=== PATIENT | female | born 1995 | race Caucasian/White ===

== ENCOUNTER 2018-02-15 01:28 | Observation (INO) | payer OTHER, SELFPAY ==
[2018-02-15 01:59] LABS: Absolute Lymphocytes (CBC) 2.1 K/uL (0.7-4.9); Absolute Monocytes 0.8 K/uL (0.1-1.3); Absolute Neutrophil 5.1 K/uL (1.8-8.0); Basophils % 0.6 % (0-1.3); Eosinophils % 1.5 % (0-4.4); Hematocrit 38.8 % (36.0-45.0); MCV 88.6 fL (80-100); MPV 7.3 fL (7.6-11.3); Monocytes % 9.6 % (3.3-12.3); RBC Red Blood Cell Count 4.38 M/uL (3.86-4.86)
[2018-02-15] MEDS ORDERED: NA CHLORIDE 0.9% 1,000 ML ONE (02:08)
[2018-02-15] MEDS ORDERED: KETOROLAC 30 MG/ML INJ ONE (02:08)
[2018-02-15 02:20] LABS: ALT/SGPT 28 U/L (12-78); AST/SGOT 19 U/L (15-37); Albumin 3.8 g/dL (3.4-5.0); Alkaline Phosphatase 78 U/L (45-117); BUN Blood Urea Nitrogen 8 mg/dL (7-18); Bicarbonate 22 mmol/L (21-32); Bilirubin Direct < 0.1 mg/dL (0-0.2); Bilirubin Total 0.2 mg/dL (0.2-1.0); Glucose Level 99 mg/dL (74-106); Lipase 107 U/L (73-393); Protein, Total 7.5 g/dL (6.4-8.2); Sodium Level 140 mmol/L (136-145)
[2018-02-15 02:29] LABS: Urine Bacteria <20 /HPF (<20); Urine Culture Reflex Order NOT NEEDED; Urine Mucus HEAVY /HPF (NONE SEEN); Urine RBC <5 /HPF (NONE SEEN)
[2018-02-15 02:31] LABS: Urine Blood 1+ (NEG); Urine Glucose NEGATIVE (NEG); Urine Protein NEGATIVE (NEG); Urine Specific Gravity >1.030 (1.005-1.030); Urine pH 5.5 (5.0-7.0)
--- NOTE | 2018-02-15 05:06 | ER ---
Nurse's Notes [facility] Name: Karen Freeman Age: 22 yrs Sex: Female : 1995 Arrival Date: 02/15/2018 Time: 01:28 Bed 5 Private MD: Diagnosis: Hemoperitoneum;Other ovarian cysts-right ovarian cystic lesion Presentation: 02/15 01:37 Presenting complaint: Patient states: she is having abdominal pain 7/10 for approx 1 bb hour denies N/V/D, states pain is constant with intermittent sharper pains and she is feeling a lot of pressure when she tries to urinate. Transition of care: patient was not received from another setting of care. Onset of symptoms was February 15, 2018. Risk Assessment: Do you want to hurt yourself or someone else? Patient reports no desire to harm self or others. Initial Sepsis Screen: Does the patient meet any 2 criteria? No. Patient's initial sepsis screen is negative. Does the patient have a suspected source of infection? No. Patient's initial sepsis screen is negative. Care prior to arrival: None. 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 - Social history:: Smoking status: Patient/guardian denies using tobacco, Patient uses alcohol, occasionally. Patient/guardian denies using street drugs. - Ebola Screening: : No symptoms or risks identified at this time. Screenin:41 Abuse screen: Denies threats or abuse. Denies injuries from another. Nutritional bp screening: No deficits noted. Tuberculosis screening: No symptoms or risk factors identified. Fall Risk None identified. Assessment: 01:40 General: Appears in no apparent distress. uncomfortable, Behavior is cooperative, bp appropriate for age, anxious. Pain: Complains of pain in pelvis Pain currently is 7 out of 10 on a pain scale. Neuro: Level of Consciousness is awake, alert, obeys commands, Oriented to person, place, time, situation, Appropriate for age. Cardiovascular: No deficits noted. Respiratory: Airway is patent Respiratory effort is even, unlabored, Respiratory pattern is regular, symmetrical. GI: Bowel sounds present X 4 quads. Abd is soft X 4 quads Patient currently denies diarrhea, nausea, vomiting. : Reports urgency. EENT: No deficits noted. Derm: No deficits noted. Musculoskeletal: Circulation, motion, and sensation intact. Range of motion: intact in all extremities. 03:00 Reassessment: Patient appears in no apparent distress at this time. No changes from ak1 previously documented assessment. Patient states feeling better. 05:15 Reassessment: Patient appears in no apparent distress at this time. No changes from ak1 previously documented assessment. Patient states feeling better. Patient states symptoms have improved. pt informed of admission status and pain reduced with medication. . Vital Signs: 01:39 BP 121 / 71; Pulse 104; Resp 16 S; Temp 98.1(O); Pulse Ox 98% on R/A; Weight 83.91 kg bb (R); Height 5 ft. 9 in. (175.26 cm) (R); Pain 7/10; 04:32 BP 104 / 62; Pulse 78; Resp 16; Pulse Ox 98% on R/A; Pain 0/10; ak1 06:05 BP 108 / 63; Pulse 71; Resp 16; Temp 98.2; Pulse Ox 98% on R/A; ak1 01:39 Body Mass Index 27.32 (83.91 kg, 175.26 cm) bb ED Course: 01:28 Patient arrived in ED. ds1 01:38 Triage completed. bb 01:39 Arm band placed on Patient placed in an exam room, on a stretcher, on pulse oximetry. bb 01:40 Inserted saline lock: 20 gauge in right forearm, using aseptic technique. Blood bp collected. 01:41 Patient has correct armband on for positive identification. Bed in low position. Call bp light in reach. Side rails up X2. 01:44 Michael Deras NP is PHCP. pm1 01:44 Alex Tierney MD is Attending Physician. pm1 01:47 Reg Guardado, TEDDY is Primary Nurse. bp 02:57 CT Abd/Pelvis - W/Contrast: IV contrast only In Process Unspecified. EDMS 03:17 CT completed. Patient tolerated procedure well. Patient moved to CT via stretcher. Patient moved back from [place]. 05:04 Janeth Yoo MD is Hospitalizing Provider. pm1 05:19 No provider procedures requiring assistance completed. Patient admitted, IV remains in ak1 place. Administered Medications: 02:04 Drug: NS 0.9% 1000 ml Route: IV; Rate: 1000 ml; Site: right forearm; ak1 05:05 Follow up: IV Status: Completed infusion ak1 02:05 Drug: TORadol 30 mg Route: IVP; Site: right forearm; ak1 05:04 Follow up: Response: No adverse reaction ak1 05:18 Drug: morphine 4 mg Route: IVP; Site: right forearm; ak1 05:18 Follow up: Response: No adverse reaction ak1 Outcome: 05:05 Decision to Hospitalize by Provider. pm1 05:20 Condition: stable ak1 05:20 Instructed on the need for admit. 06:08 Admitted to L \T\ D, accompanied by tech, via wheelchair, room 279, with chart, Report bb called to Anibal ESPINAL 06:21 Patient left the ED. ak1 Signatures: Dispatcher [employer] Teja Conway Vashti Costa ds1 Angie Silveira RN RN bb Rosetta Peck RN RN ak1 Michael Deras, MOBILE APPLICATION ENGINEER MOBILE APPLICATION ENGINEER pm1 Reg Guardado, RN RN bp
--- NOTE | 2018-02-15 05:06 | EDPHYS ---
Physician Documentation [facility] Name: Karen Freeman Age: 22 yrs Sex: Female : 1995 Arrival Date: 02/15/2018 Time: 01:28 Bed 5 Private MD: ED Physician Alex Tierney HPI: 02/15 02:00 This 22 yrs old Female presents to ER via Ambulatory with complaints of pm1 Pelvic Pain, Abdominal Pain. 02:00 The patient presents with abdominal pain in the lower abdomen. Onset: The pm1 symptoms/episode began/occurred 1 hour(s) ago. The symptoms do not radiate. Associated signs and symptoms: Pertinent positives: Pressure with urination, Pertinent negatives: nausea, vomiting, and diarrhea, fever, vaginal discharge. The symptoms are described as sharp. Modifying factors: The symptoms are alleviated by nothing, the symptoms are aggravated by movement. Severity of pain: in the emergency department the pain is actually worse. The patient has experienced a previous episode, many years ago, and the symptoms today are exactly the same, ruptured ovarian cyst. The patient has not recently seen a physician. 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 - Social history:: Smoking status: Patient/guardian denies using tobacco, Patient uses alcohol, occasionally. Patient/guardian denies using street drugs. - Ebola Screening: : No symptoms or risks identified at this time. ROS: 02:00 Constitutional: Negative for fever, chills, and weight loss, Eyes: Negative for injury, pm1 pain, redness, and discharge, ENT: Negative for injury, pain, and discharge, Neck: Negative for injury, pain, and swelling, Cardiovascular: Negative for chest pain, palpitations, and edema, Respiratory: Negative for shortness of breath, cough, wheezing, and pleuritic chest pain. 02:00 Back: Negative for injury and pain, : Negative for injury, bleeding, discharge, and swelling, MS/Extremity: Negative for injury and deformity, Skin: Negative for injury, rash, and discoloration. 02:00 Neuro: Negative for headache, weakness, numbness, tingling, and seizure. 02:00 Abdomen/GI: Positive for abdominal pain, of the right lower quadrant and left lower quadrant, Negative for nausea, vomiting, and diarrhea. Exam: 02:00 Constitutional: This is a well developed, well nourished patient who is awake, alert, pm1 and in no acute distress. Head/Face: Normocephalic, atraumatic. Neck: Trachea midline, no thyromegaly or masses palpated, and no cervical lymphadenopathy. Supple, full range of motion without nuchal rigidity, or vertebral point tenderness. No Meningismus. Chest/axilla: Normal chest wall appearance and motion. Nontender with no deformity. No lesions are appreciated. Cardiovascular: Regular rate and rhythm with a normal S1 and S2. No gallops, murmurs, or rubs. Normal PMI, no JVD. No pulse deficits. Respiratory: Lungs have equal breath sounds bilaterally, clear to auscultation and percussion. No rales, rhonchi or wheezes noted. No increased work of breathing, no retractions or nasal flaring. 02:00 Back: No spinal tenderness. No costovertebral tenderness. Full range of motion. Skin: Warm, dry with normal turgor. Normal color with no rashes, no lesions, and no evidence of cellulitis. MS/ Extremity: Pulses equal, no cyanosis. Neurovascular intact. Full, normal range of motion. 02:00 Abdomen/GI: Inspection: abdomen appears normal, Bowel sounds: normal, Palpation: soft, mild abdominal tenderness, in the right lower quadrant and left lower quadrant, mass, is not appreciated, rebound tenderness, is not appreciated. 02:00 Neuro: Orientation: is normal, Motor: moves all fours. Vital Signs: 01:39 BP 121 / 71; Pulse 104; Resp 16 S; Temp 98.1(O); Pulse Ox 98% on R/A; Weight 83.91 kg bb (R); Height 5 ft. 9 in. (175.26 cm) (R); Pain 7/10; 04:32 BP 104 / 62; Pulse 78; Resp 16; Pulse Ox 98% on R/A; Pain 0/10; ak1 06:05 BP 108 / 63; Pulse 71; Resp 16; Temp 98.2; Pulse Ox 98% on R/A; ak1 01:39 Body Mass Index 27.32 (83.91 kg, 175.26 cm) bb MDM: 01:44 Patient medically screened. pm1 03:13 Data reviewed: vital signs. Data interpreted: Pulse oximetry: on room air is 98 %. pm1 Interpretation: normal. 04:37 Physician consultation: Serafin Dela Cruz was contacted at 04:38, regarding CT result, pm1 Hemoperitoneum from possible ruptured ovarian cyst. Recommends gynecology consult and ultrasound. Patient with similar appearance CT in 2013. 05:03 Physician consultation: Janeth Yoo MD was contacted at 05:03, regarding admission, pm1 consult, patient's condition, and will see patient. 02/15 01:39 Order name: Basic Metabolic Panel; Complete Time: 02:23 bp 02/15 01:39 Order name: CBC with Diff; Complete Time: 02:23 bp 02/15 01:39 Order name: Creatinine for Radiology; Complete Time: 02:23 bp 02/15 01:39 Order name: Hepatic Function; Complete Time: 02:23 bp 02/15 01:39 Order name: Lipase; Complete Time: 02:23 bp 02/15 01:39 Order name: Urine Microscopic Only; Complete Time: 03:09 bp 02/15 01:39 Order name: IV Saline Lock; Complete Time: 01:40 bp 02/15 01:39 Order name: Labs collected and sent; Complete Time: 01:40 bp 02/15 01:59 Order name: CT Abd/Pelvis - W/Contrast: IV contrast only pm1 02/15 02:02 Order name: Urine Dipstick--Ancillary (enter results); Complete Time: 03:09 mw2 02/15 02:02 Order name: Urine --Ancillary (enter results); Complete Time: 03:09 mw2 02/15 01:39 Order name: Urine Dipstick-Ancillary (obtain specimen); Complete Time: 02:05 bp 02/15 01:39 Order name: Urine Test (obtain specimen); Complete Time: 02:05 bp Administered Medications: 02:04 Drug: NS 0.9% 1000 ml Route: IV; Rate: 1000 ml; Site: right forearm; ak1 05:05 Follow up: IV Status: Completed infusion ak1 02:05 Drug: TORadol 30 mg Route: IVP; Site: right forearm; ak1 05:04 Follow up: Response: No adverse reaction ak1 05:18 Drug: morphine 4 mg Route: IVP; Site: right forearm; ak1 05:18 Follow up: Response: No adverse reaction ak1 Disposition: 06:37 Co-signature as Attending Physician, Alex Tierney MD I agree with the assessment and kip plan of care. Disposition: 02/15/18 05:05 Hospitalization ordered by Janeth Yoo for Observation. Preliminary diagnosis are Hemoperitoneum, Other ovarian cysts - right ovarian cystic lesion. - [facility] - Status is Observation. ak1 - Condition is Stable. - Problem is new. - Symptoms have improved. UTI on Admission? No Signatures: Dispatcher [employer] EDMS Lisa Flores RN Alex Alvarado MD MD cha Ballard, Brenda RN RN bb Rosetta Peck RN RN ak1 Michael Deras, AIRCRAFT SYSTEMS TECHNICIAN AIRCRAFT SYSTEMS TECHNICIAN pm1 Reg Guardado RN RN bp Corrections: (The following items were deleted from the chart) 05:07 04:37 Physician consultation: Radiologist KAREY was contacted at 04:38, regarding CT pm1 result, Hemoperitoneum from possible ruptured ovarian cyst. Recommends gynecology consult and ultrasound. Patient with similar appearance CT in 2013, pm1 05:23 05:05 Hospitalization Ordered by Janeth Yoo MD for Observation. Preliminary diagnosis mw is Hemoperitoneum; Other ovarian cysts - right ovarian cystic lesion. Bed requested for [facility]. Status is Observation. Condition is Stable. Problem is new. Symptoms have improved. UTI on Admission? No. pm1 06:21 05:23 02/15/2018 05:05 Hospitalization Ordered by Janeth Yoo MD for Observation. ak1 Preliminary diagnosis is Hemoperitoneum; Other ovarian cysts - right ovarian cystic lesion. Bed requested for [facility]. Status is Observation. Condition is Stable. Problem is new. Symptoms have improved. UTI on Admission? No. mw
[2018-02-15] MEDS ORDERED: MORPHINE 4 MG/ML SYR ONE (05:17)
[2018-02-15 06:34] VITALS: O2SAT 98
[2018-02-15] MEDS ORDERED: ONDANSETRON 4 MG/2 ML VIAL IV PRN (06:36)
[2018-02-15] MEDS ORDERED: NA CHLORIDE 0.9% 1,000 ML IV SCH (06:36)
[2018-02-15] MEDS ORDERED: MORPHINE 4 MG/ML SYR IV PRN (06:36)
--- NOTE | 2018-02-15 07:14 | RAD REPORT ---
EXAM DESCRIPTION: CT - Abdomen Pelvis W Contrast - 02/15/2018 6:42 am CLINICAL HISTORY: Abdominal pain A preliminary report was provided at the time of the study and reviewed prior to final report. COMPARISON: CT July 2012 TECHNIQUE: Biphasic, helical CT imaging of the abdomen and pelvis was performed following 100 ml non -ionic IV contrast. Oral contrast was given. All CT scans are performed using dose optimization technique as appropriate and may include automated exposure control or mA/KV adjustment according to patient size. FINDINGS: No suspicious findings in the lung bases. The liver, spleen, and pancreas show no suspicious findings. Gallbladder and biliary tree are also wi thout suspicious finding. Symmetric renal function is seen with no hydronephrosis or suspicious renal mass. Pyelonephritis is n ot suspected. Partially filled urinary bladder shows no gross abnormality. Uterus is mildly prominent in size and probably a bicornuate configuration. Detail is somewhat limite d on this examination. Primary uterine process is not suspected. Primary left ovarian process also no t suspected. In the lateral and posterior right adnexa there is a 4 centimeter heterogeneous structur e likely a hemorrhagic ovarian cyst. Fluid and hemorrhagic material is present in the cul-de-sac and extending into the right adnexa. Ruptured right ovarian cyst with hemoperitoneum is the most likely e tiology. No fallopian tube dilatation. Bowel loops are not dilated. Appendix is not well defined. Appendicitis is not is suspected process. No free air or pneumatosis. No hernia, mass or bulky lymphadenopathy. No adrenal abnormality. No suspicious bony findings. IMPRESSION: Approximately 4 centimeter heterogeneous right adnexal mass. There is blood and fluid in the cul-de-sac and right adnexa. Ruptured hemorrhagic right ovarian cyst with mild to moderate hemoperitoneum is the most likely etiol ogy. No other abnormality seen to explain intraperitoneal blood.
[2018-02-15] MEDS: ACETAMINOPHEN 500 MG TAB PO PRN ×2 (07:15→13:20)
[2018-02-15 11:04] VITALS: BMI 27.3
--- NOTE | 2018-02-15 15:44 | RAD REPORT ---
EXAM DESCRIPTION: US - Pelvis Complete - 02/15/2018 2:47 pm CLINICAL HISTORY: Hemoperitoneum, right ovarian or adnexal mass, abnormal CT study Preliminary findings provided at the time of the study. Due to a hospital wide technical malfunction all overnight and morning imaging reports delayed. COMPARISON: CT study February 15 TECHNIQUE: Transabdominal pelvic sonography was performed. FINDINGS: Uterus is 8.9 x 4.3 x 6.5 cm. Bicornuate configuration is identifiable. Endometrial tissue is homogeneous at 10-12 mm thickness. No discrete endometrial mass or polyp. No myometrial mass. Right ovary is 4.4 x 3.8 x 3.4 cm. Left ovary is 3.6 x 2.2 x 2.1 cm. Partially filled urinary bladder shows no suspicious finding. No dominant solid or cystic left ovarian or left adnexal finding. Right ovary contains a 2.6 centimet er anechoic cyst. Margins of the right ovary are not well defined. There is heterogeneous tissue in t he right adnexa. This is believed to be hemorrhagic material corresponding to the CT finding. There i s additional free fluid in the cul-de-sac and right adnexa. Hemorrhagic cyst was suspected based on t he CT study. A specific correlate is not seen on this examination. IMPRESSION: Fluid and hemorrhagic material in the cul-de-sac and adnexa matching the CT finding. The right ovary contains a 2.6 centimeter anechoic cyst. Ruptured or hemorrhagic ovarian cyst is the favored etiology for the hemorrhage. A specific collapsed or hemorrhagic cyst is not identified. Bicornuate uterus with no endometrial or myometrial focal abnormality.
[2018-02-15 17:27] LABS: Absolute Lymphocytes (CBC) 2.3 K/uL (0.7-4.9); Absolute Monocytes 0.8 K/uL (0.1-1.3); Absolute Neutrophil 4.9 K/uL (1.8-8.0); Basophils % 0.4 % (0-1.3); Eosinophils % 1.3 % (0-4.4); Hematocrit 34.6 % (36.0-45.0); Lymphocytes % 27.7 % (15.3-44.8); MCH 30.6 pg (27.0-35.0); MPV 7.5 fL (7.6-11.3); Monocytes % 9.9 % (3.3-12.3); RBC Red Blood Cell Count 3.85 M/uL (3.86-4.86)
[2018-02-15 17:30] VITALS: BP 108/78; TEMP 98.5
--- NOTE | 2018-02-16 04:18 | HP ---
Date of Admission: 02/15/2018 History Of Present Illness: Karen is a 22-year-old, 3, para 2012, LMP 01/23/2018, who presented to the Emergency Department in the middle of the night for acute abdominal pain. The patient began having the pain around midnight last night. Pain was 8/10, sharp, and located in the lower abdomen. The patient was seen by the ER physician. Evaluations were performed, and test was done which was negative. The patient states that she previously had the same pain when she was about 12 years old and was told that she has a cyst on her ovary. The patient follows up with an CHIEF SECURITY AND SAFETY OFFICER in [place] who prescribed her control pills to help decrease her risk of ovarian cyst. The patient has not been taking these medications even though she has 3 packs at home. The patient is not currently using anything for contraception. The patient denies any irregular vaginal bleeding. She denies any other issues. No nausea or vomiting. No diarrhea. No fever. No vaginal discharge. Pain is sharp and located in the pelvic area, does not radiate to her back, but also was present in the abdomen. Past Medical History: Significant for asthma and bicornuate uterus. Past Surgical History: Significant for 2 sections. Allergies: SHE HAS NO KNOWN DRUG ALLERGIES. Social History: She denies tobacco, alcohol, or drug use. Family History: Noncontributory. Review of Systems: Constitutional: No fever, chills, or weight loss. Neurologic: No headaches, weakness, numbness, or tingling. Abdomen: As per HPI. ONCOLOGY NURSE NAVIGATOR: No discharge. No irregular bleeding. History of 2 prior pregnancies, delivered by and 1 miscarriage. Physical Examination: Vital Signs: Blood pressure 128/66, pulse is 68, respirations 16, temperature 98.2. Pain score at this time is a 4/10. General: On evaluation, the patient is resting in bed. Head and Neck: Normocephalic, atraumatic. Neck is supple. Trachea midline. Heart: Regular rate and rhythm. Respiratory: Symmetric, nonlabored breathing. Extremities: Bilateral lower extremities, no clubbing, cyanosis, or edema. Back: No tenderness. Abdomen: Soft, tenderness to palpation. No rigidity. Bowel sounds present in all 4 quadrants. Vaginal : Normal external female genitalia. Vagina is pink and moist. No discharge noted. Cervix nontender. Uterus tender to palpation and mobility. She had a CT scan performed which indicates a 4 cm heterogeneous cyst on the right ovary with blood likely ruptured hemorrhagic cyst. Uterus is bicornuate. No masses noted. Left ovary appears normal. Fluid is present in the cul-de- sac. Laboratory Data: Blood count: Hemoglobin/hematocrit 13.5 and 38.8. Assessment And Plan: Karen is a 22-year-old, _3_, para ___2011_, LMP , who presents with a ruptured hemorrhagic cyst. Plan is to keep the patient for observation. Transvaginal ultrasound has been ordered. Repeat CBC has been ordered to assess for anemia from the ruptured cyst. If stable, we will advance the patient's diet. Continue pain management. JH Voice ID: [id number] MTDD
--- NOTE | 2018-02-17 06:50 | DS ---
Date of Discharge: 02/15/2018 Hospital Course: Karen is a 22-year-old, 3, para 2-0-1-2, who was admitted to the hospital f or observation due to a ruptured hemorrhagic cyst. Patient was kept for observation and was treated conservatively. Her pain has improved and her hematocrit has been stable. She is tolerating a regul ar diet, ambulating without difficulty. Physical Examination: Vital Signs: Blood pressure of 108/78, pulse of 67, respirations 18, temperature 98.5. Pain scale, she is at 2/10. Laboratory Data: Hematocrit is 34.6. Assessment And Plan: Patient was treated with pain management and observation and is doing much bett er. She states she will follow up with her CLIENT DEVELOPMENT DIRECTOR and will take her contraceptive pills to help decr ease the likelihood of this happening again. JH Voice ID: [id number] Report ID: [id number]
== END 2018-02-15 17:15 | disposition home or self-care (01) ==
LOC: ER 01:28 → ERHOLD 05:08 → 2ND-WC 06:13
PROVIDERS: ADMIT Student in an Organized Health Care Education/Training Program; ATTEND Student in an Organized Health Care Education/Training Program
DX: N83.201 Unspecified ovarian cyst, right side (principal); J45.909 Unspecified asthma, uncomplicated; Q51.3 Bicornate uterus
CPT/HCPCS: 36415; 74177; 76856; 80048; 80076; 81003; 81015; 81025; 83690; 85025; 96361; 96374; 96375; 99285; G0378; J2405; J7030; Q9967

== ENCOUNTER 2020-01-12 06:51 | Emergency (ER) | payer OTHER ==
--- OUTSIDE RECORDS SUMMARY | 2020-01-12 06:52 | XMS REPORT | Continuity of Care Document ---
:1995 Author Organization [facility] t Address [address] [place] [address] Care Team Providers Name Role Phone Doctor Unassigned, Name Attending Clinician Unavailable Vick KEENE, Urban Attending Clinician Problems This patient has no known problems. Allergies, Adverse Reactions, Alerts This patient has no known allergies or adverse reactions. Medications This patient has no known medications. Procedures This patient has no known procedures. Encounters Start End Encounter Admission Attending Care Care Encounter Source Date/Time Date/Time Type Type Clinicians Facility Department ID 2020-01-02 2020-01-02 Orders Doctor WEIR [id number] 00:00:00 00:00:00 Only Unassigned, MAK [id number] [place] [id number] 2020-01-01 2020-01-01 Telephone Kasey Hickman [id number] 00:00:00 00:00:00 [place] [id number] [place] [id number] [facility] [id number] [address] 2019-12-26 2019-12-26 Orders Doctor WEIR [id number] 00:00:00 00:00:00 Only Unassigned, MAK [id number] [place] [facility] [id number] Results This patient has no known results.
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
--- OUTSIDE RECORDS SUMMARY | 2020-01-12 06:53 | XMS REPORT | Summary of Care ---
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 0 Active (DHA ORAL) albuterol 90 Inhale 2 Puffs 8.5 g 1 08/14/2019 A ctive mcg/actuation every 6 (six) hours inhalerIndications: as needed for High-risk Wheezing, Shortness in first trimester of Breath, Bronchospasm or Chest tightness. documented as of this encounter (statuses as of 10/16/2019) Active Problems Problem Noted Date Obesity (BMI 30-39.9) 10/12/2019 High-risk in first trimester 09/11/2019 Vaginal discharge 09/11/2019 History of depression 09/11/2019 Mild intermittent asthma without complication 09/11/19 20 Previous section 06/15/2017 Bicornuate uterus 12/21/2016 Hepatitis B carrier 12/21/2016 Estimated Date of Delivery Comments Yes 04/06/2020 Based on last menstr ual period of 07/01/2019 documented as of this encounter (statuses as of 10/16/2019) Resolved Problems Problem Noted Date Resolved Date [...] as of this encounter (statuses as of 10/16/2019) Immunizations Name Administration Dates Next Due Influenza Virus Vaccine Quad .5 mL IM 6+ MO 06/13/2019 Influenza Virus Vaccine Quad IM 3+ YRS 02/16/2017 0 02/16/2018 Tdap 04/11/2017 documented as of this encounter Social [...] been in contact with No / Unsure 10/16/2019 8:08 AM CDT someone who was confirmed or suspected to have Coronavirus / COVID-19? documented as of this encounter Last Filed Vital Signs Not on filedocumented in this encounter Plan of Treatment Date Type Specialty Care Team Description 11/12/2019 Routine Obstetrics & Hickman, Kasey Duggan MD Visit Gynecology [address] [place] [address] [facility] [address] [phone] 07/29/2020 Office Visit Obstetrics & Hickman, Gavin Mathis Gynecology [address] [place] [address] [address]. [address] [place], [place] [address] [phone] Health Maintenance Due Date Last Done Comments PNEUMOCOCCAL 0-64 YEARS COMBINED SERIES (1 2000 of 1 - PPSV23) HPV VACCINES (1 - Female 2-dose series) 2005 PAP SMEAR 06/13/2022 06/13/2019, 12/21/2016 DTaP,Tdap,and Td Vaccines (2 - Td) 04/11/2027 04/11/2017 INFLUENZA VACCINE Completed 06/13/2019, 02/16/2017 documented as of this encounter Results Not on filedocumented in this encounter Visit Diagnoses Diagnosis High-risk in first trimester 14 weeks gestation of state, incidental documented in this encounter Insurance Payer Benefit Plan / Subscriber ID Effective Phone Address [facility] xxxxxxxxx 2018-Yahaira [address] Medic aid HEALTH CHOICE - HEALTH CHOICE nt [id number] 1 MANAGED MEDICAID [place], [place] MEDICAID [phone] documented as of this encounter
--- OUTSIDE RECORDS SUMMARY | 2020-01-12 06:53 | XMS REPORT | Summary of Care ---
:1994 Author Organization [facility] - Health Address [address] [place] [address] Care Team Providers Name Role Phone Leola Hernandez Primary Care Provider Encounter Details Date Type Department Care Team Description 11/12/2019 Orders Only [facility] Doctor Unassigned, No [address] [facility] [place] [address] [address] [place] [address] Allergies No Known Allergiesdocumented as of this encounter (statuses as of 11/12/2019) Medications Medication Sig Dispensed Refills Start Date End Date Status docosahexanoic acid Take by mouth. 0 Active (DHA ORAL) albuterol 90 Inhale 2 Puffs 8.5 g 1 08/14/2019 A ctive mcg/actuation every 6 (six) hours inhalerIndications: as needed for High-risk Wheezing, Shortness in first trimester of Breath, Bronchospasm or Chest tightness. documented as of this encounter (statuses as of 11/12/2019) Active Problems Problem Noted Date Obesity (BMI 30-39.9) 10/12/2019 High-risk in first trimester 09/11/2019 Vaginal discharge 09/11/2019 History of depression 09/11/2019 Mild intermittent asthma without complication 09/11/19 20 Previous section 06/15/2017 Bicornuate uterus 12/21/2016 Hepatitis B carrier 12/21/2016 Estimated Date of Delivery Comments Yes 04/06/2020 Based on last menstr ual period of 07/01/2019 documented as of this encounter (statuses as of 11/12/2019) Resolved Problems Problem Noted Date Resolved Date [...] as of this encounter (statuses as of 11/12/2019) Immunizations Name Administration Dates Next Due Influenza [...] been in contact with No / Unsure 11/12/2019 10:31 AM CDT someone who was confirmed or suspected to have Coronavirus / COVID-19? 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 [address] [place], [place] [address] [phone] Health Maintenance Due Date Last Done Comments PNEUMOCOCCAL 0-64 YEARS COMBINED SERIES (1 2000 of 1 - PPSV23) HPV VACCINES (1 - Female 2-dose series) 2005 Depression Screening 2006 PAP SMEAR 06/13/2022 06/13/2019, 12/21/2016 DTaP,Tdap,and Td Vaccines (2 - Td) 04/11/2027 04/11/2017 INFLUENZA VACCINE Completed 06/13/2019, 02/16/2017 documented as of this encounter Procedures Procedure Name Priority Date/Time Associated Diagnosis Comme nts ASSIGNMENT OF BENEFITS Routine 11/12/2019 11:48 AM CDT documented in this encounter Results Not on filedocumented in this encounter Insurance Payer Benefit Plan / Subscriber ID Effective Phone Address [facility] xxxxxxxxx 2018-Yahaira [address] Medic aid HEALTH CHOICE - HEALTH CHOICE nt [id number] 1 MANAGED MEDICAID [place], [place] MEDICAID [phone] documented as of this encounter
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
--- OUTSIDE RECORDS SUMMARY | 2020-01-12 06:53 | XMS REPORT | Summary of Care ---
:1994 Author Organization [facility] - Health Address [address] [place] [address] Care Team Providers Name Role Phone Leola Hernandez Primary Care Provider Encounter Details Date Type Department Care Team Description 10/17/2019 Orders Only [facility] Doctor Unassigned, No [address] [facility] [place] [address] [address] [place] [address] Allergies No Known Allergiesdocumented as of this encounter (statuses as of 11/19/2019) Medications Medication Sig Dispensed Refills Start Date End Date Status docosahexanoic acid Take by mouth. 0 Active (DHA ORAL) albuterol 90 Inhale 2 Puffs 8.5 g 1 08/14/2019 A ctive mcg/actuation every 6 (six) hours inhalerIndications: as needed for High-risk Wheezing, Shortness in first trimester of Breath, Bronchospasm or Chest tightness. documented as of this encounter (statuses as of 11/19/2019) Active Problems Problem Noted Date Obesity (BMI 30-39.9) 10/12/2019 High-risk in second trimester 09/11/2019 Vaginal discharge 09/11/2019 History of depression 09/11/2019 Mild intermittent asthma without complication 09/11/19 20 Previous section 06/15/2017 Bicornuate uterus 12/21/2016 Hepatitis B carrier 12/21/2016 Estimated Date of Delivery Comments Yes 04/06/2020 Based on last menstr ual period of 07/01/2019 documented as of this encounter (statuses as of 11/19/2019) Resolved Problems Problem Noted Date Resolved Date [...] as of this encounter (statuses as of 11/19/2019) Immunizations Name Administration Dates Next Due Influenza [...] Date Type Specialty Care Team Description 11/21/2019 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 [phone] Health Maintenance Due Date Last Done Comments PNEUMOCOCCAL 0-64 YEARS COMBINED SERIES (1 2000 of 1 - PPSV23) HPV VACCINES (1 - Female 2-dose series) 2005 Depression Screening 2006 PAP SMEAR 06/13/2022 06/13/2019, 12/21/2016 DTaP,Tdap,and Td Vaccines (2 - Td) 04/11/2027 04/11/2017 INFLUENZA VACCINE Completed 06/13/2019, 02/16/2017 documented as of this encounter Procedures Procedure Name Priority Date/Time Associated Diagnosis Comme nts REFERRAL- Routine 10/17/2019 12:01 AM CDT REQUEST/RESPONSE documented in this encounter Results Not on filedocumented in this encounter Insurance Payer Benefit Plan / Subscriber ID Effective Phone Address T [facility] xxxxxxxxx 2018-Yahaira [address] Medic aid HEALTH CHOICE - HEALTH CHOICE nt [id number] 1 MANAGED MEDICAID [place], [place] [phone] documented as of this encounter
--- OUTSIDE RECORDS SUMMARY | 2020-01-12 06:54 | XMS REPORT | Summary of Care ---
:1995 Author Organization [facility] - Health Address [address] [place] [address] Care Team Providers Name Role Phone Leola Hernandez Primary Care Provider Encounter Details Date Type Department Care Team Description 12/26/2019 Orders Only [facility] Doctor Unassigned, No 301 [facility] [place] [address] [address] [place] [address] Allergies No Known Allergiesdocumented as of this encounter (statuses as of 01/08/2020) Medications Medication Sig Dispensed Refills Start Date End Date Status docosahexanoic acid Take by mouth. 0 Active (DHA ORAL) albuterol 90 Inhale 2 Puffs 8.5 g 1 08/14/2019 A ctive mcg/actuation every 6 (six) hours inhalerIndications: as needed for High-risk Wheezing, Shortness in first trimester of Breath, Bronchospasm or Chest tightness. documented as of this encounter (statuses as of 01/08/2020) Active Problems Problem Noted Date Excessive weight gain during , antepartum Obesity (BMI 30-39.9) 10/12/2019 High-risk in second trimester 09/11/2019 Vaginal discharge 09/11/2019 History of depression 09/11/2019 Mild intermittent asthma without complication 09/11/19 20 Previous section 06/15/2017 Bicornuate uterus 12/21/2016 Hepatitis B carrier 12/21/2016 Estimated Date of Delivery Comments Yes 04/06/2020 Based on last menstr ual period of 07/01/2019 documented as of this encounter (statuses as of 01/08/2020) Resolved Problems Problem Noted Date Resolved Date [...] as of this encounter (statuses as of 01/08/2020) Immunizations Name Administration Dates Next Due Influenza [...] Assigned at Date Recorded Not on file COVID-19 Exposure Response Date Recorded In the last month, have you been in contact with No / Unsure 12/26/2019 2:42 PM CDT someone who was confirmed or suspected to have Coronavirus / COVID-19? documented as of this encounter Last Filed Vital Signs Not on filedocumented in this encounter Plan of Treatment Date Type Specialty Care Team Description 01/23/2020 Routine Obstetrics & Hickman, Kasey Duggan MD Visit Gynecology [address] [place] [address] [address] [address] [phone] Health Maintenance Due Date Last Done Comments PNEUMOCOCCAL 0-64 YEARS COMBINED SERIES (1 2000 of 1 - PPSV23) HPV VACCINES (1 - 2-dose series) 2005 Depression Screening 2006 INFLUENZA VACCINE (#1) 2020 06/13/2019, 02/16/2017 PAP SMEAR 06/13/2022 06/13/2019, 12/21/2016 DTaP,Tdap,and Td Vaccines (2 - Td) 04/11/2027 04/11/2017 documented as of this encounter Procedures Procedure Name Priority Date/Time Associated Diagnosis Comme nts SCANNED LAB RESULTS Routine 12/26/2019 12:01 AM CDT documented in this encounter Results SCANNED LAB RESULTS (12/26/2019 12:01 AM CDT) Specimen Performing Organization Address City/State/Zipcode Phone Number HIM documented in this encounter Insurance Payer Benefit Plan / Subscriber ID Effective Phone Address T ype Group Dates [employer] [id number] 2018-Y[address]a [address] Medic aid HEALTH CHOICE - HE[place] nt [id number] 1 MANAGED MEDICAID [place], [place] MEDICAID [phone] documented as of this encounter
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
--- OUTSIDE RECORDS SUMMARY | 2020-01-12 06:54 | XMS REPORT | Summary of Care ---
:1995 Author Organization [facility] Address [address] [place] [address] Care Team Providers Name Role Phone Leola Hernandez Primary Care Provider Reason for Visit Reason Comments ROUTINE VISIT VAGINAL ODOR Vaginal Discharge Encounter Details Date Type Department Care Team Description 12/26/2019 Routine [facility] Women's Kasey Hickman am, MD High-risk in second trimester (Primary Dx); Visit Healthcare- [address] [place] [address] Vaginal di schaazeem; [place] Hepatitis B carrier; [address] [place] [address] [address]; [address], [address] [place], [place] 25 weeks gestation of pregna ncy; [place] [address] Excessive weight gain during , antepartum [id number] Allergies No Known Allergiesdocumented as of this encounter (statuses as of 12/26/2019) Medications Medication Sig Dispensed Refills Start Date End Date Status docosahexanoic acid Take by mouth. 0 Active (DHA ORAL) albuterol 90 Inhale 2 Puffs 8.5 g 1 08/14/2019 A ctive mcg/actuation every 6 (six) hours inhalerIndications: as needed for High-risk Wheezing, Shortness in first trimester of Breath, Bronchospasm or Chest tightness. documented as of this encounter (statuses as of 12/26/2019) Active Problems Problem Noted Date Excessive weight [...] as of this encounter (statuses as of 12/26/2019) Resolved Problems Problem Noted Date Resolved Date [...] as of this encounter (statuses as of 12/26/2019) Immunizations Name Administration Dates Next Due Influenza [...] Sign Reading Time Taken Comments Blood Pressure 116/68 12/26/2019 3:04 PM CDT Pulse 84 12/26/2019 3:04 PM CDT Temperature 36.7 C (98 F) 12/26/2019 3:04 PM CDT Respiratory Rate 18 12/26/2019 3:04 PM CDT Oxygen Saturation - - Inhaled Oxygen Concentration - - Weight 105.8 kg (233 lb 3.2 oz) 12/26/2019 3:04 PM CDT Height 175.3 cm (5' 9") 12/26/2019 3:04 PM CDT Body Mass Index 34.44 12/26/2019 3:04 PM CDT documented in this encounter Progress Notes Neftali Melendrez - 12/26/2019 2:45 PM CDTMDL One Swab sent am, Kasey Duggan MD - 12/26/2019 2:45 PM CDT Chief complaint: Chief Complaint Patient presents with ROUTINE VISIT VAGINAL ODOR Vaginal Discharge HPI August Albertina Freeman is a 24 year old female @ 25w3d who presents today for routine visit. Patient presents c/o vaginal odor and discharge, ongoing for 2 weeks. She notes some vaginalpruritis that has subsided. Is unsure if intercourse preceded symptoms. Patient affirms weight gain,reports that she has been exercising 4-5x weekly but notes late night eating and binge eating of junk foods sometimes. Denies contractions, vaginal bleeding, LOF, dysuria, or PIH symptoms. + active FM. Histories OB History Para Term AB Living [...] N/A 06/15/2017 Surgeon: Kasey Hickman MD; Location: [facility] Labor and Delivery OR Location [...] file Gets together: Not on file Attends temple service: Not on file Active member of [...] No domestic abuse or violence. No cats. Anabaptism: Gnosticist Social History Substance and Sexual Activity Sexual Activity Yes Partners: Male control/protection: None, Coitus interruptus, Rhythm Labs No new labs Radiology No new radiology. Allergies Karen has No Known Allergies. Medications Karen has a current medication list which includes the following prescription(s): albuterol and docosahexanoic acid. Review of Systems Constitutional: Positive for weight gain. Negative for chills, fatigue and fever. HENT: Negative for congestion, rhinorrhea and sneezing. Eyes: Negative for photophobia and visual disturbance. Respiratory: Negative for cough, chest tightness, shortness of breath and wheezing. Cardiovascular: Negative for chest pain and palpitations. Gastrointestinal: Negative for abdominal distention, abdominal pain, constipation, nausea and vomiting. Genitourinary: Positive for vaginal discharge (x2 weeks, odor, white discharge, hx aerobic vaginitis). Negative for dysuria, urgency, frequency and vaginal bleeding. Skin: Negative for rash. Neurological: Negative for syncope and headaches. Hematological: Does not bruise/bleed easily. Endocrine: Positive for weight gain. BP 116/68 (BP Location: Left arm, Patient Position: Sitting, BP CUFF SIZE: Adult Medium) | Pulse 84 | Temp 36.7 C (98 F) (Oral) | Resp 18 | Ht 5' 9" (1.753 m) | Wt 233 lb 3.2 oz (105.8 kg) | LMP 07/01/2019 | BMI 34.44 kg/m Pregravid BMI: 29.1 Physical Exam Vitals [...] time. Skin: Skin normal. No rash present. External genitalia: Hair distribution: cautioned against shaving Vagina:Vaginal discharge (minimal, white, non-odorous) found. Uterus: Uterus is enlarged (gravid). Assessment/Plan See OB Summary Return to clinic in 4 weeks. Reviewed patient instructions and provided printed copy. at 25w3d This visit did not involve counseling and coordination that comprised more than 50% of the visit time. Scribe's Attestation I, Richa Jolley am scribing for, and in the presence of, Kasey Hickman MD who performed the services described here-in. Richa Meek Vo, December 26, 2019, 2:55 PM Physician's Attestation I have seen and examined the patient and agreed with the note above Kasey Hickman MD 12/26/2019 4:23 PM documented in this encounter Plan of Treatment Date Type Specialty Care Team Description 01/23/2020 Routine Obstetrics & Kasey Hickman MD Visit Gynecology [address] [place] [address] DR. Sahu [place], [place] [address] [phone] Name Type Priority Associated Diagnoses Order S chedule Glucose 1 Hour Post LAB Routine High-risk i n Expected: 12/26/2019, Prandial second trimester Expires: 12/25/2020 25 weeks gestation of CBC with Differential LAB Routine High-risk in Expected: 12/26/2019, second trimester Expires: 12/25/2020 25 weeks gestation of Workup, Blood LAB Routine High-risk pregnanc y in Expected: 12/26/2019, Bank second trimester Expires: 12/25/2020 25 weeks gestation of HIV 1/2 AG-AB WITH REFLEX LAB Routine High-risk pregn amalia in Ordered: 12/26/2019 second trimester 25 weeks gestation of GALV ONLY - SYPHILIS LAB Routine High-risk in Expected: 12/26/2019, IGG/IGM second trimester Expires: 12/25/2020 25 weeks gestation of Health Maintenance Due Date Last Done Comments PNEUMOCOCCAL 0-64 YEARS COMBINED SERIES (1 2000 of 1 - PPSV23) HPV VACCINES (1 - Female 2-dose series) 2005 Depression Screening 2006 INFLUENZA VACCINE (#1) 2020 06/13/2019, 02/16/2017 PAP SMEAR 06/13/2022 06/13/2019, 12/21/2016 DTaP,Tdap,and Td Vaccines (2 - Td) 04/11/2027 04/11/2017 documented as of this encounter Procedures Procedure Name Priority Date/Time Associated Diagnosis Comme nts POCT URINALYSIS W/O Routine 12/26/2019 High-risk i n Results for this SPECIFIC GRAVITY second trimester procedu re are in the results section . documented in this encounter Results POCT URINALYSIS W/O SPECIFIC GRAVITY (12/26/2019) Pathologist Sig nature POCT PH U n/a 5 - 8 mg/dl POCT U LEUK EST n/a Negative - Negative POCT U NIT n/a Negative - Negative POCT U PROT neg Negative - Negative POCT U GLU neg Negative - Negative POCT U KETONE n/a Negative - Negative POCT U BLD n/a Negative - Negative Specimen Urine - URINE, CLEAN CATCH documented in this encounter Visit Diagnoses Diagnosis High-risk in second trimester - Primary Vaginal discharge Leukorrhea, not specified as infective Hepatitis B carrier Previous section Other postprocedural status 25 weeks gestation of state, incidental Excessive weight gain during , antepartum documented in this encounter Insurance Payer Benefit Plan / Subscriber ID Effective Phone Address T [facility] xxxxxxxxx 2018-[place] [address] Medic aid HEALTH CHOICE - HEALTH CHOICE nt [id number] 1 MANAGED MEDICAID [place], [place] MEDICAID [phone] documented as of this encounter
--- OUTSIDE RECORDS SUMMARY | 2020-01-12 06:54 | XMS REPORT | Summary of Care ---
:1995 Author Organization [facility] Address [address] [place] [address] Care Team Providers Name Role Phone Leola Hernandez Primary Care Provider Reason for Visit Reason Comments TEST RESULTS MDL / AEROBIC VAGINITIS Encounter Details Date Type Department Care Team Description 01/01/2020 Telephone [facility] Women's HickmanKasey MD TEST RESULTS (MDL / Healthcare- [address] AEROBIC VAGINITIS ) [address] [place] [address] DR[address] Driver, [address] [address] [phone] Allergies No Known Allergiesdocumented as of this [...] this encounter Miscellaneous Notes Telephone Encounter - Adriana Ron MA - 01/02/2020 9:48 AM CDTS/w patient regarding Aerobic vaginitis, patient verbalized understanding. Was given good hygiene instructions as well as intercourse precautions regarding anal to vaginal penetration. Patient also informed of Rx sent to pharmacy. Adriana Ron MA 01/02/2020 9:55 AM Telephone Encounter - Neftali Melendrez - 01/02/2020 [...] & Hickman, Kasey Duggan MD Visit Gynecology [address] [place] [address] DR. Sahu [place], [place] [address] [phone] Health Maintenance Due Date Last Done Comments [...] / Subscriber ID Effective Phone Address T [facility] [id number] 2018-[address] Medic aid HEALTH CHOICE - HEALTH CHOICE nt [id number] 1 MANAGED MEDICAID [place], [place] [phone] documented as of this encounter
--- OUTSIDE RECORDS SUMMARY | 2020-01-12 06:54 | XMS REPORT | Summary of Care ---
:1995 Author Organization [facility] - [facility] Address [address] [place] [address] Care Team Providers Name Role Phone Leola Hernandez Primary Care Provider Encounter Details Date Type Department Care Team Description 01/02/2020 Orders Only [facility] Doctor Unassigned, No 301 [facility] [place] [address] [address] [place] [address] Allergies No Known Allergiesdocumented as of this [...] & Hickman, Kasey Duggan MD Visit Gynecology [address] [place] [address] DR. [place] [address] [phone] Health Maintenance Due Date Last Done Comments [...] Diagnosis Comme nts SCANNED LAB RESULTS Routine 01/02/2020 12:01 AM CDT documented in this encounter Results SCANNED LAB RESULTS (01/02/2020 12:01 AM CDT) Specimen Performing Organization Address City/State/Zipcode Phone Number HIM documented in this encounter Insurance Payer Benefit Plan / Subscriber ID Effective Phone Address T [employer] [facility] [id number] 2018-Y[address]aira [address] Medic aid HEALTH CHOICE - HEALTH CHOICE nt [id number] 1 MANAGED MEDICAID [place], [place] [phone] documented as of this encounter
--- NOTE | 2020-01-12 08:38 | ER ---
Nurse's Notes [facility] Name: Karen Freeman Age: 24 yrs Sex: Female : 1995 Arrival Date: 01/12/2020 Time: 06:53 Bed 5 Private MD: Diagnosis: Acute upper respiratory infection, unspecified Presentation: 01/11 07:10 Chief complaint: Patient states: Since Tuesday, symptoms of congestion, cough, sore lp1 throat, loss of smell and taste; Denies fever or known contact with anyone COVID positive; Patient is currently 28 weeks . Coronavirus screen: Client denies travel out of the [place] in the last 14 days. congestion, cough unrelated to allergies, sore throat, loss of taste or smell, Client presents with at least one sign or symptom that may indicate coronavirus-19. Standard/surgical mask placed on the client. Ebola Screen: No symptoms or risks identified at this time. Initial Sepsis Screen: Does the patient meet any 2 criteria? No. Patient's initial sepsis screen is negative. Does the patient have a suspected source of infection? No. Patient's initial sepsis screen is negative. Risk Assessment: Do you want to hurt yourself or someone else? Patient reports no desire to harm self or others. Onset of symptoms was January 09, 2020. 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 - Social history:: Smoking status: Patient denies any tobacco usage or history of. Screenin:01 Abuse screen: Denies threats or abuse. Denies injuries from another. Nutritional hb screening: No deficits noted. Tuberculosis screening: No symptoms or risk factors identified. Fall Risk None identified. Assessment: 07:16 General: Appears in no apparent distress. Behavior is calm, cooperative. Pain: Pain hb currently is 3 out of 10 on a pain scale. Neuro: Level of Consciousness is awake, alert, obeys commands, Oriented to person, place, time, situation. Cardiovascular: Capillary refill < 3 seconds Patient's skin is warm and dry. Respiratory: Respiratory effort is even, unlabored, Respiratory pattern is regular, symmetrical. GI: No signs and/or symptoms were reported involving the gastrointestinal system. : No signs and/or symptoms were reported regarding the genitourinary system. EENT: No signs and/or symptoms were reported regarding the EENT system. Derm: Skin is pink, warm \T\ dry. Musculoskeletal: No signs and/or symptoms reported regarding the musculoskeletal system. 08:15 Reassessment: Patient appears in no apparent distress at this time. Patient and/or hb family updated on plan of care and expected duration. Pain level reassessed. Patient is alert, oriented x 3, equal unlabored respirations, skin warm/dry/pink. Vital Signs: 07:10 BP 126 / 81; Pulse 65; Resp 18; Temp 98.3(O); Pulse Ox 100% on R/A; Weight 104.33 kg lp1 (R); Height 5 ft. 9 in. (175.26 cm); 07:10 Body Mass Index 33.96 (104.33 kg, 175.26 cm) lp1 Vitals: 08:19 Heart Tones 150. sv ED Course: 06:53 Patient arrived in ED. ag3 06:55 Michael Deras NP is PHCP. pm1 07:11 Triage completed. lp1 07:11 Arm band placed on right wrist. lp1 07:20 Patient has correct armband on for positive identification. Bed in low position. Call light in reach. 07:20 No provider procedures requiring assistance completed. hb 07:20 Patient did not have IV access during this emergency room visit. hb 07:56 Laura Sorensen, TEDDY is Primary Nurse. hb 08:02 Alex Tierney MD is Attending Physician. pm1 08:27 COVID-19 Sent. hb Administered Medications: No medications were administered Outcome: 08:37 Discharge ordered by . pm1 08:53 Discharged to home ambulatory. hb 08:53 Condition: stable 08:53 Discharge instructions given to patient, Instructed on discharge instructions, follow up and referral plans. medication usage, Demonstrated understanding of instructions, follow-up care, medications. 08:53 Patient left the ED. hb Signatures: Mckenzie Encinas RN RN Fidelina James RN RN lp1 Michael Deras, KENIA EMULSIFICATION OPERATOR pm1 Laura Sorensen RN RN Leslie Doran ag3
--- NOTE | 2020-01-12 08:38 | EDPHYS ---
Physician Documentation [facility] Name: Karen Freeman Age: 24 yrs Sex: Female : 1995 Arrival Date: 01/12/2020 Time: 06:53 Bed 5 Private MD: ED Physician Alex Tierney HPI: 01/11 07:58 This 24 yrs old Female presents to ER via Ambulatory with complaints of Chest pm1 Pain, Shortness Of Breath. 07:58 The patient or guardian reports cough, with no sputum. Onset: The symptoms/episode pm1 began/occurred 3 day(s) ago. Severity of symptoms: in the emergency department the symptoms are unchanged. Modifying factors: The symptoms are alleviated by nothing, the symptoms are aggravated by nothing. Associated signs and symptoms: Pertinent positives: chest pain, with cough, sore throat, anxiety over symptoms that make her feel short of breath, Pertinent negatives: diarrhea, fever, vomiting, urinary symptoms. Patient currently 28 weeks . [employer]: 07:12 LMP 07/29/2019, Verified, EDC 05/04/2020, Gestational age from LMP: 23 weeks 6 lp1 days Historical: - Allergies: 07:12 No Known Allergies; lp1 - Home Meds: 07:12 Clindamycin Oral [Active]; lp1 - PMHx: 07:12 Asthma; bicorniate utereus; lp1 - PSHx: 07:12 ; lp1 - Immunization history:: Adult Immunizations up to date. - Social history:: Smoking status: Patient denies any tobacco usage or history of. ROS: 07:58 Constitutional: Negative for fever, chills, and weight loss, Neck: Negative for injury, pm1 pain, and swelling. 07:58 Abdomen/GI: Negative for abdominal pain, nausea, vomiting, diarrhea, and constipation, Back: Negative for injury and pain, MS/Extremity: Negative for injury and deformity, Skin: Negative for injury, rash, and discoloration, Neuro: Negative for headache, weakness, numbness, tingling, and seizure. 07:58 Cardiovascular: Positive for chest pain, with cough, Negative for palpitations. 07:58 Respiratory: Positive for cough, shortness of breath, Negative for sputum production. Exam: 07:58 Constitutional: This is a well developed, well nourished patient who is awake, alert, pm1 and in no acute distress. Head/Face: Normocephalic, atraumatic. Chest/axilla: Normal chest wall appearance and motion. Nontender with no deformity. No lesions are appreciated. 07:58 Back: No spinal tenderness. No costovertebral tenderness. Full range of motion. Skin: Warm, dry with normal turgor. Normal color with no rashes, no lesions, and no evidence of cellulitis. 07:58 MS/ Extremity: Pulses equal, no cyanosis. Neurovascular intact. Full, normal range of motion. 07:58 Cardiovascular: Exam negative for acute changes, Rate: normal, Rhythm: regular, Pulses: no pulse deficits are appreciated. 07:58 Respiratory: Exam negative for acute changes, respiratory distress, shortness of breath, the patient does not display signs of respiratory distress, Respirations: normal, Breath sounds: are clear throughout, no bronchial sounds, no decreased breath sounds, no rales, rhonchi, no wheezing. 07:58 Abdomen/GI: Inspection: gravid appearance, is noted, Palpation: abdomen is soft and non-tender, in all quadrants. 07:58 Neuro: Exam negative for acute changes, Orientation: is normal, Motor: is normal, moves all fours. Vital Signs: 07:10 BP 126 / 81; Pulse 65; Resp 18; Temp 98.3(O); Pulse Ox 100% on R/A; Weight 104.33 kg lp1 (R); Height 5 ft. 9 in. (175.26 cm); 07:10 Body Mass Index 33.96 (104.33 kg, 175.26 cm) lp1 MDM: 07:05 Patient medically screened. pm1 08:37 Data reviewed: vital signs. Data interpreted: Pulse oximetry: on room air is 100 %. pm1 Interpretation: normal. Counseling: I had a detailed discussion with the patient and/or guardian regarding: the historical points, exam findings, and any diagnostic results supporting the discharge/admit diagnosis, lab results, the need for outpatient follow up, to return to the emergency department if symptoms worsen or persist or if there are any questions or concerns that arise at home. 08:38 ED course: Patient refused albuterol in the ER. Patient was given an inhaler at the pm1 beginning of her by her OB but has not used it. She said that she would use it at home. Explained pending covid test results and that I expect the possibility it is positive due to the loss in sense of taste and smell. Regarding covid, no need for supplemental oxygenation or admission. Patient's vital signs WNL and stable therefore suspicion for PE is very low. 01/11 07:06 Order name: COVID-19 pm1 01/11 07:06 Order name: Flu; Complete Time: 08:12 pm1 01/11 07:06 Order name: Strep; Complete Time: 08:03 pm1 01/11 07:06 Order name: Droplet/Contact Precautions; Complete Time: 07:39 pm1 01/11 08:00 Order name: Throat Culture EDMS 01/11 07:06 Order name: Labs collected and sent; Complete Time: 07:39 pm1 01/11 07:06 Order name: O2 Per Protocol; Complete Time: 07:38 pm1 01/11 07:59 Order name: Heart Tones; Complete Time: 08:19 pm1 Administered Medications: No medications were administered Disposition: 01/12/20 08:37 Discharged to Home. Impression: Acute upper respiratory infection, unspecified. - Condition is Stable. - Discharge Instructions: COVID-19, Upper Respiratory Infection, Adult. - Work release form, Medication Reconciliation Form, Thank You Letter, Antibiotic Education, Prescription Opioid Use form. - Follow up: Emergency Department; When: As needed; Reason: Worsening of condition. Follow up: Private Physician; When: 2 - 3 days; Reason: Recheck today's complaints, Continuance of care, Re-evaluation by your physician. - Problem is new. - Symptoms have improved. Addendum: 01/14/2020 08:08 Co-signature as Attending Physician, Alex Tierney MD I agree with the assessment and c craig plan of care. 17:51 Addendum: Pt notified of positive COVID-19 test 01/14/20 at 1751, questions answered, r n recommended f/u with her OB doctor given 28 weeks . Doesn't feel any worse, return precautions given and understood. . Signatures: Dispatcher [employer] Alex Carbajal MD MD cha Nieto, Roman, MD MD rn Pena, Laura RN RN lp1 Michael Deras, VICE PRESIDENT SAFETY VICE PRESIDENT SAFETY pm1 Laura Sorensen RN RN hb Corrections: (The following items were deleted from the chart) 01/11 08:27 07:06 Document PUI# ordered. pm1 08: 07:06 Notify Health Dept [phone]/ ordered. pm1 08:53 08:37 01/12/2020 08:37 Discharged to Home. Impression: Acute upper respiratory hb infection, unspecified. Condition is Stable. Discharge Instructions: COVID-19. Forms are Work release form, Medication Reconciliation Form, Thank You Letter, Antibiotic Education, Prescription Opioid Use. Follow up: Emergency Department; When: As needed; Reason: Worsening of condition. Follow up: Private Physician; When: 2 - 3 days; Reason: Recheck today's complaints, Continuance of care, Re-evaluation by your physician. Problem is new. Symptoms have improved. pm1
[2020-01-12 09:02] VITALS: BP 126/81; TEMP 98.3; O2SAT 100
== END 2020-01-12 08:53 | disposition home or self-care (01) ==
LOC: ER 06:51
DX: O98.512 Other viral diseases complicating pregnancy, second trimester (principal); U07.1 COVID-19; Z3A.23 23 weeks gestation of pregnancy
CPT/HCPCS: 87070; 87081; 87804 ×2; 99283; U0002

== ENCOUNTER → 2020-02-20 | Emergency (ER) | payer OTHER ==
--- OUTSIDE RECORDS SUMMARY | 2020-02-20 08:03 | XMS REPORT | Continuity of Care Document ---
:1995 Author Organization [facility] t Address [address] [place] [address] Care Team Providers Name Role Phone Urban Hickman MD Attending Clinician Problems This patient has no known problems. Allergies, Adverse Reactions, Alerts This patient has no known allergies or adverse reactions. Medications This patient has no known medications. Procedures This patient has no known procedures. Encounters Start End Encounter Admission Attending Care Care Encounter Source Date/Time Date/Time Type Type Clinicians Facility Department ID 2020-02-19 2020-02-19 Telephone Kasey Hickman [id number] 00:00:00 00:00:00 [facility] [place] [id number] [place] [id number] Profess[facility] [phone] [address] 2020-02-19 2020-02-19 Telephone Kasey Hickman [id number] 00:00:00 00:00:00 [facility] [place] [id number] [place] [id number] Profess[facility] [phone] [address] Building 2020-02-18 2020-02-18 Telephone Kasey Hickman [id number] 00:00:00 00:00:00 [facility] [place] [id number] [place] [id number] Professio [phone] [facility] [address] [facility] Results This patient has no known results.
--- OUTSIDE RECORDS SUMMARY | 2020-02-20 08:04 | XMS REPORT | Summary of Care ---
:1995 Author Organization [facility] Address [address] [place] [address] Care Team Providers Name Role Phone Leola Hernandez Primary Care Provider Reason for Referral Other (STAT) Status Reason Specialty Diagnoses / Referred By Referred To Procedures Contact Contact New Request Diagnoses Chest pain, unspecified type COVID-19 Pneumonia due to COVID-19 virus Sarabjit Amaro Vien Cam, MD Procedures Discharge Follow-up: Specialty Provider GUERO BERRY; 1 Day F, MANAGER [facility]IRS [address] [place] [id number] Phone: Fax: Radiology Services (STAT) Status Reason Specialty Diagnoses / Referred By Referred To Procedures Contact Contact New Request Diagnostic Diagnoses Chest pain, unspecified type COVID-19 Linda Maria, Radiology Procedures XR CHEST [address] [place] [id number] Reason for Visit Reason Comments Shortness of Breath COVID Auth/Cert Status Reason Specialty Diagnoses / Referred By Referred To Procedures Contact Contact Emergency Medicine [facility] ergency Dept [address] [place] [address] Fax: Encounter Details Date Type Department Care Team Description 01/15/2020 - Emergency ADC-Emergency Linda Maria, PAC [address] [place] [address] [phone] Chest pain, unspecified type (Primary Dx ); 01/16/2020 Department Sarabjit Amaro, MANAGER EN[facility]MENT[facility] AFFAIRS [address] [place] [address] COVID-19; [address] [facility] Pneumonia due to COVID-[address] [place] [address] Allergies No Known Allergiesdocumented as of this encounter (statuses as of 01/16/2020) Medications Medication Sig Dispensed Refills Start Date [...] vaginitis vagina at bedtime for 30 days. azithromycin 250 mg Take 1 tablet by 1 Package 0 01/15/2020 Active tabletIndications: mouth daily. Take Pneumonia due to 500 mg day 1, then COVID-19 virus 250 mg days 2 to 5. documented as of this encounter (statuses as of 01/16/2020) Active Problems Problem Noted Date Excessive weight [...] as of this encounter (statuses as of 01/16/2020) Resolved Problems Problem Noted Date Resolved Date [...] as of this encounter (statuses as of 01/16/2020) Immunizations Name Administration Dates Next Due Influenza [...] Sign Reading Time Taken Comments Blood Pressure 120/72 01/15/2020 11:30 PM CDT Pulse 71 01/15/2020 11:30 PM CDT Temperature 36.7 C (98 F) 01/15/2020 8:31 PM CDT Respiratory Rate 21 01/15/2020 11:30 PM CDT Oxygen Saturation 98% 01/15/2020 11:30 PM CDT Inhaled Oxygen Concentration - - Weight 104.3 kg (230 lb) 01/15/2020 8:31 PM CDT Height 175.3 cm (5' 9") 01/15/2020 8:31 PM CDT Body Mass Index 33.97 01/15/2020 8:31 PM CDT documented in this encounter Discharge Instructions Sarabjit MoralezALLEN - 01/15/2020 You were seen today for Chief Complaint Patient presents with Shortness of Breath COVID Your ER diagnosis was ICD-10-CM ICD-9-CM 1. Chest pain, unspecified type R07.9 786.50 2. COVID-19 U07.1 J98.8 3. Pneumonia due to COVID-19 virus U07.1 J12.89 NO LIFE-THREATENING FINDINGS ON TODAY'S EXAM. YOUR PRESCRIPTIONS : Medication List START taking these medications azithromycin 250 mg tablet Commonly known as: ZITHROMAX Take 1 tablet by mouth daily. Take 500 mg day 1, then 250 mg days 2 to 5. ASK your doctor about these medications albuterol 90 mcg/actuation inhaler Commonly known as: VENTOLIN Inhale 2 Puffs every 6 (six) hours as needed for Wheezing, Shortness of Breath, Bronchospasm or Chest tightness. clindamycin 2 % cream Commonly known as: CLEOCIN Insert 1 Applicator into vagina at bedtime for 30 days. DHA ORAL Where to Get Your Medications You can get these medications from any pharmacy Bring a paper prescription for each of these medications azithromycin 250 mg tablet ER precautions and follow up : 1. Return to ER if your symptoms should worsen or fail to improve within 72 hours. 2. The care provided in the emergency room was for acute problems only. 3. You should follow up with your primary care provider within 72 hours. 4. Fill and take all your medications as prescribed. 5. Make sure you are staying adequately hydrated. Busque attencion immediatamente si usted tiene los sitomas sigue, vuelve peor o si hay sitomas nuevas o para cualquiera preoccupacion incluyendo dolor del pecho, falta aire, se siente debile, mas fievre, mas dolor, nausea, vomitando, sangrando que no es normal, confusion, baja or pierdas conciencia. FOLLOW-UP RECOMMENDATIONS: RECOMMEND FOLLOW-UP WITH A PRIMARY CARE PROVIDER OR SPECIALIST IN 2-5 DAYS, ESPECIALLY IF NO IMPROVEMENT IN SYMPTOMS. MAY FOLLOW-UP WITH A PROVIDER OF YOUR CHOICE, SUCH : 1. A PHYSICIAN OF YOUR CHOICE 2. [facility], . LOCATIONS IN [facility] 3. [facility], [address], [place]; [phone] OR, IF YOU WISH TO FOLLOW-UP WITHIN THE [facility], MAY TRY THESE OPTIONS (CLINIC APPOINTMENTS AVAILABLE ON QPFN-XM-WAFT BASIS): 1. SCHEDULE AN APPOINTMENT ONLINE AT WWW.[facility] 2. OR CALL THE [facility] AT OR 3. OR CALL YOUR [facility] PHYSICIAN'S OFFICE DIRECTLY IF YOU ARE ALREADY AN ESTABLISHED [facility] PATIENT. documented in this encounter ED Notes Jesse Del Castillo RN - 01/15/2020 8:28 PM CDTPatient states, "I tested positive for COVID on Tuesday and I am having more shortness of breath. Darnell 28 weeks and I see doctor Vick." PMH: None documented in this encounter Miscellaneous Notes ED Nurse Note - Vivi Whitaker RN - 01/16/2020 12:12 AM CDTPt given printed and verbal discharge instructions regarding covid PNA/chest pain, encouraged hydration, Prescription provided- zithromax Discussed ibuprofen and to take with food to avoid GI distress, alternate with Tylenol to help with pain and/or fever Discussed antibiotic therapy and to take until all completed unless adverse reaction occurs - if occurs, discontinue medication and follow up with pcp/seek medical attention Pt verbalized understanding of instructions,pt encouraged to follow up with pcp Advised to seek medical attention for new/prolonged/worsening of symptoms, No adverse reaction to meds given in ER noted upon discharge PIV d'cd, dressing to site, catheter in tact. Awake, alert oriented, resp reg unlabored, skin w/d, pt leaving in no apparent distress, documented in this encounter Plan of Treatment Date Type Specialty Care Team Description 01/23/2020 Routine Obstetrics & Berry, Guero Duggan MD Visit Gynecology [address] [place] [address] DR. Sahu [place], [place] [address] [phone] Health Maintenance Due Date Last Done Comments PNEUMOCOCCAL 0-64 YEARS COMBINED SERIES (1 2000 of 1 - PPSV23) HPV VACCINES (1 - 2-dose series) 2005 Depression Screening 2006 INFLUENZA VACCINE (#1) 2020 06/13/2019, 02/16/2017 PAP SMEAR 06/13/2022 06/13/2019, 12/21/2016 DTaP,Tdap,and Td Vaccines (2 - Td) 04/11/2027 04/11/2017 documented as of this encounter Procedures Procedure Name Priority Date/Time Associated Diagnosis Comme nts XR CHEST 1 VW STAT 01/15/2020 9:28 Chest pain, Results fo r this PM CDT unspecified type procedure are in COVID-19 the results section. URINALYSIS STAT 01/15/2020 9:25 Chest pain, Results for this PM CDT unspecified type procedure are in COVID-19 the results section. CBC WITH DIFF STAT 01/15/2020 9:25 Chest pain, Results fo r this PM CDT unspecified type procedure are in COVID-19 the results section. COMP. METABOLIC STAT 01/15/2020 9:25 Chest pain, Results for this PANEL (07769) PM CDT unspecified type procedure are in COVID-19 the results section. TROPONIN I STAT 01/15/2020 9:25 Chest pain, Results for this PM CDT unspecified type procedure are in COVID-19 the results section. LIPASE STAT 01/15/2020 9:25 Chest pain, Results for this PM CDT unspecified type procedure are in COVID-19 the results section. EKG-12 LEAD Routine 01/15/2020 9:05 PM CDT NOTICE OF PRIVACY Routine 01/15/2020 8:23 PRACTICES PM CDT CONSENT/REFUSAL FOR Routine 01/15/2020 8:22 DIAGNOSIS AND PM CDT TREATMENT documented in this encounter Results XR CHEST 1 VW (01/15/2020 9:28 PM CDT) Specimen Impressions Performed At PACS/VR/DOSE Streaky left retrocardiac opacity, may r epresent atypical infection or subsegmental atelectasis. Otherwise, no focal dominant parenchymal consolidation. Preliminary Report Dictated by Resident: Dangelo Satnos MD., have reviewed this study and agree with the above report. Narrative Performed At XR CHEST 1 VW PACS/VR/DOSE HISTORY: 24 years-old; Female; chest stephanie n, COVID positive COMPARISON: None FINDINGS: The left lateral lower lung and chest ar e out of view. Streaky left retrocardiac opacity is noted. There is n o right-sided pleural effusion or pneumothorax. The cardiomediastinal silhouette is norm al. No acute osseous abnormality is identifi ed. Procedure Note [facility], Radiant Results Inft User - 2019 11:26 PM CDT XR CHEST 1 VW HISTORY: 24 years-old; Female; chest stephanie n, COVID positive COMPARISON: None FINDINGS: The left lateral lower lung and chest ar e out of view. Streaky left retrocardiac opacity is not ed. There is no right-sided pleural effusion or pneumothorax. The cardiomediastinal silhouette is norm al. No acute osseous abnormality is identifi ed. IMPRESSION Streaky left retrocardiac opacity, may r epresent atypical infection or subsegmental atelectasis. Otherwise, no focal dominant parenchymal consolidation. Preliminary Report Dictated by Resident: Dangelo Santos MD., have reviewed this study and agree with the above report. Performing Organization Address City/State/Zipcode Phone Number PACS/VR/DOSE URINALYSIS (01/15/2020 9:25 PM CDT) Pathologist Sig nature APPEARANCE Hazy (A) Clear [facility] COLOR Yellow Yellow [facility] PH 5.0 4.8 - 8.0 [facility] SP GRAVITY 1.020 1.003 - 1.030 [facility] GLU U QUAL Normal Normal [facility] BLOOD Negative Negative [facility] KETONES Negative Negative [facility] PROTEIN Negative Negative [facility] UROBILIN Normal Normal [facility] BILIRUBIN Negative Negative [facility] NITRITE Negative Negative [facility] LEUK ENRICO 25/uL (A) Negative [facility] RBC/HPF 1 0 - 3 HPF [facility] WBC/HPF 1 0 - 5 HPF [facility] BACTERIA Few (A) Negative [facility] MUCOUS Moderate (A) Negative LPF [facility] SQ EPITH 10 HPF [facility] Specimen Urine - URINE, CLEAN CATCH Performing Organization Address [facility] Phone Number [facility] CLIA: [id number] [place] [address] TROPONIN I (01/15/2020 9:25 PM CDT) Pathologist Sig nature TROPONIN I <0.012 <=0.034 ng/mL [facility] Specimen Blood - ARM, LEFT Narrative Performed At Equal or Less than 0.034 ng/ml---Normal [facility] Note: Cardiac troponin begins to rise 3-4 hours after the onset of ischemia. Repeat in 4-6 hours if the sample was drawn within 3-4 hours of the onset of the symptom and found normal. Between 0.035 and 0.120 ng/mL--- Borderline. Questionable myocardial injury or necros is Note: Serial measurement may be necessary to confirm or exclude the diagnosis of myocardial injury or necrosis; Clinical correlation (symptoms, EKGs, imaging studies, and others) required; Repeat in 4-6 hours if clinically indicated. Equal or Higher than 0.121 ng/mL---Abnormal. Myocardial Injury or Necrosis Likely Biotin has been reported to cause a negative bias, interpret results relative to patient's use of biotin. Performing Organization Address [facility] Phone Number [facility] CLIA: [id number] [place] [address] LIPASE (01/15/2020 9:25 PM CDT) Pathologist Sig nature LIPASE 40 0 - 220 U/L [facility] Specimen Blood - ARM, LEFT Performing Organization Address [facility] Phone Number [facility] CLIA: [id number] [place] [address] COMP. METABOLIC PANEL ([id number]) (01/15/2020 9:25 PM CDT) NA 136 135 - 145 [facility] mmol/L [facility] K 3.8 3.5 - 5.0 [facility] mmol/L [facility] CL 108 98 - 108 mmol/L [facility] CO2 TOTAL 22 (L) 23 - 31 mmol/L [facility] AGAP 6 2 - 16 [facility] BUN 9 7 - 23 mg/dL [facility] GLUCOSE 93 70 - 110 mg/dL [facility] CREATININE 0.67 0.50 - 1.04 [facility] mg/dL [facility] TOTAL BILI <0.1 (L) 0.1 - 1.1 mg/dL [facility] CALCIUM 8.4 (L) 8.6 - 10.6 [facility] mg/dL [facility] T PROTEIN 6.5 6.3 - 8.2 g/dL [facility] ALBUMIN 3.6 3.5 - 5.0 g/dL [facility] ALK PHOS 54 34 - 122 U/L [facility] ALTv 20 5 - 35 U/L [facility] AST(SGOT) 25 13 - 40 U/L [facility] eGFR Calculation 107.2 mL/min/1.73m2 [facility] ([facility] LABORATORY [place]) eGFR Calculation 130.0 mL/min/1.73m2 [facility] () [facility] Specimen Blood - ARM, LEFT Narrative Performed At Association of Glomerular Filtration Rate (GFR) [facility] and Staging of Kidney Disease* + + +- + | GFR (mL/min/1.73 m2) | With Kidney Damage | Without Kidney Damage + + +- + | >90 | Stage one | Normal + + +- + | 60-89 | Stage two | Decreased GFR + + +- + | 30-59 | Stage three | Stage three + + +- + | 15-29 | Stage four | Stage four + + +- + | <15 (or dialysis) | Stage five | Stage five + + +- + *Each stage assumes the associated GFR level has been in effect for at least three months. Stages 1 to 5, with or without kidney disease, indicate chronic kidney disease. Notes: Determination of stages one and two (with eGFR >59mL/min/1.73 m2) requires estimation of kidney damage for at least three months as defined by structural or functional abnormalities of the kidney, manifested by either: Pathological abnormalities or Markers of kidney damage (including abnormalities in the composition of the blood or urine or abnormalities in imaging tests). Performing Organization Address City/State/Zipcode Phone Number [facility] CLIA: [id number] [place], [place] [id number] LABORATORY [address] CBC WITH DIFF (01/15/2020 9:25 PM CDT) Pathologist Sig nature WBC 6.40 4.30 - 11.10 [facility] 10*3/L [facility] RBC 3.94 3.93 - 5.25 [facility] 10*6/L [facility] HGB 12.0 11.6 - 15.0 g/dL [facility] HCT 36.0 35.7 - 45.2 % [facility] MCV 91.4 80.6 - 95.5 fL [facility] MCH 30.5 25.9 - 32.8 pg [facility] MCHC 33.3 31.6 - 35.1 g/dL [facility] RDW-SD 43.6 39.0 - 49.9 fL [facility] RDW-CV 13.0 12.0 - 15.5 % [facility] PLT 203 166 - 358 [facility] 10*3/L [facility] MPV 8.9 (L) 9.5 - 12.9 fL [facility] NRBC/100 WBC 0.0 0.0 - 10.0 /100 [facility] WBCs [facility] NRBC x10^3 <0.01 10*3/L [facility] GRAN MAT (NEUT) % 67.2 % [facility] IMM GRAN % 0.80 % [facility] LYMPH % 23.6 % [facility] MONO % 7.3 % [facility] EOS % 0.8 % [facility] BASO % 0.3 % [facility] GRAN MAT x10^3(ANC) 4.30 1.88 - 7.09 [facility] 10*3/uL [facility]OSPITAL LAB[facility]ORY IMM GRAN x10^3 0.05 0.00 - 0.06 [facility] 10*3/uL [facility] LYMPH x10^3 1.51 1.32 - 3.29 [facility] 10*3/uL [facility] MONO x10^3 0.47 0.33 - 0.92 [facility] 10*3/uL [facility]ITAL [facility] EOS x10^3 0.05 0.03 - 0.39 [facility] 10*3/uL [facility]ITAL [facility] BASO x10^3 <0.03 0.01 - 0.07 [facility] 10*3/uL [facility] Specimen Blood - ARM, LEFT Performing Organization Address City/State/Zipcode Phone Number [facility] CLIA: [id number] [place] [address] documented in this encounter Visit Diagnoses Diagnosis Chest pain, unspecified type - Primary COVID-19 Pneumonia due to COVID-19 virus documented in this encounter Insurance Payer Benefit Plan / Subscriber ID Effective Phone Address [employer] [facility] [id number] 2018-Yahaira [address] Medic aid [facility] CHO[facility] - [place] [id number] 1 MANAGED MEDICAID [place], [place] MEDICAID [address] documented as of this encounter
--- OUTSIDE RECORDS SUMMARY | 2020-02-20 08:04 | XMS REPORT | Summary of Care ---
:1995 Author Organization [facility] Address [address] [place] [address] Care Team Providers Name Role Phone Leola Hernandez Primary Care Provider Reason for Visit Reason Comments Assessment Encounter Details Date Type Department Care Team Description 01/15/[address] [facility] Women's BerryKasey MD Assessment Healthcare- [address] [address] [place] [address] [phone] Allergies No Known Allergiesdocumented as of this encounter (statuses as of 01/15/2020) Medications Medication Sig Dispensed Refills Start Date [...] as of this encounter (statuses as of 01/15/2020) Active Problems Problem Noted Date Excessive weight gain during , antepartum Obesity (BMI 30-39.9) 10/12/2019 High-risk in second trimester 09/11/2019 Vaginal discharge 09/11/2019 History of depression 09/11/2019 Mild intermittent asthma without complication 09/11/19 Previous section 06/15/2017 Bicornuate uterus 12/21/2016 Hepatitis B carrier 12/21/2016 Estimated Date of Delivery Comments Yes 04/06/2020 Based on last menstr ual period of 07/01/2019 documented as of this encounter (statuses as of 01/15/2020) Resolved Problems Problem Noted Date Resolved Date [...] as of this encounter (statuses as of 01/15/2020) Immunizations Name Administration Dates Next Due Influenza [...] this encounter Miscellaneous Notes Telephone Encounter - Marely Rodriguez RN - 01/15/2020 1:45 PM CDTSee other encounter from 01/15/2020. elephone Encounter - KelfrenchleaDelia - 01/15/2020 12:34 PM CDTPt states 28 weeks and stated last night was cramping and in pain where she could not turn. Today patient is not in pain like last night she stated and states mild cramping on and off but currently no cramping an no discharge. Pt would like to inform DR BERRY. documented in this encounter Plan of Treatment Date Type Specialty Care Team Description 01/23/2020 Routine Obstetrics & Kasey Berry MD Visit Gynecology [address] [place] [address] DR. Sahu [place], [place] [address] [phone] Health Maintenance Due Date Last Done Comments [...] Plan / Subscriber ID Effective Phone Address [facility] [id number] 2018-Yahaira P.OTito TOLLIVER Medic aid HEALTH CHOICE - HEALTH CHOICE nt [id number] 1 MANAGED MEDICAID [place], [place]ID [phone] documented as of this encounter
--- OUTSIDE RECORDS SUMMARY | 2020-02-20 08:04 | XMS REPORT | Summary of Care ---
:[address] [facility] Address [address] [place] [address] Care Team Providers Name Role Phone Leola Hernandez Primary Care Provider Reason for Visit Reason Comments Notification Encounter Details Date Type Department Care Team Description 01/15/2020 Telephone [facility] Women's HickmanKasey MD Notification Healthcare- [address] [address] [phone] Allergies No Known Allergiesdocumented as of this [...] Encounter - Marely Rodriguez RN - 01/15/2020 1:19 PM CDTRN returned patient call, name and verified. Patient states that on 01/09/2020 she had some sinus congestion, cough, sore throat, loss of taste and smell, and headache; denies fever. Patient has a history of asthma. Patient states that she had chest pain on 01/12/2020 and went to [facility] ER. Patient states she tested COVID positive at that ER visit. Last night patient reports having a sharp pain in her left side that took her breath away, it lasted a few minutes and then went away. Patient states that it could be musculoskeletal, but was worried because it took her breath away. Patient denied usingTylenol for the pain. RN advised patient that if she has a return of chest pain or has any shortnessof breath, or if the pain returns in her side then she should be evaluated in the ER. RN advised rosette carter to [facility] ER so that we can have access to her records. RN advised patient to focus on hydration and gave a list of safe medications to take for symptom management. RN gave criteria for returning to clinic. Patient verbalized understanding and agrees to plan of care. Marely Rodriguez RN 01/15/2020 1:44 PM Telephone Encounter - Delia Melo - 01/15/2020 10:15 AM CDTPT states she is positive to covid and is wanting to know what precautions to take. documented in this encounter Plan of Treatment Date Type Specialty Care Team Description 01/23/2020 Routine Obstetrics & Hickman, Kasey Duggan MD Visit Gynecology [address] [place] [address] DR. Sahu [place], [place] [address] [phone] Health Maintenance Due Date Last Done Comments [...] Plan / Subscriber ID Effective Phone Address [facility] [id number] 2018-Yahaira [address] Medic aid HEALTH CHOICE - HEALTH CHOICE nt [id number] 1 MANAGED MEDICAID [place], [place] [phone] documented as of this encounter
--- OUTSIDE RECORDS SUMMARY | 2020-02-20 08:04 | XMS REPORT | Summary of Care ---
:1995 Author Organization [facility] Address [address] [place] [address] Care Team Providers Name Role Phone Leola Hernandez Primary Care Provider Reason for Visit Reason Comments Notification Assessment Encounter Details Date Type Department Care Team Description 01/16/2020 Telephone [facility] Women's HickmanKasey MD Notification; Healthcare- [address] Assessment [address] [facility] [address], [address] [facility] [address] [place], [place] [phone] Allergies No Known Allergiesdocumented as of this [...] Telephone Encounter - Marely Rodriguez RN - 01/16/2020 4:05 PM CDTRN returned patient call, name and verified. Patient states she was calling to notify us that she was seen in the [facility] ER last night for SOB and chest pain, was diagnosed with COVID pneumonia and sent home with albuterol inhaler (patient already uses d/t history of asthma) and z-pack. Patient states she has remained afebrile during the entire COVID illness and is doing ok today, reporting only using her inhaler 1 time this morning. Per Ann Marie Garvin PA-C, RN recommended patient increase her fluid intake and make sure she is staying well hydrated and to give herself time for healing and recovery. ER precautions given for worsening SOB/chest pain, contractions, vaginal LOF or bleeding. RN advised patient that next OV will be changed to telehealth. Patient verbalized understanding and agrees toplan of care. Marely Rodriguez RN 01/16/2020 4:31 PM Telephone Encounter - Opal Kirby - 01/16/2020 3:47 PM CDTPatient is returning a call regarding the below encounter and is requesting a call back. elephone Encounter - Marely Rodriguez RN - 01/16/2020 2:46 PM CDTRN returned patient call, no answer, left message for patient to return call. Marely Rodriguez RN 01/16/2020 2:46 PM Telephone Encounter - Opal Kirby - 01/16/2020 9:33 AM CDTPatient is calling stating that she was seen at the ER and was diagnosed with pneumonia. Patient is requesting a call back. documented in this encounter Plan of Treatment Date Type Specialty Care Team Description 01/23/2020 Routine Obstetrics & Hickman, Kasey Duggan MD Visit Gynecology [address] [place] [address] [address]. [address] [place], [place] [address] [phone] Health Maintenance Due Date Last Done Comments [...] / Subscriber ID Effective Phone Address [facility] [id number] 2018-Yahaira [address] Medic aid HEALTH CHOICE - HEALTH CHOICE nt [id number] 1 MANAGED MEDICAID [place], [place]ICAID [id number] documented as of this encounter
--- OUTSIDE RECORDS SUMMARY | 2020-02-20 08:05 | XMS REPORT | Summary of Care ---
:1995 Author Organization [facility] Address [address] [place] [address] Care Team Providers Name Role Phone Leola Hernandez Primary Care Provider Reason for Visit Reason Comments LAB WORK Auth/Cert Status Reason Specialty Diagnoses / Procedures Referred By Leola ontact Referred To Contact Phlebotomy Diagnoses High-risk in second trimester Adc Pob Lab Dr gatica Procedures GALV ONLY - SYPHILIS IGG/IGM Professional Office Building [address] [facility] , [address] [place] [address] Phone: Fax: Encounter Details Date Type Department Care Team Description 02/01/2020 Administrator Health Care Facility Visit [facility] Kasey Hickman MD [address] [place] [address] [address] [place] [address] High-risk in second trimester; Professional Office 2, [facility] 25 weeks gestation of ; Building Phlebotomy Hepatiti s B carrier Lab Professional Office Building [address] [facility] , [address] [place] [address] Allergies No Known Allergiesdocumented as of this encounter (statuses as of 02/01/2020) Medications Medication Sig Dispensed Refills Start Date [...] as of this encounter (statuses as of 02/01/2020) Active Problems Problem Noted Date COVID-19 virus detected 01/29/2020 Last Assessment & Plan: Positive on 01/12/2020 Excessive weight gain during , antepartum Obesity (BMI 30-39.9) 10/12/2019 High-risk in second trimester 09/11/2019 Vaginal discharge 09/11/2019 History of depression 09/11/2019 Mild intermittent asthma without complication 09/11/19 20 Previous section 06/15/2017 Bicornuate uterus 12/21/2016 Hepatitis B carrier 12/21/2016 Estimated Date of Delivery Comments Yes 04/06/2020 Based on last menstr ual period of 07/01/2019 documented as of this encounter (statuses as of 02/01/2020) Resolved Problems Problem Noted Date Resolved Date [...] as of this encounter (statuses as of 02/01/2020) Immunizations Name Administration Dates Next Due Influenza Virus Vaccine Quad .5 mL IM 6+ MO 06/13/2019 Influenza Virus Vaccine Quad IM 3+ YRS 02/16/2017 0 02/16/2018 TDAP 01/29/2020, 04/11/2017 documented as of this encounter Social [...] been in contact with No / Unsure 02/01/2020 8:14 AM CDT someone who was confirmed or suspected to have Coronavirus / COVID-19? documented as of this encounter Last Filed Vital Signs Not on filedocumented in this encounter Nursing Notes Carin Carey - 02/01/2020 8:15 AM CDT Venipuncture collection performed by clean technique on the left forearm(s). Total of 1 attempts were made. Slight pressure and a bandage/dressing were applied to the site(s). The patient experienced no complications. The following specimens were processed according to instructions and sent to [facility] laboratories per lab order on 02/01/20: LT BLUE 4 SST RED 2 LAV PPT DK GREEN (LiHep) DK GREEN (SodH) SHIPMAN DK BLUE (K2) DK BLUE (S) ACD Blood Culture NIPT/NTD documented in this encounter Plan of Treatment Date Type Specialty Care Team Description 02/12/2020 Routine Obstetrics & Ann Marie Garvin, Visit Gynecology [facility] [address] [place] [phone] Health Maintenance Due Date Last Done Comments PNEUMOCOCCAL 0-64 YEARS COMBINED SERIES (1 2000 of 1 - PPSV23) HPV VACCINES (1 - 2-dose series) 2005 Depression Screening 2006 INFLUENZA VACCINE (#1) 2020 06/13/2019, 02/16/2017 PAP SMEAR 06/13/2022 06/13/2019, 12/21/2016 DTaP,Tdap,and Td Vaccines (3 - Td) 01/28/2030 01/29/2020, 1 06/11/2016 documented as of this encounter Results Not on filedocumented in this encounter Visit Diagnoses Diagnosis High-risk in second trimester 25 weeks gestation of state, incidental Hepatitis B carrier documented in this encounter Insurance Payer Benefit Plan / Subscriber ID Effective Phone Address T e Group [facility] [id number] 2018-Yahaira TOLLIVER Medic aid HEALTH CHOICE - HEALTH CHOICE nt [id number] 1 MANAGED MEDICAID [place], [place] MEDICAID [phone] documented as of this encounter
--- OUTSIDE RECORDS SUMMARY | 2020-02-20 08:05 | XMS REPORT | Summary of Care ---
:1995 Author Organization [facility] Address [address] [place] [address] Care Team Providers Name Role Phone Leola Hernandez Primary Care Provider Reason for Visit Reason Comments ROUTINE VISIT Other (STAT) Status Reason Specialty Diagnoses / Referred By Referred To Procedures Contact Contact Closed Obstetrics & Diagnoses Chest pain, unspecified type COVID-19 Pneumonia due to COVID-19 virus Vick Amaro Vien Cam, Gynecology Procedures Discharge Follow-up: Specialty Provider GUERO BERRY; 1 Day CONSULT/REFERRAL SOCIAL WORK PROGRAM COORDINATOR ALLEN Hugo MD [address] [place] [address] [address] [place], [place] [address] [phone] [place], [place] Phone: [phone] Phone: Encounter Details Date Type Department Care Team Description 01/29/2020 Routine [facility] Women's Guero Berry am, MD High-risk in third trimester ( Primary Dx); Visit Healthcare- [address] [place] [address] 30 weeks g estation of ; Claude MADRIGAL Need for Tdap vaccination; [address] [place] [address] [address]ag[address] itching; [address], [address] [place], [place] Hepatitis B carrier; [place] [address] COVID-19 virus detected [phone] Allergies No Known Allergiesdocumented as of this encounter (statuses as of 01/29/2020) Medications Medication Sig Dispensed Refills Start End Date Status Date docosahexanoic Take by mouth. 0 Active acid (DHA ORAL) albuterol 90 Inhale 2 Puffs 8.5 g 1 Ac tive mcg/actuation every 6 (six) 0 inhalerIndications hours as needed : High-risk for Wheezing, in first Shortness of trimester Breath, Bronchospasm or Chest tightness. clindamycin 2 % Insert 1 30 Each 0 02/01/20 Acti ve creamIndications: Applicator into 0 20 Chronic vaginitis vagina at bedtime for 30 days. azithromycin 250 Take 1 tablet by 1 Package 0 Discontinued mg mouth daily. 0 20 (Therap y tabletIndications: Take 500 mg day completed) Pneumonia due to 1, then 250 mg COVID-19 virus days 2 to 5. documented as of this encounter (statuses as of 01/29/2020) Active Problems Problem Noted Date COVID-19 virus [...] as of this encounter (statuses as of 01/29/2020) Resolved Problems Problem Noted Date Resolved Date [...] as of this encounter (statuses as of 01/29/2020) Immunizations Name Administration Dates Next Due Influenza [...] been in contact with No / Unsure 01/28/2020 3:10 PM CDT someone who was confirmed or suspected to have Coronavirus / COVID-19? documented as of this encounter Last Filed Vital Signs Vital Sign Reading Time Taken Comments Blood Pressure 113/65 01/29/2020 1:34 PM CDT Pulse 75 01/29/2020 1:34 PM CDT Temperature 37.1 C (98.8 F) 01/29/2020 1:34 PM CDT Respiratory Rate 18 01/29/2020 1:34 PM CDT Oxygen Saturation - - Inhaled Oxygen Concentration - - Weight 109.3 kg (241 lb) 01/29/2020 1:34 PM CDT Height 175.3 cm (5' 9") 01/29/2020 1:34 PM CDT Body Mass Index 35.59 01/29/2020 1:34 PM CDT documented in this encounter Progress Notes Guero Berry MD - 01/29/2020 1:15 PM CDT Chief complaint: Chief Complaint Patient presents with ROUTINE VISIT HPI August Albertina Freeman is a 24 year old female @ 30w2d here for routine visit. Denies vaginal bleeding, LOF, dysuria, or PIH symptoms. + active FM. + Marion-Clarke contractions rare. 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 Social Needs Financial resource strain: Not on file Food insecurity Worry: Not on file Inability: Not on file Transportation needs Medical: Not on file Non-medical: Not on file Tobacco Use Smoking status: Former Smoker Years: 1.00 Smokeless tobacco: Never Used Substance and Sexual Activity Alcohol use: Yes Comment: Occasional Drug use: No Sexual activity: Yes Partners: Male control/protection: None, Coitus interruptus, Rhythm Lifestyle Physical activity Days per week: Not on file Minutes per session: Not on file Stress: Not on file Relationships Social connections Talks on phone: Not on file Gets together: Not on file Attends worship service: Not on file Active member of club or organization: Not on file Attends meetings of clubs or organizations: Not on file Relationship status: Not on file Intimate partner violence Fear of current or ex partner: Not on file Emotionally abused: Not on file Physically abused: Not on file Forced sexual activity: Not on file Other Topics Concern Not on file Social History Narrative No domestic abuse or violence. No cats. Faith: Holiness Social History Substance and Sexual Activity Sexual Activity Yes Partners: Male control/protection: None, Coitus interruptus, Rhythm Labs No new labs Radiology No new radiology. Allergies Karen has No Known Allergies. Medications Karen has a current medication list which includes the following prescription(s): clindamycin, azithromycin, albuterol, and docosahexaenoic acid. Review of Systems Constitutional: Negative for chills, fatigue and fever. HENT: Negative for congestion, rhinorrhea, sneezing and sore throat. Eyes: Negative for photophobia and visual disturbance. Respiratory: Negative for cough, chest tightness, shortness of breath and wheezing. Cardiovascular: Positive for leg swelling. Negative for chest pain and palpitations. Gastrointestinal: Negative for abdominal distention, abdominal pain, constipation, diarrhea, nausea and vomiting. Genitourinary: Negative for dysuria, urgency, frequency, vaginal bleeding and vaginal discharge. Vaginal itching that started a couple of days ago. Is currently using clindamycin cream, prescribed on 01/02/2020. Musculoskeletal: Positive for back pain (for the past few days, taking Tylenol, worse with movement,lying on her back all day, and/or on her feet for a long time). Skin: Negative for rash. Neurological: Negative for syncope and headaches. Hematological: Does not bruise/bleed easily. BP 113/65 (BP Location: Left arm, Patient Position: Sitting, BP CUFF SIZE: Adult Medium) | Pulse 75 | Temp 37.1 C (98.8 F) (Oral) | Resp 18 | Ht 5' 9" (1.753 m) | Wt 241 lb (109.3 kg) | LMP 07/01/2019 | BMI 35.59 kg/m Pregravid BMI: 29.08 Physical Exam Vitals reviewed. Constitutional: She is oriented to person, place, and time. Her body habitus is obese. Cardiovascular: Regular rate and rhythm. No peripheral edema present. Pulmonary/Chest: Normal inspiratory effort. Abdominal: Abdomen is soft. No tenderness present. No hernia palpated or inspected. Neuro/Psychiatric: She has a normal mood and affect. She is oriented to person, place, and time. Skin: Skin normal. No rash present. External genitalia: Normal external genitalia appropriate for age. Vagina: ??? Clindamycin cream versus vaginal discharge Assessment/Plan See OB Summary Return to clinic in 2 weeks. Reviewed patient instructions and provided printed copy. Activity restrictions: As tolerated at 30w2d This visit did not involve counseling and coordination that comprised more than 50% of the visit time. Guero Berry MD 01/29/2020 5:45 PM Amanda Curry MA - 01/29/2020 1:15 PM CDT24 year old female has been identified by and name. Verbal consent has been obtained by patientto have an injection, as ordered by the provider. NDC (National Drug Code) 20059-841-00. Patient or state-supplied medications?: no Has ABN (Advanced Beneficiary Notice) been completed? No Previous/Current Encounter Diagnosis: Z23 The site was cleaned with an alcohol swab and given intramuscularly (IM). A band aid dressing was then applied to the injection site. The patient tolerated the procedure well , no rash, swelling or reaction noted. Patient provided with preferred teaching of verbal information on Anaphylaxis. Shows readiness to learn. Verbal/Written instruction teaching provided. Individual is able to read and verbalizes understanding of teaching provided. Signs and Symptoms of Anaphylaxis (severe allergic reaction) are: Tingling, itching or metallic taste in mouth; hives; difficulty breathing; swelling and/or itching of mouth and/or throat; diarrhea, vomiting, cramps and stomach pain; paleness; loss of consciousness. IF YOU HAVE ANY OF THE SYMPTOMS ABOVE, ACT FAST!!! CALL 911 IMMEDIATELY IF YOU HAVE A PRESCRIBED EPI-PEN PLEASE USE IT NOW. ' Amanda Moreno MA 01/29/2020 1:55 PM documented in this encounter Miscellaneous Notes Assessment & Plan Note - Guero Berry MD - 01/29/2020 5:41 PM CDT Associated Problem(s): COVID-19 virus detectedPositive on 01/12/2020 B Summary Note - Guero Berry MD - 01/29/2020 1:15 PM CDTAge: 24 year old GA: 30w2d - discomforts reviewed. Discussed maternity belt. - Received Tdap today - Hx of aerobic vaginitis: c/o vaginal itching for a few days. Currently using Clindamycin cream. Is still sexually active. MDL swab obtained - Previous CD x 2: Repeat CD at 39 wks unless otherwise indicated - Hx Depression: Denies SI/HI - Hepatitis B carrier: have not complete labs. Encourage - Have not done 28 wk labs yet. Encourage - COVID test positive on 01/12/2020. Asymptomatic - MPDPS: Interested and after counseling, patient undecided "I counseled the patient regarding risks, benefits and alternatives of Bilateral Tubal Ligation. Explained that it is a surgical procedure that is done by ligating/cutting/occluding a segment of the tubes; hence, it is a permanent form of control that requires a surgical procedure for reversal (if she changes her mind afterwards), which might not be successful and increases the riskof ectopic if does eventually occur. Also explained that the procedure for reversal is generally not covered by insurance and is expensive. Risks include but not limited to risk ofinfection, bleeding, need for transfusion of blood/blood products, injury to ureter, bladder, bowel w ith possible further surgery, stint, catheterization or colostomy to repair. The permanence of this procedure and risk of regret in 1 in 3 women were discussed. tubal ligation failure rate is 0.75% and higher in women younger than 30 years old. There is an increased risk for ectopic and the need to seek medical attention should failure of tubal ligation occur. We also discussed salpingectomy, which can reduce the risk of ovarian cancer but no tubal reversal can be done after the procedure hence the only option for in the future is via IVF. Alternatives discussed include: Oral Contraceptive Agents, Intrauterine Device, Depo Provera, Ring, Patch, Condoms/foam, interval bilateral tubal ligation, or vasectomy of partner. All questions answered, and patient undecided." - RTC in 2 wks for PN documented in this encounter Plan of Treatment Date Type Specialty Care Team Description 02/01/2020 Gear Hobber Visit Phlebotomy 2, Adc Lab 02/12/2020 Routine Visit Obstetrics & Ann Marie Garvin, Gynecology [facility] [address] [phone] Name Type Priority Associated Diagnoses Date/Ti me GALV ONLY - VAGINAL LAB Routine High-risk i n 01/29/2020 2:21 PM CDT PATHOGENS BY NUCLEIC third trime ster ACID TESTING Vaginal itching Health Maintenance Due Date Last Done Comments PNEUMOCOCCAL 0-64 YEARS COMBINED SERIES (1 2000 of 1 - PPSV23) HPV VACCINES (1 - 2-dose series) 2005 Depression Screening 2006 INFLUENZA VACCINE (#1) 2020 06/13/2019, 02/16/2017 PAP SMEAR 06/13/2022 06/13/2019, 12/21/2016 DTaP,Tdap,and Td Vaccines (2 - Td) 04/11/2027 04/11/2017 documented as of this encounter Procedures Procedure Name Priority Date/Time Associated Diagnosis Comme nts TDAP VACCINE, >11 Routine 01/29/2020 1:52 30 weeks gestation YRS, IM PM CDT of Need for Tdap vaccination POCT URINALYSIS W/O Routine 01/29/2020 30 weeks gestation Re sults for this SPECIFIC GRAVITY of procedure a re in the results section. documented in this encounter Results POCT URINALYSIS W/O SPECIFIC GRAVITY (01/29/2020) Pathologist Sig nature POCT PH U 6 5 - 8 mg/dl POCT U LEUK EST neg Negative - Negative POCT U NIT neg Negative - Negative POCT U PROT neg Negative - Negative POCT U GLU neg Negative - Negative POCT U KETONE neg Negative - Negative POCT U BLD neg Negative - Negative Specimen Urine - URINE, CLEAN CATCH documented in this encounter Visit Diagnoses Diagnosis High-risk in third trimester - Primary 30 weeks gestation of state, incidental Need for Tdap vaccination Need for prophylactic vaccination with c ombined wzukbdmutl-pbwkeue-krkiineyd (DTP) vaccine Vaginal itching Pruritus of genital organs Hepatitis B carrier COVID-19 virus detected documented in this encounter Insurance Payer Benefit Plan / Subscriber ID Effective Phone Address T ype [employer] [facility] [id number] 2018-Yahaira [address] Medic aid HEALTH CHOICE - HEALTH CHOICE nt [id number] 1 MANAGED MEDICAID [place], [place] MEDICAID [id number] documented as of this encounter
--- OUTSIDE RECORDS SUMMARY | 2020-02-20 08:05 | XMS REPORT | Summary of Care ---
:1995 Author Organization [facility] Address [address] [place] [address] Care Team Providers Name Role Phone Leola Hernandez Primary Care Provider Reason for Visit Reason Comments ROUTINE VISIT VAGINAL ODOR Vaginal Discharge Encounter Details Date Type Department Care Team Description 12/26/[address] [facility] Women's Kasey Hickman am, MD High-risk in second trimester (Primary Dx); Visit Healthcare- [address] [place] [address] Vaginal di schaazeem; [place] Hepatitis B carrier; [address] [place] [address] [address], [address] [place], [place] 25 weeks gestation of pregna ncy; [place] [address] Excessive weight gain during , antepartum [id number] [...] of 02/01/2020) Active Problems Problem Noted Date Excessive weight [...] 12/26/2019 2:45 PM CDTMDL One Swab sent hans, Kasey Duggan MD - 12/26/2019 2:45 PM [...] N/A 06/15/2017 Surgeon: Kasey Hickman MD; Location: [facility] Labor and Delivery OR Location Social [...] file Gets together: Not on file Attends hinduism service: Not on file Active member of [...] domestic abuse or violence. No cats. Faith: Rastafarian Social History Substance and Sexual Activity Sexual Activity Yes Partners: Male control/protection: None, Coitus interruptus, Rhythm Labs No new labs Radiology No new radiology. Allergies August has No Known Allergies. Medications August has a current medication list which includes [...] visit time. Scribe's Attestation I, Richa Jolley , am scribing for, and in the presence of, Kasey Hickman MD who performed the services described here-in. Richa Jolley, December 26, 2019, 2:55 PM Physician's Attestation I have seen and examined the patient and agreed with the note above Kasey Hickman MD 12/26/2019 4:23 PM documented in this encounter Miscellaneous Notes OB Summary Note - Richa Jolley N - 12/26/2019 2:45 PM CDTAge: 24 year old GA: 25w3d - Hx of aerobic vaginitis: c/o vaginal discharge/odor x 2 wks. MDL swab obtained - Excessive Weight gain: TWG 36 lbs. Gained 16 lbs since last visit. Advised to continue exercise,healthy diet and avoid late night eating - Previous CD x 2: Repeat CD at 39 wks unless otherwise indicated - Hx Depression: EPDS 8 Denies SI/HI - Hepatitis B carrier: will complete labs with 28 wk labs - Anatomy scan on 11/21/19 wnl. - RTC in 4 wks for PN/Labs documented in this encounter Plan of Treatment Date Type Specialty Care Team Description 02/12/2020 Routine Obstetrics & Ann Marie Garvin, Visit Gynecology [facility] [address] [place] [id number] Name Type Priority Associated Diagnoses Date/Ti me HIV 1/2 AG-AB WITH LAB Routine High-risk in 02/01/2020 9:47 AM CDT REFLEX second trimester 25 weeks gestation of Glucose 1 Hour Post LAB Routine High-risk i n 02/01/2020 9:33 AM CDT Prandial second trimester 25 weeks gestation of Name Type Priority Associated Diagnoses Order S chedule Glucose 1 Hour Post LAB Routine High-risk i n Expected: 12/26/2019, Prandial second trimester Expires: 12/25/2020 25 weeks gestation of Workup, Blood LAB Routine High-risk pregnanc y in Expected: 12/26/2019, Bank second trimester Expires: 12/25/2020 25 weeks gestation of GALV ONLY - [...] 1 06/11/2016 documented as of this encounter Procedures Procedure Name Priority Date/Time Associated Diagnosis Comme nts POCT URINALYSIS W/O Routine 12/26/2019 High-risk i n Results for this SPECIFIC GRAVITY second trimester procedu re are in the results section . documented in this encounter Results CBC with Differential (02/01/2020 9:47 AM CDT) Pathologist Sig nature WBC 7.20 4.30 - 11.10 [facility] 10*3/L [facility] RBC 3.92 (L) 3.93 - 5.25 [facility] 10*6/L [facility] HGB 12.0 11.6 - 15.0 [facility] g/dL [facility] HCT 36.8 35.7 - 45.2 % [facility] MCV 93.9 80.6 - 95.5 fL [facility] MCH 30.6 25.9 - 32.8 pg [facility] MCHC 32.6 31.6 - 35.1 [facility] g/dL [facility] RDW-SD 44.8 39.0 - 49.9 fL [facility] RDW-CV 13.2 12.0 - 15.5 % [facility] PLT 193 166 - 358 [facility] 10*3/L [facility] MPV 9.2 (L) 9.5 - 12.9 fL [facility] NRBC/100 WBC 0.0 0.0 - 10.0 /100 [facility] WBCs [facility] NRBC x10^3 <0.01 10*3/L [facility] GRAN MAT (NEUT) % 75.1 % [facility] IMM GRAN % 1.10 % [facility] LYMPH % 17.4 % [facility] MONO % 5.3 % [facility] EOS % 0.8 % [facility] BASO % 0.3 % [facility] GRAN MAT x10^3(ANC) 5.41 1.88 - 7.09 [facility] 10*3/uL [facility] IMM GRAN x10^3 0.08 (H) 0.00 - 0.06 [facility] 10*3/uL [facility] LYMPH x10^3 1.25 (L) 1.32 - 3.29 [facility] 10*3/uL [facility] MONO x10^3 0.38 0.33 - 0.92 [facility] 10*3/uL [facility] EOS x10^3 0.06 0.03 - 0.39 [facility] 10*3/uL [facility] BASO x10^3 <0.03 0.01 - 0.[address]/uL [facility] Specimen Blood Performing Organization Address City/State/Zipcode Phone Number [facility] CLIA: [id number] [place] [address] POCT URINALYSIS W/O SPECIFIC GRAVITY (12/26/2019) Pathologist [...] / Subscriber ID Effective Phone Address T [facility] [id number] 2018-Prese [address] Medic aid HEALTH CHOICE - HEALTH CHOICE nt [id number] 1 MANAGED MEDICAID [place], [place] MEDICAID [phone] documented as of this encounter
--- OUTSIDE RECORDS SUMMARY | 2020-02-20 08:05 | XMS REPORT | Summary of Care ---
:1995 Author Organization [facility] Address [address] [place] [address] Care Team Providers Name Role Phone Leola Hernandez Primary Care Provider Reason for Visit Reason Comments LAB WORK Auth/Cert Status Reason Specialty Diagnoses / Procedures Referred By Leola ontact Referred To Contact Phlebotomy Diagnoses High-risk in second trimester Adc Pob Lab Dr gatica Procedures GALV ONLY - SYPHILIS IGG/IGM Professional Office Building [address] [facility] , [address] [place] [address] Phone: Fax: Encounter Details Date Type Department Care Team Description 02/01/2020 Children'S Attendant Visit [facility] Kasey Hickman MD [address] [place] [address] [address] [place] [address] High-risk in second trimester; Professional Office 2, [facility] Lab 25 weeks gestation of ; Building Phlebotomy Hepatiti s B carrier Lab Professional [facility] Building [address] [facility] , [address] [place] [address] Allergies No Known Allergiesdocumented as [...] processed according to instructions and sent to [facility] laboratories per lab order on 02/01/20: LT BLUE 4 SST RED 2 LAV PPT DK GREEN (LiHep) DK GREEN (SodH) SHIPMAN DK BLUE (K2) DK BLUE (S) ACD Blood Culture NIPT/NTD documented in this encounter Plan of Treatment Date Type Specialty Care Team Description 02/12/2020 Routine Obstetrics & Ann Marie Garvin, Visit Gynecology [facility] [address] [phone] Name Type Priority Associated Diagnoses Date/Ti me HEPATITIS BE AG LAB Routine Hepatitis B carrier 01/31 9:33 AM CDT HBV BY REAL-TIME PCR LAB Routine Hepatitis B carrier 02/01/2020 9:37 AM CDT HEPATITIS B SURFACE LAB Routine Hepatitis B carrier 0 02/01/2020 9:33 AM CDT ANTIBODY HBC ANTIBODY (IGM & IGG) LAB Routine Hepatitis B mosley ier 02/01/2020 9:33 AM CDT HEPATITIS BE AB LAB Routine Hepatitis B carrier 01/31 9:33 AM CDT Glucose 1 Hour Post LAB Routine High-risk i n 02/01/2020 9:33 AM CDT Prandial second trimester 25 weeks gestation of Health Maintenance Due [...] Name Priority Date/Time Associated Diagnosis Comme nts CBC WITH DIFF Routine 02/01/2020 9:47 AM High-risk Results for this CDT in second trimes ter procedure are in the 25 weeks gestation of result s section. documented in this encounter Results CBC with Differential (02/01/2020 9:47 AM CDT) Pathologist Sig nature WBC 7.20 4.30 - 11.10 [facility] 10*3/L [facility] RBC 3.92 (L) 3.93 - 5.25 [facility] 10*6/L [facility] HGB 12.0 11.6 - 15.0 [facility] g/dL [facility] HCT 36.8 35.7 - 45.2 % [facility] MCV 93.9 80.6 - 95.5 fL [facility] MCH 30.6 25.9 - 32.8 pg [facility] MCHC 32.6 31.6 - 35.1 [facility] g/dL HOSPITAL [facility] RDW-SD 44.8 39.0 - 49.9 fL [facility] RDW-CV 13.2 12.0 - 15.5 % [facility] PLT 193 166 - 358 [facility] 10*3/L [facility] MPV 9.2 (L) 9.5 - 12.9 fL [facility] NRBC/100 WBC 0.0 0.0 - 10.0 /100 [facility] WBCs [facility] NRBC x10^3 <0.01 10*3/L [facility] GRAN MAT (NEUT) % 75.1 % [facility] IMM GRAN % 1.10 % [facility] LYMPH % 17.4 % [facility] MONO % 5.3 % [facility] EOS % 0.8 % [facility] BASO % 0.3 % [facility] GRAN MAT x10^3(ANC) 5.41 1.88 - 7.09 [facility] 10*3/uL [facility] IMM GRAN x10^3 0.08 (H) 0.00 - 0.06 [facility] 10*3/uL HOSPITAL [facility] LYMPH x10^3 1.25 (L) 1.32 - 3.29 [facility] 10*3/uL [facility] MONO x10^3 0.38 0.33 - 0.92 [facility] 10*3/uL [facility] EOS x10^3 0.06 0.03 - 0.39 [facility] 10*3/uL [facility] BASO x10^3 <0.03 0.01 - 0.[address]uL [facility] Specimen Blood Performing Organization Address City/State/Zipcode Phone Number [facility] CLIA: [id number] [place] [address] documented in this encounter Visit Diagnoses Diagnosis High-risk in second trimester 25 weeks gestation of state, incidental Hepatitis B carrier documented in this encounter Insurance Payer Benefit Plan / Subscriber ID Effective Phone Address T ype [facility] [id number] 2018-Yahaira P.Azael [place]IVER Medic aid HEALTH CHOICE - HEALTH CHOICE nt [id number] 1 MANAGED MEDICAID [place], [place] MEDICAID [phone] documented as of this encounter
--- OUTSIDE RECORDS SUMMARY | 2020-02-20 08:06 | XMS REPORT | Summary of Care ---
:1994 Author Organization [facility] Address [address] [place] [address] Care Team Providers Name Role Phone Leola Hernandez Primary Care Provider Reason for Visit Reason Comments Results MDL Aerobic Vaginitis Negati ve Encounter Details Date Type Department Care Team Description 02/18/2020 Telephone [facility] Women's Kasey Hickman MD Results (MDL Aerobic Healthcare- [address] Vaginitis Negative) [address] [place] [address] [address], [address] [place], [place] [phone] [phone] Allergies No Known Allergiesdocumented as of this encounter (statuses as of 02/19/2020) Medications Medication Sig Dispensed Refills Start Date End Date Status docosahexanoic acid Take by mouth. 0 Active (DHA ORAL) albuterol 90 Inhale 2 Puffs 8.5 g 1 08/14/2019 A ctive mcg/actuation every 6 (six) hours inhalerIndications: as needed for High-risk Wheezing, Shortness in first trimester of Breath, Bronchospasm or Chest tightness. documented as of this encounter (statuses as of 02/19/2020) Active Problems Problem Noted Date COVID-19 virus [...] as of this encounter (statuses as of 02/19/2020) Resolved Problems Problem Noted Date Resolved Date [...] as of this encounter (statuses as of 02/19/2020) Immunizations Name Administration Dates Next Due Influenza [...] been in contact with No / Unsure 02/12/2020 11:12 AM CDT someone who was confirmed or suspected to have Coronavirus / COVID-19? documented as of this encounter Last Filed Vital Signs Not on filedocumented in this encounter Miscellaneous Notes Telephone Encounter - Neftali Melendrez - 02/18/2020 4:37 PM CDTMDL One Swab: Aerobic Vaginitis Negative Result (Staphylococcus Aureus) Placed on Providers desk for signature and review. elephone Encounter - Lias Liang - 02/18/2020 11:53 AM CDTReceived fax, CRISTHIAN results. documented in this encounter Plan of Treatment Date Type Specialty Care Team Description 02/28/2020 Routine Obstetrics & Hickman, Kasey Duggan MD Visit Gynecology [address] [place] [address] DR. [address] [place] [id number] 15 Health Maintenance Due Date Last Done [...] Plan / Subscriber ID Effective Phone Address [facility] [id number] 2018-Yahaira P.OTito BOX Medic aid HEALTH CHOICE - HEALTH CHOICE nt [id number] 1 MANAGED MEDICAID [place], [place] MEDICAID [phone] documented as of this encounter
--- OUTSIDE RECORDS SUMMARY | 2020-02-20 08:06 | XMS REPORT | Summary of Care ---
:1994 Author Organization [facility] Address [address] [place] [address] Care Team Providers Name Role Phone Leola Hernandez Primary Care Provider Encounter Details Date Type Department Care Team Description 02/12/2020 Orders Only [facility] Doctor Unassigned, No [address] [facility] [place] [address] [address] [place] [address] Allergies No Known Allergiesdocumented as of this encounter (statuses as of 02/12/2020) Medications Medication Sig Dispensed Refills Start Date End Date Status docosahexanoic acid Take by mouth. 0 Active (DHA ORAL) albuterol 90 Inhale 2 Puffs 8.5 g 1 08/14/2019 A ctive mcg/actuation every 6 (six) hours inhalerIndications: as needed for High-risk Wheezing, Shortness in first trimester of Breath, Bronchospasm or Chest tightness. documented as of this encounter (statuses as of 02/12/2020) Active Problems Problem Noted Date COVID-19 virus [...] as of this encounter (statuses as of 02/12/2020) Resolved Problems Problem Noted Date Resolved Date [...] as of this encounter (statuses as of 02/12/2020) Immunizations Name Administration Dates Next Due Influenza [...] & Hickman, Kasey Duggan MD Visit Gynecology [address] [place] [address] [address]. [place] [place], [place] [address] [phone] Health Maintenance Due Date Last Done Comments PNEUMOCOCCAL 0-64 YEARS COMBINED SERIES (1 2000 of 1 - PPSV23) HPV VACCINES (1 - 2-dose series) 2005 Depression Screening 2006 INFLUENZA VACCINE (#1) 2020 06/13/2019, 02/16/2017 PAP SMEAR 06/13/2022 06/13/2019, 12/21/2016 DTaP,Tdap,and Td Vaccines (3 - Td) 01/28/2030 01/29/2020, 1 06/11/2016 documented as of this encounter Procedures Procedure Name Priority Date/Time Associated Diagnosis Comme nts STERILIZATION CONSENT Routine 02/12/2020 12:01 AM FORM CDT documented in this encounter Results Not on filedocumented in this encounter Insurance Payer Benefit Plan / Subscriber ID Effective Phone Address [facility] [id number] 2018-Yahaira TOLLIVER Medic aid HEALTH CHOICE - HEALTH CHOICE nt [id number] 1 MANAGED MEDICAID [place]ICAID [phone] documented as of this encounter
--- OUTSIDE RECORDS SUMMARY | 2020-02-20 08:06 | XMS REPORT | Summary of Care ---
:1994 Author Organization [facility] Address [address] [place] [address] Care Team Providers Name Role Phone Leola Hernandez Primary Care Provider Reason for Visit Reason Comments Assessment TRIAGE Encounter Details Date Type Department Care Team Description 02/19/2020 Telephone [facility] Women's Kasey Hickman MD Assessment (TRIAGE) Healthcare- [address] [facility] [address] [facility], [address] [place] [address] [place] [address] [phone] Allergies No Known Allergiesdocumented as of this [...] Telephone Encounter - Marely Rodriguez RN - 02/19/2020 2:23 PM CDTRN spoke with patient, name and verified. Patient states that she has been having back pain and abdominal tightening for several weeks, but that it has worsened over the last 4-5 days regardless ofher activity level, Patient reports excellent hydration. Patient also c/o a brown vaginal d/c, last intercourse 02/14/2020. Patient just finished 30 day treatment for aerobic vaginitis about 2 weeks ago, and this is likely the source of the d/c. RN recommended patient to use a douche bottle filled with warm water only to rinse the inside of the vagina twice a day. Patient has tried warm baths, Tylenol and tens unit treatment for the discomfort, but has gotten little relief. Per previous provider note, it was recommended for patient to get a maternity belt to help with discomforts, patient states that they are too hot and she doesn't want to wear one. RN recommended patient to look up stretches forsciatica and round ligament and to try those to relieve her discomforts as well as getting a maternity belt as suggested by Dr. Hickman. RN reviewed labor precautions and when to go to L&D for further evaluation. Patient verbalized understanding and agrees to plan of care. Marely Rodriguez RN 02/19/2020 3:00 PM Telephone Encounter - Delia Melo - 02/19/2020 1:56 PM CDTPt states she is currently 33 weeks gest. in a lot of pain in the abdomen and back area. Pt states she has been having brown discharge vaginally. PSS Marlo took triage to pass call to nurse. documented in this encounter Plan of Treatment Date Type Specialty Care Team Description 02/28/2020 Routine Obstetrics & Kasey Hickman MD Visit Gynecology [address] [place] [address] [address]. [address] [place] [address] [phone] Health Maintenance Due Date Last Done Comments [...] / Subscriber ID Effective Phone Address T [facility] [id number] 2018-Yahaira [employer]OX Medic aid HEALTH CHOICE - HEALTH CHOICE nt [id number] 1 MANAGED MEDICAID [place], [place] MEDICAID [phone] documented as of this encounter
--- OUTSIDE RECORDS SUMMARY | 2020-02-20 08:06 | XMS REPORT | Summary of Care ---
:1994 Author Organization [facility] Address [address] [place] [address] Care Team Providers Name Role Phone Leola Hernandez Primary Care Provider Reason for Visit Reason Comments LAB WORK Auth/Cert Status Reason Specialty Diagnoses / Procedures Referred By Leola ontact Referred To Contact Phlebotomy Diagnoses High-risk in second trimester Adc Pob Lab Dr gatica Procedures GALV ONLY - SYPHILIS IGG/IGM Professional Office Building [address] [facility] , [address] [place] [address] Phone: Fax: Encounter Details Date Type Department Care Team Description 02/01/2020 Consultant Visit [facility] Kasey Hickman MD [address] [place] [address] [address] [place] [address] High-risk in second trimester; Professional Office 2, [facility] Lab 25 weeks gestation of ; Building Phlebotomy Hepatiti s B carrier Lab Professional Office Building [address] [facility] , [address] [place] [address] Allergies No Known Allergiesdocumented as [...] processed according to instructions and sent to [facility] laboratories per lab order on 02/01/20: LT BLUE 4 SST RED 2 LAV PPT DK GREEN (LiHep) DK GREEN (SodH) SHIPMAN DK BLUE (K2) DK BLUE (S) ACD Blood Culture NIPT/NTD documented in this encounter Plan of Treatment Date Type Specialty Care Team Description 02/12/2020 Routine Obstetrics & Ann Marie Garvin, Visit Gynecology [facility] [address] [address] Name Type Priority Associated Diagnoses [...] Post LAB Routine High-risk i n 02/01/2020 9:47 AM CDT Prandial second trimester 25 weeks [...] Sig nature WBC 7.20 4.30 - 11.10 [facility] 10*3/L [facility] RBC 3.92 (L) 3.93 - 5.25 [facility] 10*6/L [facility] HGB 12.0 11.6 - 15.0 [facility] g/dL [facility] HCT 36.8 35.7 - 45.2 % [facility] MCV 93.9 80.6 - 95.5 fL [facility] MCH 30.6 25.9 - 32.8 pg [facility] MCHC 32.6 31.6 - 35.1 [facility] g/dL HOSPITAL LAB[facility]ATORY RDW-SD 44.8 39.0 - 49.9 fL [facility] RDW-CV 13.2 12.0 - 15.5 % [facility] PLT 193 166 - 358 [facility] 10*3/L [facility] MPV 9.2 (L) 9.5 - 12.9 fL [facility] NRBC/100 WBC 0.0 0.0 - 10.0 /100 [facility] WBCs [facility] NRBC x10^3 <0.01 10*3/L [facility] GRAN MAT (NEUT) % 75.1 % [facility] IMM GRAN % 1.10 % [facility] LYMPH % 17.4 % [facility] MONO % 5.3 % [facility] EOS % 0.8 % [facility] BASO % 0.3 % [facility] GRAN MAT x10^3(ANC) 5.41 1.88 - 7.09 [facility] 10*3/uL [facility] IMM GRAN x10^3 0.08 (H) 0.00 - 0.06 [facility] 10*3/uL HOSPITAL LABORATORY LYMPH x10^3 1.25 (L) 1.32 - 3.29 [facility] 10*3/uL [facility] MONO x10^3 0.38 0.33 - 0.92 [facility] 10*3/uL [facility] EOS x10^3 0.06 0.03 - 0.39 [facility] 10*3/uL [facility] BASO x10^3 <0.03 0.01 - 0.[address] [facility] Specimen Blood Performing Organization Address City/State/Zipcode Phone Number [facility] CLIA: [id number] [place] [address] documented in this encounter Visit Diagnoses Diagnosis High-risk in second trimester 25 weeks gestation of state, incidental Hepatitis B carrier documented in this encounter Insurance Payer Benefit Plan / Subscriber ID Effective Phone Address T ype [facility] [id number] 2018-Yahaira P.Azael TOLLIVER Medic aid HEALTH CHOICE - HEALTH CHOICE nt [id number] 1 MANAGED MEDICAID [place], [place] MED[place] [phone] documented as of this encounter
--- OUTSIDE RECORDS SUMMARY | 2020-02-20 08:06 | XMS REPORT | Summary of Care ---
:1995 Author Organization [facility] Address [address] [place] [address] Care Team Providers Name Role Phone Leola Hernandez Primary Care Provider Reason for Visit Reason Comments Results MDL Aerobic Vaginitis Negati ve Encounter Details Date Type Department Care Team Description 02/18/2020 Telephone [facility] Women's Kasey Hickman MD Results (MDL Aerobic Healthcare- [address] Vaginitis Negative) [address] [place] [address] [address], [address] [place], [place] [phone] Allergies No Known Allergiesdocumented as of this encounter (statuses as of 02/18/2020) Medications Medication Sig Dispensed Refills Start Date End Date Status docosahexanoic acid Take by mouth. 0 Active (DHA ORAL) albuterol 90 Inhale 2 Puffs 8.5 g 1 08/14/2019 A ctive mcg/actuation every 6 (six) hours inhalerIndications: as needed for High-risk Wheezing, Shortness in first trimester of Breath, Bronchospasm or Chest tightness. documented as of this encounter (statuses as of 02/18/2020) Active Problems Problem Noted Date COVID-19 virus [...] as of this encounter (statuses as of 02/18/2020) Resolved Problems Problem Noted Date Resolved Date [...] as of this encounter (statuses as of 02/18/2020) Immunizations Name Administration Dates Next Due Influenza [...] for signature and review. elephone Encounter - Lisa Liang - 02/18/2020 11:53 AM CDTReceived fax, CRISTHIAN results. documented in this encounter Plan of Treatment Date Type Specialty Care Team Description 02/28/2020 Routine Obstetrics & Hickman, Kasey Duggan MD Visit Gynecology [address] [place] [address] [address]. [address] [place] [id number] [phone] Health Maintenance Due Date Last Done [...] Plan / Subscriber ID Effective Phone Address [facility] [id number] 2018-Yahaira P.OTito BOX Medic aid HEALTH CHOICE - [place] [id number] 1 MANAGED MEDICAID [place], [place] MEDICAID [phone] documented as of this encounter
--- OUTSIDE RECORDS SUMMARY | 2020-02-20 08:06 | XMS REPORT | Summary of Care ---
:1995 Author Organization [facility] Address [address] [place] [address] Care Team Providers Name Role Phone Leola Hernandez Primary Care Provider Reason for Visit Reason Comments Results Encounter Details Date Type Department Care Team Description 02/06/[address] [facility] Women's HickmanKasey MD Results Healthcare- [address] [address] [place] [address] [phone] Allergies No Known Allergiesdocumented as of this encounter (statuses as of 02/07/2020) Medications Medication Sig Dispensed Refills Start Date End Date Status docosahexanoic acid Take by mouth. 0 Active (DHA ORAL) albuterol 90 Inhale 2 Puffs 8.5 g 1 08/14/2019 A ctive mcg/actuation every 6 (six) hours inhalerIndications: as needed for High-risk Wheezing, Shortness in first trimester of Breath, Bronchospasm or Chest tightness. documented as of this encounter (statuses as of 02/07/2020) Active Problems Problem Noted Date COVID-19 virus [...] as of this encounter (statuses as of 02/07/2020) Resolved Problems Problem Noted Date Resolved Date [...] as of this encounter (statuses as of 02/07/2020) Immunizations Name Administration Dates Next Due Influenza [...] Telephone Encounter - Marely Rodriguez RN - 02/07/2020 8:42 AM CDTPatient wanting to discuss results for recent vaginal swab. RN advised patient that vaginal pathogenwas negative for BV, yeast and trich. Patient states that she was supposed to be tested for AV. No order form found for MDL swab, despite note stating that MDL swab was done. Patient has appointment on02/12/20, would like to be tested at that point. RN offered appointment today, patient states she rashid l wait until appointment on 02/12/2020. Marely Rodriguez RN 02/07/2020 8:46 AM Telephone Encounter - Marely Rodriguez RN - 02/07/2020 8:29 AM CDTRN returned call, name and verified. elephone Encounter - Opal Kirby - 02/06/2020 2:44 PM CDTPatient is calling and would like to discuss her results further, and is requesting a call back. documented in this encounter Plan of Treatment Date Type Specialty Care Team Description 02/12/2020 Routine Obstetrics & Ann Marie Garvin, Visit Gynecology [place] [address] [place] [phone] Health Maintenance Due Date Last Done [...] Effective Phone Address [facility] [id number] 2018-Yahaira P.OTito TO[employer] [facility] [place] [employer] nt [phone] 1 MANAGED MEDICAID [place], [place] MEDICAID [phone] documented as of this encounter
--- OUTSIDE RECORDS SUMMARY | 2020-02-20 08:06 | XMS REPORT | Summary of Care ---
:1995 Author Organization [facility] Address [address] [place] [address] Care Team Providers Name Role Phone Leola Hernandez Primary Care Provider Reason for Visit Reason Comments ROUTINE VISIT Encounter Details Date Type Department Care Team Description 02/12/2020 Routine [facility] Women's Rafael Garvin, High-risk in third trimester (Primary Dx); Visit Healthcare- PA-C 32 weeks gestation of ; [address] Chronic vaginitis 146 [facility], [address] [place] [phone] Allergies No Known Allergiesdocumented as of this [...] Sign Reading Time Taken Comments Blood Pressure 100/63 02/12/2020 11:35 AM CDT Pulse 92 02/12/2020 11:35 AM CDT Temperature 36.6 C (97.9 F) 02/12/2020 11:35 AM CDT Respiratory Rate 18 02/12/2020 11:35 AM CDT Oxygen Saturation - - Inhaled Oxygen Concentration - - Weight 109.8 kg (242 lb) 02/12/2020 11:35 AM CDT Height 175.3 cm (5' 9") 02/12/2020 11:35 AM CDT Body Mass Index 35.74 02/12/2020 11:35 AM CDT documented in this encounter Patient Instructions Patient InstructionsAdriana Ron MA - 02/12/2020 11:15 AM CDT Patient Education Kick Counts Its normal to worry about your babys health. One way you can knowyour babys doing well isto record the babys movements once a day. This is called a kick count.Remember to take your kick count records to all your appointments with your healthcare provider. How to count kicks Time how long it takes you to feel 10 kicks, flutters, swishes, or rolls. Ideally, you want to feel at least 10 movements within 2 hours. You will likely feel 10 movements in less time than that. Starting at 28 weeks, count your baby's movements daily. Follow your healthcare provider's instructions for kick counting. Here are tips for counting kicks: Choose a time when the baby is active, such as after a meal. Sit comfortably or lie on your side. The first time the baby moves,write downthe time. Count each movement until the baby has [id number]. This can take from 20 minutes to 2hours. If you have not felt 10 kicks by the end of the second hour, wait a few hours. Then try again. Try to do it at the same time each day. When to call your healthcare provider Call your healthcare providerright awayif: You do a couple sets of kick counts during the day and your baby moves fewer than 10times [id number] Your baby moves much less often than on thedays before. You have not felt your baby move all day. [employer] last reviewed this educational content on 04/29/201719996181-7[address] [employer] [place], [place] [address] [id number]. All rights reserved. This information is not intended as a substitute for professional medical care. Always follow your healthcare professional's instructions. Patient Education Recognizing Labor The beginning of labor is the beginning of . Youll start to feel strong contractions. Thats when the muscles of your uterus tighten up to help push your baby out during . Yes, labor has probably started Signs of labor include: Your contractions are getting stronger and more painful instead of weaker. Youll probably feelthem throughout your whole uterus. Your contractions are regular. This means that you feel them about every 5 to 10 minutes. And they are getting closer together. You have pink-colored or blood-streaked fluid from your vagina. You feel that the baby has "dropped" lower in your pelvis Your water breaks. It may be a gush or a slow trickle of clear fluid from your vagina. No, its probably not real labor Signs of false labor include: Your contractions arent regular or strong. You feel the contractions only in your lower uterus. Your contractions go away when you walk or change position. Your contractions go away after drinking fluids. When to call your healthcare provider Call your healthcare provider or clinic right away if you notice any of these signs: Fluid from your vagina, with or without contractions. Bleeding heavy enough that you need a sanitary pad. You dont feel your baby moving as much as before. NOTE: Contractions are timed by both of these measures: The length of each contraction from its start to its finish. How far apart the contractions arethe time between the start of one contraction and the start of the next contraction. [employer] last reviewed this educational content on 02/27/201719995652-5714 [employer]. [address] [place] [address]. All rights reserved. This information is not intended as a substitute for professional medical care. Always follow your healthcare professional's instructions. Patient Education Comfort Tips During Talk with yourhealthcare provider before using pain-relieving medicine at any time during your . First trimester tips Nausea Get up slowly. Eat a few unsalted crackers before you get out of bed. Avoid smells that bother you. Eat smallbland low fat, light high-protein meals at frequent intervals. Sip on water, weaktea, or clear soft drinks, like john gume.Eat ice chips. Fatigue Take catnaps when you can. Get regular exercise. Accept help from others. Practice good sleep habits, like going to bed and getting up at the same time each day. Use your bed only for sleep and sex. Mood swings Talk about your feelings with others, including other mothers. Limit sugar, chocolate, and caffeine. Eat a healthy diet. Dont skip meals. Get regular exercise. Headaches Get fresh air and exercise. Relax and get enough rest. Check with your healthcare provider before taking any pain medicines. Second trimester tips Here are some suggestions to help you cope: To limit ankle swelling, sit with your feet raised or wear support hose. If you have pain in your groin and stomach(round ligament pain), avoid sudden twisting movements. For leg cramps, flexing your foot often brings immediate relief. You also may try massaging your calf in long, downward strokes, or stretching your legs before going to bed. Get enough exercise and wear shoes with flexible soles. Third trimester tips Reducing heartburn Eat small, light meals throughout the day rather than 3 large ones. Sleep with your upper body raised 6 inches. Dont lie down until 2 hours after you eat. Don't eat greasy, fried, or spicy foods. Avoid citrus fruits and juices. Treating constipation Eat foods high in fiber (whole-grain foods, fresh fruit and vegetables). Drink plenty of water. Get regular exercise. Discuss other medicines (like docusate and psyllium) with your healthcare provider. Taking care of your breasts Avoid using harsh soaps or alcohol, which can cause excessive dryness. Wear nursing bras. They provide more support than regular bras and can be used after ifyou breastfeed. Getting a good nights sleep Take a warm shower before bed. Sleep on a firm mattress. Lie on your side with 1 leg crossed over the other. Use pillows to support arms, legs, and belly. [employer] last reviewed this educational content on 02/27/201719996179-8270 [employer]. [address] [place] [address], [place] [address]. All rights reserved. This information is not intended as a substitute for professional medical care. Always follow your healthcare professional's instructions. documented in this encounter Progress Notes Rafael Garvin PA-C - 02/12/2020 11:15 AM CDT Chief complaint: Chief Complaint Patient presents with ROUTINE VISIT HPI August Albertina Freeman is a 24 year old female @ 32w2d coming in for PN visit. Denies contractions, vaginal bleeding, LOF, dysuria, or [...] N/A 06/15/2017 Surgeon: Kasey Hickman MD; Location: [facility] Labor and Delivery OR Location Social History [...] file Gets together: Not on file Attends gnosticist service: Not on file Active member of [...] No domestic abuse or violence. No cats. Church: [employer] Social History Substance and Sexual Activity Sexual Activity Yes Partners: Male control/protection: None, Coitus interruptus, Rhythm Labs none Radiology None Allergies Karen has No Known Allergies. Medications Karen has a current medication list which includes the following prescription(s): albuterol and docosahexaenoic acid. Review of Systems Constitutional: Negative for appetite change, fatigue and fever. HENT: Negative for rhinorrhea and sore throat. Eyes: Negative for pain and itching. Respiratory: Negative for cough, chest tightness and shortness of breath. Breasts: Negative for discharge, mass and pain. Cardiovascular: Negative for chest pain, palpitations and leg swelling. Gastrointestinal: Negative for abdominal pain, constipation, diarrhea and nausea. Genitourinary: Negative for bladder incontinence, dysuria, vaginal discharge, difficulty urinating, vaginal pain and pelvic pain. Musculoskeletal: Negative for gait problem and myalgias. Skin: Negative for rash. Neurological: Negative for dizziness and headaches. Psychiatric/Behavioral: Negative for suicidal ideas. The patient is not nervous/anxious. Endocrine: Negative for hair loss. LMP 07/01/2019 Pregravid BMI: 29.08 Physical Exam Vitals reviewed. Constitutional: She is oriented to person, place, and time. She appears well- developed and well-nourished. Neck: No mass. No thyromegaly palpated. No neck adenopathy. Cardiovascular: Regular rate and rhythm. Pulmonary/Chest: Normal inspiratory effort. Abdominal: Abdomen is soft. No tenderness present. No hernia palpated or inspected. Neuro/Psychiatric: She has a normal mood and affect. She is oriented to person, place, and time. Skin: Skin normal. Lymphadenopathy: No neck adenopathy present. No axillary adenopathy present. No inguinal adenopathy present. Assessment/Plan SEE OB SUMMARY Return to clinic in 2 weeks. Discussed treatment options. Reviewed patient instructions and provided printed copy. Activity restrictions: As tolerated This visit did not involve counseling and coordination that comprised more than 50% of the visit time. Rafael Garvin PA-C 02/12/2020 11:27 AM documented in this encounter Miscellaneous Notes OB Summary Note - Rafael Garvin PA-C - 02/12/2020 11:15 AM CDTAge: 24 year old GA: 32w2d Doing well, no complaints. Previous CD x 2: Repeat CD at 39 wks unless otherwise indicated Hx of Depression: EPDS 6 Denies SI/HI Hepatitis B carrier: HBeAg- neg HBV PCR- not detected. HbsAB-neg HBC Antibody-reactive ANTI HBE-positive 28 week labs and serologies wnl. MPDPS: BTL CONSENTS signed today. Aerobic vaginitis MDL swab collected today. Daily kick counts. Follow-up in 2 wks for PN visit. documented in this encounter Plan of Treatment Health Maintenance Due Date Last Done Comments PNEUMOCOCCAL 0-64 YEARS COMBINED SERIES (1 2000 of 1 - PPSV23) HPV VACCINES (1 - 2-dose series) 2005 Depression Screening 2006 INFLUENZA VACCINE (#1) 2020 06/13/2019, 02/16/2017 PAP SMEAR 06/13/2022 06/13/2019, 12/21/2016 DTaP,Tdap,and Td Vaccines (3 - Td) 01/28/2030 01/29/2020, 1 06/11/2016 documented as of this encounter Procedures Procedure Name Priority Date/Time Associated Comments Diagnosis POCT URINALYSIS W/O Routine 02/12/2020 11:37 AM High-risk preg rafael Results for this SPECIFIC GRAVITY CDT in third trimes ter procedure are in 32 weeks gestation the resul ts of section. documented in this encounter Results POCT URINALYSIS W/O SPECIFIC GRAVITY (02/12/2020 11:37 AM CDT) Pathologist Sig nature POCT PH U n/a [...] Diagnosis High-risk in third trimester - Primary 32 weeks gestation of state, incidental Chronic vaginitis Vaginitis and vulvovaginitis, unspecifie d documented in this encounter Insurance Payer Benefit Plan / Subscriber ID Effective Phone Address [facility] [id number] 2018-Yahaira P.OTito TOLLIVER [employer] aid HEALTH CHOICE - HEALTH CHOICE nt [id number] 1 MANAGED MEDICAID [place], [place] MEDICAID [phone] documented as of this encounter
--- OUTSIDE RECORDS SUMMARY | 2020-02-20 08:07 | XMS REPORT | Summary of Care ---
:1995 Author Organization [facility] Address [address] [place] [address] Care Team Providers Name Role Phone Leola Hernandez Primary Care Provider Reason for Visit Reason Comments Results Encounter Details Date Type Department Care Team Description 02/19/2020 Telephone [facility] Women's HickmanKasey MD Results Healthcare- [address] [address] [place] [address] [phone] Allergies No Known Allergiesdocumented as of this [...] Encounter - Marely Rodriguez RN - 02/19/2020 3:00 PM CDTRN spoke with patient, name and verified. RN reviewed MDL results and hygiene with patient. Patient verbalized understanding and agrees to plan of care. Marely Rodriguez RN 02/19/2020 3:01 PM Telephone Encounter - Courtney Whyte - 02/19/2020 10:45 AM CDTPatient returning call back. documented in this encounter Plan of Treatment Date Type Specialty Care Team Description 02/28/2020 Routine Obstetrics & Hickman, Kasey Duggan MD Visit Gynecology [address] [place] [address] [address]. [address] [place], [place] [address] Health Maintenance Due Date Last [...] Plan / Subscriber ID Effective Phone Address [facility] [id number] 2018-Yahaira P.OTito TOLLIVER [employer] HEALTH CHOICE - HEALTH CHOICE nt [id number] 1 MANAGED MEDICAID [place], [place] [phone] documented as of this encounter
== END ==
LOC: ER 07:59
DX: Z02.9 Encounter for administrative examinations, unspecified (principal)

== ENCOUNTER 2021-02-21 17:50 | Emergency (ER) | payer BC, OTHER ==
[2021-02-21 18:42] LABS: Urine Blood Trace-intact (Negative); Urine Glucose Negative (Negative); Urine Protein Negative (Negative)
[2021-02-21 18:47] LABS: Absolute Lymphocytes (CBC) 1.1 K/uL (0.7-4.9); Basophils % 0.3 % (0-1.3); Lymphocytes % 14.2 % (15.3-44.8); MPV 7.2 fL (7.6-11.3); RBC Red Blood Cell Count 4.19 M/uL (3.86-4.86)
[2021-02-21] MEDS ORDERED: MORPHINE 4 MG/ML SYR ONE (18:54)
[2021-02-21] MEDS ORDERED: ONDANSETRON 4 MG/2 ML VIAL ONE (18:54)
[2021-02-21] MEDS ORDERED: NA CHLORIDE 0.9% 1,000 ML ONE (18:54)
[2021-02-21 19:17] LABS: ALT/SGPT 32 U/L (12-78); AST/SGOT 22 U/L (15-37); Albumin 3.8 g/dL (3.4-5.0); Alkaline Phosphatase 53 U/L (45-117); BUN Blood Urea Nitrogen 14 mg/dL (7-18); Bicarbonate 27 mmol/L (21-32); Bilirubin Direct 0.2 mg/dL (0-0.2); Bilirubin Total 0.6 mg/dL (0.2-1.0); Glucose Level 89 mg/dL (74-106); Lipase 50 U/L (73-393); Potassium 3.7 mmol/L (3.5-5.1); Protein, Total 6.8 g/dL (6.4-8.2); Sodium Level 143 mmol/L (136-145)
--- NOTE | 2021-02-21 19:56 | RAD REPORT ---
EXAM DESCRIPTION: CTAbdomen Pelvis W Contrast - 02/21/2021 7:39 pm CLINICAL HISTORY: Abdominal pain. abd pain, vomiting, diarrhea COMPARISON: Abdomen Pelvis W Contrast dated 02/15/2018; CT ABD PELVIS W CONTRAST dated 08/15/2012 TECHNIQUE: Biphasic CT imaging of the abdomen and pelvis was performed with 100 ml non-ionic IV cont rast. All CT scans are performed using dose optimization technique as appropriate and may include automated exposure control or mA/KV adjustment according to patient size. FINDINGS: The lung bases are clear. The liver contains a 5 mm cyst in the posterior right lobe. The spleen, pancreas, adrenal glands and kidneys are within normal limits. No bowel obstruction, free air, free fluid or abscess. The appendix is normal. No evidence of signi ficant lymphadenopathy. No suspicious bony findings. Bicornuate uterus. IMPRESSION: No acute intra-abdominal or pelvic finding.
[2021-02-21] MEDS ORDERED: KETOROLAC 30 MG/ML INJ ONE (20:50)
[2021-02-21] MEDS ORDERED: DICYCLOMINE HCL 10 MG CAP ONE (20:50)
--- NOTE | 2021-02-21 21:25 | EDPHYS ---
Physician Documentation [facility] Name: Karen Freeman Age: 25 yrs Sex: Female : 1995 Arrival Date: 02/21/2021 Time: 17:53 Bed 30 Private MD: ED Physician Aleksandr Terrazas HPI: 02/21 21:22 This 25 yrs old Female presents to ER via Ambulatory with complaints of jmm Nausea/Vomiting/Diarrhea. 21:22 The patient presents to the emergency department with nausea, vomiting, diarrhea. jmm Onset: The symptoms/episode began/occurred acutely, today. Possible causes: sick contacts, by a significant other, . The symptoms are aggravated by nothing. The symptoms are alleviated by nothing. Associated signs and symptoms: Pertinent negatives: fever. This is a 25-year-old female with history of asthma that presents emerge department with complaints of vomiting, diarrhea that begins today. Patient also complains of congestion, her has similar symptoms. Patient states she does have some abdominal pain which radiates to her back. 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 - Social history:: Smoking status: Patient denies any tobacco usage or history of. ROS: 21:22 Constitutional: Negative for fever, chills, and weight loss, Cardiovascular: Negative jmm for chest pain, palpitations, and edema, Respiratory: Negative for shortness of breath, cough, wheezing, and pleuritic chest pain. 21:22 Abdomen/GI: Positive for abdominal pain, nausea and vomiting, diarrhea. 21:22 All other systems are negative. Exam: 21:22 Constitutional: This is a well developed, well nourished patient who is awake, alert, jmm and in no acute distress. Head/Face: atraumatic. Eyes: EOMI, no conjunctival erythema appreciated ENT: Moist Mucus Membranes Neck: Trachea midline, Supple Chest/axilla: Normal chest wall appearance and motion. Cardiovascular: Regular rate and rhythm. No edema appreciated Respiratory: Normal respirations, no respiratory distress appreciated 21:22 Back: Normal ROM Skin: General appearance color normal MS/ Extremity: Moves all extremities, no obvious deformities appreciated, no edema noted to the lower extremities Neuro: Awake and alert, normal gait Psych: Behavior is normal, Mood is normal, Patient is cooperative and pleasant 21:22 Abdomen/GI: Inspection: abdomen appears normal, Bowel sounds: normal, Palpation: soft, mild abdominal tenderness, in all quadrants. Vital Signs: 17:55 BP 124 / 70; Pulse 99; Resp 18; Temp 98.4; Pulse Ox 98% ; Weight 86.18 kg; Height 5 ft. ll1 9 in. (175.26 cm); Pain 7/10; 19:21 BP 107 / 64; Pulse 85; Resp 16; Temp 98.5(O); Pulse Ox 100% on R/A; Pain 4/10; bc5 17:55 Body Mass Index 28.06 (86.18 kg, 175.26 cm) ll1 MDM: 18:19 Patient medically screened. [facility] 21:24 Data reviewed: vital signs, nurses notes. Counseling: I had a detailed discussion with aman the patient and/or guardian regarding: the historical points, exam findings, and any diagnostic results supporting the discharge/admit diagnosis, radiology results, the need for outpatient follow up, to return to the emergency department if symptoms worsen or persist or if there are any questions or concerns that arise at home. 02/21 18:20 Order name: Basic Metabolic Panel [facility] 02/21 18:20 Order name: CBC with Diff [facility] 02/21 18:20 Order name: Hepatic Function [facility] 02/21 18:20 Order name: Lipase [facility] 02/21 18:20 Order name: Basic Metabolic Panel; Complete Time: 19:19 [facility] 02/21 18:20 Order name: CBC with Automated Diff; Complete Time: 19:03 [facility] 02/21 18:20 Order name: CT Abd/Pelvis - IV Contrast Only; Complete Time: 19:57 [facility] 02/21 18:20 Order name: Liver (Hepatic) Function; Complete Time: 19:19 [facility] 02/21 18:20 Order name: Lipase; Complete Time: 19:19 [facility] 02/21 18:42 Order name: Urine Dipstick-Ancillary; Complete Time: 19:03 [facility] 02/21 18:49 Order name: Urine --Ancillary (enter results); Complete Time: 19:20 eb 02/21 18:20 Order name: IV Saline Lock; Complete Time: 18:33 [facility] 02/21 18:20 Order name: Labs collected and sent; Complete Time: 18:33 [facility] 02/21 18:20 Order name: Urine Dipstick-Ancillary (obtain specimen); Complete Time: 18:47 [facility] 02/21 18:20 Order name: Urine Test (obtain specimen); Complete Time: 18:47 [facility] Administered Medications: 18:43 Drug: morphine 4 mg Route: IVP; Site: left hand; kh1 21:07 Follow up: Response: Pain is decreased bc5 18:44 Drug: NS 0.9% 1000 ml Route: IV; Rate: 1 bolus; Site: left hand; kh1 21:07 Follow up: IV Status: Completed infusion bc5 18:44 Drug: Zofran (Ondansetron) 4 mg Route: IVP; Site: left hand; kh1 21:07 Follow up: Response: Nausea is decreased bc5 20:30 Drug: Ketorolac 15 mg Route: IVP; Site: right hand; bc5 21:08 Follow up: Response: Pain is decreased bc5 20:30 Drug: Bentyl (dicyclomine) 20 mg Route: PO; bc5 21:08 Follow up: Response: No adverse reaction bc5 Disposition Summary: 02/21/21 21:24 Discharge Ordered Location: Home [facility] Condition: Stable [facility] Diagnosis - Vomiting jmm - Diarrhea, unspecified [facility] Followup: [facility] - With: Private Physician - When: 2 - 3 days - Reason: Recheck today's complaints, Continuance of care, Re-evaluation by your physician Discharge Instructions: - Discharge Summary Sheet [facility] - Food Choices to Help Relieve Diarrhea, Adult jm - Diarrhea, Adult jm - Vomiting, Adult [facility] Forms: - Medication Reconciliation Form [facility] - Thank You Letter [facility] - Antibiotic Education [facility] - Prescription Opioid Use [facility] Prescriptions: - ondansetron 4 mg Oral tablet,disintegrating - place 1 tablet by TRANSLINGUAL route 3 times per day; 20 tablet; Refills: 0, [facility] Product Selection Permitted - dicyclomine 20 mg Oral Tablet - take 1 tablet by ORAL route 4 times per day; 20 tablet; Refills: 0, Product amna Selection Permitted Addendum: 02/27/2021 04:40 Co-signature as Attending Physician, Aleksandr rodriguez a2 Signatures: Dispatcher [employer] EDMarcel Jones PA PA jmm Alzahri, Mohammad, MD MD ma2 Tay Blunt RN RN ll1 [facility] Rocio Hood RN RN bc5
--- NOTE | 2021-02-21 21:25 | ER ---
Nurse's Notes [facility] Name: Karen Freeman Age: 25 yrs Sex: Female : 1995 Arrival Date: 02/21/2021 Time: 17:53 Bed 30 Private MD: Diagnosis: Vomiting;Diarrhea, unspecified Presentation: 02/21 17:55 Chief complaint: Patient states: N/V/D with abd pain started today. Has had runny nose, ll1 slight cough "allergy symptoms" for 1 week. Coronavirus screen: Vaccine status: Patient reports receiving the 2nd dose of the covid vaccine. Client denies travel out of the [place] in the last 14 days. congestion, cough unrelated to allergies, diarrhea, fatigue, headache, nausea, sore throat, vomiting. Client presents with at least one sign or symptom that may indicate coronavirus-19. Standard/surgical mask placed on the client. Ebola Screen: Patient denies travel to an Ebola-affected area in the 21 days before illness onset. Initial Sepsis Screen: Does the patient meet any 2 criteria? HR > 90 bpm. No. Patient's initial sepsis screen is negative. Does the patient have a suspected source of infection? Yes: Acute abdominal pain. Risk Assessment: Do you want to hurt yourself or someone else? Patient reports no desire to harm self or others. Onset of symptoms was February 14, 2021. 17:55 Method Of Arrival: Ambulatory [facility] 17:55 Acuity: PEACE 3 ll1 Triage Assessment: 18:15 Pain: Denies pain. 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 - Social history:: Smoking status: Patient denies any tobacco usage or history of. Screenin:13 Abuse screen: Denies threats or abuse. Nutritional screening: No deficits noted. [facility] Tuberculosis screening: No symptoms or risk factors identified. Fall Risk None identified. Assessment: 18:12 General: Appears in no apparent distress. uncomfortable, Behavior is calm, cooperative, kh1 appropriate for age. Neuro: No deficits noted. Level of Consciousness is awake, alert, obeys commands, Oriented to person, place, time, situation, Appropriate for age Woven Blind Loom Tender are equal bilaterally Moves all extremities. Gait is steady, Speech is normal. GI: No deficits noted. Abdomen is flat, Abd is soft and non tender Reports diarrhea, nausea, vomiting. : No deficits noted. 19:22 Reassessment: Initial contact. Pt sitting up in stretcher with eyes open, RR is even bc5 and unlabored, speaking in clear and compete sentences at this time. pt has no complaints or requests at this time, updated as to POC, VSS, NAD, WCTM. Vital Signs: 17:55 BP 124 / 70; Pulse 99; Resp 18; Temp 98.4; Pulse Ox 98% ; Weight 86.18 kg; Height 5 ft. ll1 9 in. (175.26 cm); Pain 7/10; 19:21 BP 107 / 64; Pulse 85; Resp 16; Temp 98.5(O); Pulse Ox 100% on R/A; Pain 4/10; bc5 17:55 Body Mass Index 28.06 (86.18 kg, 175.26 cm) ll1 ED Course: 17:53 Patient arrived in ED. ds1 17:57 Triage completed. 1 17:58 Marcel Rutledge PA is PHCP. [facility] 17:58 Aleksandr Terrazas MD is Attending Physician. [facility] 17:58 Arm band placed on Patient placed in an exam room, on a stretcher. 1 18:12 Francesca Michael is Primary Nurse. 1 18:14 Patient has correct armband on for positive identification. Bed in low position. Call [facility] light in reach. Side rails up X 1. Pulse ox on. NIBP on. 18:14 No provider procedures requiring assistance completed. kh1 18:43 Lipase Sent. kh1 18:43 Liver (Hepatic) Function Sent. kh1 18:43 CBC with Automated Diff Sent. kh1 18:43 Basic Metabolic Panel Sent. kh1 18:47 Basic Metabolic Panel Sent. 1 18:47 CBC with Diff Sent. kh1 18:47 Hepatic Function Sent. 1 18:47 Lipase Sent. kh1 19:07 Urine --Ancillary (enter results) Sent. kh1 19:40 CT Abd/Pelvis - IV Contrast Only In Process Unspecified. EDMS 21:52 IV discontinued, intact, bleeding controlled, No redness/swelling at site. Pressure bc5 dressing applied. Administered Medications: 18:43 Drug: morphine 4 mg Route: IVP; Site: left hand; 1 21:07 Follow up: Response: Pain is decreased bc5 18:44 Drug: NS 0.9% 1000 ml Route: IV; Rate: 1 bolus; Site: left hand; kh1 21:07 Follow up: IV Status: Completed infusion bc5 18:44 Drug: Zofran (Ondansetron) 4 mg Route: IVP; Site: left hand; kh1 21:07 Follow up: Response: Nausea is decreased bc5 20:30 Drug: Ketorolac 15 mg Route: IVP; Site: right hand; bc5 21:08 Follow up: Response: Pain is decreased bc5 20:30 Drug: Bentyl (dicyclomine) 20 mg Route: PO; bc5 21:08 Follow up: Response: No adverse reaction bc5 Outcome: 21:24 Discharge ordered by MD. [place] 21:51 Discharged to home ambulatory. bc5 21:51 Condition: improved 21:51 Discharge instructions given to patient. 21:52 Patient left the ED. bc5 Signatures: Dispatcher [employer] EDMS Marcel Rutledge PA PA jmm Sanford, Demi 1 Tay Blunt RN RN 1 Francesca Michael 1 Rocio Hood RN RN bc5
[2021-02-21 22:59] VITALS: BP 107/64; TEMP 98.5; O2SAT 100
== END 2021-02-21 21:52 | disposition home or self-care (01) ==
LOC: ER 17:50
DX: R11.10 Vomiting, unspecified (principal); R19.7 Diarrhea, unspecified
CPT/HCPCS: 85025; 80048; 36415; 81025; 80076; 81003; 83690; 74177; 99284; Q9967; J7030; J2405

== ENCOUNTER 2022-06-09 16:12 | Emergency (ER) | payer OTHER ==
--- OUTSIDE RECORDS SUMMARY | 2022-06-09 16:19 | XMS REPORT | Continuity of Care Document ---
:1995 Author Organization [facility] t Address [address] [place] [address] Dr. [address] [place] [address] Care Team Providers Name Role Phone Mckenzie Hernandez Primary Care Physician Sheila Tam Attending Clinician Unavailable EARL SALDAÑA Attending Clinician Unavailable GUERO BERRY Attending Clinician Unavailable Guero Berry MD Attending Clinician MARIA LUISA SHIPMAN Attending Clinician Unavailable Maria Luisa Trotter Attending Clinician Melissa Raya Attending Clinician Tatyana Brock RN Attending Clinician Unavailable Only, Ang Db Test Attending Clinician Unavailable MELISSA WILDER Attending Clinician Unavailable Vivi Zambrano MD Attending Clinician Carmella Dorman PA-C Attending Clinician VIVI ZAMBRANO Attending Clinician Unavailable Doctor Unassigned, [facility] [place] Attending Clinician Unavailable Piotr DEWITT, Earl Attending Clinician Belinda AQUINO, Yocasta Attending Clinician YOCASTA TREVINO Attending Clinician Unavailable Wayne ESPINAL, Jyoti Attending Clinician Unavailable Kiara Ortiz Attending Clinician KIARA GUERRA Attending Clinician Unavailable Lab, Adc Fam Pob I Attending Clinician Unavailable Jolynn Kauffman MD Attending Clinician JOLYNN KAUFFMAN Attending Clinician Unavailable 2, [facility] Lab Attending Clinician Unavailable RADHA CRAIN Attending Clinician Unavailable ARCENIO HILTON Attending Clinician Unavailable ASHUTOSH SOMERS Attending Clinician Unavailable Ashutosh Somers DO Attending Clinician Mundo KEENE, Arcenio Attending Clinician Dolly Alva Attending Clinician DOLLY PEREZ Attending Clinician Unavailable Nurse, [facility] Attending Clinician Unavailable Reg Little CRNA Attending Clinician Marlo KEENE, Carin Dickinson Attending Clinician [phone] Only, Adc Test Attending Clinician Unavailable Pob, [facility] Lab Main Attending Clinician Unavailable Ultrasound, Ang-Mfm Attending Clinician Unavailable Phillip KEENE, Gumaro Brown Attending Clinician Linda Choi S Attending Clinician Sarabjit Garcia Attending Clinician Skip KEENE, Jane Attending Clinician Anahi Saravia MD Attending Clinician Jeff Vega Attending Clinician JEFF RÍOS Attending Clinician Unavailable 1, Ad[facility] Lab Attending Clinician Unavailable GUERO BERRY Admitting Clinician Unavailable Guero Berry MD Admitting Clinician Payers Payer Name Policy Type Policy Number Effective Date Expiration Date [facility] [id number] 2018 CHOICE MEDICAID 00:00:00 [employer]CIAL [id number] 2021 OUT OF NETWORK 00:00:00 [employer] 53 [id number] Common [facility] Blue Cross Blue 6 [id number] 2020 Common [facility] [place] 00:00:00 [facility] [id number] 2020 Common 00:00:00 [facility] [id number] 2020 Common 00:00:00 [facility] [id number] 2020 Common 00:00:00 [facility] [id number] 2020 Common 00:00:00 [facility] [id number] 2020 Common 00:00:00 [facility] [id number] 2020 Common 00:00:00 [facility] [id number] 2020 Common 00:00:00 [facility] Problems Condition Condition Condition Status Onset Resolution Last Treating Co mments Source Name Details Category Date Date Treatment Clinician Date Chronic Chronic Disease Active Univers fatigue fatigue 5-31 ity of syndrome syndrome 00:00: [address] Subacute Subacute Disease Active Unive rs and and 3-08 ity of chronic chronic 00:00: [place] vaginitis vaginitis 00 [facility] BMI BMI Disease Active Univers 28.0-28.9, 28.0-28.9, 3-08 it y of adult adult 00:00: [place] [facility] Dyspareuni Dyspareuni Disease Active U nivers a in a in 3-08 ity of female female 00:00: [address] BMI BMI Disease Active Univers 28.0-28.9, 28.0-28.9, 3-08 it y of adult adult 00:00: [address] Vaginal Vaginal Disease Active Univers discharge discharge 4-14 ity of 00:00: [place] [facility] [place] History of History of Disease Active U nivers depression depression 4-14 it y of 00:00: [address] Mild Mild Disease Active Univers intermitte intermitte 4-14 it y of nt asthma [place] asthma [place] without [place] Medical complicati complicati Br anch on on Previous Previous Disease Active Unive rs 1-17 ity of section section 00:00: [address] Bicornuate Bicornuate Disease Active U nivers uterus uterus 7-25 ity of 00:00: [address] Hepatitis Hepatitis Disease Active Uni vers B carrier B carrier - ity of 00:00: [address] [id number] Other Problem Common chronic Spirit pain - [facility] [id number] Leukopenia Problem Com mon , Spirit unspecifie - [facility] d type [facility] [id number] Chronic Problem Common fatigue [facility] [id number] 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 - [facility] Tinnitus Tinnitus Problem Commo n of right of right Spirit ear ear - [facility] Mixed Depression Problem Commo n anxiety with Spirit and anxiety - [facility] depressive [facility] Allergies, Adverse Reactions, Alerts Allergy Allergy Status Severity Reaction(s) Onset Inactive Treating Comm ents Source Name Type Date Date Clinician NO KNOWN Drug Active Univers ALLERGIE Class ity of S [facility] Social History Social Habit Start Date Stop Date Quantity Comments Source History of Common Spirit - Tobacco Use [facility] Sex Assigned At Common Sp rut - [facility] History SDOH University o f Alcohol Frequency [facility] edical Branch History SDOH University o f Alcohol Std [place] Medical Drinks Branch History SDOH University o f Alcohol Binge [place] Medic al Branch Exposure to 2022-04-10 2022-04-20 Not sure University of SARS-CoV-2 00:00:00 10:19:00 [facility] (event) Branch Alcohol intake 2022-02-19 2022-02-19 Current drinker Unive rsity of 00:00:00 00:00:00 of alcohol [facility] (finding) Branch Tobacco use and 2022-01-11 2022-01-11 Smokeless tobacco Un iversity of exposure 00:00:00 00:00:00 non-user [place] [facility] Branch Alcohol Comment 2018-05-12 2018-05-12 Occasional Universit y of 00:00:00 00:00:00 [facility] Smoking Status Start Date Stop Date Source Former Smoker 2022-04-08 00:00:00 2022-04-08 00:00:00 Common S pirit - [facility] Never Smoker Common Spirit - [facility] Medications Ordered Filled Start Stop Current Ordering Indication Dosage Frequency Signature Comments Components Source Medication Medication Date Date Medication? Clinician (SIG) Name Name FLUoxetine 2021-05 Yes [id number] 10mg Take 1 Univers 10 mg 1-22 capsule by ity of capsule 00:00: mouth in [place] 00 the Medical morning. Branch FLUoxetine 2021-05 Yes [id number] 10mg Take 1 Univers 10 mg 1-22 capsule by ity of capsule 00:00: mouth in [place] 00 the Medical morning. Branch FLUoxetine 2021-05 Yes [id number] 10mg Take 1 Univers 10 mg 1-22 capsule by ity of capsule 00:00: mouth in [place] 00 the Medical morning. Branch benzonatate 2021-05- No [id number] 200mg Take 1 Univers 200 mg 0-07 10-18 capsule by ity of capsule 00:00: 04:59 mouth 3 [place] 00 :00 (three) Medical times Branch daily as needed for Cough for up to 10 days. albuterol 2021-05- No [id number] 2{puff} Inhale 2 Univers 90 0-07 10-18 Puffs ity of mcg/actuati 00:00: 04:59 [place] 6 [place] inhaler 00 :00 (six) Medical hours as Branch needed for Wheezing or Shortness of Breath for up to 10 days. promethazin 2021-05- No [id number] 5mL Take 5 mL Univers e-dextromet 0-07 10-13 by mouth 4 i ty of horphan 00:00: 04:59 (four) [place] 6.25-15 00 :00 times Medical mg/5 mL daily as Branch syrup needed for Cough for up to 5 days. BIOTIN ORAL Yes Take by Uni vers - mouth. ity of 13:49: [place] 56 Medical Branch glucosamine Yes Take by Uni vers /chondr strong 9- mouth. ity of A sod 13:49: [place] (OSTEO 56 Medical BI-FLEX Branch ORAL) ASHWAGANDHA 2021-0 Yes Take by Uni vers ROOT 9-23 mouth. ity of EXTRACT 13:49: [place] ORAL 56 Medical Branch BIOTIN ORAL 2021-0 Yes Take by Uni vers 9-23 mouth. ity of 13:49: [place] 56 Medical Branch glucosamine 2021-0 Yes Take by Uni vers /chondr strong 9-23 mouth. ity of A sod 13:49: [place] (OSTEO 56 Medical BI-FLEX Branch ORAL) ASHWAGANDHA 2021-0 Yes Take by Uni vers ROOT 9-23 mouth. ity of EXTRACT 13:49: [place] ORAL 56 Medical Branch BIOTIN ORAL 2021-0 Yes Take by Uni vers 9-23 mouth. ity of 13:49: [place] 56 Medical Branch glucosamine 2021-0 Yes Take by Uni vers /chondr strong 9-23 mouth. ity of A sod 13:49: [place] (OSTEO 56 Medical BI-FLEX Branch ORAL) ASHWAGANDHA 2021-0 Yes Take by Uni vers ROOT 9-23 mouth. ity of EXTRACT 13:49: [place] ORAL 56 Medical Branch BIOTIN ORAL 2021-0 Yes Take by Uni vers 9-23 mouth. ity of 13:49: [place] 56 Medical Branch glucosamine 2021-0 Yes Take by Uni vers /chondr strong 9-23 mouth. ity of A sod 13:49: [place] (OSTEO 56 Medical BI-FLEX Branch ORAL) ASHWAGANDHA 2021-0 Yes Take by Uni vers ROOT 9-23 mouth. ity of EXTRACT 13:49: [place] ORAL 56 Medical Branch BIOTIN ORAL 2021-0 Yes Take by Uni vers 9-23 mouth. ity of 13:49: [place] 56 Medical Branch glucosamine 2021-0 Yes Take by Uni vers /chondr strong 9-23 mouth. ity of A sod 13:49: [place] (OSTEO 56 Medical BI-FLEX Branch ORAL) ASHWAGANDHA 2021-0 Yes Take by Uni vers ROOT 9-23 mouth. ity of EXTRACT 13:49: [place] ORAL 56 Medical Branch BIOTIN ORAL 2021-0 Yes Take by Uni vers 9-23 mouth. ity of 13:49: [place] 56 Medical Branch glucosamine 2-0 Yes Take by Uni vers /chondr strong 9-23 mouth. ity of A sod 13:49: [place] (OSTEO 56 Medical BI-FLEX Branch ORAL) ASHWAGANDHA 2021-0 Yes Take by Uni vers ROOT 9-23 mouth. ity of EXTRACT 13:49: [place] ORAL 56 Medical Branch BIOTIN ORAL 2021-0 Yes Take by Uni vers 9-23 mouth. ity of 13:49: [place] 56 Medical Branch glucosamine 2021-0 Yes Take by Uni vers /chondr strong 9-23 mouth. ity of A sod 13:49: [place] (OSTEO 56 Medical BI-FLEX Branch ORAL) ASHWAGANDHA 2021-0 Yes Take by Uni vers ROOT 9-23 mouth. ity of EXTRACT 13:49: [place] ORAL 56 Medical Branch BIOTIN ORAL 2021-0 Yes Take by Uni vers 9-23 mouth. ity of 13:49: [place] 56 Medical Branch glucosamine 2021-0 Yes Take by Uni vers /chondr strong 9-23 mouth. ity of A sod 13:49: [place] (OSTEO 56 Medical BI-FLEX Branch ORAL) ASHWAGANDHA 2021-0 Yes Take by Uni vers ROOT 9-23 mouth. ity of EXTRACT 13:49: [place] ORAL 56 Medical Branch BIOTIN ORAL 2021-0 Yes Take by Uni vers 9-23 mouth. ity of 13:49: [place] 56 Medical Branch glucosamine 2021-0 Yes Take by Uni vers /chondr strong 9-23 mouth. ity of A sod 13:49: [place] (OSTEO 56 Medical BI-FLEX Branch ORAL) ASHWAGANDHA 2021-0 Yes Take by Uni vers ROOT 9-23 mouth. ity of EXTRACT 13:49: [place] ORAL 56 Medical Branch BIOTIN ORAL 2021-0 Yes Take by Uni vers 9-23 mouth. ity of 13:49: [place] 56 Medical Branch glucosamine 2021-0 Yes Take by Uni vers /chondr strong 9-23 mouth. ity of A sod 13:49: [place] (OSTEO 56 Medical BI-FLEX Branch ORAL) ASHWAGANDHA 2021-0 Yes Take by Uni vers ROOT 9-23 mouth. ity of EXTRACT 13:49: [place] ORAL 56 Medical Branch BIOTIN ORAL 2021-0 Yes Take by Uni vers 9-23 mouth. ity of 13:49: [place] 56 Medical Branch glucosamine 2-0 Yes Take by Uni vers /chondr strong 9-23 mouth. ity of A sod 13:49: [place] (OSTEO 56 Medical BI-FLEX Branch ORAL) ARIE 2021-0 Yes Take by Uni vers ROOT 9-23 mouth. ity of EXTRACT 13:49: [place] ORAL 56 Medical Branch FLUoxetine 2021-0 Yes [id number] 10mg Take 1 Univers 10 mg 9-23 capsule by ity of capsule 00:00: mouth in [place] 00 the Medical morning. Branch FLUoxetine 2021-0 Yes [id number] 10mg Take 1 Univers 10 mg 9-23 capsule by ity of capsule 00:00: mouth in [place] 00 the Medical morning. Branch FLUoxetine 2021-0 Yes [id number] 10mg Take 1 Univers 10 mg 9-23 capsule by ity of capsule 00:00: mouth in [place] 00 the Medical morning. Branch FLUoxetine 2021-0 Yes [id number] 10mg Take 1 Univers 10 mg 9-23 capsule by ity of capsule 00:00: mouth in [place] 00 the Medical morning. Branch FLUoxetine 2021-0 Yes [id number] 10mg Take 1 Univers 10 mg 9-23 capsule by ity of capsule 00:00: mouth in [place] 00 the Medical morning. Branch FLUoxetine 2021-0 Yes [id number] 10mg Take 1 Univers 10 mg 9-23 capsule by ity of capsule 00:00: mouth in [place] 00 the Medical morning. Branch FLUoxetine 2021-0 Yes [id number] 10mg Take 1 Univers 10 mg 9-23 capsule by ity of capsule 00:00: mouth in [place] 00 the Medical morning. Branch FLUoxetine 2021-0 2022- No [id number] 10mg Take 1 Univers 10 mg 9-23 11-22 capsule by ity of capsule 00:00: 00:00 mouth in [place] 00 :00 the Medical morning. Branch FLUoxetine 2021-0 2022- No [id number] 10mg Take 1 Univers 10 mg 9-23 11-22 capsule by ity of capsule 00:00: 00:00 mouth in [place] 00 :00 the Medical morning. Branch bromphenira 2021-0 Yes [id number] 5mL Take 5 mL Univers mine-pseudo 8-15 by mouth 4 it y of ephedrine-D 00:00: ([place] (BROMFED 00 times Medical DM) 2-30-10 daily as Bran ch mg/5 mL needed for syrup Congestion /Allergies . bromphenira 2021-0 Yes [id number] 5mL Take 5 mL Univers mine-pseudo 8-15 by mouth 4 it y of ephedrine-D 00:00: ([place] (BROMFED 00 times Medical DM) 2-30-10 daily as Bran ch mg/5 mL needed for syrup Congestion /Allergies . bromphenira 2021-0 Yes [id number] 5mL Take 5 mL Univers mine-pseudo 8-15 by mouth 4 it y of ephedrine-D 00:00: ([place] (BROMFED 00 times Medical DM) 2-30-10 daily as Bran ch mg/5 mL needed for syrup Congestion /Allergies . bromphenira 2021-0 Yes [id number] 5mL Take 5 mL Univers mine-pseudo 8-15 by mouth 4 it y of ephedrine-D 00:00: (four[place] (BROMFED 00 times Medical DM) 2-30-10 daily as Bran ch mg/5 mL needed for syrup Congestion /Allergies . bromphenira 2021-0 Yes [id number] 5mL Take 5 mL Univers mine-pseudo 8-15 by mouth 4 it y of ephedrine-D 00:00: (four[place] (BROMFED 00 times Medical DM) 2-30-10 daily as Bran ch mg/5 mL needed for syrup Congestion /Allergies . bromphenira 2021-0 Yes [id number] 5mL Take 5 mL Univers mine-pseudo 8-15 by mouth 4 it y of ephedrine-D 00:00: (four[place] (BROMFED 00 times Medical DM) 2-30-10 daily as Bran ch mg/5 mL needed for syrup Congestion /Allergies . bromphenira 2021-0 Yes [id number] 5mL Take 5 mL Univers mine-pseudo 8-15 by mouth 4 it y of ephedrine-D 00:00: (four[place] (BROMFED 00 times Medical DM) 2-30-10 daily as Bran ch mg/5 mL needed for syrup Congestion /Allergies . bromphenira 2021-0 Yes [id number] 5mL Take 5 mL Univers mine-pseudo 8-15 by mouth 4 it y of ephedrine-D 00:00: (four[place] (BROMFED 00 times Medical DM) 2-30-10 daily as Bran ch mg/5 mL needed for syrup Congestion /Allergies . bromphenira 2022-0 Yes [id number] 5mL Take 5 mL Univers mine-pseudo 8-15 by mouth 4 it y of ephedrine-D 00:00: (four[place] (BROMFED 00 times Medical DM) 2-30-10 daily as Bran ch mg/5 mL needed for syrup Congestion /Allergies . bromphenira 2022-0 Yes [id number] 5mL Take 5 mL Univers mine-pseudo 8-15 by mouth 4 it y of ephedrine-D 00:00: (four[place] (BROMFED 00 times Medical DM) 2-30-10 daily as Bran ch mg/5 mL needed for syrup Congestion /Allergies . bromphenira 2021-0 Yes [id number] 5mL Take 5 mL Univers mine-pseudo 8-15 by mouth 4 it y of ephedrine-D 00:00: (four[place] (BROMFED 00 times Medical DM) 2-30-10 daily as Bran ch mg/5 mL needed for syrup Congestion /Allergies . bromphenira 2021-0 Yes [id number] 5mL Take 5 mL Univers mine-pseudo 8-15 by mouth 4 it y of ephedrine-D 00:00: (four[place] (BROMFED 00 times Medical DM) 2-30-10 daily as Bran ch mg/5 mL needed for syrup Congestion /Allergies . amoxicillin 2021-2021- No [id number] 1{tbl} Take 1 Univers -clavulanat 8-15 08-23 tablet by it y of e 00:00: 04:59 mouth in [place] (AUGMENTIN) 00 :00 the Medical 875-125 mg morning Branch per tablet and 1 tablet in the evening. Do all this for 7 days. Ciclopirox Ciclopirox 2021-0 2021- No QD Ciclopirox 8 % 8 % 7-13 10-11 8 % 00:00: 00:00 00 :00 Ciclopirox Ciclopirox 2021-0 2021- No QD Ciclopirox 8 % 8 % 7-13 10-11 8 % 00:00: 00:00 00 :00 Ciclopirox Ciclopirox 2021-0 2021- No QD Ciclopirox 8 % 8 % 13 10-11 8 % 00:00: 00:00 00 :00 Jublia 10 % Jublia 10 % 2021- No 1{appli QD Jublia 10 12-04 cation} % 00:00: 00:00 00 :00 Ketoconazol Ketoconazol 2021- No 1{appli BID Ketoconazo e 2 % e 2 % 12-04 cation_ le 2 % 00:00: 00:00 to_affe 00 :00 cted_ar ea} Ketoconazol Ketoconazol 2021- No 1{appli BID Ketoconazo e 2 % e 2 % 12-04 cation_ le 2 % 00:00: 00:00 to_affe 00 :00 cted_ar ea} Ketoconazol Ketoconazol 2021- No 1{appli BID Ketoconazo e 2 % e 2 % 12-04 cation_ le 2 % 00:00: 00:00 to_affe 00 :00 cted_ar ea} LOESTRIN FE Yes [id number] 1{tbl} Take 1 Univers 1 mg-20 mcg 6-22 tablet by ity of (21)/75 mg 00:00: mouth [place] (7) tablet 00 daily. [facility] LOESTRIN FE Yes [id number] 1{tbl} Take 1 Univers 1 mg-20 mcg 6-22 tablet by ity of (21)/75 mg 00:00: mouth [place] (7) tablet 00 daily. [facility] LOESTRIN FE Yes [id number] 1{tbl} Take 1 Univers 1 mg-20 mcg 6-22 tablet by ity of (21)/75 mg 00:00: mouth [place] (7) tablet 00 daily. [facility] Branch LOESTRIN FE Yes [id number] 1{tbl} Take 1 Univers 1 mg-20 mcg 6-22 tablet by ity of (21)/75 mg 00:00: mouth [place] (7) tablet 00 daily. [facility] LOESTRIN FE Yes [id number] 1{tbl} Take 1 Univers 1 mg-20 mcg 6-22 tablet by ity of (21)/75 mg 00:00: mouth [place] (7) tablet 00 daily. Medical Branch LOESTRIN FE Yes [id number] 1{tbl} Take 1 Univers 1 mg-20 mcg 6-22 tablet by ity of (21)/75 mg 00:00: mouth [place] (7) tablet 00 daily. Medical Branch LOESTRIN FE Yes [id number] 1{tbl} Take 1 Univers 1 mg-20 mcg 6-22 tablet by ity of (21)/75 mg 00:00: mouth [place] (7) tablet 00 daily. Medical Branch LOESTRIN FE Yes [id number] 1{tbl} Take 1 Univers 1 mg-20 mcg 6-22 tablet by ity of (21)/75 mg 00:00: mouth [place] (7) tablet 00 daily. [facility] LOESTRIN FE Yes [id number] 1{tbl} Take 1 Univers 1 mg-20 mcg 6-22 tablet by ity of (21)/75 mg 00:00: mouth [place] (7) tablet 00 daily. [facility] LOESTRIN FE Yes [id number] 1{tbl} Take 1 Univers 1 mg-20 mcg 6-22 tablet by ity of (21)/75 mg 00:00: mouth [place] (7) tablet 00 daily. [facility] LOESTRIN FE Yes [id number] 1{tbl} Take 1 Univers 1 mg-20 mcg 6-22 tablet by ity of (21)/75 mg 00:00: mouth [place] (7) tablet 00 daily. Medical Branch LOESTRIN FE Yes [id number] 1{tbl} Take 1 Univers 1 mg-20 mcg 6-22 tablet by ity of (21)/75 mg 00:00: mouth [place] (7) tablet 00 daily. Medical Branch LOESTRIN FE Yes [id number] 1{tbl} Take 1 Univers 1 mg-20 mcg 6-22 tablet by ity of (21)/75 mg 00:00: mouth [place] (7) tablet 00 daily. [facility] LOESTRIN FE Yes [id number] 1{tbl} Take 1 Univers 1 mg-20 mcg 6-22 tablet by ity of (21)/75 mg 00:00: mouth [place] (7) tablet 00 daily. Medical Branch LOESTRIN FE Yes [id number] 1{tbl} Take 1 Univers 1 mg-20 mcg 6-22 tablet by ity of (21)/75 mg 00:00: mouth [place] (7) tablet 00 daily. Medical Branch BIOTIN ORAL 0 Yes Take by Uni vers 6-06 mouth. ity of 09:48: [place] [address] Medical Branch cranberry Yes Take by Unive rs fruit 6-06 mouth. ity of extract 09:48: [place] (CRANBERRY 12 Medical ORAL) Branch calcium Yes Take by Univers carbonate/v 6-06 mouth. ity of itamin D3 09:48: [place] (VITAMIN 12 Medical D-3 ORAL) Branch docosahexae 0 Yes Univer s noic 6-06 ity of acid/epa 09:48: [place] (FISH OIL 12 Medical ORAL) Branch glucosamine Yes Take by Uni vers /chondr strong 6-06 mouth. ity of A sod 09:48: [place] (OSTEO 12 Medical BI-FLEX Branch ORAL) ASHWAGANDHA Yes Take by Uni vers ROOT 6-06 mouth. ity of EXTRACT 09:48: [place] [address] Medical Branch BIOTIN ORAL Yes Take by Uni vers 6-06 mouth. ity of 09:48: [place] [address] Medical Branch cranberry Yes Take by Unive rs fruit 6-06 mouth. ity of extract 09:48: [place] (CRANBERRY 12 Medical ORAL) Branch calcium Yes Take by Univers carbonate/v 6-06 mouth. ity of itamin D3 09:48: [place] (VITAMIN 12 Medical D-3 ORAL) Branch docosahexae 0 Yes Univer s noic 6-06 ity of acid/epa 09:48: [place] (FISH OIL 12 Medical ORAL) Branch glucosamine 0 Yes Take by Uni vers /chondr strong 6-06 mouth. ity of A sod 09:48: [place] (OSTEO 12 Medical BI-FLEX Branch ORAL) ASHWAGANDHA 0 Yes Take by Uni vers ROOT 6-06 mouth. ity of EXTRACT 09:48: [place] [address] Medical Branch BIOTIN ORAL 0 Yes Take by Uni vers 6-06 mouth. ity of 09:48: [place] [address] Medical Branch cranberry 0 Yes Take by Unive rs fruit 6-06 mouth. ity of extract 09:48: [place] (CRANBERRY 12 Medical ORAL) Branch calcium 0 Yes Take by Univers carbonate/v 6-06 mouth. ity of itamin D3 09:48: [place] (VITAMIN 12 Medical D-3 ORAL) Branch docosahexae 0 Yes Univer s noic 6-06 ity of acid/epa 09:48: [place] (FISH OIL 12 Medical ORAL) Branch glucosamine 0 Yes Take by Uni vers /chondr strong 6-06 mouth. ity of A sod 09:48: [place] (OSTEO 12 Medical BI-FLEX Branch ORAL) ASHWAGANDHA 0 Yes Take by Uni vers ROOT 6-06 mouth. ity of EXTRACT 09:48: [place] ORAL 12 Medical Branch BIOTIN ORAL Yes Take by Uni vers 6-06 mouth. ity of 09:48: [place] [address] Medical Branch cranberry Yes Take by Unive rs fruit 6-06 mouth. ity of extract 09:48: [place] (CRANBERRY 12 Medical ORAL) Branch calcium Yes Take by Univers carbonate/v 6-06 mouth. ity of itamin D3 09:48: [place] (VITAMIN 12 Medical D-3 ORAL) Branch docosahexae 0 Yes Univer s noic 6-06 ity of acid/epa 09:48: [place] (FISH OIL 12 Medical ORAL) Branch glucosamine 0 Yes Take by Uni vers /chondr strong 6-06 mouth. ity of A sod 09:48: [place] (OSTEO 12 Medical BI-FLEX Branch ORAL) ASHWAGANDHA 0 Yes Take by Uni vers ROOT 6-06 mouth. ity of EXTRACT 09:48: [place] ORAL 12 Medical Branch cranberry 0 Yes Take by Unive rs fruit 6-06 mouth. ity of extract 09:48: [place] (CRANBERRY 12 Medical ORAL) Branch calcium 0 Yes Take by Univers carbonate/v 6-06 mouth. ity of itamin D3 09:48: [place] (VITAMIN 12 Medical D-3 ORAL) Branch docosahexae 2021-0 Yes Univer s noic 6-06 ity of acid/epa 09:48: [place] (FISH OIL 12 Medical ORAL) Branch cranberry 0 Yes Take by Unive rs fruit 6-06 mouth. ity of extract 09:48: [place] (CRANBERRY 12 Medical ORAL) Branch calcium 0 Yes Take by Univers carbonate/v 6-06 mouth. ity of itamin D3 09:48: [place] (VITAMIN 12 Medical D-3 ORAL) Branch docosahexae 2021-0 Yes Univer s noic 6-06 ity of acid/epa 09:48: [place] (FISH OIL 12 Medical ORAL) Branch cranberry 0 Yes Take by Unive rs fruit 6-06 mouth. ity of extract 09:48: [place] (CRANBERRY 12 Medical ORAL) Branch calcium 0 Yes Take by Univers carbonate/v 6-06 mouth. ity of itamin D3 09:48: [place] (VITAMIN 12 Medical D-3 ORAL) Branch docosahexae 2021-0 Yes Univer s noic 6-06 ity of acid/epa 09:48: [place] (FISH OIL 12 Medical ORAL) Branch cranberry 0 Yes Take by Unive rs fruit 6-06 mouth. ity of extract 09:48: [place] (CRANBERRY 12 Medical ORAL) Branch calcium 0 Yes Take by Univers carbonate/v 6-06 mouth. ity of itamin D3 09:48: [place] (VITAMIN 12 Medical D-3 ORAL) Branch docosahexae 2021-0 Yes Univer s noic 6-06 ity of acid/epa 09:48: [place] (FISH OIL 12 Medical ORAL) Branch cranberry 0 Yes Take by Unive rs fruit 6-06 mouth. ity of extract 09:48: [place] (CRANBERRY 12 Medical ORAL) Branch calcium 0 Yes Take by Univers carbonate/v 6-06 mouth. ity of itamin D3 09:48: [place] (VITAMIN 12 Medical D-3 ORAL) Branch docosahexae 2021-0 Yes Univer s noic 6-06 ity of acid/epa 09:48: [place] (FISH OIL 12 Medical ORAL) Branch cranberry 2021-0 Yes Take by Unive rs fruit 6-06 mouth. ity of extract 09:48: [place] (CRANBERRY 12 Medical ORAL) Branch calcium 0 Yes Take by Univers carbonate/v 6-06 mouth. ity of itamin D3 09:48: [place] (VITAMIN 12 Medical D-3 ORAL) Branch docosahexae 2021-0 Yes Univer s noic 6-06 ity of acid/epa 09:48: [place] (FISH OIL 12 Medical ORAL) Branch cranberry 0 Yes Take by Unive rs fruit 6-06 mouth. ity of extract 09:48: [place] (CRANBERRY 12 Medical ORAL) Branch calcium 0 Yes Take by Univers carbonate/v 6-06 mouth. ity of itamin D3 09:48: [place] (VITAMIN 12 Medical D-3 ORAL) Branch docosahexae 2021-0 Yes Univer s noic 6-06 ity of acid/epa 09:48: [place] (FISH OIL 12 Medical ORAL) Branch cranberry 0 Yes Take by Unive rs fruit 6-06 mouth. ity of extract 09:48: [place] (CRANBERRY 12 Medical ORAL) Branch calcium 0 Yes Take by Univers carbonate/v 6-06 mouth. ity of itamin D3 09:48: [place] (VITAMIN 12 Medical D-3 ORAL) Branch docosahexae 0 Yes Univer s noic 6-06 ity of acid/epa 09:48: [place] (FISH OIL 12 Medical ORAL) Branch cranberry 0 Yes Take by Unive rs fruit 6-06 mouth. ity of extract 09:48: [place] (CRANBERRY 12 Medical ORAL) Branch calcium 0 Yes Take by Univers carbonate/v 6-06 mouth. ity of itamin D3 09:48: [place] (VITAMIN 12 Medical D-3 ORAL) Branch docosahexae 2021-0 Yes Univer s noic 6-06 ity of acid/epa 09:48: [place] (FISH OIL 12 Medical ORAL) Branch cranberry 0 Yes Take by Unive rs fruit 6-06 mouth. ity of extract 09:48: [place] (CRANBERRY 12 Medical ORAL) Branch calcium 0 Yes Take by Univers carbonate/v 6-06 mouth. ity of itamin D3 09:48: [place] (VITAMIN 12 Medical D-3 ORAL) Branch docosahexae 2021-0 Yes Univer s noic 6-06 ity of acid/epa 09:48: [place] (FISH OIL 12 Medical ORAL) Branch cranberry 2022-0 Yes Take by Univ ers fruit 6-06 mouth. ity of extract 09:48: [place] (CRANBERRY 12 Medical ORAL) Branch calcium Yes Take by Univers carbonate/v 6-06 mouth. ity of itamin D3 09:48: [place] (VITAMIN 12 Medical D-3 ORAL) Branch docosahexae Yes Univer s noic 6-06 ity of acid/epa 09:48: [place] (FISH OIL 12 Medical ORAL) Branch Medrol 4 MG Medrol 4 MG 2021- No QD Medrol 4 3-04 03-10 MG 00:00: 00:00 00 :00 MULTIVITAMI Yes Take by Uni vers N ORAL 1-18 mouth. ity of 13:25: [address] MULTIVITAMI Yes Take by Uni vers N ORAL 1-18 mouth. ity of 13:25: [address] MULTIVITAMI Yes Take by Uni vers N ORAL 1-18 mouth. ity of 13:25: [address] MULTIVITAMI Yes Take by Uni vers N ORAL 1-18 mouth. ity of 13:25: [address] MULTIVITAMI Yes Take by Uni vers N ORAL 1-18 mouth. ity of 13:25: [address] MULTIVITAMI Yes Take by Uni vers N ORAL 1-18 mouth. ity of 13:25: [address] MULTIVITAMI Yes Take by Uni vers N ORAL 1-18 mouth. ity of 13:25: [address] MULTIVITAMI 0 Yes Take by Uni vers N ORAL 1-18 mouth. ity of 13:25: [address] MULTIVITAMI 0 Yes Take by Uni vers N ORAL 1-18 mouth. ity of 13:25: [address] MULTIVITAMI 0 Yes Take by Uni vers N ORAL 1-18 mouth. ity of 13:25: [address] MULTIVITAMI 0 Yes Take by Uni vers N ORAL 1-18 mouth. ity of 13:25: [address] MULTIVITAMI 0 Yes Take by Uni vers N ORAL 1-18 mouth. ity of 13:25: [address] MULTIVITAMI Yes Take by Uni vers N ORAL 1-18 mouth. ity of 13:25: [address] MULTIVITAMI Yes Take by Uni vers N ORAL 1-18 mouth. ity of 13:25: [address] MULTIVITAMI Yes Take by Uni vers N ORAL 1-18 mouth. ity of 13:25: [address] Famotidine Famotidine No 1{table BID Famotidine 20 MG 20 MG 27 t} 20 MG 00:00: 00 Famotidine Famotidine No 1{table BID Famotidine 20 MG 20 MG 27 t} 20 MG 00:00: 00 Famotidine Famotidine No 1{table BID Famotidine 20 MG 20 MG 27 t} 20 MG 00:00: 00 Famotidine Famotidine No 1{table BID Famotidine 20 MG 20 MG 927 t} 20 MG 00:00: 00 FeroSul 325 FeroSul 325 No FeroSul (65 Fe) MG (65 Fe) MG 325 (65 Fe) MG predniSONE predniSONE No predniSONE 20 MG 20 MG 20 MG Ibuprofen Ibuprofen No Ibuprofen 600 MG 600 MG 600 MG Fluoxetine Fluoxetine No Fluoxetine miSOPROStol miSOPROStol No miSOPROSto 200 MCG 200 MCG l 200 MCG Cyclobenzap Cyclobenzap No 1{table Cyclobenza rine HCl 10 rine HCl 10 t_as_ne marj HCl MG MG eded} 10 MG FeroSul 325 FeroSul 325 No FeroSul (65 Fe) MG (65 Fe) MG 325 (65 Fe) MG predniSONE predniSONE No predniSONE 20 MG 20 MG 20 MG Ibuprofen Ibuprofen No Ibuprofen 600 MG 600 MG 600 MG Fluoxetine Fluoxetine No Fluoxetine miSOPROStol miSOPROStol No miSOPROSto 200 MCG 200 MCG l 200 MCG Cyclobenzap Cyclobenzap No 1{table Cyclobenza rine HCl 10 rine HCl 10 t_as_ne marj HCl MG MG eded} 10 MG Fish Oil Fish Oil No Multivitami Multivitami No n n Turmeric Turmeric No Hair Skin Hair Skin No and Nails and Nails Formula Formula Vitamin D-3 Vitamin D-3 No Hair Skin Hair Skin No Hair Skin and Nails and Nails and Nails Formula Formula Formula Turmeric Turmeric No Turmeric Vitamin D-3 Vitamin D-3 No Vitamin D-3 Multivitami Multivitami No Multivitam n n in Fish Oil Fish Oil No Fish Oil Hair Skin Hair Skin No Hair Skin and Nails and Nails and Nails Formula Formula Formula Clobetasol Clobetasol No 1{appli BID Clobetasol Propionate Propionate cation_ Propionate 0.05 % 0.05 % to_affe 0.05 % cted_ar ea} Fish Oil Fish Oil No Fish Oil Vitamin D-3 Vitamin D-3 No Vitamin D-3 Turmeric Turmeric No Turmeric Multivitami Multivitami No Multivitam n n in Clobetasol Clobetasol No 1{appli BID Clobetasol Propionate Propionate cation_ Propionate 0.05 % 0.05 % to_affe 0.05 % cted_ar ea} Multivitami Multivitami No Multivitam n n in Fish Oil Fish Oil No Fish Oil Vitamin D-3 Vitamin D-3 No Vitamin D-3 Turmeric Turmeric No Turmeric Hair Skin Hair Skin No Hair Skin and Nails and Nails and Nails Formula Formula Formula Terbinafine Terbinafine No 1{table QD Terbinafin HCl 250 MG HCl 250 MG t} e HCl 250 MG Turmeric Turmeric No Turmeric Vitamin D-3 Vitamin D-3 No Vitamin D-3 Clobetasol Clobetasol No 1{appli BID Clobetasol Propionate Propionate cation_ Propionate 0.05 % 0.05 % to_affe 0.05 % cted_ar ea} Fish Oil Fish Oil No Fish Oil Multivitami Multivitami No Multivitam n n in Hair Skin Hair Skin No Hair Skin and Nails and Nails and Nails Formula Formula Formula Multivitami Multivitami No Multivitam n n in Vitamin D-3 Vitamin D-3 No Vitamin D-3 Probiotic Probiotic No Probiotic Fish Oil Fish Oil No Fish Oil Multivitami Multivitami No Multivitam n n in Fish Oil Fish Oil No Fish Oil Probiotic Probiotic No Probiotic Vitamin D-3 Vitamin D-3 No Vitamin D-3 Vitamin D-3 Vitamin D-3 No Vitamin D-3 Vitamin B Vitamin B No Vitamin B Complex Complex Complex FLUoxetine FLUoxetine No 1{table QD FLUoxetine HCl 10 MG HCl 10 MG t} HCl 10 MG Fish Oil Fish Oil No Fish Oil Multivitami Multivitami No Multivitam n n in Probiotic Probiotic No Probiotic Vitamin D-3 Vitamin D-3 No Vitamin D-3 Vitamin B Vitamin B No Vitamin B Complex Complex Complex FLUoxetine FLUoxetine No 1{table QD FLUoxetine HCl 10 MG HCl 10 MG t} HCl 10 MG Fish Oil Fish Oil No Fish Oil Multivitami Multivitami No Multivitam n n in Probiotic Probiotic No Probiotic FeroSul 325 FeroSul 325 No FeroSul (65 Fe) MG (65 Fe) MG 325 (65 Fe) MG Misoprostol Misoprostol No Misoprosto 200 MCG 200 MCG l 200 MCG Ibuprofen Ibuprofen No Ibuprofen 600 MG 600 MG 600 MG Fluoxetine Fluoxetine No Fluoxetine FeroSul 325 FeroSul 325 No FeroSul (65 Fe) MG (65 Fe) MG 325 (65 Fe) MG Misoprostol Misoprostol No Misoprosto 200 MCG 200 MCG l 200 MCG Ibuprofen Ibuprofen No Ibuprofen 600 MG 600 MG 600 MG Fluoxetine Fluoxetine No Fluoxetine FeroSul 325 FeroSul 325 No FeroSul (65 Fe) MG (65 Fe) MG 325 (65 Fe) MG Misoprostol Misoprostol No Misoprosto 200 MCG 200 MCG l 200 MCG Ibuprofen Ibuprofen No Ibuprofen 600 MG 600 MG 600 MG Fluoxetine Fluoxetine No Fluoxetine FeroSul 325 FeroSul 325 No FeroSul (65 Fe) MG (65 Fe) MG 325 (65 Fe) MG predniSONE predniSONE No predniSONE 20 MG 20 MG 20 MG Ibuprofen Ibuprofen No Ibuprofen 600 MG 600 MG 600 MG Fluoxetine Fluoxetine No Fluoxetine miSOPROStol miSOPROStol No miSOPROSto 200 MCG 200 MCG l 200 MCG Cyclobenzap Cyclobenzap No 1{table Cyclobenza rine HCl 10 rine HCl 10 t_as_ne marj HCl MG MG eded} 10 MG FeroSul 325 FeroSul 325 No FeroSul (65 Fe) MG (65 Fe) MG 325 (65 Fe) MG predniSONE predniSONE No predniSONE 20 MG 20 MG 20 MG Ibuprofen Ibuprofen No Ibuprofen 600 MG 600 MG 600 MG Fluoxetine Fluoxetine No Fluoxetine miSOPROStol miSOPROStol No miSOPROSto 200 MCG 200 MCG l 200 MCG Cyclobenzap Cyclobenzap No 1{table Cyclobenza rine HCl 10 rine HCl 10 t_as_ne marj HCl MG MG eded} 10 MG Immunizations Ordered Filled Immunization Date Status Comments Sourc e Immunization Name Name Flucelvax - Flucelvax - 2021-05-28 [facility]pleted [facility]ose vial 11:04:00 [facility] Flucelvax - Flucelvax - 2021-05-28 Completed [facility] multidose [facility]ial multidose vial 11:04:00 [facility] Flucelvax - Flucelvax - 2021-05-28 Completed [facility] multidose [facility]ial multidose vial 11:04:00 [facility] Flucelvax - Flucelvax - 2021-05-28 Completed [facility] multidose vial multidose vial 11:04:00 [facility] Flucelvax - Flucelvax - 2021-05-28 Completed [facility] multidose [facility]ial multidose vial 11:04:00 [facility] Flucelvax - Flucelvax - 2021-05-28 Completed [facility] multidose [facility]ial multidose vial 11:04:00 [facility] Flucelvax - Flucelvax - 2021-05-28 Completed [facility] multidose vial multidose vial 11:04:00 [facility] Flucelvax - Flucelvax - 2021-05-28 Completed [facility] multidose vial multidose vial 11:04:00 [facility] Flucelvax - Flucelvax - 2021-05-28 Completed [facility] - multidose vial multidose vial 11:04:00 [facility] Influenza Virus 2021-05-28 Completed Universit y of Vaccine [facility] IM, 00:00:00 [place] [facility] dical Preserv and ABX Branch Free 6 MO-64 YRS Influenza Virus 2021-05-28 Completed Universit y of Vaccine [facility] IM, 00:00:00 [place] [facility] dical Preserv and ABX Branch Free 6 MO-64 YRS Influenza Virus 2021-05-28 Completed Universit y of Vaccine [facility] IM, 00:00:00 [place] Me dical Preserv and ABX Branch Free 6 MO-64 YRS Influenza Virus 2021-05-28 Completed Universit y of Vaccine [facility] IM, 00:00:00 [place] Me dical Preserv and ABX Branch Free 6 MO-64 YRS Influenza Virus 2021-05-28 Completed Universit y of Vaccine [facility] IM, 00:00:00 [place] Me dical Preserv and ABX Branch Free 6 MO-64 YRS Influenza Virus 2021-05-28 Completed Universit y of Vaccine [facility] IM, 00:00:00 [place] Me dical Preserv and ABX Branch Free 6 MO-64 YRS Influenza Virus 2021-05-28 Completed Universit y of Vaccine [facility] IM, 00:00:00 [place] Me dical Preserv and ABX Branch Free 6 MO-64 YRS Influenza Virus 2021-05-28 Completed Universit y of Vaccine Quad IM, 00:00:00 [place] Me dical Preserv and ABX Branch Free 6 MO-64 YRS Influenza Virus 2021-05-28 Completed Universit y of Vaccine [facility] IM, 00:00:00 [place] Me dical Preserv and ABX Branch Free 6 MO-64 YRS Influenza Virus 2021-05-28 Completed Universit y of Vaccine Quad IM, 00:00:00 [place] Me dical Preserv and ABX Branch Free 6 MO-64 YRS Influenza Virus 2021-05-28 Completed Universit y of Vaccine Quad IM, 00:00:00 [place] Me dical Preserv and ABX Branch Free 6 MO-64 YRS Influenza Virus 2021-05-28 Completed Universit y of Vaccine Quad IM, 00:00:00 [place] Me dical Preserv and ABX Branch Free 6 MO-64 YRS Influenza Virus 2021-05-28 Completed Universit y of Vaccine Quad IM, 00:00:00 [place] Me dical Preserv and ABX Branch Free 6 MO-64 YRS Influenza Virus 2021-05-28 Completed Universit y of Vaccine Quad IM, 00:00:00 [place] Me dical Preserv and ABX Branch Free 6 MO-64 YRS Influenza Virus 2021-05-28 Completed Universit y of Vaccine Quad IM, 00:00:00 [place] Me dical Preserv and ABX Branch Free 6 MO-64 YRS SARS-COV-2 COVID-19 2020-09-10 Completed Unive rsity of PFIZER VACCINE 00:00:00 [facility] SARS-COV-2 COVID-19 2020-09-10 Completed Unive rsity of PFIZER VACCINE 00:00:00 [facility] SARS-COV-2 COVID-19 2020-09-10 Completed Unive rsity of PFIZER VACCINE 00:00:00 [facility] SARS-COV-2 COVID-19 2020-09-10 Completed Unive rsity of PFIZER VACCINE 00:00:00 [facility] SARS-COV-2 COVID-19 2020-09-10 Completed Unive rsity of PFIZER VACCINE 00:00:00 [facility] SARS-COV-2 COVID-19 2020-09-10 Completed Unive rsity of PFIZER VACCINE 00:00:00 [facility] SARS-COV-2 COVID-19 2020-09-10 Completed Unive rsity of PFIZER VACCINE 00:00:00 [facility] SARS-COV-2 COVID-19 2020-09-10 Completed Unive rsity of PFIZER VACCINE 00:00:00 [facility] SARS-COV-2 COVID-19 2020-09-10 Completed Unive rsity of PFIZER VACCINE 00:00:00 [facility] SARS-COV-2 COVID-19 2020-09-10 Completed Unive rsity of PFIZER VACCINE 00:00:00 [facility] SARS-COV-2 COVID-19 2020-09-10 Completed Unive rsity of PFIZER VACCINE 00:00:00 [facility] SARS-COV-2 COVID-19 2020-09-10 Completed Unive rsity of PFIZER VACCINE 00:00:00 [facility] SARS-COV-2 COVID-19 2020-09-10 Completed Unive rsity of PFIZER VACCINE 00:00:00 [facility] SARS-COV-2 COVID-19 2020-09-10 Completed Unive rsity of PFIZER VACCINE 00:00:00 [facility] SARS-COV-2 COVID-19 2020-09-10 Completed Unive rsity of PFIZER VACCINE 00:00:00 [facility] SARS-COV-2 COVID-19 2020-08-20 Completed Unive rsity of PFIZER VACCINE 00:00:00 [facility] SARS-COV-2 COVID-19 2020-08-20 Completed Unive rsity of PFIZER VACCINE 00:00:00 [facility] SARS-COV-2 COVID-19 2020-08-20 Completed Unive rsity of PFIZER VACCINE 00:00:00 [facility] SARS-COV-2 COVID-19 2020-08-20 Completed Unive rsity of PFIZER VACCINE 00:00:00 [facility] SARS-COV-2 COVID-19 2020-08-20 Completed Unive rsity of PFIZER VACCINE 00:00:00 [facility] SARS-COV-2 COVID-19 2020-08-20 Completed Unive rsity of PFIZER VACCINE 00:00:00 [facility] SARS-COV-2 COVID-19 2020-08-20 Completed Unive rsity of PFIZER VACCINE 00:00:00 [facility] SARS-COV-2 COVID-19 2020-08-20 Completed Unive rsity of PFIZER VACCINE 00:00:00 [facility] SARS-COV-2 COVID-19 2020-08-20 Completed Unive rsity of PFIZER VACCINE 00:00:00 [facility] SARS-COV-2 COVID-19 2020-08-20 Completed Unive rsity of PFIZER VACCINE 00:00:00 [facility] SARS-COV-2 COVID-19 2020-08-20 Completed Unive rsity of PFIZER VACCINE 00:00:00 [facility] SARS-COV-2 COVID-19 2020-08-20 Completed Unive rsity of PFIZER VACCINE 00:00:00 [facility] SARS-COV-2 COVID-19 2020-08-20 Completed Unive rsity of PFIZER VACCINE 00:00:00 [facility] SARS-COV-2 COVID-19 2020-08-20 Completed Unive rsity of PFIZER VACCINE 00:00:00 [facility] SARS-COV-2 COVID-19 2020-08-20 Completed Unive rsity of PFIZER VACCINE 00:00:00 [facility] Influenza Virus 2020-02-28 Completed Universit y of Vaccine Quad .5 mL 00:00:00 [place] [facility] IM 6+ MO Branch Influenza Virus 2020-02-28 Completed Universit y of Vaccine Quad .5 mL 00:00:00 [place] [facility] IM 6+ MO Branch Influenza Virus 2020-02-28 Completed Universit y of Vaccine Quad .5 mL 00:00:00 [place] [facility] IM 6+ MO Branch Influenza Virus 2020-02-28 Completed Universit y of Vaccine Quad .5 mL 00:00:00 [place] [facility] IM 6+ MO Branch Influenza Virus 2020-02-28 Completed Universit y of Vaccine Quad .5 mL 00:00:00 [place] [facility] IM 6+ MO Branch Influenza Virus 2020-02-28 Completed Universit y of Vaccine Quad .5 mL 00:00:00 [place] [facility] IM 6+ MO Branch Influenza Virus 2020-02-28 Completed Universit y of Vaccine Quad .5 mL 00:00:00 [place] [facility] IM 6+ MO Branch Influenza Virus 2020-02-28 Completed Universit y of Vaccine Quad .5 mL 00:00:00 [place] [facility] IM 6+ MO Branch Influenza Virus 2020-02-28 Completed Universit y of Vaccine Quad .5 mL 00:00:00 [place] [facility] IM 6+ MO Branch Influenza Virus 2020-02-28 Completed Universit y of Vaccine Quad .5 mL 00:00:00 [place] [facility] IM 6+ MO Branch Influenza Virus 2020-02-28 Completed Universit y of Vaccine Quad .5 mL 00:00:00 [place] [facility] IM 6+ MO Branch Influenza Virus 2020-02-28 Completed Universit y of Vaccine Quad .5 mL 00:00:00 [place] [facility] IM 6+ MO Branch Influenza Virus 2020-02-28 Completed Universit y of Vaccine Quad .5 mL 00:00:00 [place] [facility] IM 6+ MO Branch Influenza Virus 2020-02-28 Completed Universit y of Vaccine Quad .5 mL 00:00:00 [place] [facility] IM 6+ MO Branch Influenza Virus 2020-02-28 Completed Universit y of Vaccine Quad .5 mL 00:00:00 [place] [facility] 6+ MO Branch TDAP 2020-01-29 Completed University of 00:00:00 [place] [facility] TDAP 2020-01-29 Completed University of 00:00:00 [place] [facility] TDAP 2020-01-29 Completed University of 00:00:00 [place] [facility] TDAP 2020-01-29 Completed University of 00:00:00 [place] [facility] TDAP 2020-01-29 Completed University of 00:00:00 [place] [facility] TDAP 2020-01-29 Completed University of 00:00:00 [place] [facility] TDAP 2020-01-29 Completed University of 00:00:00 [place] [facility] [place] TDAP 2020-01-29 Completed University of 00:00:00 [place] [facility] [place] TDAP 2020-01-29 Completed University of 00:00:00 [place] [facility] [place] TDAP 2020-01-29 Completed University of 00:00:00 [facility] TDAP 2020-01-29 Completed University of 00:00:00 [facility] TDAP 2020-01-29 Completed University of 00:00:00 [facility] TDAP 2020-01-29 Completed University of 00:00:00 [facility] TDAP 2020-01-29 Completed University of 00:00:00 [facility] TDAP 2020-01-29 Completed University of 00:00:00 [facility] Influenza Virus 2019-06-13 Completed Universit y of Vaccine Quad .5 mL 00:00:00 [place] [facility] IM 6+ MO Branch Influenza Virus 2019-06-13 Completed Universit y of Vaccine Quad .5 mL 00:00:00 [place] [facility] IM 6+ MO Branch Influenza Virus 2019-06-13 Completed Universit y of Vaccine Quad .5 mL 00:00:00 [place] [facility] IM 6+ MO Branch Influenza Virus 2019-06-13 Completed Universit y of Vaccine Quad .5 mL 00:00:00 [place] [facility] IM 6+ MO Branch Influenza Virus 2019-06-13 Completed Universit y of Vaccine Quad .5 mL 00:00:00 [place] [facility] IM 6+ MO Branch Influenza Virus 2019-06-13 Completed Universit y of Vaccine Quad .5 mL 00:00:00 [place] [facility] IM 6+ MO Branch Influenza Virus 2019-06-13 Completed Universit y of Vaccine Quad .5 mL 00:00:00 [place] [facility] IM 6+ MO Branch Influenza Virus 2019-06-13 Completed Universit y of Vaccine Quad .5 mL 00:00:00 [place] [facility] IM 6+ MO Branch Influenza Virus 2019-06-13 Completed Universit y of Vaccine Quad .5 mL 00:00:00 [place] [facility] IM 6+ MO Branch Influenza Virus 2019-06-13 Completed Universit y of Vaccine Quad .5 mL 00:00:00 [place] [facility] IM 6+ MO Branch Influenza Virus 2019-06-13 Completed Universit y of Vaccine Quad .5 mL 00:00:00 [place] [facility] IM 6+ MO Branch Influenza Virus 2019-06-13 Completed Universit y of Vaccine Quad .5 mL 00:00:00 [place] [facility] IM 6+ MO Branch Influenza Virus 2019-06-13 Completed Universit y of Vaccine Quad .5 mL 00:00:00 [place] [facility] IM 6+ MO Branch Influenza Virus 2019-06-13 Completed Universit y of Vaccine Quad .5 mL 00:00:00 [place] [facility] IM 6+ MO Branch Influenza Virus 2019-06-13 Completed Universit y of Vaccine Quad .5 mL 00:00:00 [facility] 6+ [place] Branch TDAP 2017-04-11 Completed University of 00:00:00 [facility] TDAP 2017-04-11 Completed University of 00:00:00 [facility] TDAP 2017-04-11 Completed University of 00:00:00 [facility] TDAP 2017-04-11 Completed University of 00:00:00 [facility] TDAP 2017-04-11 Completed University of 00:00:00 [facility] TDAP 2017-04-11 Completed University of 00:00:00 [facility] TDAP 2017-04-11 Completed University of 00:00:00 [facility] TDAP 2017-04-11 Completed University of 00:00:00 [facility] TDAP 2017-04-11 Completed University of 00:00:00 [facility] TDAP 2017-04-11 Completed University of 00:00:00 [facility] TDAP 2017-04-11 Completed University of 00:00:00 [facility] TDAP 2017-04-11 Completed University of 00:00:00 [facility] TDAP 2017-04-11 Completed University of 00:00:00 [facility] TDAP 2017-04-11 Completed University of 00:00:00 [facility] TDAP 2017-04-11 Completed University of 00:00:00 [facility] Influenza Virus 2017-02-16 Completed Universit y of Vaccine Quad IM 3+ 00:00:00 [facility] Influenza Virus 2017-02-16 Completed Universit y of Vaccine Quad IM 3+ 00:00:00 [facility] Influenza Virus 2017-02-16 Completed Universit y of Vaccine Quad IM 3+ 00:00:00 [facility] Influenza Virus 2017-02-16 Completed Universit y of Vaccine Quad IM 3+ 00:00:00 [facility] Influenza Virus 2017-02-16 Completed Universit y of Vaccine Quad IM 3+ 00:00:00 [facility] Influenza Virus 2017-02-16 Completed Universit y of Vaccine Quad IM 3+ 00:00:00 [facility] Influenza Virus 2017-02-16 Completed Universit y of Vaccine Quad IM 3+ 00:00:00 [facility] Influenza Virus 2017-02-16 Completed Universit y of Vaccine Quad IM 3+ 00:00:00 [facility] Influenza Virus 2017-02-16 Completed Universit y of Vaccine Quad IM 3+ 00:00:00 [facility] Influenza Virus 2017-02-16 Completed Universit y of Vaccine Quad IM 3+ 00:00:00 [facility] Influenza Virus 2017-02-16 Completed Universit y of Vaccine Quad IM 3+ 00:00:00 [facility] Influenza Virus 2017-02-16 Completed Universit y of Vaccine Quad IM 3+ 00:00:00 [facility] Influenza Virus 2017-02-16 Completed Universit y of Vaccine Quad IM 3+ 00:00:00 [facility] Influenza Virus 2017-02-16 Completed Universit y of Vaccine Quad IM 3+ 00:00:00 [facility] Influenza Virus 2017-02-16 Completed Universit y of Vaccine Quad IM 3+ 00:00:00 [facility] Vital Signs Vital Name Observation Time Observation Value Comments Source Systolic blood 2022-04-20 16:38:00 111 mm[Hg] Univer sity of pressure [facility] Diastolic blood 2022-04-20 16:38:00 63 mm[Hg] Unive rsity of [facility] Heart rate 2022-04-20 16:38:00 79 /min [facility] Body temperature 2022-04-20 16:38:00 36.72 Stephanie [facility] 2022-04-20 16:38:00 18 /min [facility] Body height 2022-04-20 16:38:00 175.3 cm Univers[facility] Body weight 2022-04-20 16:38:00 84.369 kg Universi ty [facility] BMI 2022-04-20 16:38:00 27.47 kg/m2 [facility] ty [facility] height 2022-04-08 13:20:00 68 [in_i] [facility] weight 2022-04-08 13:20:00 183 [lb_av] [facility] temperature 2022-04-08 13:20:00 97.6 [degF] [facility] bmi 2022-04-08 13:20:00 27.82 kg/m2 [facility] oximetry 2022-04-08 13:20:00 100 % [facility] respiratory rate 2022-04-08 13:20:00 16 /min [facility] blood pressure 2022-04-08 13:20:00 106 mm[Hg] [facility] systolic [facility] blood pressure 2022-04-08 13:20:00 67 mm[Hg] [facility] diastolic [facility] Systolic blood 2022-03-05 17:07:00 133 mm[Hg] Univer sity of pressure [facility] Diastolic blood 2022-03-05 17:07:00 81 mm[Hg] Unive rsity of [facility] Heart rate 2022-03-05 17:06:00 81 /min Universi ty of [facility] Body temperature 2022-03-05 17:06:00 36.78 Stephanie Univ ersity of [facility] Respiratory rate 2022-03-05 17:06:00 18 /min Univ ersity of [facility] Body height 2022-03-05 17:06:00 175.3 cm [facility]i [facility] Body weight 2022-03-05 17:06:00 85.548 kg [facility] [place] [facility] BMI 2022-03-05 17:06:00 27.85 kg/m2 [facility] ty [facility] Oxygen saturation in 2022-03-05 17:06:00 97 /min University of Arterial blood by [facility] Pulse oximetry Branch Systolic blood 2022-02-19 18:49:00 103 mm[Hg] Univer sity of pressure [facility] Diastolic blood 2022-02-19 18:49:00 64 mm[Hg] Unive rsity of pressure [facility] Heart rate 2022-02-19 18:49:00 58 /min Universi ty of [facility] Body temperature 2022-02-19 18:49:00 36.67 Stephanie Univ ersity of [facility] Body height 2022-02-19 18:49:00 175.3 cm [facility]i [facility] Body weight 2022-02-19 18:49:00 86.909 kg [facility]i ty [facility] BMI 2022-02-19 18:49:00 28.29 kg/m2 Universi ty [facility] height 2022-02-02 08:20:00 68 [in_i] Common [facility] weight 2022-02-02 08:20:00 191 [lb_av] [facility] temperature 2022-02-02 08:20:00 97.2 [degF] [facility] bmi 2022-02-02 08:20:00 29.04 kg/m2 [facility] oximetry 2022-02-02 08:20:00 99 % [facility] respiratory rate 2022-02-02 08:20:00 16 /min Comm on [facility] blood pressure 2022-02-02 08:20:00 118 mm[Hg] Common [facility] - systolic [facility] blood pressure 2022-02-02 08:20:00 66 mm[Hg] Common [facility] - diastolic [facility] Systolic blood 2022-01-11 14:59:00 132 mm[Hg] Univer sity of pressure [facility] Diastolic blood 2022-01-11 14:59:00 82 mm[Hg] Unive rsity of [facility] Heart rate 2022-01-11 14:59:00 61 /min [facility] Body temperature 2022-01-11 14:59:00 37.06 Stephanie [facility] Res[facility] rate 2022-01-11 14:59:00 16 /min [facility] Body height 2022-01-11 14:59:00 175.3 cm [facility] Body weight 2022-01-11 14:59:00 88.451 kg [facility] BMI 2022-01-11 14:59:00 28.80 kg/m2 [facility] Oxygen saturation in 2022-01-11 14:59:00 98 /min [facility] Arterial blood by [facility] Pulse oximetry Branch height 2021-12-04 08:00:00 69 [in_i] [facility] weight 2021-12-04 08:00:00 190 [lb_av] [facility] bmi 2021-12-04 08:00:00 28.06 kg/m2 [facility] Systolic blood 2021-11-18 16:28:00 109 mm[Hg] Univer sity of [facility] Diastolic blood 2021-11-18 16:28:00 44 mm[Hg] [facility] 2021-11-18 16:28:00 57 /min Universi ty [facility] Body temperature 2021-11-18 16:28:00 36.83 Stephanie [facility] Respiratory rate 2021-11-18 16:28:00 18 /min [facility] Body height 2021-11-18 16:28:00 175.3 cm Universi ty [facility] Body weight 2021-11-18 16:28:00 85.276 kg Universi ty [facility] BMI 2021-11-18 16:28:00 27.76 kg/m2 Universi ty [facility] height 2021-07-31 08:40:00 69 [in_i] [facility] weight 2021-07-31 08:40:00 193.8 [lb_av] [facility] temperature 2021-07-31 08:40:00 97.6 [degF] [facility] bmi 2021-07-31 08:40:00 28.62 kg/m2 [facility] oximetry 2021-07-31 08:40:00 99 % [facility] respiratory rate 2021-07-31 08:40:00 16 /min Comm on [facility] blood pressure 2021-07-31 08:40:00 115 mm[Hg] Common [facility] - systolic [facility] blood pressure 2021-07-31 08:40:00 58 mm[Hg] Common [facility] - diastolic [facility] height 2021-05-28 08:40:00 69 [in_i] [facility] weight 2021-05-28 08:40:00 93 [lb_av] [facility] temperature 2021-05-28 08:40:00 97.6 [degF] [facility] bmi 2021-05-28 08:40:00 13.73 kg/m2 [facility] oximetry 2021-05-28 08:40:00 98 % [facility] respiratory rate 2021-05-28 08:40:00 20 /min Comm on [facility] blood pressure 2021-05-28 08:40:00 109 mm[Hg] Common [facility] systolic [facility] blood pressure 2021-05-28 08:40:00 62 mm[Hg] [facility] diastolic [facility] height 2021-02-23 11:00:00 69 [in_i] [facility] weight 2021-02-23 11:00:00 190 [lb_av] [facility] bmi 2021-02-23 11:00:00 28.06 kg/m2 [facility] height 2020-07-29 15:20:00 69 [in_i] [facility] weight 2020-07-29 15:20:00 201.0 [lb_av] [facility] temperature 2020-07-29 15:20:00 97.3 [degF] [facility] bmi 2020-07-29 15:20:00 29.68 kg/m2 [facility] oximetry 2020-07-29 15:20:00 97 % [facility] respiratory rate 2020-07-29 15:20:00 15 /min Comm on [facility] blood pressure 2020-07-29 15:20:00 128 mm[Hg] Common [facility] systolic [facility] blood pressure 2020-07-29 15:20:00 61 mm[Hg] Common [facility] Procedures Procedure Date / Time Performing Clinician Source Performed POCT TEST 2022-04-20 00:00:00 Guero Berry [facility] POCT TEST 2022-02-19 00:00:00 Guero Berry [facility] POCT URINALYSIS W/O 2022-02-19 00:00:00 Guero Berry [facility] SPECIFIC [facility] ASSIGNMENT OF BENEFITS 2022-01-11 14:56:54 Doctor Unassigned, No [facility] CONSENT FOR 2021-11-18 05:01:00 Doctor Unassigned, No [facility] POCT TEST 2021-11-18 00:00:00 Earl Saldaña [facility] Encounters Start End Encounter Admission Attending Care Care Encounter Source Date/Time Date/Time Type Type Clinicians Facility Department ID 2022-04-06 Outpatient Tam, Na STLMLC STLMLC [id number] 2 Common 08:17:01 [id number] [facility] 2022-01-28 Outpatient Tam, Na STLMLC STLMLC [id number] 2 Common 08:57:01 [facility] 2021-08-21 Outpatient Tam, Na STLMLC STLMLC [id number] 2 Common 08:23:00 [facility] 2021-08-05 Outpatient Tam, Na STLMLC STLMLC [id number] 2 Common 08:28:03 [facility] 2021-07-30 Outpatient Tam, Na STLMLC STLMLC [id number] 2 Common 09:13:02 [facility] 2021-07-29 Outpatient Tam, Na STLMLC STLMLC [id number] 2 Common 11:04:02 [facility] 2021-06-24 Outpatient Tam, Na STLMLC STLMLC [id number] 2 Common 14:29:15 [id number] [facility] 2021-06-24 Outpatient Tam, Na STLMLC STLMLC [id number] 2 Common 14:28:52 [id number] [facility] 2021-06-24 Outpatient Tam, Na STLMLC STLMLC [id number] 2 Common 14:26:08 [id number] [facility] 2021-06-24 Outpatient Tam, Na STLMLC STLMLC [id number] 2 Common 13:53:32 [id number] [facility] 2021-06-24 Outpatient Tam, Na STLMLC STLMLC [id number] 2 Common 12:36:24 [id number] [facility] 2021-06-24 Outpatient Tam, Na STLMLC STLMLC [id number] 2 Common 12:35:22 [id number] [facility] 2021-03-28 Outpatient P [facility] JONNA [id number] Univers 01:35:30 [facility] 2021-03-27 Emergency [facility] [id number] Univers 13:14:01 [facility] 2022-04-20 2022-04-20 Outpatient R GUERO BERRY [facility] [id number] Univers 10:00:00 11:08:11 [facility] 2022-04-20 2022-04-20 Office Guero Berry [facility] [id number] Univers 10:00:00 11:08:11 Visit Urban [place] 350.1.13.10 i [place] [phone] Vt dic[address] 2022-04-20 2022-04-20 Letter Guero Berry [facility] [id number] Univers 00:00:00 00:00:00 (Out) Cam [place] 350.1.13.10 i ty of [place] [id number] [address] 2022-04-16 2022-04-16 Telephone Guero Berry [facility] 1.2.840.114 [id number] Univers 00:00:00 00:00:00 Cam [place] 350.1.13.10 i ty of [place] [id number] Vt dical [address] 2022-04-16 2022-04-16 Patient Guero Berry [facility] [id number] Univers 00:00:00 00:00:00 Secure Msg Cam [place] 350.1.13.10 ity of [place] [phone] Vt dical [address] 2022-04-15 2022-04-15 (TEL) STLMLC STLMLC [id number] Co mmon 00:00:00 00:00:00 [facility] 2022-04-08 2022-04-08 OFFICE STLMLC STLMLC [id number] Co mmon 00:00:00 00:00:00 VISIT EST Spir it PT LEVEL 3 - [facility] 2022-03-30 2022-03-30 (TEL) STLMLC STLMLC [id number] Co mmon 00:00:00 00:00:00 [facility] 2022-03-26 2022-03-26 Outpatient R GUERO BERRY [facility] [id number] Univers 10:30:00 10:30:00 ity [facility] 2022-03-08 2022-03-08 Outpatient R KRISTI GUERO [facility] [id number] Univers 00:00:00 00:00:00 ity [facility] 2022-03-05 2022-03-05 Outpatient R OSMANY [facility] [id number] Univers 12:00:00 12:19:51 MARIA LUISA reesey o f [facility] 2022-03-05 2022-03-05 Urgent Maria Luisa Shipman [facility] 1.2.840 .114 [id number] Univers 12:00:00 12:19:[address] [facility] 350.1.13.10 ity of [place] 4.2.7.2.686 Navid as DEB?BLEA [phone] [address] MEDICAL OFFICE BUILDING 2022-02-26 2022-02-26 Letter CARMELLA Brock 1.2.840.114 [id number] Univers 00:00:00 00:00:00 (Out) Tatyana Segura MAK 350.1.13.10 it y of HOSPITAL 4.2.7.2.686 Navid as [phone] [address] 2022-02-25 2022-02-25 Laboratory Only, Ang Db Test [facility] 1.2.8 40.114 [id number] Univers 09:15:00 09:30:00 Only BentleyMelissa covarrubias [facility] 350.1.13.10 ity of [facility] 4.2.7.2.686 Navid as DEB?BLEA [phone] [address] MEDICAL OFFICE [facility] 2022-02-25 2022-02-25 Outpatient R MEÑO [facility] [id number] Univers 09:15:00 09:15:00 MELISSA ity [facility] 2022-02-19 2022-02-19 Outpatient R GUERO BERRY [facility] [id number] Univers 13:30:00 14:11:53 ity [facility] 2022-02-19 2022-02-19 Office Guero Berry [facility] 1.2.840.114 [id number] Univers 13:30:00 14:11:53 Visit Urban [place] 350.1.13.10 it y of [facility] 4.2.7.2.686 [place] HE[place] [phone] [facility] [address] 2022-02-02 2022-02-02 [facility] [id number] Co mmon 00:00:00 00:00:00 VISIT EST Spir it PT LEVEL 3 - [facility] 2022-01-11 2022-01-11 Vivi Villa [facility] 1.2.840.114 [id number] Univers 10:00:00 10:20:00 Care LakiaCarmella 350.1.13.10 ity of [place] 4.2.7.2.686 Navid as DEB?BLEA [phone] [address] MEDICAL OFFICE BUILDING 2022-01-11 2022-01-11 [facility] [id number] Univers 10:00:00 10:00:00 VIVI [facility] 2022-01-11 2022-01-11 Orders Doctor WEIR 1.2.840.114 [id number] Univers 00:00:00 00:00:00 Only Unassigned, MAK 350.1.13.10 ity of [place] [facility] 4.2.7.2.686 Navid as [id number] [address] 2021-12-10 2021-12-10 (TEL) STLMLC STLMLC [id number] Co mmon 00:00:00 00:00:00 [facility] 2021-12-08 2021-12-08 (TEL) STLMLC STLMLC [id number] Co mmon 00:00:00 00:00:00 [facility] 2021-12-04 2021-12-04 OFFICE STLC STLMLC [id number] Co mmon 00:00:00 00:00:00 VISIT EST Spir it PT LEVEL 3 [facility] 2021-11-18 2021-11-18 Outpatient Ivelisse SALDAÑA [facility] [id number] Univers 11:15:00 11:57:50 EARL reyes [facility] 2021-11-18 2021-11-18 [facility] 1.2.063.545 [id number] Univers 11:15:00 11:45:00 Visit Earl [place] 350.1.13.10 i [facility] 4.2.7.2.[place] [phone] Vt dic[address] 2021-11-18 2021-11-18 Outpatient Ivelisse SALDAÑA [facility] [id number] Univers 11:15:00 11:15:00 EARL [facility] 2021-11-18 2021-11-18 Outpatient Ivelisse SALDAÑA [facility] [id number] Univers 11:15:00 11:15:00 EARL [facility] 2021-11-18 2021-11-18 Orders Doctor WEIR 1.2.840.114 [id number] Univers 00:00:00 00:00:00 Only Unassigned, MAK 350.1.13.10 ity of [place] [facility] 4.2.7.2.686 Navid as [id number] [address] 2021-11-09 2021-11-09 Telephone [facility] 1.2.840.114 [id number] Univers 00:00:00 00:00:00 Earl [place] 350.1.13.10 i ty of [place] [phone] Vt dic[address] 2021-11-04 2021-11-04 Orders Doctor CARMELLA 1.2.840.114 [id number] Univers 00:00:00 00:00:00 Only Unassigned, MAK 350.1.13.10 ity of [place] [facility] 4.2.7.2.686 Navid as [phone] [address] 2021-11-02 2021-11-02 Office Guero Berry [facility] 1.2.840.114 [id number] Univers 09:30:00 10:39:55 Visit Earl Saldaña 350.1.13.10 ity of [place].2.[place] [phone] [address] 2021-11-02 2021-11-02 Outpatient GUERO TORRES [facility] [id number] Univers 09:30:00 10:39:55 ity of [facility] 2021-11-02 2021-11-02 Outpatient GUERO TORRES [facility] [id number] Univers 09:30:00 10:39:55 ity of [facility] 2021-11-02 2021-11-02 Outpatient GUERO TORRES [facility] [id number] Univers 09:30:00 09:30:00 ity of [facility] 2021-09-04 2021-09-04 Office Belinda WICLARISA [place]OTA 1.2.840.114 [id number] Univers 08:45:00 08:53:18 Visit Yocasta [place] 350.1.13.10 it y of [place] [id number] [address] 2021-09-04 2021-09-04 Outpatient R YOCASTA TREVINO [facility] [id number] Univers 08:45:00 08:53:18 ANGELIQUEYOCASTA HERNANDEZ [facility] 2021-09-04 2021-09-04 Outpatient R ANGELIQUEYOCASAT HERNANDEZ [facility] [id number] Univers 08:45:00 08:45:00 YOCASTA TREVINO [facility] 2021-08-27 2021-08-27 Orders Doctor CARMELLA 1.2.840.114 [id number] Univers 00:00:00 00:00:00 Only Unassigned, MAK 350.1.13.10 ity of [place] [facility] 4.2.7.2.686 Navid as [phone] [address] 2021-08-21 2021-08-21 Case [facility] 1.2.840.114 [id number] Univers 00:00:00 00:00:00 Management Yocasta [place] 350.1.13.10 ity of [place] [id number] [address] 2021-08-20 2021-08-20 Telephone [facility] 1.2.840.11 [id number] Univers 00:00:00 00:00:00 Yocasta [place] 350.1.13.10 it y of [place] [id number] [address] 2021-08-16 2021-08-16 Orders Doctor CARMELLA 1.2.840.114 [id number] Univers 00:00:00 00:00:00 Only Unassigned, MAK 350.1.13.10 ity of [place] [facility] 4.2.7.2.686 Navid as [phone] [address] 2021-08-04 2021-08-04 Outpatient R BELINDASOHAILSANCHO [facility] [id number] Univers 10:00:00 10:03: SOHAIL TREVINOYAL ity [facility] 2021-08-04 2021-08-04 Office Angeliqueripsylviebhakti [facility] CIPRIANO 1.2.840.114 [id number] Univers 10:00:00 10:03:26 Visit Yocasta [place] 350.1.13.10 it y of [place] [id number] [address] 2021-08-04 2021-08-04 Telephone Andrealex [facility] COTA 1.2.840.114 [id number] Univers 00:00:00 00:00:00 Earl [place] 350.1.13.10 it y of [place].2.[place] [id number] [address] 2021-07-31 2021-07-31 OFFICE STLMLC STLMLC [id number] Co mmon 00:00:00 00:00:00 VISIT EST Spir it PT LEVEL 3 - [facility] 2021-06-17 2021-06-17 Outpatient Ivelisse SALDAÑA [facility] [id number] Univers 15:45:00 15:45:00 EARLNICOLA [facility] 2021-06-16 2021-06-16 Outpatient R PIOTR [facility] [id number] Univers 13:15:00 13:51:03 EARLNICOLA [facility] 2021-06-16 2021-06-16 Office Piotr [facility] 1.2.840.114 [id number] Univers 13:15:00 13:45:00 Visit Earl [place] 350.1.13.10 it y of [place] [id number] [address] 2021-06-16 2021-06-16 Outpatient Ivelisse SALDAÑA [facility] [id number] Univers 13:15:00 13:15:00 EARL [facility] 2021-06-07 2021-06-07 Telephone CARMELLA Black 1.2.475.402 [id number] Univers 00:00:00 00:00:00 Jyoti CORADO 350.1.13.10 it y of HOSPITAL 4.2.7.2.686 Navid as [phone] [address] 2021-06-06 2021-06-06 Laboratory Only, Ang Db Test [facility] 1.2.8 40.114 [id number] Univers 14:45:00 15:00:00 Only Kiara Guerra 350.1.13.10 ity of [place] 4.2.7.2.686 Navid as DEB?BLEA [phone] Me dical KNEY [address] MEDICAL OFFICE BUILDING 2021-06-06 2021-06-06 Outpatient R CHARLIE [facility] [id number] Univers 14:45:00 14:45:00 KIARA mary annholli o f [facility] 2021-05-28 2021-05-28 OFFICE STLMLC STLMLC [id number] Co mmon 00:00:00 00:00:00 VISIT EST Spir it PT LEVEL 3 - [facility] 2021-02-25 2021-02-25 (TEL) STLMLC STLMLC [id number] Co mmon 00:00:00 00:00:00 [facility] 2021-02-25 2021-02-25 (TEL) STLMLC STLMLC [id number] Co mmon 00:00:00 00:00:00 [facility] 2021-02-24 2021-02-24 Telephone Guero Berry [facility] 1.2.840.114 [id number] Univers 00:00:00 00:00:00 Cam [place] 350.1.13.10 i ty of [place] [phone] Vt dical [facility] [address] 2021-02-23 2021-02-23 OFFICE STLMLC STLMLC [id number] Co mmon 00:00:00 00:00:00 VISIT EST Spir it PT LEVEL 3 - [facility] 2021-02-20 2021-02-20 (TEL) STLMLC STLMLC [id number] Co mmon 00:00:00 00:00:00 [facility] 2021-02-05 2021-02-05 Office Guero Berry [facility] [id number] [id number] Univers 08:04:04 13:52:05 Visit Cam [place] 350.1.13.10 i ty of [place].2.[place] [phone] Vt dical nal [address] [place] [address] 2021-02-05 2021-02-05 Outpatient R GUERO BERRY [facility] [id number] Univers 08:00:00 08:00:00 ity of [facility] 2021-02-05 2021-02-05 Orders Doctor CARMELLA 1.2.840.114 [id number] Univers 00:00:00 00:00:00 Only Unassigned, MAK 350.1.13.10 ity of [place] [facility] 4.2.7.2.686 Navid as [phone] [facility] [address] 2021-02-03 2021-02-03 Telephone [facility] 1.2.840.114 [id number] Univers 00:00:00 00:00:00 Cam [place] 350.1.13.10 i ty of [place] 4.[place].2.[place] [phone] Vt dical nal [address] [place] [address] 2021-02-03 2021-02-03 Telephone Guero Berry [facility] 1.2.840.114 [id number] Univers 00:00:00 00:00:00 Cam [place] 350.1.13.10 i ty of [place] 4[place].2.[place] [phone] Vt dical nal [address] [facility] 2021-01-28 2021-01-28 [facility] 1.2.840.114 [id number] Univers 10:00:00 23:59:00 Encounter Earl [place] 350.1.13.10 ity of [place].2.[place] [phone] [facility] [address] 2021-01-28 2021-01-28 [facility] 1.2.840.114 [id number] Univers 10:00:00 23:59:00 Encounter Earl [place] 350.1.13.10 ity of [place] [id number] [facility] [address] 2021-01-28 2021-01-28 Outpatient R PIOTR [facility] [id number] Univers 00:00:00 00:00:00 EARL chambers [facility] 2021-01-15 2021-01-15 [facility] 1.2.926.034 [id number] Univers 00:00:00 00:00:00 Management Earl [place] 350.1.13.10 ity of [place] 4[place].2.[place] [phone] Vt dic[address] 2021-01-15 2021-01-15 Case Piotr [facility] 1.2.890.131 [id number] Univers 00:00:00 00:00:00 Management Earl [place]ull[place] 350.1.13.[address] [facility] 4.2.7.2.[place] [id number] [address] 2021-01-14 2021-01-14 [facility] [id number] Univers 00:00:00 00:00:00 EARL [facility] 2021-01-14 2021-01-14 Outpatient R PIOTR [facility] [id number] Univers 00:00:00 00:00:00 EARL chambers [facility] 2021-01-08 2021-01-08 Office Piotr [facility] 1.2.728.513 [id number] Univers 07:53:41 08:29:11 Visit Earl [place] 350.1.13.10 i ty of [place] 4[place].2.[place] [phone] Vt dic[address] 2021-01-08 2021-01-08 Outpatient R PIOTR [facility] [id number] Univers 08:00:00 08:00:00 EARL chambers [facility] 2021-01-08 2021-01-08 Orders Doctor WEIR 1.2.840.114 [id number] Univers 00:00:00 00:00:00 Only Unassigned, MAK 350.1.13.10 ity of [place] [facility] 4.2.7.2.686 Navid as [phone] [address] 2021-01-08 2021-01-08 Orders Doctor CARMELLA 1.2.840.114 [id number] Univers 00:00:00 00:00:00 Only Unassigned, MAK 350.1.13.10 ity of [place] [facility] 4.2.7.2.686 Navid as [phone] [address] 2020-12-26 2020-12-26 Laboratory Lab, Adc Fam Pob I [facility] 1.2. 840.114 [id number] Univers 13:41:28 14:01:28 Only PolloJolynn [facility] 350.1.13.10 ity of [place] 4.2.7.2.686 Navid as Professio [phone] Vt marilou [facility] [address] 2020-12-26 2020-12-26 Outpatient R POLLO [facility] [id number] Univers 13:40:00 13:40:00 JOLYNN [facility] 2020-12-26 2020-12-26 Orders Doctor CARMELLA 1.2.840.114 [id number] Univers 00:00:00 00:00:00 Only Unassigned, MAK 350.1.13.10 ity of [place] [facility] 4.2.7.2.686 Navid as [phone] [address] 2020-10-29 2020-10-29 Diagnostics Sales Developer 2, Adc Lab [facility] 1.2.840.114 [id number] Univers 10:32:55 10:47:55 Visit Earl Saldaña 350.1.13.10 ity of [place] [phone] Vt dical nal [address] [facility] 2020-10-29 2020-10-29 Outpatient R PIOTR [facility] [id number] Univers 10:30:00 10:30:00 EARL [facility] 2020-10-29 2020-10-29 Office Piotr [facility] [id number] Univers 09:33:00 10:20:35 Visit Earl Grullon 350.1.13.10 i ty [id number] [phone] Vt dical nal [address] [place] [address] 2020-10-20 2020-10-20 Guero Melendez [facility] [id number] Univers 00:00:00 00:00:00 [place] [id number] i ty [id number] [phone] Vt dical [address] 2020-10-16 2020-10-16 [facility] [id number] Univers 10:27:54 10:45:12 Visit Earl [place] 350.1.13.10 i ty [place] [id number] [phone] [address] 2020-10-16 2020-10-16 Outpatient R PIOTR [facility] [id number] Univers 10:15:00 10:15:00 EARL [facility] 2020-09-10 2020-09-10 Outpatient R BREANN [facility] [id number] Univers 09:30:00 09:30:00 [facility] 2020-09-03 Outpatient R GUERO BERRY [facility] [id number] Univers 09:15:00 09:15:[facility] 2020-08-28 2020-08-28 Orders Doctor WEIR 1.2.840.114 [id number] Univers 00:00:00 00:00:00 Only Unassigned, MAK 350.1.13.10 [facility] [address] [facility] 4.2.7.2.686 Navid as [phone] [address] 2020-08-27 2020-08-27 Outpatient R MUNDO [facility] [id number] Univers 00:00:00 00:00:00 ARCENIO fernández [facility] 2020-08-20 2020-08-20 [facility] [facility] [id number] Univers 10:40:00 10:40:00 ASHUTOSH mary annholli of [facility] 2020-08-20 2020-08-20 Telephone Guero Berry [facility] 1.2.840.114 [id number] Univers 00:00:00 00:00:00 Urban [place] 350.1.13.10 i ty [place] [phone] Vt dical nal 134 [facility] 2020-08-19 2020-08-19 [facility] 1.2.840.114 [id number] Univers 00:00:00 00:00:00 Outreach Ashutosh TAI 350.1.13.10 i ty of [facility] [place]2.7.2.[place] [phone] Vt nelsyvt [address] [place] 2020-08-12 2020-08-12 Office [facility] 1.2.840.114 [id number] Univers 10:43:17 11:33:51 Visit Arcenio [place] 350.1.13.10 ity of [place] [phone] Vt dical nal 059 [facility] 2020-08-12 2020-08-12 [facility] [id number] Univers 10:40:00 10:40:00 ARCENIO chambers o [facility] 2020-08-12 2020-08-12 Orders Doctor CARMELLA 1.2.840.114 [id number] Univers 00:00:00 00:00:00 Only Unassigned, MAK 350.1.13.10 ity of [place] [facility] 4.2.7.2.686 Navid as [phone] [address] 2020-08-06 2020-08-06 Telephone Davin Berryen [facility] 1.2.840.114 [id number] Univers 00:00:00 00:00:00 Urban [place] 350.1.13.10 i [place] [phone] Vt dical [address] 2020-07-31 2020-07-31 (TEL) STLMLC STLMLC [id number] Co mmon 00:00:00 00:00:00 [facility] 2020-07-30 2020-07-30 (TEL) STLMLC STLMLC [id number] Co mmon 00:00:00 00:00:00 [facility] 2020-07-29 2020-07-29 Outpatient R GUERO BERRY [facility] [id number] Univers 13:30:00 13:30:00 [facility] 2020-07-29 2020-07-29 OFFICE STLMLC STLMLC [id number] Co mmon 00:00:00 00:00:00 VISIT Spirit ESTAB PT - [facility] LEVEL 4 [facility] 2020-07-27 2020-07-27 Outpatient R BREANN [facility] [id number] Univers 14:05:00 14:05:00 RADHA [facility] 2020-07-07 2020-07-07 Outpatient R PIOTR [facility] [id number] Univers 11:15:00 11:15:00 EARL [facility] 2020-06-25 2020-06-25 Outpatient R GUERO BERRY [facility] [id number] Univers 10:30:00 10:30:00 [facility] 2020-06-25 2020-06-25 Telephone Guero Berry [facility] ..840.114 [id number] 00:00:00 00:00:00 Cam [place] 350.1.13.10 [place] 4.2.7.2.686 Professio [phone] [address] 2020-06-25 2020-06-25 Telephone Guero Berry [facility] ..840.114 81 [id number] Univers 00:00:00 00:00:00 Cam [place] 350.1.13.10 i ty of [place] [phone] Vt dical [address] 2020-06-11 2020-06-11 Laboratory Lab, [facility] 1.2.840.114 [id number] 14:09:06 14:29:06 Only Fam Pob [facility] 350.1.13.10 [place] 4.2.7.2.686 Professio [phone] [place] [address] Office [facility] 2020-06-11 2020-06-11 Laboratory Lab, [facility] Pob I [facility] 1.2. 840.114 [id number] Univers 14:09:06 14:29:06 Only Dolly Perez [facility] 350.1.13.10 ity of [place] 4.2.7.2.686 Navid as Professio [phone] [address] Office [facility] 2020-06-11 2020-06-11 Outpatient R CHRIS [facility] [id number] [facility] 14:10:00 14:10:00 DOLLY ity of [facility] 2020-06-05 2020-06-05 Telephone Guero Berry [facility] 1.2.840.114 [id number] Univers 00:00:00 00:00:00 Cam [place] 350.1.13.10 i ty of [place] [phone] Vt dic[address] 2020-06-05 2020-06-05 Telephone Guero Berry WICLARISA 1.2.840.114 [id number] 00:00:00 00:00:00 Cam [place] 350.1.13.10 [place] 4.2.7.2.686 Professio [phone] [address] 2020-05-19 2020-05-19 Office Guero Berry [facility] 1.2.952.057 [id number] [facility] 10:21:39 10:51:39 Visit Cam [place] 350.1.13.10 i ty of [place] [phone] Vt dic[address] 2020-05-19 2020-05-19 Office Guero Berry [facility] 1.2.883.164 [id number] 10:21:39 10:51:39 Visit Cam [place] 350.1.13.10 [place] 4.2.7.2.686 Professio [phone] [address] 2020-05-19 2020-05-19 Outpatient R BERRYGUERO [facility] [id number] Univers 10:30:00 10:30:00 ity of [facility] 2020-05-19 2020-05-19 Orders Doctor CARMELLA 1.2.840.114 [id number] Univers 00:00:00 00:00:00 Only Unassigned, MAK 350.1.13.10 ity of [place] [facility] 4.2.7.2.686 Navid as [phone] [address] 2020-05-19 2020-05-19 Orders Doctor CARMELLA 1.2.840.114 [id number] 00:00:00 00:00:00 Only Unassigned, MAK 350.1.13.10 [place] [facility] 4.2.7.2.686 [phone] [facility] 2020-04-30 2020-04-30 Routine Piotr [facility] 1.2.107.757 [id number] Univers 10:35:21 11:27:47 Earl [place] 350.1.13.10 ity of Visit [place].2.[place] [phone] Vt dical [address] 2020-04-30 2020-04-30 Outpatient R PIOTR [facility] [id number] Univers 10:30:00 10:30:00 EARL ity of [facility] 2020-04-15 2020-04-15 Nurse Nurse, [facility] 1.2.840.114 [id number] Univers 08:44:55 09:14:27 Visit KristiGuero Urban [place] 350.1.13.10 ity of [place].2.[place] [phone] Vt dic[address] 2020-04-15 2020-04-15 Outpatient R [facility] [id number] Univers 09:00:00 09:00:00 ity of [facility] 2020-04-11 2020-04-11 Telephone BerryGuero [facility] 1.2.840.114 [id number] Univers 00:00:00 00:00:00 Cam [place] 350.1.13.10 i ty of [place] [phone] Vt dical nal 134 [facility] 2020-04-11 2020-04-11 Telephone Guero Berry [facility] 1.2.840.114 [id number] Univers 00:00:00 00:00:00 Cam [place] 350.1.13.10 i ty of [place] 4[place].2.[place] [phone] Vt dical nal 134 [facility] 2020-04-09 2020-04-09 Telephone Guero Berry [facility] 1.2.840.114 [id number] Univers 00:00:00 00:00:00 Cam [place] 350.1.13.10 i ty of [place].2.[place] [phone] Vt dical nal 134 [facility] 2020-04-01 2020-04-02 [facility] Guero Berry [facility] 1.2.840.114 [id number] Univers 05:30:00 21:15:00 Encounter Urban [place] 350.1.13.10 ity of [place].2.7.2.[place] [phone] [facility] [address] [place] 2020-04-01 2020-04-01 Anesthesia Reg Little [facility] 1.2.840.11 [id number] Univers 08:00:00 09:28:00 Carin [place] 350.1 .13.10 ity of [place].2.[place] [phone] [facility] [address] [place] 2020-03-31 2020-03-31 Laboratory Only, Adc Test [facility] 1.2.840. 114 [id number] Univers 11:19:38 11:34:38 Only Davin Berryvasu [place] 350.1.13.10 ity of [place].2.[place] [phone] [facility] [address] [place] 2020-03-31 2020-03-31 Diagnostics Sales Developer Valerie, Adc Lab Main [facility] 1.2.8 40.114 [id number] Univers 10:53:51 11:08:51 Visit Guero Berry 350.1.13.10 ity of [place] [phone] Vt dictito amaro 353 [facility] 2020-03-31 2020-03-31 Outpatient R [facility] [id number] Univers 10:15:00 10:15:00 ity of [facility] 2020-03-26 2020-03-26 Routine Guero Berry [facility] 1.2.840.114 [id number] Univers 10:25:14 11:48:48 Earl Saldaña 350.1.13.10 ity of [place].2.[place] [phone] Vt dical nal 134 [facility] 2020-03-19 2020-03-26 Routine Guero Berry [facility] 1.2.031.698 [id number] Univers 10:54:26 10:50:04 Urban [place] 350.1.13.10 ity of [place].2.[place] [phone] Vt dical sondra 134 [facility] 2020-03-26 2020-03-26 Outpatient R PIOTR [facility] [id number] Univers 10:45:00 10:45:00 EARL ity of [facility] 2020-03-26 2020-03-26 Diagnostics Sales Developer 2, Adc Lab [facility] 1.2.840.114 [id number] Univers 10:16:04 10:31:04 Visit Guero Berry 350.1.13.10 ity of [place].2.[place] [phone] Vt dical nal 353 [facility] 2020-03-19 2020-03-19 Outpatient R GUERO BERRY [facility] [id number] Univers 11:00:00 11:00:00 ity of [facility] 2020-03-19 2020-03-19 Orders Doctor WEIR 1.2.840.114 [id number] Univers 00:00:00 00:00:00 Only Unassigned, MAK 350.1.13.10 ity of [place] [facility] 4.2.7.2.686 Navid as [phone] [address] 2020-03-12 2020-03-12 Outpatient R GUERO BERRY [facility] [id number] Univers 13:45:00 13:45:00 ity of [facility] 2020-03-12 2020-03-12 Outpatient R PIOTR [facility] [id number] Univers 11:30:00 11:30:00 EARL ity of [facility] 2020-03-12 2020-03-12 Telephone Kristi [facility] 1.2.840.114 [id number] Univers 00:00:00 00:00:00 Cam [place] 350.1.13.10 i ty of [place].2.[place] [phone] Vt dic[address] 2020-03-10 2020-03-10 Routine Guero Berry [facility] 1.2.213.949 [id number] Univers 11:27:51 12:29:38 Cam [place] 350.1.13.10 ity of [place] 4.2.7.2.[place] [phone] Vt dical [address] 2020-03-10 2020-03-10 Outpatient R GUERO BERRY [facility] [id number] Univers 11:15:00 11:15:00 ity of [facility] 2020-03-10 2020-03-10 Telephone Guero Berry [facility] 1.2.840.114 [id number] Univers 00:00:00 00:00:00 Cam [place] 350.1.13.10 i ty of [place].2.[place] [phone] Vt dical [address] 2020-03-10 2020-03-10 Orders Doctor CARMELLA 1..840.114 [id number] Univers 00:00:00 00:00:00 Only Unassigned, MAK 350.1.13.10 ity of [place] [facility] 4.2.7.2.686 Navid as [phone] [address] 2020-03-06 2020-03-06 Diagnostics Sales Developer [facility]trasound, [facility] 1.2 .840.114 [id number] Univers 11:30:33 12:00:33 Visit [place] Fisher Kevin RELAYS DRAFTSPERSON 350.1.13.1 0 ity of REGIONAL 4.2.7.2.686 Navid as MATERNAL [phone] [facility] ical & CHILD [address] [place] [address] 2020-03-06 2020-03-06 Outpatient P [facility] [id number] Univers 11:30:00 11:30:00 ity of [facility] 2020-02-28 2020-02-28 Routine Kristi [facility] 1.2.193.268 [id number] Univers 13:17:58 14:01:24 Cam [place] 350.1.13.10 ity of [place].2.[place] [phone] [address] 2020-02-28 2020-02-28 [facility] [id number] Univers 13:15:00 13:15:00 ity of [facility] 2020-02-19 2020-02-19 Telephone Kristi [facility] 1.2.840.114 [id number] Univers 00:00:00 00:00:00 Cam [place] 350.1.13.10 i ty of [place].2.[place] [phone] [address] 2020-02-19 2020-02-19 Telephone Guero Berry [facility] 1.2.840.114 [id number] Univers 00:00:00 00:00:00 Cam [place] 350.1.13.10 i ty of [place] 4.2.7.2.[place] [phone] Vt dic[address] 2020-02-18 2020-02-18 [facility] 1.2.840.114 [id number] Univers 00:00:00 00:00:00 Cam [place] 350.1.13.10 i ty of [place] 4.[place].7.2.[place] [phone] [address] 2020-02-12 2020-02-12 Routine Piotr [facility] 1.2.538.496 [id number] Univers 11:13:13 11:28:13 Earl Claude 350.1.13.10 ity of [place] 4.[place].7.2.[place] [phone] Vt dical nal 134 [facility] 2020-02-12 2020-02-12 Outpatient R PIOTR [facility] [id number] Univers 11:15:00 11:15:00 EARL ity of [facility] 2020-02-12 2020-02-12 Orders Doctor CARMELLA 1.2.840.114 [id number] Univers 00:00:00 00:00:00 Only Unassigned, MAK 350.1.13.10 ity of [place] [facility] 4.2.7.2.686 Navid as [phone] [address] 2020-02-06 2020-02-06 Telephone Guero Berry [facility] 1.2.840.114 [id number] Univers 00:00:00 00:00:00 Urban [place] 350.1.13.10 i ty of [place] 4.[place].7.2.[place] [phone] Vt dical nal 134 [facility] 2020-02-01 2020-02-01 Diagnostics Sales Developer 2, Adc Lab [facility] 1.2.840.114 [id number] Univers 08:14:52 08:29:52 Visit Guero Berry 350.1.13.10 ity of [place] 4.[place].2.[place] [phone] Vt dical nal 353 [facility] 2020-02-01 2020-02-01 Outpatient R [facility] [id number] Univers 08:15:00 08:15:00 ity of [facility] 2020-01-29 2020-01-29 Routine Kristi Guero [facility] 1.2.042.052 [id number] Univers 13:21:28 14:28:08 Urban [place] 350.1.13.10 ity of [place] 4.[place].7.2.[place] [phone] Vt dical nal 134 [facility] 2020-01-29 2020-01-29 Outpatient R GUERO BERRY [facility] [id number] Univers 13:15:00 13:15:00 ity of [facility] 2020-01-23 2020-01-23 Outpatient R GUERO BERRY [facility] [id number] Univers 10:15:00 10:15:00 ity of [facility] 2020-01-15 2020-01-16 Emergency Linda Maria [facility] 1.2.840.1 14 [id number] Univers 20:34:00 00:13:00 Sarabjit Amaro [place] 350.1.13. 10 ity of [place] 4.2.[place].2.[place] [phone] [facility] [address] [place] 2020-01-16 2020-01-16 Telephone Guero Berry [facility] 1.2.840.114 [id number] Univers 00:00:00 00:00:00 Urban [place] 350.1.13.10 i ty of [place] 4[place].2.[place] [phone] Vt dical nal [address] [place] [address] 2020-01-15 2020-01-15 Telephone Guero Berry [facility] 1.2.840.114 [id number] Univers 00:00:00 00:00:00 Cam [place] 350.1.13.10 i ty of [place] 4.2.7.2.[place] [phone] Vt dicvt nal [address] [place] [address] 2020-01-15 2020-01-15 Telephone Guero Berry [facility] 1.2.840.114 [id number] Univers 00:00:00 00:00:00 Urban [place] 350.1.13.10 i ty of [place] 4.[place].2.[place] [phone] Vt dical nal 134 [facility] 2020-01-02 2020-01-02 Orders Doctor CARMELLA 1.2.840.114 [id number] Univers 00:00:00 00:00:00 Only Unassigned, MAK 350.1.13.10 ity of [place] [facility] 4.2.7.2.686 Navid as [phone] [facility] [address] [place] 2020-01-01 2020-01-01 Telephone Guero Berry [facility] 1.2.840.114 [id number] Univers 00:00:00 00:00:00 Urban [place] 350.1.13.10 i ty of [place] 4[place].2.[place] [phone] Vt dic[address] 2019-12-26 2019-12-26 Routine Guero Berry [facility] 1.2.896.472 [id number] Univers 14:43:24 15:23:33 Cam [place] 350.1.13.10 ity of [place] 4.2.7.2.[place] [phone] Vt dic[address] 2019-12-26 2019-12-26 Outpatient R KRISTI GUERO [facility] [id number] Univers 14:45:00 14:45:00 ity of [facility] 2019-12-26 2019-12-26 Outpatient R PIOTR [facility] [id number] Univers 10:30:00 10:30:00 [facility] 2019-12-26 2019-12-26 Orders Doctor CARMELLA 1.2.840.114 [id number] Univers 00:00:00 00:00:00 Only Unassigned, MAK 350.1.13.10 ity of [place] [facility] 4.2.7.2.686 Navid as [phone] [address] 2019-12-14 2019-12-14 Outpatient R PIOTR [facility] [id number] Univers 13:30:00 13:30:00 EARL [facility] 2019-11-21 2019-11-21 Diagnostics Sales Developer Ultrasound, [facility] 1.2 .840.114 [id number] Univers 14:07:22 15:07:22 Visit Jane Valdivia RELAYS DRAFTSPERSON 350.1.13.10 ity of REGIONAL 4.2.7.2.686 Navid as MATERNAL [phone] [facility] ical & CHILD [address] [place] [address] 2019-11-21 2019-11-21 Outpatient P [facility] [id number] Univers 14:00:00 14:00:00 ity [facility] 2019-11-12 2019-11-12 Routine Kristi [facility] 1.2.565.481 [id number] Univers 11:48:41 12:14:13 Urban [place] 350.1.13.10 ity of [place].2.[place] [phone] Vt dical nal 134 [facility] 2019-11-12 2019-11-12 Outpatient R GUERO BERRY [facility] [id number] Univers 11:30:00 11:30:00 ity of [facility] 2019-11-12 2019-11-12 Orders Doctor CARMELLA 1.2.840.114 [id number] Univers 00:00:00 00:00:00 Only Unassigned, MAK 350.1.13.10 ity of [place] [facility] 4.2.7.2.686 Navid as [phone] [address] 2019-10-17 2019-10-17 Orders Doctor CARMELLA 1.2.840.114 [id number] Univers 00:00:00 00:00:00 Only Unassigned, MAK 350.1.13.10 ity of [place] [facility] 4.2.7.2.686 Navid as [phone] [address] 2019-10-16 2019-10-16 Diagnostics Sales Developer 2, Adc Lab [facility] 1.2.840.114 [id number] Univers 08:08:38 08:23:38 Visit Guero Berry Claude 350.1.13.10 ity of [place].2.[place] [phone] Vt dical nal 353 [facility] 2019-10-16 2019-10-16 Outpatient R GUERO BERRY [facility] [id number] Univers 08:00:00 08:00:00 ity of [facility] 2019-10-15 2019-10-15 Outpatient R [facility] [id number] Univers 11:00:00 11:00:00 ity of [facility] 2019-10-12 2019-10-12 Routine Piotr [facility] 1.2.991.954 [id number] Univers 15:49:57 16:27:40 Earl [place] 350.1.13.10 ity of [place] [phone] Vt dical [address] 2019-10-12 2019-10-12 Outpatient R PIOTR [facility] [id number] Univers 16:00:00 16:00:00 EARL chambers [facility] 2019-10-09 2019-10-09 Outpatient R PIOTR [facility] [id number] Univers 10:00:00 10:00:00 EARL chambers [facility] 2019-09-19 2019-09-19 Orders Doctor CARMELLA 1.2.840.114 [id number] Univers 00:00:00 00:00:00 Only Unassigned, MAK 350.1.13.10 ity of [place] [facility] 4.2.7.2.686 Navid as [phone] [address] 2019-09-17 2019-09-17 Telephone Guero Berry [facility] 1.2.840.114 [id number] Univers 00:00:00 00:00:00 Urban [place] 350.1.13.10 i ty of [place].2.[place] [phone] Vt dical [address] 2019-09-17 2019-09-17 Telephone [facility] 1.2.962.696 [id number] Univers 00:00:00 00:00:00 Anahi [place] 350.1.13.10 ity of [place].2.[place] [phone] Vt dical [address] 2019-09-14 2019-09-14 Telephone [facility] 1.2.669.589 [id number] Univers 00:00:00 00:00:00 Anahi Solomon [place] 350.1.13.10 ity of [place] 4.[place].7.2.[place] [phone] Vt dical nal [address] [place] [address] 2019-09-11 2019-09-11 Routine Guero Berry [facility] 1.2.815.691 [id number] Univers 13:19:58 13:46:45 Urban [place] 350.1.13.10 ity of [place].2.[place] [phone] Me dical nal 134 [facility] 2019-09-11 2019-09-11 Outpatient R GUERO BERRY [facility] [id number] Univers 13:15:00 13:15:00 ity of [facility] 2019-09-11 2019-09-11 Orders Doctor CARMELLA 1.2.840.114 [id number] Univers 00:00:00 00:00:00 Only Unassigned, MAK 350.1.13.10 ity of [place] [facility] 4.2.7.2.686 Navid as [phone] [address] 2019-09-05 2019-09-05 Telephone Guero Berry [facility] 1.2.840.114 [id number] Univers 00:00:00 00:00:00 Urban [place] 350.1.13.10 i ty of [place] [phone] Vt dic[address] 2019-08-21 2019-08-21 Orders Doctor CARMELLA 1.2.840.114 [id number] Univers 00:00:00 00:00:00 Only Unassigned, MAK 350.1.13.10 ity of [place] [facility] 4.2.7.2.686 Navid as [phone] [address] 2019-08-14 2019-08-14 Diagnostics Sales Developer 2, Adc Lab [facility] 1.2.840.114 [id number] Univers 15:14:48 15:29:48 Visit Guero Berry Urban [place] 350.1.13.10 ity of [place] [phone] Vt dical nal 353 [facility] 2019-08-14 2019-08-14 Initial Guero Berry [facility] 1.2.838.326 [id number] Univers 13:43:26 14:59:48 Urban [place] 350.1.13.10 ity of [place].2.[place] [phone] Vt dical nal 134 [facility] 2019-08-14 2019-08-14 Outpatient R GUERO BERRY [facility] [id number] Univers 14:00:00 14:00:00 ity of [facility] 2019-08-09 2019-08-09 Outpatient R GUERO BERRY [facility] [id number] Univers 09:00:00 09:00:00 ity of [facility] 2019-08-07 2019-08-07 Orders Doctor WEIR 1.2.840.114 [id number] Univers 00:00:00 00:00:00 Only Unassigned, MAK 350.1.13.10 ity of [place] [facility] 4.2.7.2.686 Navid as [phone] [address] 2019-08-01 2019-08-01 [facility] [id number] [id number] Univers 00:00:00 00:00:00 [facility] 350.1.13.10 it y of Surgical 4.2.7.2.686 Navid as Specialti [phone] Vt dical es 198 [facility] 2019-07-26 2019-07-26 Office [facility] 1.2.840.114 [id number] Univers 08:32:54 09:22:49 Visit [facility] 350.1.13.10 it y of Surgical 4.2.7.2.686 Navid as Specialti [phone] Vt dical es 198 [facility] 2019-07-26 2019-07-26 Outpatient R [facility]O [facility] [id number] Univers 08:45:00 08:45:00 JEFF ity of [facility] 2019-07-23 2019-07-23 Orders Doctor WEIR 1.2.840.114 [id number] Univers 00:00:00 00:00:00 Only Unassigned, MAK 350.1.13.10 ity of [facility] 4.2.7.2.686 Navid as [phone] [facility] [address] [place] 2019-07-09 2019-07-09 Diagnostics Sales Developer 1, [facility] 1.2.840.114 [id number] Univers 15:52:22 16:07:22 Visit Guero Berry [facility] 350.1.13.10 ity [place] [phone] [facility] [address] [place] 2019-07-09 2019-07-09 Orders Doctor WEIR 1.2.840.114 [id number] Univers 00:00:00 00:00:00 Only Unassigned, MAK 350.1.13.10 ity of [facility] 4.2.7.2.686 Navid as [phone] [address] 2019-07-04 2019-07-04 Telephone Guero Berry [facility] 1.2.840.114 [id number] Univers 00:00:00 00:00:00 [place] 350.1.13.10 i [place] [phone] Vt dical nal [address] [place] [address] 2019-06-29 2019-06-29 Orders Doctor CARMELLA 1.2.840.114 [id number] Univers 00:00:00 00:00:00 Only Unassigned, MAK 350.1.13.10 ity of [facility] 4.2.7.2.686 Navid as [phone] [address] 2019-06-22 2019-06-22 Telephone Guero Berry [facility] 1.2.840.114 [id number] Univers 00:00:00 00:00:00 [place] 350.1.13.10 i [place] [phone] Vt dical nal [address] [place] [address] 2019-06-13 2019-06-13 Office Guero Berry [facility] 1.2.538.801 [id number] Univers 14:37:03 15:27:41 Visit Urban [place] 350.1.13.10 i [place] [phone] Vt dical nal [address] [place] [address] 2019-06-13 2019-06-13 Orders Doctor CARMELLA [id number] Univers 00:00:00 00:00:00 Only Unassigned, MAK [id number] ity of [facility] [place] [facility] [id number] Navid as [phone] [address] 2019-02-13 2019-02-13 Telephone Guero Berry [facility] [id number] Univers 00:00:00 00:00:00 Cam Claude [id number] i [id number] [phone] [address] 2019-01-23 2019-01-23 Telephone Guero Berry [facility] [id number] Univers 00:00:00 00:00:00 Cam [place] [id number] i [id number] [phone] [address] 2019-01-11 2019-01-11 Office [facility] [id number] [facility] 10:32:43 11:03:08 Visit Earl Grullon 350.1.13.10 i [id number] [phone] [address] 2019-01-10 2019-01-10 Telephone Guero Berry [facility] [id number] Univers 00:00:00 00:00:00 Urban Gr[place] [id number] i ty [id number] [phone] [address] 2019-01-09 2019-01-09 [facility] [id number] Univers 17:30:00 23:59:00 Encounter Earl Grullon [id number] ity [place] [phone] [facility] [address] [place] 2019-01-09 2019-01-09 Orders Doctor CARMELLA [id number] Univers 00:00:00 00:00:00 Only Unassigned, MAK 350.1.13.10 ity of [place] [facility] [id number] Navid as [phone] [facility] [address] [place] 2019-01-04 2019-01-04 Office [facility] [id number] [facility] 12:48:24 13:22:18 Visit Earl Grullon 350.1.13.10 i ty [place] [phone] Vt dical nal 134 [facility] 2019-01-04 2019-01-04 Orders Doctor CARMELLA [id number] Univers 00:00:00 00:00:00 Only Unassigned, MAK 350.1.13.10 it[place] of [place] [facility] [id number] Navid as [phone] [address] 2018-12-28 2018-12-28 Telephone Guero Berry [facility] [id number] Univers 00:00:00 00:00:00 Urban [place] 350.1.13.10 i [id number] [phone] [facility] nal 134 [facility] Results Test Description Test Time Test Comments Results Result Comments Source POCT TEST 2022-04-20 17:05:00 Test Item Value Reference Range Interpretation Comme nts POCT PREG (test code = 1605) Negative On board controls acceptable with C Line (test code = 3574) Yes POCT PREG LOT # (test code = 3575) POCT PREG TEST DATE (test code = 3576) [facility] [id number] 17:05:00 Test Item Value Reference Range Interpretation Comments POCT PREG (test code = 1605) Negative On board controls acceptable with C Yes Line (test code = 3574) POCT PREG LOT # (test code = 3575) POCT PREG TEST DATE (test code = 3576) [facility] URINALYSIS W/O SPECIFIC [id number] 19:13:00 Test Item Value Reference Range Interpretation Comments POCT PH U (test code = 3254) 5 mg/dl 5-8 POCT U LEUK EST (test code = Negative Negative - Negative 3263) POCT U NIT (test code = 3262) Negative Negative - Negative POCT U PROT (test code = 3259) Negative Negative - Negative POCT U GLU (test code = 3256) Normal Negative - Negative POCT U KETONE (test code = 3258) Negative Negative - Negative POCT U BLD (test code = 3257) Trace Negative - Negative [facility] [id number] 19:13:00 Test Item Value Reference Range Interpretation Comments POCT PREG (test code = 1605) Negative On board controls acceptable with C Yes Line (test code = 3574) POCT PREG LOT # (test code = 3575) POCT PREG TEST DATE (test code = 3576) [facility] URINALYSIS W/O SPECIFIC [id number] 19:13:00 Test Item Value Reference Range Interpretation Comments POCT PH U (test code = 3254) 5 mg/dl 5-8 POCT U LEUK EST (test code = Negative Negative - Negative 3263) POCT U NIT (test code = 3262) Negative Negative - Negative POCT U PROT (test code = 3259) Negative Negative - Negative POCT U GLU (test code = 3256) Normal Negative - Negative POCT U KETONE (test code = 3258) Negative Negative - Negative POCT U BLD (test code = 3257) Trace Negative - Negative [facility] [id number] 19:13:00 Test Item Value Reference Range Interpretation Comments POCT PREG (test code = 1605) Negative On board controls acceptable with C Yes Line (test code = 3574) POCT PREG LOT # (test code = 3575) POCT PREG TEST DATE (test code = 3576) [facility] [id number] 16:38:00 Test Item Value Reference Range Interpretation Comments POCT PREG (test code = 1605) Negative On board controls acceptable with C Yes Line (test code = 3574) POCT PREG LOT # (test code = 3575) POCT PREG TEST DATE (test code = 3576) [facility]. Metabolic Panel (14) (CMP)2020-07-29 00:00:00 Test Item Value Reference Range Interpretation Comments Glucose (test code = 2345-7) 88 65-99 BUN (test code = 3094-0) 14 6-20 Creatinine (test code = 2160-0) 0.80 0.57-1.00 eGFR If NonAfricn Am (test code = 102 >59 03328-1) eGFR If Africn Am (test code = 89777-4) 118 >59 BUN/Creatinine Ratio (test code = 18 9-23 3097-3) Sodium (test code = 2951-2) 140 134-144 Potassium (test code = 2823-3) 4.0 3.5-5.2 Chloride (test code = 2075-0) 103 96-106 Carbon Dioxide, Total (test code = -8-9) Calcium (test code = 08837-4) 9.6 8.7-10.2 Protein, Total (test code = 2885-2) 6.9 6.0-8.5 Albumin (test code = 1751-7) 4.4 3.9-5.0 Globulin, Total (test code = 24509-0) 2.5 1.5-4.5 A/G Ratio (test code = 1759-0) 1.8 1.2-2.2 Bilirubin, Total (test code = 1975-2) 0.2 0.0-1.2 Alkaline Phosphatase (test code = 76 39-117 6768-6) AST (SGOT) (test code = 1920-8) 22 0-40 ALT (SGPT) (test code = 1742-6) 19 0-32 CBC With Differential/[id number] 00:00:00 Test Item Value Reference Range Interpretation Comments WBC (test code = 6690-2) 7.0 3.4-10.8 RBC (test code = 789-8) 4.27 3.77-5.28 Hemoglobin (test code = 718-7) 12.6 11.1-15.9 Hematocrit (test code = 4544-3) 38.8 34.0-46.6 MCV (test code = 787-2) 91 79-97 MCH (test code = 785-6) 29.5 26.6-33.0 MCHC (test code = 786-4) 32.5 31.5-35.7 RDW (test code = 788-0) 12.6 11.7-15.4 Platelets (test code = 777-3) 281 150-450 Neutrophils (test code = 770-8) 62 Not Estab. Lymphs (test code = 736-9) 27 Not Estab. Monocytes (test code = 5905-5) 9 Not Estab. Eos (test code = 713-8) 1 Not Estab. Basos (test code = 706-2) 1 Not Estab. Immature Cells (test code = UNLOINC) Neutrophils (Absolute) (test code = 4.3 1.4-7.0 751-8) Lymphs (Absolute) (test code = 731-0) 1.9 0.7-3.1 Monocytes(Absolute) (test code = 742-7) 0.6 0.1-0.9 Eos (Absolute) (test code = 711-2) 0.1 0.0-0.4 Baso (Absolute) (test code = 704-7) 0.1 0.0-0.2 Immature Granulocytes (test code = 0 Not Estab. 82736-3) Immature Grans (Abs) (test code = 0.0 0.0-0.1 13842-8) NRBC (test code = 27689-5) Hematology Comments: (test code = 66740-9) Sedimentation [id number] 00:00:00 Test Item Value Reference Range Interpretation Comments Sedimentation Rate-Westergren (test 3 0-32 code = 4537-7) C-Reactive Protein, Quant (CRP)2020-07-29 00:00:00 Test Item Value Reference Range Interpretation Comments C-Reactive Protein, Quant (test code = 2 0-10 1987-09) Electrocardiogram (EKG)Electrocardiogram (EKG)Chest Pa And Lat (2 Views)Chest Pa And Lat (2 Views)
[2022-06-09] MEDS ORDERED: NA CHLORIDE 0.9% 1,000 ML ONE (17:59)
[2022-06-09] MEDS ORDERED: DIPHENHYDRAMINE 50 MG/ML VIAL ONE (17:59)
[2022-06-09] MEDS ORDERED: METOCLOPRAMIDE 10 MG/2mL INJ ONE (17:59)
[2022-06-09] MEDS ORDERED: KETOROLAC 30 MG/ML INJ ONE (17:59)
--- NOTE | 2022-06-09 18:43 | RAD REPORT ---
EXAM DESCRIPTION: CT - Head Brain Wo Cont - 06/09/2022 6:31 pm CLINICAL HISTORY: Headache COMPARISON: HEAD BRAIN W O CONTRAST dated 04/30/2010 TECHNIQUE: All CT scans are performed using dose optimization technique as appropriate and may inclu de automated exposure control or mA/KV adjustment according to patient size. FINDINGS: No intracranial hemorrhage, hydrocephalus or extra-axial fluid collection.No areas of brai n edema or evidence of midline shift. Low lying cerebellar tonsils. The paranasal sinuses and mastoids are clear. The calvarium is intact. IMPRESSION: No acute intracranial abnormality.
--- NOTE | 2022-06-09 18:51 | ER ---
Nurse's Notes [facility] Name: Karen Freeman Age: 26 yrs Sex: Female : 1995 Arrival Date: 06/09/2022 Time: 16:14 Bed 12 Private MD: Sheila Tam Diagnosis: Headache Presentation: 06/09 16:53 Chief complaint: Patient states: "I've had migraines for about a week now and [facility]". Pt c/o dizziness, neck pain described as "tightness". Pt also states "my jaw went numb twice this week". Coronavirus screen: headache. Ebola Screen: Patient denies travel to an Ebola-affected area in the 21 days before illness onset. Initial Sepsis Screen: Does the patient meet any 2 criteria? HR > 90 bpm. Does the patient have a suspected source of infection? No. Patient's initial sepsis screen is negative. Risk Assessment: Do you want to hurt yourself or someone else? Patient reports no desire to harm self or others. Onset of symptoms was May 2022. 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 - Social history:: Smoking status: Patient denies any tobacco usage or history of. Vital Signs: 16:53 BP 135 / 97; Pulse 93; Resp 16 S; Temp 98.0(TE); Pulse Ox 100% on R/A; Weight 86.18 kg aa5 (R); Height 5 ft. 5 in. (165.10 cm) (R); 16:53 Body Mass Index 31.62 (86.18 kg, 165.10 cm) aa5 Wellington Coma Score: 17:24 Eye Response: spontaneous(4). Verbal Response: oriented(5). Motor Response: obeys pm1 commands(6). Total: 15. ED Course: 16:14 Patient arrived in ED. am2 16:14 Sheila Tam MD is Private Physician. am2 16:49 Arm band placed on. aa5 16:55 Triage completed. aa5 17:10 [facility] pm1 17:10 Mahnaz Gao MD is Attending Physician. pm1 18:33 CT Head Brain wo Cont In Process Unspecified. EDMS Administered Medications: 18:06 Drug: Reglan (metoCLOPramide) 10 mg Route: IVP; Site: right antecubital; [facility] 18:06 Drug: Benadryl (diphenhydrAMINE) 12.5 mg Route: IVP; Site: right antecubital; [facility] 18:06 Drug: Ketorolac 30 mg Route: IVP; Site: right antecubital; [facility] 18:06 Drug: NS 0.9% 1000 ml Route: IV; Rate: 1000 ml; Site: right antecubital; [facility] Outcome: 18:50 Discharge ordered by . pm1 19:12 Patient left the ED. [facility] Signatures: Dispatcher [employer] EDMS Mary Ellen Barajas, RN RN 5 Michael Deras NP BACK STAYER pm1 Vivi Nelson am2 Shweta Sage RN RN 5 Corrections: (The following items were deleted from the chart) 18:38 16:53 Chief complaint: Patient states: "I've had migraines for about a week now and I aa5 [facility]". Pt c/o dizziness, neck pain described as "tightness". Pt also states "my jaw went numb twice this week". Reports recent maxilla SX April 29 2022. aa5
--- NOTE | 2022-06-09 18:51 | EDPHYS ---
Physician Documentation [facility] Name: Karen Freeman Age: 26 yrs Sex: Female : 1995 Arrival Date: 06/09/2022 Time: 16:14 Bed 12 Private MD: Sheila Tam ED Physician Mahnaz Gao HPI: 06/09 17:23 This 26 yrs old Female presents to ER via Ambulatory with complaints of Headache, pm1 Dizziness, Jaw Pain - numbness. 17:23 The patient complains of pain to the all over her head. The patient describes the pm1 headache as aching, constant. Onset: The symptoms/episode began/occurred 1 week(s) ago. Associated signs and symptoms: Pertinent positives: dizziness, right jaw pain and numbness twice that resolved. Severity of symptoms: in the emergency department the pain is unchanged. Headache History: Denies prior headaches. The symptoms are alleviated by nothing. the symptoms are aggravated by lights. The patient has not experienced similar symptoms in the past. The patient has been recently seen at an urgent care, for similar complaints, and was sent to the [facility] Emergency Department for further evaluation. Historical: - Allergies: 16:51 No Known Allergies; aa5 - PMHx: 16:51 Asthma; bicorniate utereus; aa5 - PSHx: 16:51 section; aa5 18:38 Breast SX; aa5 - Immunization history:: Adult Immunizations up to date. - Social history:: Smoking status: Patient denies any tobacco usage or history of. ROS: 17:23 Constitutional: Negative for fever, chills, and weight loss, Eyes: Negative for injury, pm1 pain, redness, and discharge, ENT: Negative for injury, pain, and discharge, Cardiovascular: Negative for chest pain, palpitations, and edema, Respiratory: Negative for shortness of breath, cough, wheezing, and pleuritic chest pain, Abdomen/GI: Negative for abdominal pain, nausea, vomiting, diarrhea, and constipation. 17:23 Back: Negative for injury and pain, MS/Extremity: Negative for injury and deformity, Skin: Negative for injury, rash, and discoloration. 17:23 Neuro: Positive for headache, numbness and pain to right jaw. 17:23 All other systems are negative. Exam: 17:23 Constitutional: This is a well developed, well nourished patient who is awake, alert, pm1 and in no acute distress. 17:23 Skin: Warm, dry with normal turgor. Normal color with no rashes, no lesions, and no evidence of cellulitis. MS/ Extremity: Pulses equal, no cyanosis. Neurovascular intact. Full, normal range of motion. 17:23 Head/face: Noted is no obvious of injury or deformity except tenderness, that is moderate, of the forehead. 17:23 Eyes: Nystagmus: horizontal when looking rightwards. 17:23 ENT: Exam is negative for acute changes, Mouth: no acute changes, Lips: normal, moist, Oral mucosa: normal, pink and intact, moist. 17:23 Neck: External neck: no acute changes, ROM/movement: no acute changes, Meningeal signs: are not present, nuchal rigidity, is not appreciated. 17:23 Cardiovascular: Exam negative for acute changes, Rate: normal, Rhythm: regular, Pulses: no pulse deficits are appreciated. 17:23 Respiratory: Exam negative for acute changes, respiratory distress, shortness of breath. 17:23 Neuro: Exam negative for acute changes, Orientation: is normal, Mentation: is normal, Cranial nerves: CN II- XII are normal as tested, Cerebellar function: Romberg testing is negative, normal finger to nose testing, Motor: moves all fours, strength is 5/5 in all extremities, Sensation: no obvious gross deficits, Gait: is steady. Vital Signs: 16:53 BP 135 / 97; Pulse 93; Resp 16 S; Temp 98.0(TE); Pulse Ox 100% on R/A; Weight 86.18 kg aa5 (R); Height 5 ft. 5 in. (165.10 cm) (R); 16:53 Body Mass Index 31.62 (86.18 kg, 165.10 cm) aa5 Maurizio Coma Score: 17:24 Eye Response: spontaneous(4). Verbal Response: oriented(5). Motor Response: obeys pm1 commands(6). Total: 15. MDM: 17:10 Patient medically screened. pm1 17:24 Differential diagnosis: cluster headache, cerebral vascular accident, intracerebral pm1 hemorrhage, meningitis, migraine, temporal arteritis, tension headache. 17:38 Data reviewed: vital signs. pm1 18:48 ED course: Patient with 0 out of 10 pain. Patient's vertigo also resolved. We will pm1 discharge patient home with pain medications for her headache. 18:48 Counseling: I had a detailed discussion with the patient and/or guardian regarding: the pm1 historical points, exam findings, and any diagnostic results supporting the discharge/admit diagnosis, radiology results, the need for outpatient follow up, to return to the emergency department if symptoms worsen or persist or if there are any questions or concerns that arise at home. 18:55 ED course: [employer] aware reviewed. pm1 06/09 17:22 Order name: CT Head Brain wo Cont; Complete Time: 18:45 pm1 06/09 17:22 Order name: IV Saline Lock; Complete Time: 18:07 pm1 Administered Medications: 18:06 Drug: Reglan (metoCLOPramide) 10 mg Route: IVP; Site: right antecubital; [facility] 18:06 Drug: Benadryl (diphenhydrAMINE) 12.5 mg Route: IVP; Site: right antecubital; [facility] 18:06 Drug: Ketorolac 30 mg Route: IVP; Site: right antecubital; [facility] 18:06 Drug: NS 0.9% 1000 ml Route: IV; Rate: 1000 ml; Site: right antecubital; [facility] Disposition Summary: 06/09/22 18:50 Discharge Ordered Location: Home pm1 Problem: new pm1 Symptoms: have improved pm1 Condition: Stable pm1 Diagnosis - Headache pm1 Followup: pm1 - With: Emergency Department - When: As needed - Reason: Worsening of condition Followup: pm1 - With: Private Physician - When: 2 - 3 days - Reason: Recheck today's complaints, Continuance of care, Re-evaluation by your physician Discharge Instructions: - Discharge Summary Sheet pm1 - General Headache Without Cause pm1 Forms: - Medication Reconciliation Form pm1 - Thank You Letter pm1 - Antibiotic Education pm1 - Prescription Opioid Use pm1 Prescriptions: - uorbzbvrwm-dnclefg-fxpambbb - take 1 tablet by ORAL route every 4 hours As needed; 12 tablet; Refills: 0, pm1 Product Selection Permitted Signatures: Dispatcher [employer] Mary Ellen Regalado RN RN aa5 Michael Deras NP [employer] pm1 Chu, Shweta, RN RN jh5
[2022-06-09 19:17] VITALS: BP 135/97; TEMP 98; O2SAT 100
== END 2022-06-09 19:12 | disposition home or self-care (01) ==
LOC: ER 16:12
DX: R51.9 Headache, unspecified (principal)
CPT/HCPCS: 70450; 96375; 96374; 99283; J2765; J1200; J7030

== ENCOUNTER 2022-06-27 22:28 | Emergency (ER) | payer OTHER ==
--- OUTSIDE RECORDS SUMMARY | 2022-06-27 22:36 | XMS REPORT | Continuity of Care Document ---
:1995 Author Organization [facility] t Address [address] [place] [address] [address]. [address] [place] [address] Care Team Providers Name Role Phone Mckenzie Hernandez Primary Care Physician Yvonne Starks Attending Clinician Unavailable Sheila AVELAR Attending Clinician Unavailable EARL SALDAÑA Attending Clinician Unavailable GUERO BERRY Attending Clinician Unavailable Guero Berry MD Attending Clinician MARIA LUISA SHIPMAN Attending Clinician Unavailable Maria Luisa Trotter Attending Clinician Melissa Raya Attending Clinician Tatyana Brock RN Attending Clinician Unavailable Only, Timothy Db Test Attending Clinician Unavailable MELISSA WILDER Attending Clinician Unavailable Vivi Zambrano MD Attending Clinician Carmella Dorman PA-C Attending Clinician VIVI ZAMBRANO Attending Clinician Unavailable Doctor Unassigned, [place] Attending Clinician Unavailable Earl Saldaña PA-C Attending Clinician Paulette AQUINO, Yocasta Attending Clinician YOCASTA TREVINO Attending Clinician Unavailable Wayne ESPINAL, Jyoti Attending Clinician Unavailable Rayo VILLA, Kiara Attending Clinician KIARA GUERRA Attending Clinician Unavailable Lab, [facility] Pob I Attending Clinician Unavailable Jolynn Kauffman MD Attending Clinician JOLYNN KAUFFMAN Attending Clinician Unavailable 2, [facility] Attending Clinician Unavailable RADHA CRAIN Attending Clinician Unavailable ARCENIO HILTON Attending Clinician Unavailable ASHUTOSH SOMERS Attending Clinician Unavailable Ashutosh Somers DO Attending Clinician Arcenio Hilton MD Attending Clinician Dolly Alva Attending Clinician DOLLY PEREZ Attending Clinician Unavailable Nurse, [facility] Attending Clinician Unavailable Rge Little CRNA Attending Clinician Carin Sellers MD Attending Clinician [phone] Only, Adc Test Attending Clinician Unavailable Pob, [facility] Main Attending Clinician Unavailable Ultrasound, Ang-Mfm Attending Clinician Unavailable Gumaro Fisher MD Attending Clinician Candace PACLinda S Attending Clinician Prem CEEP, Sarabjit F Attending Clinician Jane Valdivia MD Attending Clinician Anahi Saravia MD Attending Clinician Jeff Vega Attending Clinician JEFF RÍOS Attending Clinician Unavailable 1, [facility] Attending Clinician Unavailable GUERO BERRY Admitting Clinician Unavailable Guero Berry MD Admitting Clinician Payers Payer Name Policy Type Policy Number Effective Date Expiration Date Formerly [facility] [id number] 2018 CHOICE MEDICAID 00:00:00 AETNA 53 [id number] Common [facility] AETNA COMMERCIAL [id number] 2021 OUT OF NETWORK 00:00:00 Blue [employer] Blue 6 [id number] 2020 Common [facility] 00:00:00 [facility] [id number] 2020 Common 00:00:00 [facility] [id number] 2020 Common 00:00:00 [facility] [id number] 2020 Common 00:00:00 [facility] [id number] 2020 Common 00:00:00 [facility] [id number] 2020 Common 00:00:00 [facility] [id number] 2020 Common 00:00:00 [facility] [id number] 2020 Common 00:00:00 [facility] Problems Condition Condition Condition Status Onset Resolution Last Treating Co mments Source Name Details Category Date Date Treatment Clinician Date Chronic Chronic Disease Active Univers fatigue fatigue 5-31 ity of syndrome syndrome 00:00: [address] Subacute Subacute Disease Active Unive rs and and 3-08 ity of chronic chronic 00:00: [place] vaginitis vaginitis 00 [facility] BMI BMI Disease Active Univers 28.0-28.9, 28.0-28.9, 3-08 it y of adult adult 00:00: [place] [facility] Dyspareuni Dyspareuni Disease Active 2021- U nivers a in a in 3-08 ity of female female 00:00: [place] [facility] BMI BMI Disease Active 2021- Univers 28.0-28.9, 28.0-28.9, 3-08 it y of adult adult 00:00: [place] [facility] Vaginal Vaginal Disease Active Univers discharge discharge 4-14 ity of 00:00: [place] 00 Medical Branch History of History of Disease Active U nivers depression depression 4-14 it y of 00:00: Medical [place] Mild Mild Disease Active Univers intermitte intermitte 4-14 it y of nt asthma [place] asthma 00:[place] without without 00 Medical complicati complicati Br anch on on Previous Previous Disease Active Unive rs 1-17 ity of section section 00:: [place] [facility] Bicornuate Bicornuate Disease Active U nivers uterus uterus 7-25 ity of 00:: [place] [facility] Hepatitis Hepatitis Disease Active Uni vers B carrier B carrier 7- ity of 00:: [address] [id number] Other Problem Common chronic [facility] pain [facility] [id number] Leukopenia Problem Com mon , Spirit unspecifie - [facility] d type [facility] [id number] Chronic Problem Common fatigue [facility] [id number] [place] [address] migraine [facility] [id number] Prolonged Problem Com mon QT [facility] interval [facility] Tinnitus Tinnitus Problem Commo n of right of right [facility] ear ear [facility] Mixed Depression Problem Commo n anxiety with Spirit and anxiety - [facility] depressive [facility] Allergies, Adverse Reactions, Alerts Allergy Allergy Status Severity Reaction(s) Onset Inactive Treating Comm ents Source Name Type Date Date Clinician NO KNOWN Drug Active Univers ALLERGIE Class ity of S [facility] Social History Social Habit Start Date Stop Date Quantity Comments Source History of Common Spirit - Tobacco Use [facility] Sex Assigned At Common Sp rut - [facility] History SDOH University o f Alcohol Frequency [facility] edical Branch History SDOH University o f Alcohol Std [place] [facility] Drinks Branch History SDOH University o f Alcohol Binge [place] [facility] al Branch Exposure to 2022-04-10 2022-04-20 Not sure University of SARS-CoV-2 00:00:00 10:19:00 [facility] (event) Branch Alcohol intake 2022-02-19 2022-02-19 Current drinker Unive rsity of 00:00:00 00:00:00 of alcohol [facility] (finding) [place] Tobacco use and 2022-01-11 2022-01-11 Smokeless tobacco Un iversity of exposure 00:00:00 00:00:00 non-user [facility] Alcohol Comment 2018-05-12 2018-05-12 Occasional Universit y of 00:00:00 00:00:00 [facility] Smoking Status Start Date Stop Date Source Former Smoker 2022-06-21 00:00:00 2022-06-21 00:00:00 Common S pirit - [facility] Never Smoker Common Spirit - [facility] Medications Ordered Filled Start Stop Current Ordering Indication Dosage Frequency Signature Comments Components Source Medication Medication Date Date Medication? Clinician (SIG) Name Name Imitrex 50 Imitrex 50 No Imitrex 50 MG MG 1-23 MG 00:00: 00 FLUoxetine 2021-05 Yes [id number] 10mg Take 1 Univers 10 mg 1-22 capsule by ity of capsule 00:00: mouth in [place] 00 the Medical morning. Branch FLUoxetine 2021-05 Yes [id number] 10mg Take 1 Univers 10 mg 1-22 capsule by ity of capsule 00:00: mouth in [place] 00 the Medical morning. Branch FLUoxetine 2021-05 Yes [id number] 10mg Take 1 Univers 10 mg 1-22 capsule by ity of capsule 00:00: mouth in [place] 00 the Medical morning. Branch benzonatate 2021-05- No [id number] 200mg Take 1 Univers 200 mg 0-07 10-18 capsule by ity of capsule 00:00: 04:59 mouth 3 [place] 00 :00 (three) Medical times Branch daily as needed for Cough for up to 10 days. albuterol 2021-05- No [id number] 2{puff} Inhale 2 Univers 90 0-07 10-18 Puffs ity of mcg/actuati 00:00[place] 04:59 [place] 6 [place] inhaler 00 :00 (six) Medical hours as Branch needed for Wheezing or Shortness of Breath for up to 10 days. promethazin 2021-05- No [id number] 5mL Take 5 mL Univers e-dextromet 0-07 10-13 by mouth 4 i ty of horphan 00:00: 04:59 (four) [place] 6.25-15 00 :00 times Medical mg/5 mL daily as Branch syrup needed for Cough for up to 5 days. BIOTIN ORAL 2022-0 Yes Take by Uni vers 9-23 mouth. ity of 13:49: [place] 56 Medical Branch glucosamine 2021-0 Yes Take by Uni vers /chondr strong 9-23 mouth. ity of A sod 13:49: [place] (OSTEO 56 Medical BI-FLEX Branch ORAL) ASHWAGANDHA 2021-0 Yes Take by Uni vers ROOT 9-23 mouth. ity of EXTRACT 13:49: [place] ORAL 56 Medical Branch BIOTIN ORAL 2021-0 Yes Take by Uni vers 9-23 mouth. ity of 13:49: [place] 56 Medical Branch glucosamine 2021-0 Yes Take by Uni vers /chondr strong 9-23 mouth. ity of A sod 13:49: [place] (OSTEO 56 Medical BI-FLEX Branch ORAL) ASHWAGANDHA 2021-0 Yes Take by Uni vers ROOT 9-23 mouth. ity of EXTRACT 13:49: [place] ORAL 56 Medical Branch BIOTIN ORAL 2021-0 Yes Take by Uni vers 9-23 mouth. ity of 13:49: [place] 56 Medical Branch glucosamine 2021-0 Yes Take by Uni vers /chondr strong 9-23 mouth. ity of A sod 13:49: [place] (OSTEO 56 Medical BI-FLEX Branch ORAL) ASHWAGANDHA 0 Yes Take by Uni vers ROOT 9-23 mouth. ity of EXTRACT 13:49: [place] ORAL 56 Medical Branch BIOTIN ORAL 2021-0 Yes Take by Uni vers 9-23 mouth. ity of 13:49: [place] 56 Medical Branch glucosamine 2021-0 Yes Take by Uni vers /chondr strong 9-23 mouth. ity of A sod 13:49: [place] (OSTEO 56 Medical BI-FLEX Branch ORAL) ASHWAGANDHA 2021-0 Yes Take by Uni vers ROOT 9-23 mouth. ity of EXTRACT 13:49: [place] ORAL 56 Medical Branch BIOTIN ORAL 2-0 Yes Take by Uni vers 9-23 mouth. ity of 13:49: [place] 56 Medical Branch glucosamine 2021-0 Yes Take by Uni vers /chondr strong 9-23 mouth. ity of A sod 13:49: [place] (OSTEO 56 Medical BI-FLEX Branch ORAL) ASHWAGANDHA 2021-0 Yes Take by Uni vers ROOT 9-23 mouth. ity of EXTRACT 13:49: [place] ORAL 56 Medical Branch BIOTIN ORAL 2021-0 Yes Take by Uni vers 9-23 mouth. ity of 13:49: [place] 56 Medical Branch glucosamine 2021-0 Yes Take by Uni vers /chondr strong 9-23 mouth. ity of A sod 13:49: [place] (OSTEO 56 Medical BI-FLEX Branch ORAL) ASHWAGANDHA 2021-0 Yes Take by Uni vers ROOT 9-23 mouth. ity of EXTRACT 13:49: [place] ORAL 56 Medical Branch BIOTIN ORAL 2021-0 Yes Take by Uni vers 9-23 mouth. ity of 13:49: [place] 56 Medical Branch glucosamine 2021-0 Yes Take by Uni vers /chondr strong 9-23 mouth. ity of A sod 13:49: [place] (OSTEO 56 Medical BI-FLEX Branch ORAL) ASHWAGANDHA 2021-0 Yes Take by Uni vers ROOT 9-23 mouth. ity of EXTRACT 13:49: [place] ORAL 56 Medical Branch BIOTIN ORAL 2021-0 Yes Take by Uni vers 9-23 mouth. ity of 13:49: [place] 56 Medical Branch glucosamine 2021-0 Yes Take by Uni vers /chondr strong 9-23 mouth. ity of A sod 13:49: [place] (OSTEO 56 Medical BI-FLEX Branch ORAL) ASHWAGANDHA 0 Yes Take by Uni vers ROOT 9-23 mouth. ity of EXTRACT 13:49: [place] ORAL 56 Medical Branch BIOTIN ORAL 2021-0 Yes Take by Uni vers 9-23 mouth. ity of 13:49: [place] 56 Medical Branch glucosamine 2021-0 Yes Take by Uni vers /chondr strong 9-23 mouth. ity of A sod 13:49: [place] (OSTEO 56 Medical BI-FLEX Branch ORAL) ASHWAGANDHA 2021-0 Yes Take by Uni vers ROOT 9-23 mouth. ity of EXTRACT 13:49: [place] ORAL 56 Medical Branch BIOTIN ORAL 2021-0 Yes Take by Uni vers 9-23 mouth. ity of 13:49: [place] 56 Medical Branch glucosamine 2021-0 Yes Take by Uni vers /chondr strong 9-23 mouth. ity of A sod 13:49: [place] (OSTEO 56 Medical BI-FLEX Branch ORAL) ASHWAGANDHA 2021-0 Yes Take by Uni vers ROOT 9-23 mouth. ity of EXTRACT 13:49: [place] ORAL 56 Medical Branch BIOTIN ORAL Yes Take by Uni vers 9-23 mouth. ity of 13:49: [place] [address] Medical Branch glucosamine 0 Yes Take by Uni vers /chondr strong 9-23 mouth. ity of A sod 13:49: [place] (OSTEO 56 Medical BI-FLEX Branch ORAL) ARIE Yes Take by Uni vers ROOT 9-23 mouth. ity of EXTRACT 13:49: [place] ORAL 56 Medical Branch FLUoxetine 0 Yes [id number] 10mg Take 1 Univers 10 mg 9-23 capsule by ity of capsule 00:00: mouth in [place] 00 the Medical morning. Branch FLUoxetine 0 Yes [id number] 10mg Take 1 Univers 10 mg 9-23 capsule by ity of capsule 00:00: mouth in [place] 00 the Medical morning. Branch FLUoxetine 0 Yes [id number] 10mg Take 1 Univers 10 mg 9-23 capsule by ity of capsule 00:00: mouth in [place] 00 the Medical morning. Branch FLUoxetine 0 Yes [id number] 10mg Take 1 Univers 10 mg 9-23 capsule by ity of capsule 00:00: mouth in [place] 00 the Medical morning. Branch FLUoxetine 0 Yes [id number] 10mg Take 1 Univers 10 mg 9-23 capsule by ity of capsule 00:00: mouth in [place] 00 the Medical morning. Branch FLUoxetine 0 Yes [id number] 10mg Take 1 Univers 10 mg 9-23 capsule by ity of capsule 00:00: mouth in [place] 00 the Medical morning. Branch FLUoxetine 0 Yes [id number] 10mg Take 1 Univers 10 mg 9-23 capsule by ity of capsule 00:00: mouth in [place] 00 the Medical morning. Branch FLUoxetine 0 2021- No [id number] 10mg Take 1 Univers 10 mg 9-23 11-22 capsule by ity of capsule 00:00: 00:00 mouth in [place] 00 :00 the Medical morning. Branch FLUoxetine 2021-0 2021- No [id number] 10mg Take 1 Univers 10 mg 9-23 11-22 capsule by ity of capsule 00:00: 00:00 mouth in [place] 00 :00 the Medical morning. Branch bromphenira 0 Yes [id number] 5mL Take 5 mL Univers mine-pseudo 8-15 by mouth 4 it y of ephedrine-D 00:00: (four[place] (BROMFED 00 times Medical DM) 2-30-10 daily as Bran ch mg/5 mL needed for syrup Congestion /Allergies . bromphenira 2021-0 Yes [id number] 5mL Take 5 mL Univers mine-pseudo 8-15 by mouth 4 it y of ephedrine-D 00:00: (four[place] (BROMFED 00 times Medical DM) 2-30-10 daily as Bran ch mg/5 mL needed for syrup Congestion /Allergies . bromphenira 2021-0 Yes [id number] 5mL Take 5 mL Univers mine-pseudo 8-15 by mouth 4 it y of ephedrine-D 00:00: (four[place] (BROMFED 00 times Medical DM) 2-30-10 daily as Bran ch mg/5 mL needed for syrup Congestion /Allergies . bromphenira 2021-0 Yes [id number] 5mL Take 5 mL Univers mine-pseudo 8-15 by mouth 4 it y of ephedrine-D 00:00: (four[place] (BROMFED 00 times Medical DM) 2-30-10 daily as Bran ch mg/5 mL needed for syrup Congestion /Allergies . bromphenira 2021-0 Yes [id number] 5mL Take 5 mL Univers mine-pseudo 8-15 by mouth 4 it y of ephedrine-D 00:00: (four[place] (BROMFED 00 times Medical DM) 2-30-10 daily as Bran ch mg/5 mL needed for syrup Congestion /Allergies . bromphenira 2021-0 Yes [id number] 5mL Take 5 mL Univers mine-pseudo 8-15 by mouth 4 it y of ephedrine-D 00:00: (four[place] (BROMFED 00 times Medical DM) 2-30-10 daily as Bran ch mg/5 mL needed for syrup Congestion /Allergies . bromphenira 2021-0 Yes [id number] 5mL Take 5 mL Univers mine-pseudo 8-15 by mouth 4 it y of ephedrine-D 00:00: (four[place] (BROMFED 00 times Medical DM) 2-30-10 daily as Bran ch mg/5 mL needed for syrup Congestion /Allergies . bromphenira 2021-0 Yes [id number] 5mL Take 5 mL Univers mine-pseudo 8-15 by mouth 4 it y of ephedrine-D 00:00: (four) [place] (BROMFED 00 times Medical DM) 2-30-10 daily as Bran ch mg/5 mL needed for syrup Congestion /Allergies . bromphenira 2021-0 Yes [id number] 5mL Take 5 mL Univers mine-pseudo 8-15 by mouth 4 it y of ephedrine-D 00:00: (four[place] (BROMFED 00 times Medical DM) 2-30-10 daily as Bran ch mg/5 mL needed for syrup Congestion /Allergies . bromphenira 2021-0 Yes [id number] 5mL Take 5 mL Univers mine-pseudo 8-15 by mouth 4 it y of ephedrine-D 00:00: (four) [place] (BROMFED 00 times Medical DM) 2-30-10 daily as Bran ch mg/5 mL needed for syrup Congestion /Allergies . bromphenira 0 Yes [id number] 5mL Take 5 mL Univers mine-pseudo 8-15 by mouth 4 it y of ephedrine-D 00:00: (four[place] (BROMFED 00 times Medical DM) 2-30-10 daily as Bran ch mg/5 mL needed for syrup Congestion /Allergies . bromphenira 2021-0 Yes [id number] 5mL Take 5 mL Univers mine-pseudo 8-15 by mouth 4 it y of ephedrine-D 00:00: (four) [place] (BROMFED 00 times Medical DM) 2-30-10 daily as Bran ch mg/5 mL needed for syrup Congestion /Allergies . amoxicillin 2021- No [id number] 1{tbl} Take 1 Univers -clavulanat 8-15 08-23 tablet by it y of e 00:00: 04:59 mouth in [place] (AUGMENTIN) 00 :00 the Medical 875-125 mg morning Branch per tablet and 1 tablet in the evening. Do all this for 7 days. Ciclopirox Ciclopirox 2021-0 2021- No QD Ciclopirox 8 % 8 % 7-13 10-11 8 % 00:00: 00:00 00 :00 Ciclopirox Ciclopirox 2021- No QD Ciclopirox 8 % 8 % 13 10-11 8 % 00:00: 00:00 00 :00 Ciclopirox Ciclopirox 2021- No QD Ciclopirox 8 % 8 % 12-09 10-11 8 % 00:00: 00:00 00 :00 [...] 00 :00 cted_ar ea} LOESTRIN FE Yes [id number] 1{tbl} Take 1 Univers 1 mg-20 mcg 6-22 tablet by ity of (21)/75 mg 00:00: mouth [place] (7) tablet 00 daily. [facility] Branch LOESTRIN FE Yes [id number] 1{tbl} Take 1 Univers 1 mg-20 mcg 6-22 tablet by ity of (21)/75 mg 00:00: mouth [place] (7) tablet 00 daily. [facility] Branch LOESTRIN FE Yes [id number] 1{tbl} Take 1 Univers 1 mg-20 mcg 6-22 tablet by ity of (21)/75 mg 00:00: mouth [place] (7) tablet 00 daily. [facility] Branch LOESTRIN FE Yes [id number] 1{tbl} Take 1 Univers 1 mg-20 mcg 6-22 tablet by ity of (21)/75 mg 00:00: mouth [place] (7) tablet 00 daily. Medical Branch LOESTRIN FE Yes [id number] 1{tbl} Take 1 Univers 1 mg-20 mcg 6-22 tablet by ity of (21)/75 mg 00:00: mouth [place] (7) tablet 00 daily. [facility] Branch LOESTRIN FE Yes [id number] 1{tbl} Take 1 Univers 1 mg-20 mcg 6-22 tablet by ity of (21)/75 mg 00:00: mouth [place] (7) tablet 00 daily. [facility] Branch LOESTRIN FE Yes [id number] 1{tbl} Take 1 Univers 1 mg-20 mcg 6-22 tablet by ity of (21)/75 mg 00:00: mouth [place] (7) tablet 00 daily. [facility] Branch LOESTRIN FE Yes [id number] 1{tbl} Take 1 Univers 1 mg-20 mcg 6-22 tablet by ity of (21)/75 mg 00:00: mouth [place] (7) tablet 00 daily. [facility] Branch LOESTRIN FE Yes [id number] 1{tbl} Take 1 Univers 1 mg-20 mcg 6-22 tablet by ity of (21)/75 mg 00:00: mouth [place] (7) tablet 00 daily. [facility] Branch LOESTRIN FE Yes [id number] 1{tbl} Take 1 Univers 1 mg-20 mcg 6-22 tablet by ity of (21)/75 mg 00:00: mouth [place] (7) tablet 00 daily. [facility] Branch LOESTRIN FE Yes [id number] 1{tbl} Take 1 Univers 1 mg-20 mcg 6-22 tablet by ity of (21)/75 mg 00:00: mouth [place] (7) tablet 00 daily. [facility] Branch LOESTRIN FE Yes [id number] 1{tbl} Take 1 Univers 1 mg-20 mcg 6-22 tablet by ity of (21)/75 mg 00:00: mouth [place] (7) tablet 00 daily. [facility] Branch LOESTRIN FE Yes [id number] 1{tbl} Take 1 Univers 1 mg-20 mcg 6-22 tablet by ity of (21)/75 mg 00:00: mouth [place] (7) tablet 00 daily. Medical Branch LOESTRIN FE 0 Yes [id number] 1{tbl} Take 1 Univers 1 mg-20 mcg 6-22 tablet by ity of (21)/75 mg 00:00: mouth [place] (7) tablet 00 daily. Medical Branch LOESTRIN FE 0 Yes [id number] 1{tbl} Take 1 Univers 1 mg-20 mcg 6-22 tablet by ity of (21)/75 mg 00:00: mouth [place] (7) tablet 00 daily. Medical Branch BIOTIN ORAL Yes Take by Uni vers 6-06 mouth. ity of 09:48: [place] 12 Medical Branch cranberry Yes Take by Unive rs fruit 6-06 mouth. ity of extract 09:48: [place] (CRANBERRY 12 Medical ORAL) Branch calcium Yes Take by Univers carbonate/v 6-06 mouth. ity of itamin D3 09:48: [place] (VITAMIN 12 Medical D-3 ORAL) Branch docosahexae Yes Univer s noic 6-06 ity of acid/epa 09:48: [place] (FISH OIL 12 Medical ORAL) Branch glucosamine Yes Take by Uni vers /chondr strong 6-06 mouth. ity of A sod 09:48: [place] (OSTEO 12 Medical BI-FLEX Branch ORAL) ASHWAGANDHA Yes Take by Uni vers ROOT 6-06 mouth. ity of EXTRACT 09:48: [place] ORAL 12 Medical Branch BIOTIN ORAL Yes Take by Uni vers 6-06 mouth. ity of 09:48: [place] [address] Medical Branch cranberry Yes Take by Unive [...] ROOT 6-06 mouth. ity of EXTRACT 09:48: [place] ORAL 12 Medical Branch BIOTIN ORAL 0 Yes Take by Uni vers 6-06 mouth. ity of 09:48: [place] [address] Medical Branch cranberry 0 Yes Take by Unive rs fruit 6-06 mouth. ity of extract 09:48: [place] (CRANBERRY 12 Medical ORAL) Branch calcium 0 Yes Take by Univers carbonate/v 6-06 mouth. ity of itamin D3 09:48: [place] (VITAMIN 12 Medical D-3 ORAL) Branch docosahexae 0 Yes Univer s noic 6-06 ity of acid/epa 09:48: [place] (FISH OIL 12 Medical ORAL) Branch glucosamine 0 Yes Take by Uni vers /chondr strong 6-06 mouth. ity of A sod 09:48: [place] (OSTEO 12 Medical BI-FLEX Branch ORAL) ASHWAGANDHA 0 Yes Take by Uni vers ROOT 6-06 mouth. ity of EXTRACT 09:48: [place] ORAL 12 Medical Branch BIOTIN ORAL 0 Yes Take by Uni vers 6-06 mouth. ity of 09:48: [place] [address] Medical Branch cranberry 0 Yes Take by Unive rs fruit 6-06 mouth. ity of extract 09:48: [place] (CRANBERRY 12 Medical ORAL) Branch calcium 0 Yes Take by Univers carbonate/v 6-06 mouth. ity of itamin D3 09:48: [place] (VITAMIN 12 Medical D-3 ORAL) Branch docosahexae 2021-0 Yes Univer s noic 6-06 ity of acid/epa 09:48: [place] (FISH OIL 12 Medical ORAL) Branch glucosamine 0 Yes Take by Uni vers /chondr strong 6-06 mouth. ity of A sod 09:48: [place] (OSTEO 12 Medical BI-FLEX Branch ORAL) ASHWAGANDHA 0 Yes Take by Uni vers ROOT 6-06 mouth. ity of EXTRACT 09:48: [place] ORAL 12 Medical Branch cranberry 0 Yes [...] fruit 6-06 mouth. ity of extract 09:48: [place] (CRANBERRY 12 Medical ORAL) Branch calcium 0 [...] 6-06 mouth. ity of itamin D3 09:48: [place] (VITAMIN 12 Medical D-3 ORAL) Branch docosahexae 0 Yes Univer s noic 6-06 ity of acid/epa 09:48: [place] (FISH OIL 12 Medical ORAL) Branch cranberry 0 Yes Take by Unive rs fruit 6-06 mouth. ity of extract 09:48: [place] (CRANBERRY 12 Medical ORAL) Branch calcium 0 Yes Take by Univers carbonate/v 6-06 mouth. ity of itamin D3 09:48: [place] (VITAMIN 12 Medical D-3 ORAL) Branch docosahexae 2021-0 Yes Univer s noic 6-06 ity of acid/epa 09:48: [place] (FISH OIL 12 Medical ORAL) Branch cranberry 0 Yes Take by Unive rs fruit 6-06 mouth. ity of extract 09:48: [place] (CRANBERRY 12 Medical ORAL) Branch calcium 0 Yes Take by Univers carbonate/v 6-06 mouth. ity of itamin D3 09:48: [place] (VITAMIN 12 Medical D-3 ORAL) Branch docosahexae 2021-0 Yes Univer s noic 6-06 ity of acid/epa 09:48: [place] (FISH OIL 12 Medical ORAL) Branch cranberry 0 Yes Take by Unive rs fruit 6-06 mouth. ity of extract 09:48: [place] (CRANBERRY 12 Medical ORAL) Branch calcium 0 Yes Take by Univers carbonate/v 6-06 mouth. ity of itamin D3 09:48: [place] (VITAMIN 12 Medical D-3 ORAL) Branch docosahexae 2021-0 Yes Univer s noic 6-06 ity of acid/epa 09:48: [place] (FISH OIL 12 Medical ORAL) Branch cranberry 2021-0 Yes Take by Unive rs fruit 6-06 mouth. ity of extract 09:48: [place] (CRANBERRY 12 Medical ORAL) Branch calcium 2021-0 Yes Take by Univers carbonate/v 6-06 mouth. ity of itamin D3 09:48: [place] (VITAMIN 12 Medical D-3 ORAL) Branch docosahexae 0 Yes Univer s noic 11-02 ity of acid/epa 09:48: [place] (FISH OIL 12 Medical ORAL) Branch cranberry Yes Take by Unive rs fruit -06 mouth. ity of extract 09:48: [place] (CRANBERRY 12 Medical ORAL) Branch calcium Yes Take by Univers carbonate/v 6-06 mouth. ity of itamin D3 09:48: [place] (VITAMIN 12 Medical D-3 ORAL) Branch docosahexae Yes Univer s noic 11-02 ity of acid/epa 09:48: [place] (FISH OIL 12 Medical ORAL) Branch Medrol 4 MG Medrol 4 MG 2021- No QD Medrol 4 3-04 03-10 MG 00:00: 00:00 00 :00 MULTIVITAMI Yes Take by Uni vers N ORAL 1-18 mouth. ity of 13:25: [address] Branch MULTIVITAMI Yes Take by Uni vers N ORAL 1-18 mouth. ity of 13:25: [address] MULTIVITAMI 0 Yes Take by Uni vers N ORAL 1-18 mouth. ity of 13:25: [address] MULTIVITAMI 0 Yes Take by Uni vers N ORAL 1-18 mouth. ity of 13:25: [address] MULTIVITAMI 0 Yes Take by Uni vers N ORAL 1-18 mouth. ity of 13:25: [address] Branch MULTIVITAMI 0 Yes Take by Uni vers N ORAL 1-18 mouth. ity of 13:25: [address] Branch MULTIVITAMI 0 Yes Take by Uni vers N ORAL 1-18 mouth. ity of 13:25: [address] MULTIVITAMI 0 Yes Take by Uni vers N ORAL 1-18 mouth. ity of 13:25: [address] MULTIVITAMI 0 Yes Take by Uni vers N ORAL 1-18 mouth. ity of 13:25: [address] MULTIVITAMI 0 Yes Take by Uni vers N ORAL 1-18 mouth. ity of 13:25: [address] MULTIVITAMI Yes Take by Uni vers N ORAL 1-18 mouth. ity of 13:25: [address] MULTIVITAMI Yes Take by Uni vers N ORAL 1-18 mouth. ity of 13:25: [address] MULTIVITAMI Yes Take by Uni vers N ORAL 1-18 mouth. ity of 13:25: [address] [address] MULTIVITAMI Yes Take by Uni vers N ORAL 1-18 mouth. ity of 13:25: [address] MULTIVITAMI Yes Take by Uni vers N ORAL 1-18 mouth. ity of 13:25: [address] Famotidine Famotidine No 1{table BID Famotidine 20 MG 20 MG 9-27 t} 20 MG 00:00: 00 Famotidine Famotidine 2020-0 No 1{table BID Famotidine 20 MG 20 MG 9-27 t} 20 MG 00:00: 00 Famotidine Famotidine 2020-0 No 1{table BID Famotidine 20 MG 20 MG 9-27 t} 20 MG 00:00: 00 Famotidine Famotidine 2020-0 No 1{table BID Famotidine 20 MG 20 MG 9-27 t} 20 MG 00:00: 00 FeroSul 325 [...] n in Probiotic Probiotic No Probiotic Vitamin B Vitamin B No Vitamin B Complex Complex Complex Vitamin D-3 Vitamin D-3 No Vitamin D-3 Butalbital- Butalbital- No 1{capsu 6xD Butalbital Aspirin-Caf Aspirin-Caf le_as_n -Aspirin-C feine feine eeded} affeine 50-325-40 50-325-40 50-325-40 MG MG MG Fish Oil Fish Oil No Fish Oil FLUoxetine FLUoxetine No 1{table QD FLUoxetine HCl 10 MG HCl 10 MG t} HCl 10 MG Probiotic Probiotic No Probiotic Multivitami Multivitami No Multivitam n n in FeroSul 325 FeroSul 325 No FeroSul (65 [...] Immunizations Ordered Filled Immunization Date Status Comments [facility] e Immunization Name Name Flucelvax - Flucelvax - 2021-05-28 Completed [facility] - multidose vial multidose vial 11:04:00 [facility] Flucelvax - Flucelvax - 2021-05-28 Completed [facility] - multidose vial multidose vial 11:04:00 [facility] Flucelvax - Flucelvax - 2021-05-28 Completed [facility] - multidose vial multidose vial 11:04:00 [facility] Flucelvax - Flucelvax - 2021-05-28 Completed [facility] - multidose vial multidose vial 11:04:00 [facility] Flucelvax - Flucelvax - 2021-05-28 Completed [facility] - multidose vial multidose vial 11:04:00 [facility] Flucelvax - Flucelvax - 2021-05-28 Completed [facility] - multidose vial multidose vial 11:04:00 [facility] Flucelvax - Flucelvax - 2021-05-28 Completed [facility] - multidose vial multidose vial 11:04:00 [facility] Flucelvax - Flucelvax - 2021-05-28 Completed [facility] - multidose vial multidose vial 11:04:00 [facility] Flucelvax - Flucelvax - 2021-05-28 Completed [facility] - multidose vial multidose vial 11:04:00 [facility] Flucelvax - Flucelvax - 2021-05-28 Completed [facility] - multidose vial multidose vial 11:04:00 [facility] Flucelvax - Flucelvax - 2021-05-28 Completed [facility] - multidose vial multidose vial 11:04:00 [facility] Flucelvax - Flucelvax - 2021-05-28 Completed [facility] - multidose vial multidose vial 11:04:00 [facility] Influenza Virus 2021-05-28 Completed Universit y [facility], 00:00:00 [facility] dical Preserv and ABX Branch Free 6 MO-64 YRS Influenza Virus 2021-05-28 Completed [facility], 00:00:00 [place] [facility] Preserv and ABX Branch Free 6 MO-64 YRS Influenza Virus 2021-05-28 Completed [facility], 00:00:00 [place] [facility] Preserv and ABX Branch Free 6 MO-64 YRS Influenza Virus 2021-05-28 Completed [facility], 00:00:00 [place] [facility] Preserv and ABX Branch Free 6 MO-64 YRS Influenza Virus 2021-05-28 Completed [facility]it y of [facility], 00:00:00 [place] [facility] Preserv and ABX Branch Free [...] Universit y of [facility], 00:00:00 [place] [facility] Preserv and ABX Branch Free 6 MO-64 YRS SARS-COV-2 COVID-19 2020-09-10 Completed Unive rsity of PFIZER VACCINE 00:00:00 [facility] SARS-COV-2 COVID-19 2020-09-10 Completed Unive rsity of PFIZER VACCINE 00:00:00 [facility] SARS-COV-2 COVID-19 2020-09-10 Completed Unive rsity of PFIZER VACCINE 00:00:00 [facility] SARS-COV-2 COVID-19 2020-09-10 Completed Unive rsity of PFIZER VACCINE 00:00:00 [facility] SARS-COV-2 COVID-19 2020-09-10 Completed Unive rsity of PFIZER VACCINE 00:00:00 [facility] SARS-COV-2 COVID-19 2020-09-10 Completed Unive rsity of PFIZER VACCINE 00:00:00 [facility] SARS-COV-2 COVID-19 2020-09-10 Completed Unive rsity of PFIZER VACCINE 00:00:00 [facility] SARS-COV-2 COVID-19 2020-09-10 Completed Unive rsity of PFIZER VACCINE 00:00:00 [facility] SARS-COV-2 COVID-19 2020-09-10 Completed Unive rsity of PFIZER VACCINE 00:00:00 [facility] SARS-COV-2 COVID-19 2020-09-10 Completed Unive rsity of PFIZER VACCINE 00:00:00 [facility] SARS-COV-2 COVID-19 2020-09-10 Completed Unive rsity of PFIZER VACCINE 00:00:00 [facility] SARS-COV-2 COVID-19 2020-09-10 Completed Unive rsity of PFIZER VACCINE 00:00:00 [facility] SARS-COV-2 COVID-19 2020-09-10 Completed Unive rsity of PFIZER VACCINE 00:00:00 [facility] SARS-COV-2 COVID-19 2020-09-10 Completed Unive rsity of PFIZER VACCINE 00:00:00 [facility] SARS-COV-2 COVID-19 2020-09-10 Completed Unive rsity of PFIZER VACCINE 00:00:00 [facility] SARS-COV-2 COVID-19 2020-08-20 Completed Unive rsity of PFIZER VACCINE 00:00:00 [facility] SARS-COV-2 COVID-19 2020-08-20 Completed Unive rsity of PFIZER VACCINE 00:00:00 [facility] SARS-COV-2 COVID-19 2020-08-20 Completed Unive rsity of PFIZER VACCINE 00:00:00 [facility] SARS-COV-2 COVID-19 2020-08-20 Completed Unive rsity of PFIZER VACCINE 00:00:00 [facility] SARS-COV-2 COVID-19 2020-08-20 Completed Unive rsity of PFIZER VACCINE 00:00:00 [facility] SARS-COV-2 COVID-19 2020-08-20 Completed Unive rsity of PFIZER VACCINE 00:00:00 [facility] SARS-COV-2 COVID-19 2020-08-20 Completed Unive rsity of PFIZER VACCINE 00:00:00 [facility] SARS-COV-2 COVID-19 2020-08-20 Completed Unive rsity of PFIZER VACCINE 00:00:00 [facility] SARS-COV-2 COVID-19 2020-08-20 Completed Unive rsity of PFIZER VACCINE 00:00:00 [facility] SARS-COV-2 COVID-19 2020-08-20 Completed Unive rsity of PFIZER VACCINE 00:00:00 [facility] SARS-COV-2 COVID-19 2020-08-20 Completed Unive rsity of PFIZER VACCINE 00:00:00 [facility] SARS-COV-2 COVID-19 2020-08-20 Completed Unive rsity of PFIZER VACCINE 00:00:00 [facility] SARS-COV-2 COVID-19 2020-08-20 Completed Unive rsity of PFIZER VACCINE 00:00:00 [facility] SARS-COV-2 COVID-19 2020-08-20 Completed Unive rsity of PFIZER VACCINE 00:00:00 [facility] SARS-COV-2 COVID-19 2020-08-20 Completed Unive rsity of PFIZER VACCINE 00:00:00 [facility] Influenza Virus 2020-02-28 Completed [facility]it y of [facility] .5 mL 00:00:00 [facility] IM 6+ MO Branch Influenza Virus 2020-02-28 Completed [facility]it y of [facility] .5 mL 00:00:00 [facility] 6+ MO Branch Influenza Virus 2020-02-28 Completed [facility]it y of [facility] .5 mL 00:00:00 [facility] 6+ MO Branch Influenza Virus 2020-02-28 Completed [facility]it y of [facility] .5 mL 00:00:00 [facility] 6+ MO Branch Influenza Virus 2020-02-28 Completed [facility]it y of [facility] .5 mL 00:00:00 [facility] 6+ MO Branch Influenza Virus 2020-02-28 Completed [facility]it y of [facility] .5 mL 00:00:00 [facility] 6+ MO Branch Influenza Virus [...] y of [facility] .5 mL 00:00:00 [facility] 6+ MO Branch TDAP 2020-01-29 Completed University of 00:00:00 [facility] TDAP 2020-01-29 Completed University of 00:00:00 [facility] TDAP 2020-01-29 Completed University of 00:00:00 [facility] TDAP 2020-01-29 Completed University of 00:00:00 [facility] TDAP 2020-01-29 Completed University of 00:00:00 [facility] TDAP 2020-01-29 Completed University of 00:00:00 [facility] TDAP 2020-01-29 Completed University of 00:00:00 [facility] TDAP 2020-01-29 Completed University of 00:00:00 [facility] TDAP 2020-01-29 Completed University of 00:00:00 [facility] TDAP 2020-01-29 Completed University of 00:00:00 [facility] TDAP 2020-01-29 Completed University of 00:00:00 [facility] TDAP 2020-01-29 Completed University of 00:00:00 [facility] TDAP 2020-01-29 Completed University of 00:00:00 [facility] TDAP 2020-01-29 Completed University of 00:00:00 [facility] TDAP 2020-01-29 Completed University of 00:00:00 [facility] Influenza Virus 2019-06-13 Completed [facility]it y of [facility] .5 mL 00:00:00 [facility] IM 6+ MO Branch Influenza Virus 2019-06-13 Completed [facility]it y of [facility] .5 mL 00:00:00 [facility] IM 6+ MO Branch Influenza Virus 2019-06-13 Completed [facility]it y of [facility] .5 mL 00:00:00 [facility] 6+ MO Branch Influenza Virus 2019-06-13 Completed Universit y of [facility] .5 mL 00:00:00 [facility] 6+ MO Branch Influenza Virus 2019-06-13 Completed Universit y of [facility] .5 mL 00:00:00 [facility] IM 6+ MO Branch Influenza Virus 2019-06-13 Completed [facility]it y of [facility] .5 mL 00:00:00 [facility] 6+ MO Branch Influenza Virus 2019-06-13 Completed [facility]it y of [facility] .5 mL 00:00:00 [facility] 6+ MO Branch Influenza Virus 2019-06-13 Completed [facility]it y of [facility] .5 mL 00:00:00 [facility] 6+ MO Branch Influenza Virus 2019-06-13 Completed [facility]it y of [facility] .5 mL 00:00:00 [facility] 6+ MO Branch Influenza Virus 2019-06-13 Completed [facility]it y of [facility] .5 mL 00:00:00 [facility] 6+ MO Branch Influenza Virus 2019-06-13 Completed [facility]it y of [facility] .5 mL 00:00:00 [facility] 6+ MO Branch Influenza Virus 2019-06-13 Completed [facility]it y of [facility] .5 mL 00:00:00 [facility] IM 6+ MO Branch Influenza Virus 2019-06-13 Completed [facility]it y of [facility] .5 mL 00:00:00 [facility] 6+ MO Branch Influenza Virus 2019-06-13 Completed [facility]it y of [facility] .5 mL 00:00:00 [facility] 6+ MO Branch Influenza Virus 2019-06-13 Completed [facility] y of [facility] .5 mL 00:00:00 [facility] 6+ MO Branch TDAP 2017-04-11 Completed University of 00:00:00 [facility] TDAP 2017-04-11 Completed University of 00:00:00 [facility] TDAP 2017-04-11 Completed University of 00:00:00 [facility] TDAP 2017-04-11 Completed University of 00:00:00 [facility] TDAP 2017-04-11 Completed University of 00:00:00 [facility] TDAP 2017-04-11 Completed University of 00:00:00 [facility] TDAP 2017-04-11 Completed University of 00:00:00 [facility] TDAP 2017-04-11 Completed University of 00:00:00 [facility] TDAP 2017-04-11 Completed University of 00:00:00 [facility] TDAP 2017-04-11 Completed University of 00:00:00 [facility] TDAP 2017-04-11 Completed University of 00:00:00 [facility] TDAP 2017-04-11 Completed University of 00:00:00 [facility] TDAP 2017-04-11 Completed University of 00:00:00 [facility] TDAP 2017-04-11 Completed University of 00:00:00 [facility] TDAP 2017-04-11 Completed University of 00:00:00 [facility] Influenza Virus 2017-02-16 Completed Universit y of [facility] IM 3+ 00:00:00 [facility] Influenza Virus 2017-02-16 Completed Universit y of Vaccine [facility] IM 3+ 00:00:00 [facility] Influenza Virus 2017-02-16 Completed Universit y of [facility]ine [facility] IM 3+ 00:00:00 [facility] Influenza Virus 2017-02-16 Completed Universit y of [facility]ine [facility] IM 3+ 00:00:00 [facility] Influenza Virus 2017-02-16 Completed Universit y of [facility] IM 3+ 00:00:00 [facility] Influenza Virus 2017-02-16 Completed Universit y of [facility]ine [facility] IM 3+ 00:00:00 [facility] Influenza Virus 2017-02-16 Completed Universit y of [facility] IM 3+ 00:00:00 [facility] Influenza Virus 2017-02-16 Completed Universit y of [facility]ine [facility] IM 3+ 00:00:00 [facility] Influenza Virus 2017-02-16 Completed Universit y of [facility] IM 3+ 00:00:00 [facility] Influenza Virus 2017-02-16 Completed Universit y of [facility] IM 3+ 00:00:00 [facility] Influenza Virus 2017-02-16 Completed Universit y of [facility] IM 3+ 00:00:00 [facility] Influenza Virus 2017-02-16 Completed [facility]it y of [facility]ine [facility] IM 3+ 00:00:00 [facility] Influenza Virus 2017-02-16 Completed Universit y of [facility] IM 3+ 00:00:00 [facility] Influenza Virus 2017-02-16 Completed [facility]it y of [facility] IM 3+ 00:00:00 [facility] Influenza Virus 2017-02-16 Completed Universit y of [facility] IM 3+ 00:00:00 [facility] Vital Signs Vital Name Observation Time Observation Value Comments Source height 2022-06-21 13:20:00 68 [in_i] [facility] weight 2022-06-21 13:20:00 200.0 [lb_av] [facility] temperature 2022-06-21 13:20:00 98.2 [degF] [facility] bmi 2022-06-21 13:20:00 30.41 kg/m2 [facility] oximetry 2022-06-21 13:20:00 100 % [facility] respiratory rate 2022-06-21 13:20:00 17 /min Comm on [facility] blood pressure 2022-06-21 13:20:00 126 mm[Hg] [facility] - systolic [facility] blood pressure 2022-06-21 13:20:00 70 mm[Hg] [facility] - diastolic [facility] Systolic blood 2022-04-20 16:38:00 111 mm[Hg] Univer sity of [facility] Diastolic blood 2022-04-20 16:38:00 63 mm[Hg] Unive rsity of pressure [facility] Heart rate 2022-04-20 16:38:00 79 /min [facility] Body temperature 2022-04-20 16:38:00 [facility].72 [facility] 2022-04-20 16:38:00 18 /[facility] height 2022-04-20 16:38:[address] [facility] Body weight 2022-04-20 16:38:00 84.369 kg Universi ty of [facility] BMI 2022-04-20 16:38:00 27.47 kg/m2 Universi ty of [facility] height 2022-04-08 13:20:00 68 [in_i] [facility] weight 2022-04-08 13:20:00 183 [lb_av] [facility] temperature 2022-04-08 13:20:00 97.6 [degF] [facility] bmi 2022-04-08 13:20:00 27.82 kg/m2 [facility] oximetry 2022-04-08 13:20:00 100 % [facility] respiratory rate 2022-04-08 13:20:00 16 /min Comm on [facility] blood pressure 2022-04-08 13:20:00 106 mm[Hg] Common [facility] - systolic [facility] blood pressure 2022-04-08 13:20:00 67 mm[Hg] Common [facility] - diastolic [facility] Systolic blood 2022-03-05 17:07:00 133 mm[Hg] Univer [facility]ity of [facility] Diastolic blood 2022-03-05 17:07:00 81 mm[Hg] Unive rsity of [facility] Heart rate 2022-03-05 17:06:00 81 /min Universi ty [facility] Body temperature 2022-03-05 17:06:00 36.78 Stephanie Univ ersity of [facility] Respiratory rate 2022-03-05 17:06:00 18 /[facility] height 2022-03-05 17:06:00 175.3 cm Universi ty of [facility] Body weight 2022-03-05 17:06:00 85.548 kg Universi ty of [facility] BMI 2022-03-05 17:06:00 27.85 kg/m2 Universi ty [facility] Oxygen saturation in 2022-03-05 17:06:00 97 /min [facility] Arterial blood by [facility] Pulse oximetry Branch Systolic blood 2022-02-19 18:49:00 103 mm[Hg] Univer sity of pressure [facility] Diastolic blood 2022-02-19 18:49:00 64 mm[Hg] Unive rsity of [facility] Heart rate 2022-02-19 18:49:00 58 /min Universi ty [facility] Body temperature 2022-02-19 18:49:00 36.67 [facility] height 2022-02-19 18:49:00 [facility] Body weight 2022-02-19 18:49:[address] [facility] BMI 2022-02-19 18:49:00 28.29 kg/m2 [facility] height 2022-02-02 08:20:00 68 [in_i] [facility] weight 2022-02-02 08:20:00 191 [lb_av] [facility] temperature 2022-02-02 08:20:00 97.2 [degF] [facility] bmi 2022-02-02 08:20:00 29.04 kg/m2 [facility] oximetry 2022-02-02 08:20:00 99 % [facility] respiratory rate 2022-02-02 08:20:00 16 /min Comm on [facility] blood pressure 2022-02-02 08:20:00 118 mm[Hg] Common [facility] - systolic [facility] blood pressure 2022-02-02 08:20:00 66 mm[Hg] Common [facility] - diastolic [facility] Systolic blood 2022-01-11 14:59:00 132 mm[Hg] Univer sity of [facility] Diastolic blood 2022-01-11 14:59:00 82 mm[Hg] Unive rsity of [facility] Heart rate 2022-01-11 14:59:00 61 /min Universi [facility] Body temperature 2022-01-11 14:59:00 37.06 [facility] Respiratory rate 2022-01-11 14:59:00 16 /min [facility] ersity of [facility] Body height 2022-01-11 14:59:00 175.3 cm Universi ty of [facility] Body weight 2022-01-11 14:59:00 88.451 kg Universi ty of [facility] BMI 2022-01-11 14:59:00 28.80 kg/m2 Universi ty of [facility] Oxygen saturation in 2022-01-11 14:59:00 98 /min [facility] Arterial blood by [facility] Pulse oximetry Branch height 2021-12-04 08:00:00 69 [in_i] [facility] weight 2021-12-04 08:00:00 190 [lb_av] [facility] bmi 2021-12-04 08:00:00 28.06 kg/m2 [facility] Systolic blood 2021-11-18 16:28:00 109 mm[Hg] Univer sity of [facility] Diastolic blood 2021-11-18 16:28:00 44 mm[Hg] [facility] Heart rate 2021-11-18 16:28:00 57 /min Universi ty of [facility] Body temperature 2021-11-18 16:28:00 36.83 Stephanie [facility] ersity of [facility] Respiratory rate 2021-11-18 16:28:00 18 /min [facility] ersity of [facility] Body height 2021-11-18 16:28:00 175.3 cm Universi ty of [facility] Body weight 2021-11-18 16:28:00 85.276 kg Universi ty of [facility] BMI 2021-11-18 16:28:00 27.76 kg/m2 Universi ty of [facility] height 2021-07-31 08:40:00 69 [in_i] [facility] weight 2021-07-31 08:40:00 193.8 [lb_av] [facility] temperature 2021-07-31 08:40:00 97.6 [degF] [facility] bmi 2021-07-31 08:40:00 28.62 kg/m2 Common [facility] oximetry 2021-07-31 08:40:00 99 % Common [facility] respiratory rate 2021-07-31 08:40:00 16 /min Comm on [facility] blood pressure 2021-07-31 08:40:00 115 mm[Hg] Common [facility] - systolic [facility] blood pressure 2021-07-31 08:40:00 58 mm[Hg] [facility] height 2021-05-28 08:40:00 69 [in_i] Common [facility] weight 2021-05-28 08:40:00 93 [lb_av] [facility] temperature 2021-05-28 08:40:00 97.6 [degF] Common [facility] bmi 2021-05-28 08:40:00 13.73 kg/m2 Common [facility] oximetry 2021-05-28 08:40:00 98 % [facility] respiratory rate 2021-05-28 08:40:00 20 /min Comm on [facility] blood pressure 2021-05-28 08:40:00 109 mm[Hg] Common [facility] - systolic [facility] blood pressure 2021-05-28 08:40:00 62 mm[Hg] [facility] - diastolic [facility] height 2021-02-23 11:00:00 69 [in_i] Common [facility] weight 2021-02-23 11:00:00 190 [lb_av] Common [facility] bmi 2021-02-23 11:00:00 28.06 kg/m2 [facility] height 2020-07-29 15:20:00 69 [in_i] Common [facility] weight 2020-07-29 15:20:00 201.0 [lb_av] Common [facility] temperature 2020-07-29 15:20:00 97.3 [degF] Common [facility] bmi 2020-07-29 15:20:00 29.68 kg/m2 [facility] oximetry 2020-07-29 15:20:00 97 % Common [facility] respiratory rate 2020-07-29 15:20:00 15 /min Comm on [facility] blood pressure 2020-07-29 15:20:00 128 mm[Hg] Common [facility] - systolic [facility] blood pressure 2020-07-29 15:20:00 61 mm[Hg] Common [facility] diastolic [facility] Procedures Procedure Date / Time Performing Clinician Source Performed POCT TEST 2022-04-20 00:00:00 Guero Berry [facility] POCT TEST 2022-02-19 00:00:00 Guero Berry [facility] POCT URINALYSIS W/O 2022-02-19 00:00:00 Guero Berry [facility] SPECIFIC [facility] ASSIGNMENT OF BENEFITS 2022-01-11 14:56:54 Doctor Unassigned, No [facility] CONSENT FOR 2021-11-18 05:01:00 Doctor Unassigned, No [facility] POCT TEST 2021-11-18 00:00:[address] [facility] Encounters Start End Encounter Admission Attending Care Care Encounter Source Date/Time Date/Time Type Type Clinicians Facility Department ID 2022-06-21 Outpatient Tereza, STLMLC STLMLC [id number] Common 13:14:01 Yvonne [address] [facility] 2022-06-17 Outpatient AVELAR, Na STLMLC STLMLC [id number] Common 07:51:01 [id number] [facility] 2022-04-06 Outpatient Yonatan, Na STLMLC STLMLC [id number] 2 Common 08:17:01 [id number] [facility] 2022-01-28 Outpatient Avelar, Na STLMLC STLMLC [id number] Common 08:57:01 [facility] 2021-08-21 Outpatient Avelar, Na STLMLC STLMLC [id number] 2 Common 08:23:00 [facility] 2021-08-05 Outpatient Avelar, Na STLMLC STLMLC [id number] 2 Common 08:28:03 [facility] 2021-07-30 Outpatient Avelar, Na STLMLC STLMLC [id number] 2 Common 09:13:02 [facility] 2021-07-29 Outpatient Avelar, Na STLMLC STLMLC [id number] 2 Common 11:04:02 [facility] 2021-06-24 Outpatient Avelar, Na STLMLC STLMLC [id number] 2 Common 14:29:15 [id number] [facility] 2021-06-24 Outpatient Avelar, Na STLMLC STLMLC [id number] 2 Common 14:28:52 [id number] [facility] 2021-06-24 Outpatient Avelar, Na STLMLC STLMLC [id number] 2 Common 14:26:08 [id number] [facility] 2021-06-24 Outpatient Avelar, Na STLMLC STLMLC [id number] 2 Common 13:53:32 [id number] [facility] 2021-06-24 Outpatient Avelar, Na STLMLC STLMLC [id number] 2 Common 12:36:24 [id number] [facility] 2021-06-24 Outpatient Avelar, Na STLMLC STLMLC [id number] 2 Common 12:35:22 [id number] [facility] 2021-03-28 Outpatient P [facility] JONNA [id number] Univers 01:35:30 [facility] 2021-03-27 Emergency [facility] [id number] Univers 13:14:01 [facility] 2022-06-21 2022-06-21 OFFICE STLMLC STLMLC [id number] Co mmon 00:00:00 00:00:00 VISIT Spirit ESTAB PT - CHI LEVEL 4 [facility] 2022-06-11 2022-06-11 (TEL) STLMLC STLMLC [id number] Co mmon 00:00:00 00:00:00 Spirit - CHI [facility] 2022-06-08 2022-06-08 (TEL) STLMLC STLMLC [id number] Co mmon 00:00:00 00:00:00 Spirit - [facility] 2022-04-20 2022-04-20 Outpatient R GUERO BERRY [facility] [id number] Univers 10:00:00 11:08:11 ity of [facility] 2022-04-20 2022-04-20 Office Kristi Guero [facility] 1.2.078.927 [id number] Univers 10:00:00 11:08:11 Visit Cam [place] 350.1.13.10 i ty of [place] [phone] Me dical NAL [address] [place] [address] 2022-04-20 2022-04-20 Letter Aleksandra Berryen [facility] 1.2.515.549 [id number] Univers 00:00:00 00:00:00 (Out) Cam [place] 350.1.13.10 i [place] of [place] [phone] Me dical NAL [address] [place] [address] 2022-04-16 2022-04-16 Telephone Guero Berry [facility] 1.2.840.114 [id number] Univers 00:00:00 00:00:00 Cam [place] 350.1.13.10 i ty of [place] [phone] Fl dical NAL [address] [place] [address] 2022-04-16 2022-04-16 Patient Aleksandra Berryen [facility] 1.2.289.313 [id number] Univers 00:00:00 00:00:00 Secure Msg Cam [place] 350.1.13.10 it[place] of [place] [phone] Me dical [facility] [address] BU[address]ING 2022-04-15 2022-04-15 (TEL) STLMLC STLMLC [id number] Co mmon 00:00:00 00:00:00 [facility] 2022-04-08 2022-04-08 OFFICE STLMLC STLMLC [id number] Co mmon 00:00:00 00:00:00 VISIT EST Spir it PT LEVEL 3 - [facility] 2022-03-30 2022-03-30 (TEL) STLMLC STLMLC [id number] Co mmon 00:00:00 00:00:00 [facility] 2022-03-26 2022-03-26 Outpatient R GUERO BERRY [facility] [id number] Univers 10:30:00 10:30:00 ity [facility] 2022-03-08 2022-03-08 Outpatient R KRISTI [facility] [id number] Univers 00:00:00 00:00:00 ity [facility] 2022-03-05 2022-03-05 Outpatient R OSMANY [facility] [id number] Univers 12:00:00 12:19:51 MARIA LUISA chambers o f [facility] 2022-03-05 2022-03-05 Urgent Maria Luisa Shipman [facility] 1.2.840 .114 [id number] Univers 12:00:00 12:19:51 Care [facility] 350.1.13.[address] [facility] 4.2.7.2.686 Navid as DEB?BLEA [phone] Fl dical KNEY [address] MEDICAL OFFICE BUILDING 2022-02-26 2022-02-26 Letter CARMELLA Brock 1.2.840.114 [id number] Univers 00:00:00 00:00:00 (Out) Tatyana CORADO 350.1.13.10 it y of [facility] 4.2.7.2.686 Navid as [phone] [address] 2022-02-25 2022-02-25 Laboratory Only, Ang Db Test [facility] 1.2.8 40.114 [id number] Univers 09:15:00 09:30:00 Only Ebrahim, Rania [facility] 350.1.13.10 ity [facility] 4.2.7.2.686 Navid as DEB?BLEA [phone] [address] MEDICAL OFFICE BUILDING 2022-02-25 2022-02-25 Outpatient R MEÑO [facility] [id number] Univers 09:15:00 09:15:00 RANIA ity of [facility] 2022-02-19 2022-02-19 Outpatient R KRISTI GUERO [facility] [id number] Univers 13:30:00 14:11:53 ity of [facility] 2022-02-19 2022-02-19 Office Kristi [facility] 1.2.840.114 [id number] Univers 13:30:00 14:11:53 Visit Urban [place] 350.1.13.10 it y of [place] [id number] [place] [address] [address] 2022-02-02 2022-02-02 OFFICE [facility] [id number] Co mmon 00:00:00 00:00:00 VISIT EST Spir it PT LEVEL 3 - CH[facility] 2022-01-11 2022-01-11 Vivi Villa [facility] 1.2.840.114 [id number] Univers 10:00:00 10:20:00 Care Carmella Dorman [facility] 350.1.13.10 ity of [place] 4.2.7.2.686 Navid as DEB?BLEA [phone] [address] MEDICAL OFFICE [facility] 2022-01-11 2022-01-11 [facility] [id number] Univers 10:00:00 10:00:00 VIVI chambers [facility] 2022-01-11 2022-01-11 Orders Doctor WEIR 1.2.840.114 [id number] Univers 00:00:00 00:00:00 Only Unassigned, MAK 350.1.13.10 ity of [place] [facility] 4.2.7.2.686 Navid as [phone] [place] [address] [address] 2021-12-10 2021-12-10 (TEL) STLMLC STLMLC [id number] Co mmon 00:00:00 00:00:00 [facility] 2021-12-08 2021-12-08 (TEL) STLMLC STLMLC [id number] Co mmon 00:00:00 00:00:00 [facility] 2021-12-04 2021-12-04 OFFICE STLMLC STLMLC [id number] Co mmon 00:00:00 00:00:00 VISIT EST Spir it PT LEVEL 3 - [facility] 2021-11-18 2021-11-18 [facility] [id number] Univers 11:15:00 11:57:50 EARL chambers [facility] 2021-11-18 2021-11-18 Office [facility] 1.2.882.972 [id number] Univers 11:15:00 11:45:00 Visit Earl GR[place] 350.1.13.10 i ty of [place] [phone] Fl dical [address] 2021-11-18 2021-11-18 Outpatient R PIOTR [facility] [id number] Univers 11:15:00 11:15:00 EARL chambers [facility] 2021-11-18 2021-11-18 Outpatient Ivelisse SALDAÑA [facility] [id number] Univers 11:15:00 11:15:00 EARL chambers [facility] 2021-11-18 2021-11-18 Orders Doctor CARMELLA 1.2.840.114 [id number] Univers 00:00:00 00:00:00 Only Unassigned, MAK 350.1.13.10 [facility] 4.2.7.2.686 Navid as [phone] [address] 2021-11-09 2021-11-09 Telephone [facility] 1.2.840.114 [id number] Univers 00:00:00 00:00:00 Earl GRULL[place] 350.1.13.10 i ty of [place] [phone] Fl dical NAL 134 [facility] 2021-11-04 2021-11-04 Orders Doctor CARMELLA 1.2.840.114 [id number] Univers 00:00:00 00:00:00 Only Unassigned, MAK 350.1.13.10 ity of [facility] 4.2.7.2.686 Navid as [phone] [address] 2021-11-02 2021-11-02 Office Guero Berry [facility] 1.2.840.114 [id number] Univers 09:30:00 10:39:55 Visit CooperdennisEarl MITCHEL 350.1.13.10 ity of [place] [phone] Fl dical [address] 2021-11-02 2021-11-02 Outpatient R KRISTI [facility] [id number] Univers 09:30:00 10:39:55 ity of [facility] 2021-11-02 2021-11-02 Outpatient R KRISTI GUERO [facility] [id number] Univers 09:30:00 10:39:55 ity of [facility] 2021-11-02 2021-11-02 Outpatient R KRISTI GUERO [facility] [id number] Univers 09:30:00 09:30:00 ity of [facility] 2021-09-04 2021-09-04 Office Paulette [facility] 1.2.840.114 [id number] Univers 08:45:00 08:53:18 Visit Yocasta [place] 350.1.13.10 it y [place] [id number] [address] 2021-09-04 2021-09-04 Outpatient R YOCASTA TREVINO [facility] B [id number] Univers 08:45:00 08:53:18 YOCASTA TREVINO itholli [facility] 2021-09-04 2021-09-04 Outpatient R YOCASTA TREVINO [facility] B [id number] Univers 08:45:00 08:45:00 YOCASTA TREVINO of [facility] 2021-08-27 2021-08-27 Orders Doctor CARMELLA 1.2.840.114 [id number] Univers 00:00:00 00:00:00 Only Unassigned, MAK 350.1.13.10 ity of [place] [facility] 4.2.7.2.686 Navid as [phone] [facility] [address] 2021-08-21 2021-08-21 [facility] 1.2.840.114 [id number] Univers 00:00:00 00:00:00 Management Yocasta [place] 350.1.13.10 it[place] [id number] [address] 2021-08-20 2021-08-20 [facility] 1.2.840.11 [id number] Univers 00:00:00 00:00:00 Yocasta [place] 350.1.13.10 it y [place] [id number] [address] 2021-08-16 2021-08-16 Orders Doctor CARMELLA 1.2.840.114 [id number] Univers 00:00:00 00:00:00 Only Unassigned, MAK 350.1.13.10 ity of [place] [facility] 4.2.7.2.686 Navid as [phone] [address] 2021-08-04 2021-08-04 Outpatient R YOCASTA TREVINO [facility] B [id number] Univers 10:00:00 10:03:26 YOCASTA TREVINO of [facility] 2021-08-04 2021-08-04 Office [facility] 1.2.840.114 [id number] Univers 10:00:00 10:03:26 Visit Cordeliaedwardo [place] 350.1.13.10 it y [place] [phone] [address] 2021-08-04 2021-08-04 Telephone [facility] 1.2.840.114 [id number] Univers 00:00:00 00:00:00 Earl [place] 350.1.13.10 it y [place] [phone] [address] 2021-07-31 2021-07-31 [facility] [id number] Co mmon 00:00:00 00:00:00 VISIT EST Spir it PT LEVEL 3 - [facility] 2021-06-17 2021-06-17 Outpatient Ivelisse SALDAÑA [facility] [id number] Univers 15:45:00 15:45:00 EARL holli [facility] 2021-06-16 2021-06-16 Outpatient Ivelisse SALDAÑA [facility] [id number] Univers 13:15:00 13:51:03 EARL reyes [facility] 2021-06-16 2021-06-16 Office [facility] 1.2.840.114 [id number] Univers 13:15:00 13:45:00 Visit Earl [place] 350.1.13.10 it y [place] [id number] [address] 2021-06-16 2021-06-16 Outpatient Ivelisse SALDAÑA [facility] [id number] Univers 13:15:00 13:15:00 [facility] 2021-06-07 2021-06-07 Telephone CARMELLA Black 1.2.105.813 [id number] Univers 00:00:00 00:00:00 Jyoti CORADO 350.1.13.10 it y of [facility] 4.2.7.2.686 Navid as [phone] [address] 2021-06-06 2021-06-06 Laboratory Only, Ang Db Test [facility] 1.2.8 40.114 [id number] Univers 14:45:00 15:00:00 Only Kiara Guerra [facility] 350.1.13.10 ity of [place] 4.2.7.2.686 Navid as DEB?BLEA [phone] [address] MEDICAL OFFICE BUILDING 2021-06-06 2021-06-06 Outpatient R RAYO [facility] [id number] Univers 14:45:00 14:45:00 KIARA fernández [facility] 2021-05-28 2021-05-28 OFFICE STLMLC STLMLC [id number] Co mmon 00:00:00 00:00:00 VISIT EST Spir it PT LEVEL 3 [facility] 2021-02-25 2021-02-25 (TEL) STLMLC STLMLC [id number] Co mmon 00:00:00 00:00:00 [facility] 2021-02-25 2021-02-25 (TEL) STLMLC STLMLC [id number] Co mmon 00:00:00 00:00:00 [facility] 2021-02-24 2021-02-24 Telephone Guero Berry [facility] 1.2.840.114 [id number] Univers 00:00:00 00:00:00 Urban [place] 350.1.13.10 i ty of [place] [phone] Fl dical nal [facility] [address] [facility] 2021-02-23 2021-02-23 OFFICE STLMLC STLMLC [id number] Co mmon 00:00:00 00:00:00 VISIT EST Spir it PT LEVEL 3 - [facility] 2021-02-20 2021-02-20 (TEL) STLMLC STLMLC [id number] Co mmon 00:00:00 00:00:00 [facility] 2021-02-05 2021-02-05 Office Guero Berry [facility] 1.2.041.759 [id number] Univers 08:04:04 13:52:05 Visit Urban [place] 350.1.13.10 i ty of [place] [phone] Fl d[place] [address] [address] [facility] 2021-02-05 2021-02-05 Outpatient R GUERO BERRY [facility] [id number] Univers 08:00:00 08:00:00 ity of [facility] 2021-02-05 2021-02-05 Orders Doctor CARMELLA 1.2.840.114 [id number] Univers 00:00:00 00:00:00 Only Unassigned, MAK 350.1.13.10 ity of [place] [facility] 4.2.7.2.686 Navid as [phone] [facility] [address] 2021-02-03 2021-02-03 Telephone Guero Berry [facility] 1.2.840.114 [id number] Univers 00:00:00 00:00:00 Cam [place] 350.1.13.10 i ty of [place] [phone] Fl dical nal 134 [facility] 2021-02-03 2021-02-03 Telephone Guero Berry [facility] 1.2.840.114 [id number] Univers 00:00:00 00:00:00 Cam [place] 350.1.13.10 i ty of [place] [phone] Fl dical nal 134 [facility] 2021-01-28 2021-01-28 [facility] 1.2.840.114 [id number] Univers 10:00:00 23:59:00 Encounter Earl [place] 350.1.13.10 ity of [place] [phone] [facility] [address] 2021-01-28 2021-01-28 [facility] 1.2.840.114 [id number] Univers 10:00:00 23:59:00 Encounter Earl [place] 350.1.13.10 ity of [place] [id number] [facility] [address] [place] [address] 2021-01-28 2021-01-28 [facility] [id number] Univers 00:00:00 00:00:00 EARL chambers [facility] 2021-01-15 2021-01-15 [facility] 1.2.871.362 [id number] Univers 00:00:00 00:00:00 Management Earl [place] 350.1.13.10 ity of [place] [phone] [address] 2021-01-15 2021-01-15 Case Poitr [facility] 1.2.213.896 [id number] Univers 00:00:00 00:00:00 Management Earl [place] 350.1.13.10 ity of [place] [phone] [address] 2021-01-14 2021-01-14 [facility] [id number] Univers 00:00:00 00:00:00 EARL chambers [facility] 2021-01-14 2021-01-14 Outpatient R PIOTR [facility] [id number] Univers 00:00:00 00:00:00 EARL reyes [facility] 2021-01-08 2021-01-08 Office [facility] 1.2.532.254 [id number] Univers 07:53:41 08:29:11 Visit Earl Mitchel 350.1.13.10 i ty of [place] [phone] [address] 2021-01-08 2021-01-08 [facility] [id number] Univers 08:00:00 08:00:00 AERL chambers [facility] 2021-01-08 2021-01-08 Orders Doctor CARMELLA 1.2.840.114 [id number] Univers 00:00:00 00:00:00 Only Unassigned, MAK 350.1.13.10 ity of [place] [facility] 4.2.7.2.686 Navid as [phone] [address] 2021-01-08 2021-01-08 Orders Doctor CARMELLA 1.2.840.114 [id number] Univers 00:00:00 00:00:00 Only Unassigned, MAK 350.1.13.10 ity of [place] [facility] 4.2.7.2.686 Navid as [phone] [address] 2020-12-26 2020-12-26 Laboratory Lab, Adc Fam Pob I [facility] 1.2. 840.114 [id number] Univers 13:41:28 14:01:28 Only Jolnyn Kauffman [facility] 350.1.13.10 ity of [place] 4.2.7.2.686 Navid as Professio [phone] [facility] [address] 2020-12-26 2020-12-26 Outpatient R DALY [facility] [id number] Univers 13:40:00 13:40:00 JOLYNN [facility] 2020-12-26 2020-12-26 Orders Doctor CARMELLA 1.2.840.114 [id number] Univers 00:00:00 00:00:00 Only Unassigned, MAK 350.1.13.10 ity of [place] [facility] 4.2.7.2.686 Navid as [phone] [address] 2020-10-29 2020-10-29 Cigarette Paper Tester 2, Adc Lab [facility] 1.2.840.114 [id number] Univers 10:32:55 10:47:55 Visit Earl Saldaña 350.1.13.10 ity of [place] [phone] Fl dical nal 353 [facility] 2020-10-29 2020-10-29 Outpatient R PIOTR [facility] [id number] Univers 10:30:00 10:30:00 EARL chambers [facility] 2020-10-29 2020-10-29 Office Piotr [facility] 1.2.023.857 [id number] Univers 09:33:00 10:20:35 Visit Earl [place] 350.1.13.10 i ty of [place] [phone] Fl dical nal 134 [facility] 2020-10-20 2020-10-20 Telephone Guero Berry [facility] 1.2.840.114 [id number] Univers 00:00:00 00:00:00 Urban [place] 350.1.13.10 i ty of [place] [phone] Fl dical nal [address] [place] [address] 2020-10-16 2020-10-16 Office Piotr [facility] 1.2.615.684 [id number] Univers 10:27:54 10:45:12 Visit Earl Mitchel 350.1.13.10 i ty of [place] [phone] Fl dical nal [address] [place] [address] 2020-10-16 2020-10-16 Outpatient R PIOTR [facility] [id number] Univers 10:15:00 10:15:00 EARL [facility] 2020-09-10 2020-09-10 Outpatient R BREANN [facility] [id number] Univers 09:30:00 09:30:00 RADHA [facility] 2020-09-03 2020-09-03 Outpatient R GUERO BERRY [facility] [id number] Univers 09:15:00 09:15:00 [facility] 2020-08-28 2020-08-28 Orders Doctor CARMELLA 1.2.840.114 [id number] Univers 00:00:00 00:00:00 Only Unassigned, MAK 350.1.13.10 ity of [place] [facility] 4.2.7.2.686 Navid as [phone] [address] 2020-08-27 2020-08-27 Outpatient R MUNDO [facility] [id number] Univers 00:00:00 00:00:00 ARCENIO chambers o f [facility] 2020-08-20 2020-08-20 Outpatient BRYON [facility] [id number] Univers 10:40:00 10:40:00 ASHUTOSH [facility] 2020-08-20 2020-08-20 Telephone Guero Berry [facility] 1.2.840.114 [id number] Univers 00:00:00 00:00:00 Urban [place] 350.1.13.10 i ty of [place] [phone] Fl dical nal 134 [facility] 2020-08-19 2020-08-19 Patient [facility] 1.2.840.114 [id number] Univers 00:00:00 00:00:00 Outreach Ashutosh PRIMARY 350.1.13.10 i ty of [facility] 4.2.7.2.[place] [phone] Fl dical [address] 2020-08-12 2020-08-12 Office Mundo [facility] 1.2.840.114 [id number] Univers 10:43:17 11:33:51 Visit Arcenio [place] 350.1.13.10 ity of [place] [phone] Fl dical nal 059 [facility] 2020-08-12 2020-08-12 Outpatient R MUNDO [facility] [id number] Univers 10:40:00 10:40:00 ARCENIO chambers o f [facility] 2020-08-12 2020-08-12 Orders Doctor CARMELLA 1.2.840.114 [id number] Univers 00:00:00 00:00:00 Only Unassigned, MAK 350.1.13.10 ity of [place] [facility] 4.2.7.2.686 Navid as [phone] [address] 2020-08-06 2020-08-06 Telephone Guero Berry [facility] 1.2.840.114 [id number] Univers 00:00:00 00:00:00 Cam Mitchel 350.1.13.10 i ty of [place] [phone] Fl dical nal 134 [facility] 2020-07-31 2020-07-31 (TEL) STLMLC STLMLC [id number] Co mmon 00:00:00 00:00:00 [facility] 2020-07-30 2020-07-30 (TEL) STLMLC STLMLC [id number] Co mmon 00:00:00 00:00:00 [facility] 2020-07-29 2020-07-29 Outpatient R GUERO BERRY [facility] [id number] Univers 13:30:00 13:30:00 ity [facility] 2020-07-29 2020-07-29 [facility] [id number] Co mmon 00:00:00 00:00:00 VISIT Joaquim WEEKS PT - CHI LEVEL 4 [facility] 2020-07-27 2020-07-27 Outpatient R BREANN [facility] [id number] Univers 14:05:00 14:05:00 RADHA [facility] 2020-07-07 2020-07-07 Outpatient R PIOTR [facility] [id number] Univers 11:15:00 11:15:00 EARL [facility] 2020-06-25 2020-06-25 Outpatient R GUERO BERRY [facility] [id number] Univers 10:30:00 10:30:00 [facility] 2020-06-25 2020-06-25 Telephone Guero Berry [facility] [id number] 00:00:00 00:00:00 Cam [place] [id number] [place] [id number] Professio [phone] [address] 2020-06-25 2020-06-25 Telephone Guero Berry [facility] [id number] Univers 00:00:00 00:00:00 Cam [place] [id number] i ty of [id number] [phone] Fl dical [address] 2020-06-11 2020-06-11 Laboratory Lab, [facility] [id number] 14:09:06 14:29:06 Only Fam Pob I Health [id number] [place] [id number] Professio [phone] nal [facility] Office [facility] One 2020-06-11 2020-06-11 Laboratory Lab, [facility] Fam Pob I [facility] 1.2. [id number] Univers 14:09:06 14:29:06 Only Green, [facility] 350.1.13.10 ity of [place] [id number] [place] as Professio [phone] [address] Office [facility] One 2020-06-11 2020-06-11 Outpatient R CHRIS [facility] [id number] Univers 14:10:00 14:10:00 DOLLY ity of [facility] 2020-06-05 2020-06-05 Telephone Guero Berry [facility] [id number] 00:00:00 00:00:00 Cam [place] [id number] [place] [id number] Professio [phone] [address] 2020-06-05 2020-06-05 Telephone Guero Berry [facility] 1.2.840.114 [id number] Univers 00:00:00 00:00:00 Cam [place] [id number] i ty [id number] [phone] Fl dic[address] 2020-05-19 2020-05-19 Office Guero Berry [facility] [id number] [facility] 10:21:39 10:51:39 Visit Cam [place] 350.1.13.10 i ty of [place]2.[place] [phone] [address] 2020-05-19 2020-05-19 Office Guero Berry [facility] [id number] 10:21:39 10:51:39 Visit Cam [place] 350.1.13.10 [place] 4.2.7.2.686 Professio [phone] [address] 2020-05-19 2020-05-19 Outpatient R GUERO BERRY [facility] [id number] Univers 10:30:00 10:30:00 ity of [facility] 2020-05-19 2020-05-19 Orders Doctor WEIR 1.2.840.114 [id number] Univers 00:00:00 00:00:00 Only Unassigned, MAK 350.1.13.10 ity of [place] [facility] 4.2.7.2.686 Navid as [phone] [address] 2020-05-19 2020-05-19 Orders Doctor CARMELLA 1.2.840.114 [id number] 00:00:00 00:00:00 Only Unassigned, MAK 350.1.13.10 [facility] 4.2.7.2.686 [phone] 009 2020-04-30 2020-04-30 Routine Piotr [facility] 1.2.943.844 [id number] Univers 10:35:21 11:27:47 Earl [place] 350.1.13.10 ity [place] [phone] [address] 2020-04-30 2020-04-30 Outpatient R PIOTR [facility] [id number] Univers 10:30:00 10:30:00 EARL ity [facility] 2020-04-15 2020-04-15 Nurse Nurse, [facility] 1.2.840.114 [id number] Univers 08:44:55 09:14:27 Visit Guero Berry 350.1.13.10 ity of [place] [phone] Fl dic[address] 2020-04-15 2020-04-15 Outpatient R [facility] [id number] Univers 09:00:00 09:00:00 ity of [facility] 2020-04-11 2020-04-11 Telephone Guero Berry [facility] 1.2.840.114 [id number] Univers 00:00:00 00:00:00 Urban [place] 350.1.13.10 i ty [place] [phone] Fl dic[address] 2020-04-11 2020-04-11 Telephone Guero Berry [facility] 1.2.840.114 [id number] Univers 00:00:00 00:00:00 Cam [place] 350.1.13.10 i [place] [phone] [facility] [address] [place] [address] 2020-04-09 2020-04-09 Telephone Guero Berry [facility] 1.2.840.114 [id number] Univers 00:00:00 00:00:00 Cam [place] 350.1.13.10 i [place] [phone] [facility] [address] [facility] 2020-04-01 2020-04-02 Hospital Guero Berry [facility] 1.2.840.114 [id number] Univers 05:30:00 21:15:00 Encounter Urban [place] 350.1.13.10 ity of [place].2.[place] [phone] [facility] [address] 2020-04-01 2020-04-01 Anesthesia Reg Little [facility] 1.2.840.11 [id number] Univers 08:00:00 09:28:00 Carin [place] 350.1 .13.10 ity of [place].2.[place] [phone] [facility] [address] 2020-03-31 2020-03-31 Laboratory Only, Adc Test [facility] 1.2.840. 114 [id number] Univers 11:19:38 11:34:38 Only Guero Berry 350.1.13.10 ity of [place] [phone] [facility] [address] 2020-03-31 2020-03-31 Cigarette Paper Tester Valerie, Adc Lab Main [facility] 1.2.8 40.114 [id number] Univers 10:53:51 11:08:51 Visit Guero Berry 350.1.13.10 ity of [place] [phone] [address] 2020-03-31 2020-03-31 Outpatient R [facility] [id number] Univers 10:15:00 10:15:00 ity of [facility] 2020-03-26 2020-03-26 Routine Guero Berry [facility] 1.2.840.114 [id number] Univers 10:25:14 11:48:48 Earl Saldaña Mitchel 350.1.13.10 ity of [place] [phone] Fl dical nal [address] [facility] 2020-03-19 2020-03-26 Routine Berry Guero [facility] 1.2.235.295 [id number] Univers 10:54:26 10:50:04 Urban [place] 350.1.13.10 ity of [place].2.[place] [phone] Fl dical nal [address] [facility] 2020-03-26 2020-03-26 Outpatient R PIOTR [facility] [id number] Univers 10:45:00 10:45:00 EARL chambers [facility] 2020-03-26 2020-03-26 Cigarette Paper Tester 2, Adc Lab [facility] 1.2.840.114 [id number] Univers 10:16:04 10:31:04 Visit BerryAleksandravasu Grullon 350.1.13.10 ity of [place].2.[place] [phone] Fl dical nal [address] [facility] 2020-03-19 2020-03-19 Outpatient R GUERO BERRY [facility] [id number] Univers 11:00:00 11:00:00 ity of [facility] 2020-03-19 2020-03-19 Orders Doctor WEIR 1.2.840.114 [id number] Univers 00:00:00 00:00:00 Only Unassigned, MAK 350.1.13.10 ity of [place] [facility] 4.2.7.2.686 Navid as [phone] [address] 2020-03-12 2020-03-12 Outpatient R GUERO BERRY [facility] [id number] Univers 13:45:00 13:45:00 ity of [facility] 2020-03-12 2020-03-12 Outpatient R PIOTR [facility] [id number] Univers 11:30:00 11:30:00 EARL chambers [facility] 2020-03-12 2020-03-12 Telephone Guero Berry [facility] 1.2.840.114 [id number] Univers 00:00:00 00:00:00 Cam [place] 350.1.13.10 i ty [place] [phone] Fl dic[address] 2020-03-10 2020-03-10 Routine BerryAleksandraen [facility] 1.2.775.849 [id number] Univers 11:27:51 12:29:38 Urban [place] 350.1.13.10 ity of [place].2.[place] [phone] [address] 2020-03-10 2020-03-10 Outpatient R KRISTI GUERO [facility] [id number] Univers 11:15:00 11:15:00 ity of [facility] 2020-03-10 2020-03-10 Telephone Guero Berry [facility] 1.2.840.114 [id number] Univers 00:00:00 00:00:00 Urban [place] 350.1.13.10 i ty [place].2.[place] [phone] [address] 2020-03-10 2020-03-10 Orders Doctor CARMELLA 1.2.840.114 [id number] Univers 00:00:00 00:00:00 Only Unassigned, MAK 350.1.13.10 it[place] of [place] [facility] 4.2.7.2.686 Navid as [phone] [address] 2020-03-06 2020-03-06 Cigarette Paper Tester [facility]trasound, [facility] 1.2 .840.114 [id number] Univers 11:30:33 12:00:33 Visit Gumaro Fisher HEDIS REGISTERED NURSE RN 350.1.13.1 0 ity of [facility] 4.2.7.2.686 Navid as MATERNAL [phone] Med ical & CHILD [address] [place] [address] 2020-03-06 2020-03-06 Outpatient P [facility] [id number] Univers 11:30:00 11:30:00 ity of [facility] 2020-02-28 2020-02-28 Routine Kristi Guero [facility] 1.2.366.958 [id number] Univers 13:17:58 14:01:24 Cam [place] 350.1.13.10 ity of [place].2.[place] [phone] Fl dic[address] 2020-02-28 2020-02-28 Outpatient R KRISTI [facility] [id number] Univers 13:15:00 13:15:00 ity of [facility] 2020-02-19 2020-02-19 Telephone Kristi [facility] 1.2.840.114 [id number] Univers 00:00:00 00:00:00 Cam [place] 350.1.13.10 i ty [place].2.[place] [phone] [address] 2020-02-19 2020-02-19 Telephone Kristi [facility] 1..840.114 78 [id number] Univers 00:00:00 00:00:00 Cam [place] 350.1.13.10 i ty [place]2.[place] [phone] [address] 2020-02-18 2020-02-18 Telephone Kristi [facility] 1.2.840.114 [id number] Univers 00:00:00 00:00:00 Cam [place] 350.1.13.10 i ty [place]2.[place] [phone] [address] 2020-02-12 2020-02-12 [facility] 1.2.787.427 [id number] Univers 11:13:13 11:28:13 Earl [place] 350.1.13.10 ity of [place]2.[place] [phone] [address] 2020-02-12 2020-02-12 Outpatient R PIOTR [facility] [id number] Univers 11:15:00 11:15:00 EARL ity of [facility] 2020-02-12 2020-02-12 Orders Doctor WEIR 1.2.840.114 [id number] Univers 00:00:00 00:00:00 Only Unassigned, MAK 350.1.13.10 ity of [place] [facility] 4.2.7.2.686 Nav[place] as [phone] [address] 2020-02-06 2020-02-06 Telephone Guero Berry [facility] 1.2.840.114 [id number] Univers 00:00:00 00:00:00 Urban [place] 350.1.13.10 i ty [place] [phone] Fl dical nal [address] [facility] 2020-02-01 2020-02-01 Cigarette Paper Tester 2, Adc Lab [facility] 1.2.840.114 [id number] Univers 08:14:52 08:29:52 Visit Guero Berry [place] 350.1.13.10 ity of [place]2.[place] [phone] Fl dical nal [address] [facility] 2020-02-01 2020-02-01 Outpatient R [facility] [id number] Univers 08:15:00 08:15:00 ity of [facility] 2020-01-29 2020-01-29 Routine Guero Berry [facility] 1.2.953.638 [id number] [id number] Univers 13:21:28 14:28:08 Urban [place] 350.1.13.10 ity of [place].2.[place] [phone] Fl dical nal [address] [facility] 2020-01-29 2020-01-29 Outpatient R GUERO BERRY [facility] [id number] Univers 13:15:00 13:15:00 ity of [facility] 2020-01-23 2020-01-23 Outpatient R KRISTI [facility] [id number] Univers 10:15:00 10:15:00 ity of [facility] 2020-01-15 2020-01-16 Emergency Linda Maria [facility] 1.2.840.1 14 [id number] Univers 20:34:00 00:13:00 Sarabjit Amaro 350.1.13. 10 ity of [place] [phone] [facility] [address] 2020-01-16 2020-01-16 Telephone Guero Berry [facility] 1.2.840.114 [id number] Univers 00:00:00 00:00:00 Cam [place] 350.1.13.10 i ty [place].2.[place] [phone] [address] 2020-01-15 2020-01-15 Telephone Guero Berry [facility] 1.2.840.114 [id number] Univers 00:00:00 00:00:00 Cam [place] 350.1.13.10 i ty [place].2.[place] [phone] [address] 2020-01-15 2020-01-15 Telephone Guero Berry [facility] 1.2.840.114 [id number] Univers 00:00:00 00:00:00 Cam [place] 350.1.13.10 i ty [place].2.[place] [phone] [address] 2020-01-02 2020-01-02 Orders Doctor CARMELLA 1.2.840.114 [id number] Univers 00:00:00 00:00:00 Only Unassigned, MAK 350.1.13.10 ity of [place] [facility] 4.2.7.2.686 Navid as [phone] [facility] [address] 2020-01-01 2020-01-01 Telephone Guero Berry [facility] 1.2.840.114 [id number] Univers 00:00:00 00:00:00 Cam [place] 350.1.13.10 i ty [place].2.[place] [phone] [address] 2019-12-26 2019-12-26 Routine Guero Berry [facility] 1.2.787.695 [id number] Univers 14:43:24 15:23:33 Cam [place] 350.1.13.10 ity of [place].2.[place] [phone] Me dical nal [address] [place] [address] 2019-12-26 2019-12-26 Outpatient R GUERO BERRY [facility] [id number] Univers 14:45:00 14:45:00 ity of [facility] 2019-12-26 2019-12-26 Outpatient R PIOTR [facility] [id number] Univers 10:30:00 10:30:00 EARL ity [facility] 2019-12-26 2019-12-26 Orders Doctor CARMELLA 1.2.840.114 [id number] Univers 00:00:00 00:00:00 Only Unassigned, MAK 350.1.13.10 ity of [place] [facility] 4.2.7.2.686 Navid as [phone] [address] 2019-12-14 2019-12-14 Outpatient R PIOTR [facility] [id number] Univers 13:30:00 13:30:00 EARL ity [facility] 2019-11-21 2019-11-21 Cigarette Paper Tester Ultrasound, [facility] 1.2 .840.114 [id number] Univers 14:07:22 15:07:22 Visit Jane Valdivia HEDIS REGISTERED NURSE RN 350.1.13.10 ity of [facility] 4.2.7.2.686 Navid as MATERNAL [phone] Med ical & CHILD [address] [place] [address] 2019-11-21 2019-11-21 Outpatient P [facility] [id number] Univers 14:00:00 14:00:00 ity of [facility] 2019-11-12 2019-11-12 Routine Kristi [facility] 1.2.132.098 [id number] Univers 11:48:41 12:14:13 Cam [place] 350.1.13.10 ity of [place].2.[place] [phone] Fl dical nal [address] [place] [address] 2019-11-12 2019-11-12 Outpatient R GUERO BERRY [facility] [id number] Univers 11:30:00 11:30:00 ity of [facility] 2019-11-12 2019-11-12 Orders Doctor WEIR 1.2.840.114 [id number] Univers 00:00:00 00:00:00 Only Unassigned, MAK 350.1.13.10 it[facility] of [place] [facility] 4.2.7.2.686 Navid as [phone] [address] 2019-10-17 2019-10-17 Orders Doctor WEIR 1.2.840.114 [id number] Univers 00:00:00 00:00:00 Only Unassigned, MAK 350.1.13.10 ity of [place] [facility] 4.2.7.2.686 Navid as [phone] [address] 2019-10-16 2019-10-16 Cigarette Paper Tester 2, Adc Lab [facility] 1.2.840.114 [id number] Univers 08:08:38 08:23:38 Visit KristiGuero Urban [place] 350.1.13.10 ity of [place] [phone] Fl dical [facility] [address] [facility] 2019-10-16 2019-10-16 Outpatient R GUERO BERRY [facility] [id number] Univers 08:00:00 08:00:00 ity [facility] 2019-10-15 2019-10-15 Outpatient R [facility] [id number] Univers 11:00:00 11:00:00 ity [facility] 2019-10-12 2019-10-12 Routine [facility] 1.2.449.515 [id number] Univers 15:49:57 16:27:40 Earl [place] 350.1.13.10 ity of [place]2.[place] [phone] Fl dical nal [address] [facility] 2019-10-12 2019-10-12 [facility] [id number] Univers 16:00:00 16:00:00 EARL chambers [facility] 2019-10-09 2019-10-09 [facility] [id number] Univers 10:00:00 10:00:00 EARL chambers [facility] 2019-09-19 2019-09-19 Orders Doctor WEIR 1.2.840.114 [id number] Univers 00:00:00 00:00:00 Only Unassigned, MAK 350.1.13.10 ity of [place] [facility] 4.2.7.2.686 Navid as [phone] [address] 2019-09-17 2019-09-17 Telephone Guero Berry [facility] 1.2.840.114 [id number] Univers 00:00:00 00:00:00 Cam [place] 350.1.13.10 i ty of [place].2.[place] [phone] Fl dical nal [address] [place] [address] 2019-09-17 2019-09-17 Telephone [facility] 1.2.735.502 [id number] Univers 00:00:00 00:00:00 Anahi L [place] 350.1.13.10 ity of [place]2.7.2.[place] [phone] Fl dical nal [address] [place] [address] 2019-09-14 2019-09-14 [facility] 1.2.711.087 [id number] Univers 00:00:00 00:00:00 Anahi L [place] 350.1.13.10 ity of [place].2.[place] [phone] Fl dical nal [address] [place] [address] 2019-09-11 2019-09-11 Routine Guero Berry [facility] 1.2.852.157 [id number] 7382 Univers 13:19:58 13:46:45 Cam [place] 350.1.13.10 ity of [place].2.[place] [phone] Fl dical nal [address] [place] [address] 2019-09-11 2019-09-11 Outpatient R GUERO BERRY [facility] [id number] Univers 13:15:00 13:15:00 ity of [facility] 2019-09-11 2019-09-11 Orders Doctor WEIR 1.2.840.114 [id number] Univers 00:00:00 00:00:00 Only Unassigned, MAK 350.1.13.10 ity of [place] [facility] 4.2.7.2.686 Navid as [phone] [address] 2019-09-05 2019-09-05 Telephone Guero Berry [facility] 1.2.840.114 [id number] Univers 00:00:00 00:00:00 Urban [place] 350.1.13.10 i ty [place].2.[place] [phone] Fl dical nal [address] [facility] 2019-08-21 2019-08-21 Orders Doctor CARMELLA 1.2.840.114 [id number] Univers 00:00:00 00:00:00 Only Unassigned, MAK 350.1.13.10 ity of [place] [facility] 4.2.7.2.686 Navid as [phone] [address] 2019-08-14 2019-08-14 Cigarette Paper Tester 2, Adc Lab [facility] 1.2.840.114 [id number] Univers 15:14:48 15:29:48 Visit Guero Berry Urban [place] 350.1.13.10 ity of [place].2.[place] [phone] Fl dical nal [address] [facility] 2019-08-14 2019-08-14 Initial Guero Berry [facility] 1.2.721.884 [id number] [id number] Univers 13:43:26 14:59:48 Urban [place] 350.1.13.10 ity of [place].2.[place] [phone] Fl dical [facility] [address] [facility] 2019-08-14 2019-08-14 Outpatient R KRISTI GUERO [facility] [id number] Univers 14:00:00 14:00:00 ity of [facility] 2019-08-09 2019-08-09 Outpatient R KRISTI GUERO [facility] [id number] Univers 09:00:00 09:00:00 ity of [facility] 2019-08-07 2019-08-07 Orders Doctor CARMELLA 1.2.840.114 [id number] Univers 00:00:00 00:00:00 Only Unassigned, MAK 350.1.13.10 ity of [place] [facility] 4.2.7.2.686 Navid as [phone] [address] 2019-08-01 2019-08-01 Telephone [place] [facility] 1.2.696.419 [id number] Univers 00:00:00 00:00:00 Jeff [facility] 350.1.13.10 it y of Surgical 4.2.7.2.686 Navid as Specialti [phone] Me dical es [address] [facility] 2019-07-26 2019-07-26 Office [facility] 1.2.840.114 [id number] Univers 08:32:54 09:22:49 Visit Jeff Mauro 350.1.13.10 it y of Surgical 4.2.7.2.686 Navid as Specialti [phone] Me dical es [address] [facility] 2019-07-26 2019-07-26 Out[facility] [id number] Univers 08:45:00 08:45:00 JEFF ity [facility] 2019-07-23 2019-07-23 Orders Doctor CARMELLA 1.2.840.114 [id number] Univers 00:00:00 00:00:00 Only Unassigned, MAK 350.1.13.10 ity of [place] [facility] 4.2.7.2.686 Navid as [phone] [address] 2019-07-09 2019-07-09 Cigarette Paper Tester 1, Adc Lab [facility] 1.2.840.114 [id number] Univers 15:52:22 16:07:22 Visit Guero Berry 350.1.13.10 ity of [place] 4.2.7.2.686 [place] [facility] [phone] [address] 2019-07-09 2019-07-09 Orders Doctor CARMELLA 1.2.840.114 [id number] Univers 00:00:00 00:00:00 Only Unassigned, MAK 350.1.13.10 ity of [place] [facility] 4.2.7.2.686 Navid as [phone] [address] 2019-07-04 2019-07-04 Telephone Guero Berry [facility] 1.2.840.114 [id number] Univers 00:00:00 00:00:00 Urban [place] 350.1.13.10 i ty [place] [phone] [address] 2019-06-29 2019-06-29 Orders Doctor CARMELLA 1.2.840.114 [id number] Univers 00:00:00 00:00:00 Only Unassigned, MAK 350.1.13.10 ity of [place] [facility] 4.2.7.2.686 Navid as [phone] [address] 2019-06-22 2019-06-22 Telephone Aleksandra Berryen [facility] 1.2.840.114 [id number] Univers 00:00:00 00:00:00 Cam [place] 350.1.13.10 i ty [place].2.[place] [phone] [address] 2019-06-13 2019-06-13 Office Aleksandra Berryen [facility] 1.2.404.518 [id number] Univers 14:37:03 15:27:41 Visit Cam [place] 350.1.13.10 i ty [place].2.[place] [phone] [address] 2019-06-13 2019-06-13 Orders Doctor CARMELLA 1.2.840.114 [id number] Univers 00:00:00 00:00:00 Only Unassigned, MAK 350.1.13.10 ity of [place] [facility] 4.2.7.2.686 Navid as [phone] [address] 2019-02-13 2019-02-13 Telephone Berry Guero [facility] 1.2.840.114 [id number] Univers 00:00:00 00:00:00 Cam [place] 350.1.13.10 i ty [place].2.[place] [phone] [address] 2019-01-23 2019-01-23 Telephone Guero Berry [facility] 1.2.840.114 [id number] Univers 00:00:00 00:00:00 Cam [place] 350.1.13.10 i ty [place].2.[place] [phone] [address] 2019-01-11 2019-01-11 Office [facility] 1.2.373.793 [id number] [facility] 10:32:43 11:03:08 Visit Earl [place] 350.1.13.10 i ty of [place]2.7.2.[place] [phone] [address] 2019-01-10 2019-01-10 Telephone Guero Berry [facility] 1.2.840.114 [id number] Univers 00:00:00 00:00:00 Urban [place] 350.1.13.10 i ty [place].7.2.[place] [phone] [address] 2019-01-09 2019-01-09 [facility] 1.2.840.114 [id number] [facility] 17:30:00 23:59:00 Encounter Earl [place] 350.1.13.10 ity of [place].2.[place] [phone] [facility] [address] 2019-01-09 2019-01-09 Orders Doctor CARMELLA 1.2.840.114 [id number] Univers 00:00:00 00:00:00 Only Unassigned, MAK 350.1.13.10 ity of [place] [facility] 4.2.7.2.686 Navid as [phone] [address] 2019-01-04 2019-01-04 Office [facility] 1.2.934.562 [id number] Univers 12:48:24 13:22:18 Visit Earl [place] 350.1.13.10 i ty of [place]2.7.2.[place] [phone] [address] 2019-01-04 2019-01-04 Orders Doctor CARMELLA 1.2.840.114 [id number] Univers 00:00:00 00:00:00 Only Unassigned, MAK 350.1.13.10 ity of [place] [facility] 4.2.7.2.686 Navid as [phone] [address] 2018-12-28 2018-12-28 Telephone Guero Berry [facility] 1.2.840.114 [id number] Univers 00:00:00 00:00:00 Urban [place] 350.1.13.10 i ty of [place] 4.2.7.2.686 Taya Langford [phone] Me dical nal [address] Results Test Description Test Time Test Comments Results Result Comments Source POCT TEST 2022-04-20 17:05:00 Test Item Value Reference Range Interpretation Comme nts POCT PREG (test code = 1605) Negative On board controls acceptable with C Line (test code = 3574) Yes POCT PREG LOT # (test code = 3575) PO[facility] (test code = 3576[id number] 17:05:00 Test Item Value Reference Range Interpretation Comments POCT PREG (test code = 1605) Negative On board controls acceptable with C Yes Line (test code = 3574) POCT PREG LOT # (test code = 3575) [facility] (test code = 3576[facility] [id number] 19:13:00 Test Item Value Reference Range Interpretation [...] code = 3257) Trace Negative - Negative [facility] [id number] 19:13:00 Test Item Value Reference Range Interpretation Comments POCT PREG (test code = 1605) Negative On board controls acceptable with C Yes Line (test code = 3574) POCT PREG LOT # (test code = 3575) POCT PREG TEST DATE (test code = 3576) [facility] [id number] 19:13:00 Test Item Value Reference Range Interpretation [...] code = 3257) Trace Negative - Negative [facility] [id number] 19:13:00 Test Item Value Reference Range Interpretation Comments POCT PREG (test code = 1605) Negative On board controls acceptable with C Yes Line (test code = 3574) POCT PREG LOT # (test code = 3575) POCT PREG TEST DATE (test code = 3576) [facility] [id number] 16:38:00 Test Item Value Reference Range Interpretation Comments POCT PREG (test code = 1605) Negative On board controls acceptable with C Yes Line (test code = 3574) POCT PREG LOT # (test code = 3575) POCT PREG TEST DATE (test code = 3576) [facility] [id number] 00:00:00 Test Item Value Reference Range Interpretation Comments Sedimentation Rate-Westergren (test 3 0-32 code = 4537-7) C-Reactive Protein, Quant (CRP)2020-07-29 00:00:00 Test Item Value Reference Range Interpretation Comments C-Reactive Protein, Quant (test code = 2 0-10 1987-) Comp. Metabolic Panel (14) (CMP)2020-07-29 00:00:00 Test Item Value Reference Range Interpretation Comments Glucose (test code = 2345-7) 88 65-99 BUN (test code = 3094-0) 14 6-20 Creatinine (test code = 2160-0) 0.80 0.57-1.00 eGFR If NonAfricn Am (test code = 102 >59 20647-8) eGFR If Africn Am (test code = 74979-4) 118 >59 BUN/Creatinine Ratio (test code = 18 02-19 3097-3) Sodium (test code = 2951-2) 140 134-144 Potassium (test code = 2823-3) 4.0 3.5-5.2 Chloride (test code = 2075-0) 103 96-106 Carbon Dioxide, Total (test code = -2027-9) Calcium (test code = 73739-6) 9.6 8.7-10.2 Protein, Total (test code = 2885-2) 6.9 6.0-8.5 Albumin (test code = 1751-7) 4.4 3.9-5.0 Globulin, Total (test code = 08719-4) 2.5 1.5-4.5 A/G Ratio (test code = 1759-0) 1.8 1.2-2.2 Bilirubin, Total (test code = 1974-2) 0.2 0.0-1.2 Alkaline Phosphatase (test code = 76 39-117 6768-6) AST (SGOT) (test code = 1920-8) 22 0-40 ALT (SGPT) (test code = 1742-6) 19 0-32 CBC With Differential/[id number] 00:00:00 Test Item Value Reference Range Interpretation [...] Granulocytes (test code = 0 Not Estab. 62267-6) Immature Grans (Abs) (test code = 0.0 0.0-0.1 31301-1) NRBC (test code = 88871-2) Hematology Comments: (test code = 96088-6) Electrocardiogram (EKG)Electrocardiogram (EKG)Chest Pa And Lat (2 Views)Chest Pa And Lat (2 Views)
[2022-06-27 23:15] LABS: Absolute Lymphocytes (CBC) 2.4 K/uL (0.7-4.9); Hematocrit 34.8 % (36.0-45.0); Lymphocytes % 43.1 % (15.3-44.8); MCV 90.3 fL (80-100); MPV 7.1 fL (7.6-11.3); RBC Red Blood Cell Count 3.85 M/uL (3.86-4.86)
[2022-06-28] MEDS ORDERED: METOCLOPRAMIDE 10 MG/2mL INJ ONE (00:28)
[2022-06-28] MEDS ORDERED: dexAMETHasone 10 MG/ML VIAL ONE (00:28)
[2022-06-28] MEDS ORDERED: DIPHENHYDRAMINE 50 MG/ML VIAL ONE (00:28)
--- NOTE | 2022-06-28 00:44 | ER ---
Nurse's Notes [facility] William Name: Karen Freeman Age: 27 yrs Sex: Female : 1995 Arrival Date: 06/27/2022 Time: 22:31 Bed 8 Private MD: Diagnosis: Headache;Dizziness;neck pain Presentation: 06/27 22:44 Chief complaint: Patient states: C/o H/A, dizziness, and nausea, states "I have had ll3 this migraine for a month now and nothing helps". Coronavirus screen: Vaccine status: Patient reports receiving the 2nd dose of the covid vaccine. nausea. Ebola Screen: No symptoms or risks identified at this time. Initial Sepsis Screen: Does the patient meet any 2 criteria? No. Patient's initial sepsis screen is negative. Does the patient have a suspected source of infection? No. Patient's initial sepsis screen is negative. Risk Assessment: Do you want to hurt yourself or someone else? Patient reports no desire to harm self or others. Onset of symptoms. 22:44 Method Of Arrival: Ambulatory ll3 22:44 Acuity: PEACE 3 ll3 LINE PERSON: 22:49 LMP 06/27/2022 ll3 Historical: - Allergies: 22:48 No Known Allergies; ll3 - Home Meds: 22:49 fluoxetine 10 mg Oral tab 1 tab once daily [Active]; ll3 - PMHx: 22:48 Asthma; bicorniate utereus; ll3 - PSHx: 22:48 Breast sx; section; ll3 - Immunization history:: Client reports receiving the 2nd dose of the Covid vaccine. - Social history:: Smoking status: Patient denies any tobacco usage or history of. Screenin:47 [facility] ED Fall Risk Assessment (Adult) History of falling in the last 3 months, jb4 including since admission No falls in past 3 months (0 pts) Confusion or Disorientation No (0 pts) Intoxicated or Sedated No (0 pts) Impaired Gait No (0 pts) Mobility Assist Device Used No (0 pt) Altered Elimination No (0 pt) Score/Fall Risk Level 0 - 2 = Low Risk Oriented to surroundings, Maintained a safe environment. Abuse screen: Denies threats or abuse. Nutritional screening: No deficits noted. Tuberculosis screening: No symptoms or risk factors identified. Assessment: 22:47 General: Appears in no apparent distress. uncomfortable, Behavior is calm, cooperative, jb4 appropriate for age. Pain: Complains of pain in forehead, right catholic and left catholic Pain does not radiate. Pain currently is 8 out of 10 on a pain scale. Quality of pain is described as pressure, Pain began over a month ago. Neuro: Level of Consciousness is awake, alert, obeys commands, Oriented to person, place, time, situation. Cardiovascular: Patient's skin is warm and dry. Respiratory: Airway is patent Respiratory effort is even, unlabored, Respiratory pattern is regular, symmetrical. GI: No signs and/or symptoms were reported involving the gastrointestinal system. : No signs and/or symptoms were reported regarding the genitourinary system. EENT: No signs and/or symptoms were reported regarding the EENT system. Derm: Skin is intact, Skin is pink, warm \\T\\ dry. Musculoskeletal: Circulation, motion, and sensation intact. Range of motion: intact in all extremities. 23:52 Reassessment: Patient appears in no apparent distress at this time. Patient and/or jb4 family updated on plan of care and expected duration. Pain level reassessed. Patient is alert, oriented x 3, equal unlabored respirations, skin warm/dry/pink. 06/28 00:58 Reassessment: Patient appears in no apparent distress at this time. Patient and/or jb4 family updated on plan of care and expected duration. Pain level reassessed. Patient is alert, oriented x 3, equal unlabored respirations, skin warm/dry/pink. Patient states feeling better. Vital Signs: 06/27 22:44 BP 135 / 65; Pulse 77; Resp 16; Temp 98.4(O); Pulse Ox 99% on R/A; Weight 87.54 kg (R); ll3 Height 5 ft. 9 in. (175.26 cm) (R); 06/28 00:30 BP 117 / 60; Pulse 58; Resp 16; Pulse Ox 98% on R/A; jb4 06/27 22:44 Body Mass Index 28.50 (87.54 kg, 175.26 cm) ll3 ED Course: 06/27 22:31 Patient arrived in ED. ja2 22:33 Marcial Wallace DO is Attending Physician. ms3 22:47 Slick Mooney, RN is Primary Nurse. jb4 22:47 Primary Nurse role handed off by Slick Mooney, RN tw5 22:47 Hien Lacey is Primary Nurse. tw5 22:47 Patient has correct armband on for positive identification. Bed in low position. Call jb4 light in reach. Side rails up X 1. Client placed on continuous cardiac and pulse oximetry monitoring. NIBP monitoring applied. 22:48 Triage completed. ll3 22:49 Arm band placed on Patient placed in an exam room, on a stretcher, on pulse oximetry. ll3 22:59 BMP Sent. tw5 22:59 CBC with Diff Sent. tw5 22:59 Initial lab(s) drawn, Repeat lab(s) drawn. sent to lab. Inserted saline lock: 22 gauge tw5 in right hand, using aseptic technique. Blood collected. 23:45 Inserted saline lock: 22 gauge in right antecubital area, using aseptic technique. tw5 23:59 CT Head Angio In Process Unspecified. EDMS 23:59 CT Neck Angio In Process Unspecified. EDMS 23:59 CT Head Brain wo Cont In Process Unspecified. EDMS 06/28 00:43 Jalil Marquez MD is Referral Physician. ms3 00:59 No provider procedures requiring assistance completed. IV discontinued, intact, jb4 bleeding controlled, No redness/swelling at site. Pressure dressing applied. Administered Medications: 00:32 Drug: Reglan (metoCLOPramide) 10 mg Route: IVP; Site: right antecubital; jb4 00:32 Drug: Benadryl (diphenhydrAMINE) 25 mg Route: IVP; Site: right antecubital; jb4 00:32 Drug: Decadron - Dexamethasone 10 mg Route: IVP; Site: right antecubital; jb4 Medication: 06/27 22:47 VIS not applicable for this client. jb4 Outcome: 06/28 00:43 Discharge ordered by . ms3 00:59 Discharged to home ambulatory. jb4 00:59 Condition: stable 00:59 Discharge instructions given to patient, Instructed on discharge instructions, follow up and referral plans. Demonstrated understanding of instructions, follow-up care. 01:00 Patient left the ED. jb4 Signatures: Dispatcher [employer] EDMT Slick Mooney, RN RN jb4 Marcial Wallace DO DO ms3 Shweta Rasmussen ja2 Hien Lacey tw5 Juve Faulkner, RN RN ll3
--- NOTE | 2022-06-28 00:44 | EDPHYS ---
Physician Documentation [facility] Yehuda Name: aKren Freeman Age: 27 yrs Sex: Female : 1995 Arrival Date: 06/27/2022 Time: 22:31 Bed 8 Private MD: ED Physician Marcial Wallace HPI: 06/27 22:43 This 27 yrs old Female presents to ER via Unassigned with complaints of Headache > ms3 24hrs Old, Neck Pain, >24Hrs Old, Dizziness. 22:43 27-year-old female with no past medical history presents for headache that has been ms3 ongoing for 1 month. Patient states she was seen in the emergency department and then followed up with her primary care physician. Patient states her symptoms continue despite being given Fioricet and sumatriptan. Patient states CAT scan that was performed in the emergency department was negative. Patient states her current discomfort is an 8/10 located generalized throughout her head. Patient endorses nausea. Patient denies vomiting, fevers, chills, shortness of breath.. 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 - Social history:: Smoking status: Patient denies any tobacco usage or history of. ROS: 22:43 Constitutional: Negative for fever, and chills. Neck: Negative for injury, pain, and ms3 swelling, Cardiovascular: Negative for chest pain, and palpitations. Respiratory: Negative for shortness of breath, cough, wheezing, and pleuritic chest pain, Abdomen/GI: Negative for abdominal pain, nausea, vomiting, diarrhea, and constipation, Skin: Negative for injury, rash, and discoloration. 22:43 Neuro: Positive for dizziness, headache. 22:43 All other systems are negative. Exam: 22:43 Constitutional: This is a well developed, well nourished patient who is awake, alert, ms3 and in no acute distress. Head/Face: Normocephalic, atraumatic. Neck: Trachea midline, no cervical lymphadenopathy. Supple, full range of motion without nuchal rigidity, or vertebral point tenderness. No Meningismus. Chest/axilla: Normal chest wall appearance and motion. Nontender with no deformity. Cardiovascular: Regular rate and rhythm with a normal S1 and S2. No gallops, murmurs, or rubs. Normal PMI, no JVD. No pulse deficits. Respiratory: Lungs have equal breath sounds bilaterally, clear to auscultation and percussion. No rales, rhonchi or wheezes noted. No increased work of breathing, no retractions or nasal flaring. Abdomen/GI: Soft, non-tender, with normal bowel sounds. No distension or tympany. No guarding or rebound. No evidence of tenderness throughout. Skin: Warm, dry with normal turgor. Normal color with no rashes, no lesions, and no evidence of cellulitis. MS/ Extremity: Pulses equal, no cyanosis. Neurovascular intact. Full, normal range of motion. Neuro: Awake and alert, GCS 15, oriented to person, place, time, and situation. Cranial nerves II-XII grossly intact. Motor strength 5/5 in all extremities. Sensory grossly intact. Cerebellar exam normal. Normal gait. Vital Signs: 22:44 BP 135 / 65; Pulse 77; Resp 16; Temp 98.4(O); Pulse Ox 99% on R/A; Weight 87.54 kg (R); ll3 Height 5 ft. 9 in. (175.26 cm) (R); 06/28 00:30 BP 117 / 60; Pulse 58; Resp 16; Pulse Ox 98% on R/A; jb4 06/27 22:44 Body Mass Index 28.50 (87.54 kg, 175.26 cm) ll3 MDM: 06/27 22:41 Patient medically screened. ms3 22:43 Differential diagnosis: tension headache, Vertebral artery dissection vs migraine. ms3 06/28 00:43 Data reviewed: vital signs, nurses notes, lab test result(s), CBC, electrolytes, ms3 radiologic studies, CT scan. I considered the following discharge prescriptions or medication management in the emergency department Medications were administered in the Emergency Department. See MAR. Independent interpretation of the following test(s) in the Emergency Department EKG: See my EKG interpretation above CT Scan: My interpretation is CT Head without contrast images reviewed by me: Negative for ICH. Counseling: I had a detailed discussion with the patient and/or guardian regarding: the historical points, exam findings, and any diagnostic results supporting the discharge/admit diagnosis, lab results, radiology results, the need for outpatient follow up, to return to the emergency department if symptoms worsen or persist or if there are any questions or concerns that arise at home. Special discussion: I discussed with the patient/guardian in detail that at this point there is no indication for admission to the hospital. It is understood, however, that if the symptoms persist or worsen the patient needs to return immediately for re-evaluation. ED course: Discussed labs, CT head, CTA head and neck with patient. Patient to follow-up with Dr. Marquez in 2 to 3 days. Patient understands and agrees with plan. All questions were answered. Return precautions discussed include weakness, numbness, difficulty speaking, altered mental status, or any other concerns. On reevaluation patient is alert and oriented x4, in no apparent distress, nontoxic, ambulatory Emergency Department, speaking full sentences.. 06/27 22:43 Order name: CBC with Diff; Complete Time: 23:30 ms3 06/27 22:43 Order name: BMP; Complete Time: 23:30 ms3 06/27 22:43 Order name: CT Head Angio ms3 06/27 22:43 Order name: CT Neck Angio ms3 06/27 23:02 Order name: CT Head Brain wo Cont ms3 Administered Medications: 00:32 Drug: Reglan (metoCLOPramide) 10 mg Route: IVP; Site: right antecubital; jb4 00:32 Drug: Benadryl (diphenhydrAMINE) 25 mg Route: IVP; Site: right antecubital; jb4 00:32 Drug: Decadron - Dexamethasone 10 mg Route: IVP; Site: right antecubital; jb4 Disposition Summary: 06/28/22 00:43 Discharge Ordered Location: Home ms3 Condition: Stable ms3 Diagnosis - Headache ms3 - Dizziness ms3 - neck pain ms3 Followup: ms3 - With: Jalil Marquez MD - When: 2 - 3 days - Reason: Recheck today's complaints Discharge Instructions: - Discharge Summary Sheet ms3 - General Headache Without Cause ms3 Forms: - Medication Reconciliation Form ms3 - Thank You Letter ms3 - Antibiotic Education ms3 - Prescription Opioid Use ms3 Signatures: Dispatcher [employer] EDSlick Cartagena, RN RN jb4 Marcial Wallace DO DO ms3 Juve Faulkner, RN RN ll3
[2022-06-28 01:10] VITALS: TEMP 98.4
[2022-06-28 01:11] VITALS: BP 117/60; O2SAT 98
--- NOTE | 2022-06-28 10:49 | RAD REPORT ---
EXAM DESCRIPTION: CTA Neck with Contrast CLINICAL HISTORY: Headache, dizziness, neck pain COMPARISON: None. TECHNIQUE: Neck CTA axial images acquired with IV contrast. Coronal and sagittal CTA MIPs and MPRs c reated. 3D volume rendered images created. Exam performed according to departmental dose-optimization program which includes automated exposure control, adjustment of mA and/or kV according to patient s ize, and/or use of iterative reconstruction technique. FINDINGS: Both vertebral arteries unremarkable. Both carotid arteries unremarkable. No significant carotid artery stenosis (by NASCET criteria). IMPRESSION: Unremarkable CTA Neck with Contrast. Electronically signed by: Rufino Lopez MD 06/28/2022 12:31 AM VASCULAR NURSE Due to temporary technical issues with the PACS/Fluency reporting system, reports are being signed by the in house radiologists without review as a courtesy to insure prompt reporting. The interpreting radiologist is fully responsible for the content of the report.
--- NOTE | 2022-06-28 11:07 | RAD REPORT ---
EXAM DESCRIPTION: CT Head/Brain Without Contrast CLINICAL HISTORY: Headache, dizziness, neck pain COMPARISON: CT Head/Brain Without Contrast 06/09/2022, 06/27/2022 TECHNIQUE: Head CTA axial images acquired with IV contrast. Coronal and sagittal CTA MIPs and MPRs c reated. 3D volume rendered images created. Exam performed according to departmental dose-optimization program which includes automated exposure control, adjustment of mA and/or kV according to patient s ize, and/or use of iterative reconstruction technique. FINDINGS: Both intracranial vertebral, basilar, and both posterior cerebral arteries unremarkable. Both intracranial internal carotid, both middle cerebral, anterior communicating, and both anterior c erebral arteries unremarkable. No evidence of large intracranial arterial occlusion, aneurysm, or AVM. IMPRESSION: Unremarkable CTA Head with Contrast. Electronically signed by: Rufino Lopez MD 06/28/2022 12:26 AM COUNSELING SPECIALIST Due to temporary technical issues with the PACS/Fluency reporting system, reports are being signed by the in house radiologists without review as a courtesy to insure prompt reporting. The interpreting radiologist is fully responsible for the content of the report.
--- NOTE | 2022-06-28 11:37 | RAD REPORT ---
EXAM DESCRIPTION: CT Head Without Intravenous Contrast CLINICAL HISTORY: The patient is 27 years old and is Female; headache, dizziness TECHNIQUE: Axial computed tomography images of the head/brain without intravenous contrast. Sagitt al and coronal reformatted images were created and reviewed. This CT exam was performed using one o r more of the following dose reduction techniques: automated exposure control, adjustment of the mA and/or kV according to patient size, and/or use of iterative reconstruction technique. COMPARISON: June 09, 2022. FINDINGS: Brain: Unremarkable. No hemorrhage. No significant white matter disease. No edema. Ventricles: Unremarkable. No ventriculomegaly. Bones/joints: Unremarkable. No acute fracture. Soft tissues: Unremarkable. Sinuses: Unremarkable as visualized. Mastoid air cells: Unremarkable as visualized. No mastoid effusion. IMPRESSION: No acute intracranial abnormality. Electronically signed by: Timothy Sage MD 06/28/2022 12:22 AM MATERIAL CHECKER Due to temporary technical issues with the PACS/Fluency reporting system, reports are being signed by the in house radiologists without review as a courtesy to insure prompt reporting. The interpreting radiologist is fully responsible for the content of the report.
== END 2022-06-28 01:00 | disposition home or self-care (01) ==
LOC: ER 22:28
DX: R51.9 Headache, unspecified (principal); M54.2 Cervicalgia; R42 Dizziness and giddiness
CPT/HCPCS: 85025; 80048; 36415; 70450; 70496; 70498; Q9967; J2765; J1200; J1100; 96374; 96375; 99284

== ENCOUNTER 2024-04-07 14:07 | Emergency (ER) | payer OTHER ==
[2024-04-07] MEDS ORDERED: DIAZEPAM 5 MG TABLET ONE (15:21)
[2024-04-07] MEDS ORDERED: dexAMETHasone 10 MG/ML VIAL ONE (15:21)
[2024-04-07] MEDS ORDERED: HYDROCODONE/APAP 5/325 MG TAB ONE (15:21)
--- NOTE | 2024-04-07 15:43 | EDPHYS ---
Physician Documentation [facility] William Name: Karen Freeman Age: 28 yrs Sex: Female : 1995 Arrival Date: 04/07/2024 Time: 14:07 Bed 12 Private MD: ED Physician Lee Lawrence HPI: 04/07 15:39 This 28 yrs old Female presents to ER via Wheelchair with complaints of Back Pain. kb 15:39 Pt is a 28 year old female who presents for pain across low back that started this kb morning and has gotten worse. States she was lifting at the gym heavier than normal and did hip thrusts with 180lbs. Reports soreness to low back when she woke up that has progressed to pain. Aggravated by movement. Alleviated by certain positions. denies numbness, tingling, bowel/bladder issues. . Historical: - Allergies: 14:52 No Known Allergies; tl4 - Home Meds: 14:52 amitriptyline 10 mg Oral tablet 2 tabs daily [Active]; tl4 - PMHx: 14:52 Asthma; bicorniate utereus; tl4 14:53 Irritable larynx syndrome; tl4 - PSHx: 14:52 Breast sx; section; tl4 - Immunization history:: Adult Immunizations unknown. - Infectious Disease History:: Denies. - Social history:: Smoking status: Patient denies any tobacco usage or history of. ROS: 15:39 Constitutional: As per HPI kb Exam: 15:39 Constitutional: This is a well developed, well nourished patient who is awake, alert, kb and in no acute distress. Head/Face: Normocephalic, atraumatic. ENT: Moist Mucous membranes Cardiovascular: Regular rate Respiratory: Respirations even and unlabored. No increased work of breathing. Talking in full sentences Abdomen/GI: Soft, non-tender. No distention Back: No spinal tenderness. No costovertebral tenderness. Full range of motion. Skin: Warm, dry with normal turgor. Normal color. MS/ Extremity: Pulses equal, no cyanosis. Neurovascular intact. Full, normal range of motion. Neuro: Awake and alert, GCS 15, oriented to person, place, time, and situation. Vital Signs: 14:50 BP 112 / 85; Pulse 75; Resp 18; Temp 98.3(O); Pulse Ox 100% ; Weight 81.65 kg; Height 5 tl4 ft. 9 in. ; Pain 9/10; 14:50 Body Mass Index 26.58 (81.65 kg, 175.26 cm) tl4 14:50 Pain Scale: Adult tl4 MDM: 14:13 Medical Screening Exam initiated kb 15:41 Differential diagnosis: herniated disc, strain, sprain, pinched nerve. Data reviewed: kb vital signs, nurses notes. Test considered but Not performed: CT: ct lumbar spine considered but pt has no tenderness upon palpation. . Counseling: I had a detailed discussion with the patient and/or guardian regarding the historical points, exam findings, and any diagnostic results supporting the discharge/admit diagnosis, the need for outpatient follow up, a family practitioner, to return to the emergency department if symptoms worsen or persist or if there are any questions or concerns that arise at home. Administered Medications: 15:26 Drug: Diazepam PO 5 mg PO once Route: PO; hb 16:00 Follow up: Response: No adverse reaction hb 15:26 Drug: HYDROcodone-acetaminophen PO 5 mg-325 mg 1 tabs PO once Route: PO; hb 16:00 Follow up: Response: No adverse reaction hb 15:26 Drug: Dexamethasone IM 10 mg IM once Route: IM; Site: right deltoid; hb 16:00 Follow up: Response: No adverse reaction hb Disposition: 17:23 Co-signature as Attending Physician, Lee Lawrence MD I reviewed the patient's care rt provided by the Advanced Practice Provider and agree with the diagnosis and treatment plan. Disposition Summary: 04/07/24 15:42 Discharge Ordered Notes: Location: Home Condition: Stable kb Diagnosis - Low back pain kb Followup: kb - With: Emergency Department - When: As needed - Reason: Worsening of condition Followup: kb - With: Private Physician - When: 2 - 3 days - Reason: Recheck today's complaints, Continuance of care, Re-evaluation by your physician Discharge Instructions: - Discharge Summary Sheet kb - Acute Back Pain, Adult kb - Back Injury Prevention, [id number] kb Forms: - Medication Reconciliation Form kb - Antibiotic Education kb - Prescription Opioid Use kb - Patient Portal Instructions kb - Leadership Thank You Letter kb - Work release form hb Prescriptions: - Diclofenac Sodium 75 mg Oral tablet, delayed release (enteric coated) - take 1 tablet ORAL route 2 times per day As needed; 30 tablet; Refills: 0, kb Product Selection Permitted - orphenadrine citrate 100 mg Oral Tablet Sustained Release - take 1 tablet ORAL route 2 times per day As needed; 20 tablet; Refills: 0, kb Product Selection Permitted Signatures: Cass Muñoz FNP-C FNP-Ckb Baxter, Heather, RN RN Lee Lawrence MD MD rt Neftali Christianson RN RN tl4 Corrections: (The following items were deleted from the chart) 14:53 14:52 PMHx: Irritable larynx syndrome (bicorniate utereus); tl4 tl4
--- NOTE | 2024-04-07 15:43 | ER ---
Nurse's Notes [facility] Name: Karen Freeman Age: 28 yrs Sex: Female : 1995 Arrival Date: 04/07/2024 Time: 14:07 Bed 12 Private MD: Diagnosis: Low back pain Presentation: 04/07 14:50 Chief complaint: Patient states: Pt c/o lower back pain that radiates down both legs tl4 since waking up this morning. Pt states she was "ego lifting" yesterday doing squats. Pt denies urinary sxs. Coronavirus screen: At this time, the client does not indicate any symptoms associated with coronavirus-19. Ebola Screen: No symptoms or risks identified at this time. Initial Sepsis Screen: Does the patient meet any 2 criteria? No. Patient's initial sepsis screen is negative. Does the patient have a suspected source of infection? No. Patient's initial sepsis screen is negative. Risk Assessment: Do you want to hurt yourself or someone else? Patient reports no desire to harm self or others. Onset of symptoms was April 07, 2024 at 08:00. 14:50 Method Of Arrival: Wheelchair tl4 14:50 Acuity: [facility] 4 tl4 Triage Assessment: 14:53 General: Appears uncomfortable, Behavior is calm, cooperative. Pain: Complains of pain tl4 in back. EENT: No signs and/or symptoms were reported regarding the EENT system. Neuro: Level of Consciousness is awake, alert, obeys commands, Oriented to person, place, time, situation. Cardiovascular: Capillary refill < 3 seconds Patient's skin is warm and dry. Respiratory: Airway is patent Respiratory effort is even, unlabored, Respiratory pattern is regular, symmetrical. GI: No signs and/or symptoms were reported involving the gastrointestinal system. : No signs and/or symptoms were reported regarding the genitourinary system. Derm: No signs and/or symptoms reported regarding the dermatologic system. Musculoskeletal: Circulation, motion, and sensation intact. Capillary refill < 3 seconds, Reports pain in back. Historical: - Allergies: 14:52 No Known Allergies; tl4 - Home Meds: 14:52 amitriptyline 10 mg Oral tablet 2 tabs daily [Active]; tl4 - PMHx: 14:52 Asthma; bicorniate utereus; tl4 14:53 Irritable larynx syndrome; tl4 - PSHx: 14:52 Breast sx; section; tl4 - Immunization history:: Adult Immunizations unknown. - Infectious Disease History:: Denies. - Social history:: Smoking status: Patient denies any tobacco usage or history of. Screenin:27 [facility] ED Fall Risk Assessment (Adult) History of falling in the last 3 months, hb including since admission No falls in past 3 months (0 pts) Confusion or Disorientation No (0 pts) Intoxicated or Sedated No (0 pts) Impaired Gait No (0 pts) Mobility Assist Device Used No (0 pt) Altered Elimination No (0 pt) Score/Fall Risk Level 0 - 2 = Low Risk Oriented to surroundings, Maintained a safe environment, Educated pt \\T\\ family on fall prevention, incl call for assistance when getting out of bed. Abuse screen: Denies threats or abuse. Denies injuries from another. Nutritional screening: No deficits noted. Tuberculosis screening: No symptoms or risk factors identified. Assessment: 15:27 General: Appears in no apparent distress. uncomfortable, Behavior is cooperative, hb crying. Pain: Pain currently is 10 out of 10 on a pain scale. Neuro: Level of Consciousness is awake, alert, obeys commands, Oriented to person, place, time, situation. Cardiovascular: Patient's skin is warm and dry. Respiratory: Respiratory effort is even, unlabored, Respiratory pattern is regular, symmetrical. GI: No signs and/or symptoms were reported involving the gastrointestinal system. : No signs and/or symptoms were reported regarding the genitourinary system. EENT: No signs and/or symptoms were reported regarding the EENT system. Derm: Skin is pink, warm \\T\\ dry. Musculoskeletal: Reports severe back pain. Vital Signs: 14:50 BP 112 / 85; Pulse 75; Resp 18; Temp 98.3(O); Pulse Ox 100% ; Weight 81.65 kg; Height 5 tl4 ft. 9 in. ; Pain 9/10; 14:50 Body Mass Index 26.58 (81.65 kg, 175.26 cm) tl4 14:50 Pain Scale: Adult tl4 ED Course: 14:11 Patient arrived in ED. mg5 14:12 Cass Muñoz FNP-C [facility]. kb 14:13 Lee Lawrence MD is Attending Physician. kb 14:52 Triage completed. tl4 14:54 Arm band placed on left wrist. tl4 15:27 Patient has correct armband on for positive identification. Provided Education on: use hb of call light . 15:27 No provider procedures requiring assistance completed. Patient did not have IV access hb during this emergency room visit. Administered Medications: 15:26 Drug: Diazepam PO 5 mg PO once Route: PO; hb 16:00 Follow up: Response: No adverse reaction hb 15:26 Drug: HYDROcodone-acetaminophen PO 5 mg-325 mg 1 tabs PO once Route: PO; hb 16:00 Follow up: Response: No adverse reaction hb 15:26 Drug: Dexamethasone IM 10 mg IM once Route: IM; Site: right deltoid; hb 16:00 Follow up: Response: No adverse reaction hb Medication: 15:27 VIS not applicable for this client. hb Outcome: 15:42 Discharge ordered by MD. kb 16:01 Discharged to home ambulatory, with significant other, hb 16:01 Condition: stable 16:01 Discharge instructions given to patient, significant other, Instructed on discharge instructions, follow up and referral plans. medication usage, Demonstrated understanding of instructions, follow-up care, medications, Prescriptions given X 2, 16:02 Patient left the ED. hb Signatures: Cass Muñoz, ALLEN-C SE[employer] M[employer]ING OPERATOR-Laura Sanchez, RN RN Monique Krueger mg5 Neftali Christianson RN RN tl4 Corrections: (The following items were deleted from the chart) 14:53 14:52 PMHx: Irritable larynx syndrome (bicorniate utereus); tl4 tl4
[2024-04-07 16:08] VITALS: BP 112/85; TEMP 98.3; O2SAT 100
== END 2024-04-07 16:02 | disposition home or self-care (01) ==
LOC: ER 14:07
DX: M54.50 Low back pain, unspecified (principal)
CPT/HCPCS: 96372; 99284; J1100